=== PATIENT | female | born 1980 | race Caucasian/White ===

== ENCOUNTER 2019-09-04 05:36 | Outpatient (RCR) | payer OTHER, SELFPAY | END 2019-09-15 00:01 | LOC: ONCMED 05:36 | PROVIDERS: Family Provider Nurse Practitioner Family; Visit Provider Internal Medicine Medical Oncology | DX: C50.812 Malignant neoplasm of overlapping sites of left female breast (principal); Z17.1 Estrogen receptor negative status [ER-] ==

== ENCOUNTER 2019-09-18 05:51 | Outpatient (RCR) | payer OTHER, SELFPAY ==
[2019-09-18] MEDS: ketorolac 30 mg/mL INJ IVP (10:51)
[2019-09-18] MEDS: sodium chloride 0.9% 1,000 ML 1000 ML IV (11:25)
[2019-09-18 14:21] LABS: Glucose Urine UA Trace (Normal); Protein Urine 2+ (Negative); Specific Gravity, Urine 1.005 (1.005-1.030); Urine Appearance Cloudy (CLEAR); Urine Color Red (Yellow); pH Urine 7 (5-7)
[2019-09-18 14:22] LABS: Bilirubin Urine Neg (NEGATIVE); Blood Urine 3+ (Negative); Ketones Urine Negative (Negative); Leukocyte Esterase Urine Negative (Negative); Nitrate Urine Negative (Negative); Urobilinogen Urine Norm (Negative)
[2019-09-18 14:28] LABS: Add Urine Microscopic? YES
[2019-09-18 14:32] LABS: RBC Urine >100 /hpf (0-2)
[2019-09-18 14:33] LABS: Add Urine Culture? Yes; Bacteria Urine 1+; Mucus Urine TRACE
== END 2019-09-18 23:59 | disposition home or self-care (01) ==
LOC: ONCMED 05:51
PROVIDERS: Nurse Practitioner; Family Provider Nurse Practitioner Family; Visit Provider Internal Medicine Medical Oncology
DX: E86.9 Volume depletion, unspecified (principal); R11.0 Nausea; R52 Pain, unspecified; R31.9 Hematuria, unspecified
CPT/HCPCS: 81003; 87086; 96361; 96365; 96367; 96375; J1885; J2405; J3490; J7030

== ENCOUNTER 2019-09-18 14:27 | Inpatient (IN) | payer OTHER, SELFPAY ==
[2019-09-18] VITALS (7 sets, daily range): BP systolic 136–173; BP diastolic 86–101; PULSE 100–120; RESP 16–20; TEMP 36.7; O2SAT 93–100; BMI 33.3
--- NOTE | 2019-09-18 15:13 | ED_ITS ---
Entered by Hellen Abrams, acting as scribe for Sep 18, 2019 14:27 HPI - Abdominal Pain General: Chief Complaint: Abdominal Pain Stated Complaint: BACK PAIN, URINATING BLOOD Time Seen by Provider: 09/18/19 15:13 Source: patient Mode of arrival: ambulatory Limitations: no limitations History of Present Illness: HPI narrative: 38 yo Female presents to ED with complaint of abdominal pain and blood in her urine. Pt has cancer and received her last chemo treatment a few days ago. Pt states that she has been having left side abdominal pain. Pt states that last night she started urinating lots of blood and having increased pain. Pt states she has also been having right side back pain. Pt states that she has had a lithotripsy done before. Pt states she was also vomiting green bile last night. MD elicited complaint: abdominal pain Pertinent past history: kidney stones Onset (ago): day(s) (last night) Pain Consistency: constant Location: LLQ Severity: severe Radiation: back Exacerbating factors: nothing Relieving factors: nothing Context: other (Recent chemo treatment) Associated Symptoms: Reports hematuria, nausea and vomiting Review of Systems General: Reports: 10 or more systems reviewed and unremarkable except in HPI and below GI: Reports: abdominal pain, nausea and vomiting : Reports: blood in urine Musc: Reports: back pain PFSH ED PFSH: Statuses (acute, chronic, etc) shown below reflect problem list status as previously entered and may not be historically accurate Medical History (Updated 09/18/19 @ 19:57 by Carlitos Krause MD, [facility]) Asthma (Acute) Cancer (Acute) Cholecystectomy planned (Acute) Cholelithiasis (Acute) Ductal carcinoma of left breast (Acute) Eczema (Acute) GERD (gastroesophageal reflux disease) (Acute) Hypertension (Acute) Hypothyroidism (Acute) Migraine (Acute) Normal colonoscopy (Acute) Overactive bladder (Acute) Post hysterectomy menopause (Acute) Tonsillectomy planned (Acute) Urolithiasis (Acute) Surgical History (Updated 09/18/19 @ 19:23 by Merritt Hodgson MD) H/O lithotripsy (Acute) H/O oophorectomy (Acute) History of cholecystectomy (Acute) History of hysterectomy (Acute) Family History (Updated 09/18/19 @ 19:25 by Merritt Hodgson MD) Unknown Lung disease Maternal grandmother had lung cancer, she has 3 sisters no history of breast cancer Crohn's disease Crohn disease in mother Other Hyperlipidemia Hypothyroidism Social History (Updated 09/18/19 @ 19:25 by Merritt Hodgson MD) Smoking and tobacco status: never smoked Alcohol intake: never Substance/Drug Use: never Marital status: Physical Exam Const: COMMON NORMALS: no apparent distress, average body habitus, oriented x3, no limitations, healthy appearing, alert and well nourished HENMT: COMMON NORMALS: normocephalic, head/scalp atraumatic, hearing grossly normal bilaterally, external ears normal, EAC's normal, TM's normal bilaterally, external nose normal, nasal mucous membranes and turbinates normal, moist oral mucous membranes, oropharynx normal, dentition normal and gingiva normal HEAD & SCALP: normocephalic and atraumatic NOSE: external nose normal and nasal m ucous membranes and turbinates normal EXTERNAL EAR: Yes external ears normal EXTERNAL AUDITORY CANAL: EAC's normal TYMPANIC MEMBRANE: TM's normal bilaterally Eye: COMMON NORMALS: PERRL, EOMs intact bilaterally, conjunctivae normal, no scleral icterus, no papilledema, normal visual brandt by confrontation and fundi normal bilaterally CONJUNCTIVA: Yes conjunctivae normal PUPIL: Yes PERRL DIRECT OPHTHALMOSCOPY: Yes no papilledema and Yes fundi normal bilaterally Neck/C-Spine: COMMON NORMALS: full ROM, no lymphadenopathy, supple, no meningeal signs, no JVD, thyroid normal and no carotid bruits THYROID: thyroid normal Chest: COMMONS NORMALS: inspection of chest normal and palpation of chest normal Resp: COMMON NORMALS: normal respiratory effort, no retractions, no use of accessory muscles, clear to auscultation bilaterally and percussion normal AUSCULTATION: clear to auscultation bilaterally PERCUSSION: percussion normal Cardio: COMMON NORMALS: no JVD, regular rate, regular rhythm, S1 normal heart sound, S2 normal heart sound, no gallops, no clicks, no murmurs, no rub and peripheral pulses 2+ throughout RATE: regular rate RHYTHM: regular rhythm HEART SOUNDS: S1 normal and S2 normal PERIPHERAL PULSES: pulses 2+ throughout GI: COMMON NORMALS: normal to inspection, nondistended, normoactive bowel sounds, soft to palpation, non-tender, no hepatosplenomegaly, no masses and no bruits PALPATION: Yes soft and Yes no hepatosplenomegaly : BLADDER/KIDNEY EXAM: Yes CVA tenderness bilateral Back/Pelvis: GENERAL BACK: Yes CVA tenderness Extremity: COMMON NORMALS: normal to inspection, full ROM, normal capillary refill, no joint enlargement, no clubbing, cyanosis or edema, no calf tenderness and no pedal edema Neuro: COMMON NORMALS: oriented x3 SENSORIUM/ORIENTATION: Yes alert MENINGEAL SIGNS: Yes no meningeal signs Skin: COMMON NORMALS: no rashes or lesions noted, no wounds, skin turgor normal, no jaundice, no petechiae and no mottling GENERAL SKIN EXAM: no rashes or lesions noted and turgor normal Course Reevaluation(s): Time: 18:24 Reevaluation #2: Discussed her lab and imaging findings with her. White cell count is elevated, potassium low. UA suggestive of UTI. CT scan shows some inflammatory changes around the right kidney. All these findings are consistent with a pyelonephritis and she is advised to be admitted for IV antibiotics and further management. She voiced understanding and is in agreement with the plan. Vital Signs: Vital signs: Vital Signs Temperature 98.1 F 09/18/19 14:50 Pulse Rate 100 09/18/19 17:44 Respiratory Rate 19 H 09/18/19 17:44 Blood Pressure 173/101 09/18/19 17:44 Pulse Oximetry 100 09/18/19 17:44 MDM - Abdominal Pain MDM Narrative: Medical decision making narrative: Patient with clinical features of an acute pyelonephritis. She has an elevated white cell count, hematuria, UA suggestive of UTI. CT scan findings suggestive of inflammatory changes around the kidney. She is being admitted for IV antibiotics and further management. Patient has a history of breast cancer on chemotherapy. Differential Diagnosis: Differential diagnosis abdominal pain: Likely abdominal pain, acute appendicitis and calculus of kidney Lab Data: Labs: Lab Results 09/18/19 09/18/19 09/18/19 Range/Units 15:19 15:19 15:49 WBC 13.7 H (4.0-10.0) 10^3/ uL RBC 3.09 L (4.1-5.3) 10^6/u L Hgb 10.2 L (11.5-15.3) g/dL Hct 30.5 L (37.0-47.0) % MCV 98.7 (81-99) fL MCH 33.0 (28.0-34.0) pg MCHC 33.4 (30.0-36.0) g/dL RDW 13.9 (12.1-15.1) % Plt Count 265 (130-400) 10^3/c mm MPV 9.7 (7.4-10.4) fL Neut % (Auto) 61.3 % Lymph % (Auto) 9.9 % Pepin % (Auto) 1.2 % Eos % (Auto) 0.1 % Baso % (Auto) 0.3 % Neut # (Auto) 8.4 H (1.8-7.7) 10^3/u L Lymph # (Auto) 1.4 (0.8-4.8) 10^3/u L Pepin # (Auto) 0.2 (0.2-0.9) 10^3/u L Eos # (Auto) 0.0 (0.0-0.8) 10^3/u L Baso # (Auto) 0.0 (0.0-0.1) 10^3/u L Nucleated RBC % (a uto) 0 % Total Counted 100 (0-100) Absolute Neutrophi ls 12.7 H (1.4-6.5) 10^3/c mm Segmented Neutroph ils 83 % Band Neutrophils 10.0 % Absolute Lymphocyt es 0.8 L (1.2-3.4) 10^3/c mm Lymphocytes (Manua l) 6 % Metamyelocytes 1.0 % Nucleated RBCs 1.0 (0-1) /100WBC Nucleated RBCs # 0.0 /100WBC Smudge Cells Trace Platelet Estimate Normal (Normal) Giant Platelets Trace Poikilocytosis 1+ H Anisocytosis Trace Ovalocytes Trace Sodium (136-145) mmol/L Potassium (3.5-5.1) mmol/L Chloride (98-107) mmol/L Carbon Dioxide (22-29) mmol/L Anion Gap (5-19) BUN (6-20) mg/dL Creatinine (0.5-0.9) mg/dL GFR Calculation (90-130) mL/min Glucose (74-109) mg/dL Calcium (8.6-10.0) mg/Dl Total Bilirubin (0.15-1.2) mg/dL AST (0-32) U/L ALT (0-33) U/L Alkaline Phosphata se (35-105) IU/L Total Protein (6.6-8.7) g/dL Albumin (3.5-5.2) g/dL Globulin (1.3-4.6) g/dL Urine Color Cancelled Red Urine Appearance Cancelled Bloody A Urine pH Cancelled 7 Ur Specific Gravit y Cancelled 1.005 Urine Protein Cancelled 3+ H Urine Glucose (UA) Cancelled 1+ Urine Ketones Cancelled Negative Urine Occult Blood Cancelled 3+ H Urine Nitrate Cancelled Negative Urine Bilirubin Cancelled Neg Prot Sulfosalicyli c Acd Cancelled Urine Urobilinogen Cancelled Norm Ur Leukocyte Corie ase Cancelled 1+ H Urine RBC >100 H (0-2) /hpf Urine WBC 10-15 H (0-5) /hpf Ur Squamous Epith Cells 5-10 H (0-5) Urine Bacteria 1+ H (NONE) Urine Mucus Trace 09/18/19 Range/Units 15:49 WBC (4.0-10.0) 10^3/ uL RBC (4.1-5.3) 10^6/u L Hgb (11.5-15.3) g/dL Hct (37.0-47.0) % MCV (81-99) fL MCH (28.0-34.0) pg MCHC (30.0-36.0) g/dL RDW (12.1-15.1) % Plt Count (130-400) 10^3/c mm MPV (7.4-10.4) fL Neut % (Auto) % Lymph % (Auto) % Pepin % (Auto) % Eos % (Auto) % Baso % (Auto) % Neut # (Auto) (1.8-7.7) 10^3/u L Lymph # (Auto) (0.8-4.8) 10^3/u L Pepin # (Auto) (0.2-0.9) 10^3/u L Eos # (Auto) (0.0-0.8) 10^3/u L Baso # (Auto) (0.0-0.1) 10^3/u L Nucleated RBC % (a uto) % Total Counted (0-100) Absolute Neutrophi ls (1.4-6.5) 10^3/c mm Segmented Neutroph ils % Band Neutrophils % Absolute Lymphocyt es (1.2-3.4) 10^3/c mm Lymphocytes (Manua l) % Metamyelocytes % Nucleated RBCs (0-1) /100WBC Nucleated RBCs # /100WBC Smudge Cells Platelet Estimate (Normal) Giant Platelets Poikilocytosis Anisocytosis Ovalocytes Sodium 138 (136-145) mmol/L Potassium 2.9 L (3.5-5.1) mmol/L Chloride 99 (98-107) mmol/L Carbon Dioxide 26 (22-29) mmol/L Anion Gap 15.9 (5-19) BUN 20 (6-20) mg/dL Creatinine 1.1 H (0.5-0.9) mg/dL GFR Calculation 55.0 L (90-130) mL/min Glucose 125 H (74-109) mg/dL Calcium 9.0 (8.6-10.0) mg/Dl Total Bilirubin 0.6 (0.15-1.2) mg/dL AST 36 H (0-32) U/L ALT 39 H (0-33) U/L Alkaline Phosphata se 115 H (35-105) IU/L Total Protein 6.8 (6.6-8.7) g/dL Albumin 4.0 (3.5-5.2) g/dL Globulin 2.8 (1.3-4.6) g/dL Urine Color Urine Appearance Urine pH Ur Specific Gravit y Urine Protein Urine Glucose (UA) Urine Ketones Urine Occult Blood Urine Nitrate Urine Bilirubin Prot Sulfosalicyli c Acd Urine Urobilinogen Ur Leukocyte Corie ase Urine RBC (0-2) /hpf Urine WBC (0-5) /hpf Ur Squamous Epith Cells (0-5) Urine Bacteria (NONE) Urine Mucus Imaging Data ^: CT Abd/Pel: Radiologist's impression: [address] [address] [address] Scan Report Signed Patient: Mya Harrell JMR#: [id number] : 1980Acct:[id number] Age/Sex: 38 / FADM Date: 09/18/19 Loc: ER Attending Dr: Ordering Physician: Carlitos Krause MD, [facility] Date of Service: 09/18/19 Procedure(s): CT kidney stone [id number] Accession Number(s): [id number] Report Number: [id number] WS: [id number] CT ABDOMEN AND PELVIS NONCONTRAST HISTORY: Hematuria, flank pain TECHNIQUE: Imaging performed through the abdomen and pelvis. Coronal and sagittal reformats are submitted. All CT scans at [facility] use at least one of these dose optimization techniques: automated exposure control; mA and/or kV adjustment per patient size (includes targeted exams where dose is matched to clinical indication); or iterative reconstruction. DLP: 1973.72 mGy.cm COMPARISON: 11/30/2008 Lower thorax: Lung bases are clear. No hiatal hernia. Increased pericardial fat. Liver: Mild enlargement the liver and hepatic steatosis. Gallbladder: Prior cholecystectomy. Pancreas: Normal. Spleen: Normal. Adrenal glands: Normal. Right kidney: Normal size kidney. Mild dilatation of the RIGHT renal pelvis. Nonobstructing 2 mm calcifications in the renal pelvis. Very mild perinephric stranding around the lower pole and periureteral stranding proximally. No obstructing calcification is identified. Left kidney: Normal size with no stones, mass or atrophy. A few scattered calcified plaques in aorta. No aneurysm. No free fluid, intraperitoneal air or significant lymphadenopathy. GI tract: The appendix is not definitely identified. No evidence for appendicitis. No GI tract obstruction. Abdominal wall: Small fat-containing umbilical hernia. Pelvis: No free fluid in the pelvis. Urinary bladder is not distended. Osseous structures: Unremarkable. CT/CT kidney stone [id number] IMPRESSION: 1. Mild perinephric stranding around the lower pole of the RIGHT kidney and the proximal RIGHT ureter. No obstructing calcification is identified in the ureter. The mild inflammation may be secondary to pyelonephritis or recently passed stone. 2. The appendix is not visualized. 3. Prior cholecystectomy. Dictated By:Cheli Juarez DO Signed By:Cheli Juarez DOSigned Date/Time:09/18/19 7062 Discharge Plan Discharge Patient Disposition: Admitted As Inpatient Clinical Impression: Pyelonephritis, Ductal carcinoma of left breast, Hypokalemia Condition: Stable Prescriptions: No Action Pending RF: 0 Referrals: White,Noreen, HEAD BAKER [Family Provider] - Coding Level of Care Code ED Sprinkling Truck Driver for Chg Fwd Exam Problem Focused The documentation recorded by the Jose Alberto horowitz Carmen, accurately reflects the service I personally performed and the decisions made by me, Carlitos Krause MD, [facility] Sep 18, 2019 14:27
--- NOTE | 2019-09-18 15:35 | PC.NURSE ---
Port on the right chest accessed at this time with 19 gauge 3/4 noncoring needle. Blood drawn from site at this time, initial blood discarded, site flushed with 20mL of saline following draw. Pt tolerated well.
--- NOTE | 2019-09-18 15:53 | CT_ITS ---
WS: [id number] CT ABDOMEN AND PELVIS NONCONTRAST HISTORY: Hematuria, flank pain TECHNIQUE: Imaging performed through the abdomen and pelvis. Coronal and sagittal reformats are submi tted. All CT scans at [facility] use at least one of these dose optimization techniques: automated exposure control; mA and/or kV adjustment per patient size (includes targeted exams where d ose is matched to clinical indication); or iterative reconstruction. DLP: 1973.72 mGy.cm COMPARISON: 11/30/2008 Lower thorax: Lung bases are clear. No hiatal hernia. Increased pericardial fat. Liver: Mild enlargement the liver and hepatic steatosis. Gallbladder: Prior cholecystectomy. Pancreas: Normal. Spleen: Normal. Adrenal glands: Normal. Right kidney: Normal size kidney. Mild dilatation of the RIGHT renal pelvis. Nonobstructing 2 mm calc ifications in the renal pelvis. Very mild perinephric stranding around the lower pole and periuretera l stranding proximally. No obstructing calcification is identified. Left kidney: Normal size with no stones, mass or atrophy. A few scattered calcified plaques in aorta. No aneurysm. No free fluid, intraperitoneal air or significant lymphadenopathy. GI tract: The appendix is not definitely identified. No evidence for appendicitis. No GI tract obstru ction. Abdominal wall: Small fat-containing umbilical hernia. Pelvis: No free fluid in the pelvis. Urinary bladder is not distended. Osseous structures: Unremarkable. CT/CT kidney stone [id number] IMPRESSION: 1. Mild perinephric stranding around the lower pole of the RIGHT kidney and th e proximal RIGHT ureter. No obstructing calcification is identified in the uret er. The mild inflammation may be secondary to pyelonephritis or recently passed stone. 2. The appendix is not visualized. 3. Prior cholecystectomy.
[2019-09-18 16:07] LABS: Basophils % 0.3 %; Eosinophils % 0.1 %; Hematocrit 30.5 % (37.0-47.0); Hemoglobin 10.2 g/dL (11.5-15.3); Lymphocytes # 1.4 10^3/uL (0.8-4.8); Lymphocytes % 9.9 %; Mean Corpuscular HGB Conc 33.4 g/dL (30.0-36.0); Mean Corpuscular Volume 98.7 fL (81-99); Mean Platelet Volume 9.7 fL (7.4-10.4); Monocytes # 0.2 10^3/uL (0.2-0.9); Monocytes % 1.2 %; Neutrophils # 8.4 10^3/uL (1.8-7.7); Neutrophils % 61.3 %; Nucleated Red Blood Cells % 0 %; Platelet Count 265 10^3/cmm (130-400); Red Blood Count 3.09 10^6/uL (4.1-5.3); Red Cell Distribution Width 13.9 % (12.1-15.1); White Blood Count 13.7 10^3/uL (4.0-10.0)
[2019-09-18 16:20] LABS: Alanine Aminotransferase 39 U/L (0-33); Alkaline Phosphatase 115 IU/L (35-105); Anion Gap 15.9 (5-19); Aspartate Amino Transferase 36 U/L (0-32); Blood Urea Nitrogen 20 mg/dL (6-20); Carbon Dioxide 26 mmol/L (22-29); Chloride 99 mmol/L (98-107); Globulin 2.8 g/dL (1.3-4.6); Glucose 125 mg/dL (74-109); Potassium 2.9 mmol/L (3.5-5.1); Sodium 138 mmol/L (136-145); Total Bilirubin 0.6 mg/dL (0.15-1.2); Total Protein 6.8 g/dL (6.6-8.7)
[2019-09-18 16:31] LABS: Bilirubin Urine Neg (NEGATIVE); Blood Urine 3+ (Negative); Glucose Urine UA 1+ (Normal); Ketones Urine Negative (Negative); Leukocyte Esterase Urine 1+ (Negative); Nitrate Urine Negative (Negative); Protein Urine 3+ (Negative); Specific Gravity, Urine 1.005 (1.005-1.030); Urine Appearance Bloody (CLEAR); Urine Color Red (Yellow); Urobilinogen Urine Norm (Negative); pH Urine 7 (5-7)
[2019-09-18 16:34] LABS: Bacteria Urine 1+; Mucus Urine TRACE; RBC Urine >100 /hpf (0-2)
[2019-09-18 16:35] LABS: Add Urine Culture? Yes
[2019-09-18] MEDS: morphine 4 mg/mL SDV 1 mL IVP (16:40)
[2019-09-18] MEDS: sodium chloride 0.9% 1,000 ML 999 ML IV (16:42)
[2019-09-18] MEDS: ondansetron 2 mg/ML SDV 2 mL 4 MG IVP (16:42)
[2019-09-18 16:44] LABS: Slide Review Slide Review Perform
[2019-09-18 16:45] LABS: Absolute Segmented Neutrophil 11.3 10/cmm (1.6-7.1); Band Neutrophils Absolute 1.4 10^3/cmm (0.0-1.2); Lymphocytes 6 %; Poikilocytosis 1+; Segmented Neutrophils 83 %; Total Cells Counted 100 (0-100)
[2019-09-18 16:46] LABS: Anisocytosis Trace; Giant Platelets Trace; Ovalocytes Trace; Platelet Estimate Normal (Normal); Smudge Cells Trace
[2019-09-18 16:50] LABS: Absolute Neutrophil 12.7 10^3/cmm (1.4-6.5); Lymphocytes Absolute 0.8 10^3/cmm (1.2-3.4)
--- NOTE | 2019-09-18 17:47 | PC.NURSE ---
Pain reduced to a 4/10 at this time. Patient continues to have c/o nausea.
[2019-09-18] MEDS: promethazine 25 mg/mL SDV 1 mL IM (18:49)
[2019-09-18] MEDS: ciprofloxacin 400 MG/200 ML PREMIX 200 MG IV (18:49)
--- NOTE | 2019-09-18 19:20 | P.HP_ITS ---
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 Patient is stating that she has completed 2 cycles of chemotherapy and is due for left breast surgery in [place] in last week of September 2019. She started having excruciating abdominal pain yesterday, it was achy in nature, mostly located at her left flank area radiating towards her groin, associated with mariaelena hematuria. She has not noticed any fever but she has been experiencing chills, recurrent episodes of emesis, bilious in nature, 2 episodes of liquid stools. He has not been able to keep anything down, she has had more than 20 bilious emesis episodes in 24 hours. Previously she had hematuria that was due to nephrolithiasis and she had seen Dr. Huddleston. Diagnostics in ER show hypertension systolic 170, patient is afebrile, leukocytosis, tachycardic, She was given ciprofloxacin by ER I am starting her on Zosyn with lactated Ringer fluid maintenance CT abdomen is showing pyelonephritis without obstructive nephrolithiasis, Review of Systems Narrative: Obese female Mild distress No chest pain, No shortness of breath No cough, sore throat, runny nose, runny eyes Abdominal positive, cramps, positive, groin pain, hematuria positive Diarrhea positive, Malaise positive, No skin rash or ulcers Hair loss positive Dehydration, Lethargy positive Medications/Allergies Home Medications Medication Instructions Recorded Confirmed Last Taken Type Pending 09/18/19 Unknown History Allergies Allergy/AdvReac Type Severity Reaction Status Date / Time amlodipine Allergy ADR/ALGY-Fl Verified 09/18/19 15:01 ushing prochlorperazine Allergy ALGY-Hives Verified 09/18/19 15:01 [From Compazine] Sulfa (Sulfonamide Allergy ALGY-Bliste Verified 09/18/19 15:01 Antibiotics) r PFSH Acute PFSH: Statuses (acute, chronic, etc) shown below reflect problem list status as previously entered and may not be historically accurate Medical History (Updated 09/18/19 @ 19:57 [place] [facility] [place] Asthma (Acute) Cancer (Acute) Cholecystectomy planned (Acute) Cholelithiasis (Acute) Ductal carcinoma of left breast (Acute) Eczema (Acute) GERD (gastroesophageal reflux disease) (Acute) Hypertension (Acute) Hypothyroidism (Acute) Migraine (Acute) Normal colonoscopy (Acute) Overactive bladder (Acute) Post hysterectomy menopause (Acute) Tonsillectomy planned (Acute) Urolithiasis (Acute) Surgical History (Updated 09/18/19 @ 19:23 by Merritt Hodgson MD) H/O lithotripsy (Acute) H/O oophorectomy (Acute) History of cholecystectomy (Acute) History of hysterectomy (Acute) Family History (Updated 09/18/19 @ 19:25 by Merritt Hodgson MD) Unknown Lung disease Maternal grandmother had lung cancer, she has 3 sisters no history of breast cancer Crohn's disease Crohn disease in mother Other Hyperlipidemia Hypothyroidism Social History (Updated 09/18/19 @ 19:25 by Merritt Hodgson MD) Smoking and tobacco status: never smoked Alcohol intake: never Substance/Drug Use: never Marital status: Vitals/I&O/Wt Last Vital Signs Temp 98.1 F 09/18/19 14:50 Pulse 100 09/18/19 17:44 Resp 19 H 09/18/19 17:44 BP 173/101 09/18/19 17:44 Pulse Ox 100 09/18/19 17:44 09/18/19 09/18/19 09/18/19 06:59 14:59 22:59 Intake Total 1000 / 1000 Balance 1000 / 1000 Weight last 48 hrs Weight 87.997 kg Physical Exam Narrative: EXAM NARRATIVE: Patient seems to be in distress laying flat with vomiting bucket containing bilious content, Sinus tachycardia 105, afebrile, systolic blood pressure 180 , S1-S2 sinus tachycardia no murmur appreciated, She has a Mediport on right side Abdomen soft but tender on deep palpation, left CVA tenderness positive, bowel sounds sluggish, hepatomegaly, Lungs are clear to auscultation without adventitious sounds, Neurologically nonfocal exam patient is just very weak otherwise no focal deficit Paresthesia positive, Positive hair loss Loss of eyebrows Patient is extreme lethargic Mariaelena hematuria Sepsis: Is patient septic: Yes Focused sepsis exam performed: Yes Focused sepsis exam: Sinus tachycardia, leukocytosis positive, skin is not mottled, capillary refill adequate less than 2 seconds, Date exam was performed: 09/18/19 Time exam was performed: 20:43 A&P Assessment and plan (1) Hematuria: Status: Acute Code(s): R31.9 - Hematuria, unspecified (2) Pyelonephritis: Status: Acute Code(s): N12 - Tubulo-interstitial nephritis, not specified as acute or chronic (3) Acute kidney injury: Status: Acute Code(s): N17.9 - Acute kidney failure, unspecified (4) Hypokalemia: Status: Acute Code(s): E87.6 - Hypokalemia (5) Hepatic steatosis: Status: Acute Code(s): K76.0 - Fatty (change of) liver, not elsewhere classified (6) Nephrolithiasis: Status: Acute Code(s): N20.0 - Calculus of kidney Additional A&P Information Additional A&P Information: Sepsis due to pyelonephritis Sepsis criteria met with leukocytosis, tachycardia Patient experienced abdominal pain, CVA tenderness, mariaelena hematuria, recurrent episodes of bilious emesis 2 mm nonobstructing calculi, no signs of hydronephrosis, Patient has finished 6 cycles of chemotherapy I will treat her with Zosyn for now for pyelonephritis She has received 1 dose of ciprofloxacin in ED 30 cc/kg fluids Currently hemodynamically she is stable, blood pressure 170 systolic patient is afebrile, I would order lactic acid Antiemetic Acute kidney injury secondary to dehydration, baseline creatinine is 1 Anticipating improvement with fluid resuscitation Mariaelena hematuria My differentials would include hemorrhagic cystitis, nephrolithiasis, co mplicated pyonephritis, papillary necrosis due to opioids Patient tries to avoid taking Tylenol and NSAIDs, she takes dexamethasone only during chemotherapy Monitor H&H for now, if hematuria has not resolved by morning, please reevaluate for urology consult for cystoscopy She has hypertension, proteinuria with hematuria with abnormal creatinine, with cancer history I would keep nephritic syndrome in the differential as well She will benefit from a urology and nephrology consult in outpatient settings Suboptimally controlled hypertension Patient is stating that with chemotherapy her blood pressure spikes very high She has not taken her medications for last 24 hours We will use hydralazine for as needed basis otherwise continue oral regimen for now Hypothyroidism: I would continue her levothyroxine 112 mcg for now Abnormal transaminases I believe this is secondary to her chemotherapy agents and sepsis Patient has history of cholecystectomy, CT abdomen did not show any gross abnormality of the pancreas or biliary tract She is nonalcoholic Grade 3 ductal carcinoma of left breast: Status post 6 cycles of chemotherapy due for surgery in September last week at [facility] GERD: I would continue her omeprazole DVT prophylaxis: Not indicated I would use SCDs because of mariaelena hematuria Attestations Medical Necessity Statement*: Mariaelena hematuria with sepsis and pyonephritis she will need more than 2 midnights in the hospital will admit as inpatient currently she is experiencing multiple episodes of nausea and vomiting, Requiring IV medications Time Spent in Patient Care: Greater than 35 minutes (>than 50% of time sp ent in counselling and/or direct pt care on unit) . 60 Coding Level of Care Code Acute Giving Officer for Chg Fwd Diagnoses Hematuria R31.9 Pyelonephritis N12 Acute kidney injury N17.9 Hypokalemia E87.6 Hepatic steatosis K76.0 Nephrolithiasis N20.0
[2019-09-18 20:26] LABS: Hematocrit 31.6 % (37.0-47.0); Hemoglobin 10.2 g/dL (11.5-15.3)
[2019-09-18] MEDS: potassium chloride premix 40 MEQ/100 ML PREMIX 25 MEQ IV (23:19)
[2019-09-19] VITALS: BP 145/90; PULSE 110; RESP 18; TEMP 37.1; O2SAT 96
[2019-09-19] MEDS: lactated ringers 1,000 ML 50 ML IV ×2 (00:21→19:27)
[2019-09-19 00:22] LABS: Lactic Acid 1.3 mmol/L (0.5-2.2)
[2019-09-19 02:07] LABS: Basophils % 0.2 %; Eosinophils # 0.1 10^3/uL (0.0-0.8); Eosinophils % 0.6 %; Hematocrit 27.6 % (37.0-47.0); Hemoglobin 9.2 g/dL (11.5-15.3); Lymphocytes # 1.3 10^3/uL (0.8-4.8); Lymphocytes % 15.5 %; Mean Corpuscular HGB Conc 33.3 g/dL (30.0-36.0); Mean Corpuscular Hemoglobin 34.6 pg (28.0-34.0); Mean Corpuscular Volume 103.8 fL (81-99); Mean Platelet Volume 9.4 fL (7.4-10.4); Monocytes # 0.2 10^3/uL (0.2-0.9); Monocytes % 1.9 %; Neutrophils # 6.8 10^3/uL (1.8-7.7); Neutrophils % 79.4 %; Nucleated Red Blood Cells % 0 %; Platelet Count 229 10^3/cmm (130-400); Red Blood Count 2.66 10^6/uL (4.1-5.3); Red Cell Distribution Width 14.1 % (12.1-15.1); White Blood Count 8.5 10^3/uL (4.0-10.0)
[2019-09-19 02:25] LABS: Anion Gap 13.7 (5-19); Blood Urea Nitrogen 16 mg/dL (6-20); Calcium 8.8 mg/Dl (8.6-10.0); Carbon Dioxide 27 mmol/L (22-29); Chloride 101 mmol/L (98-107); Glomerular Filtration Rate 61.4 mL/min (90-130); Glucose 122 mg/dL (74-109); Potassium 3.7 mmol/L (3.5-5.1); Sodium 138 mmol/L (136-145)
[2019-09-19] MEDS: piperacillin-tazobactam 3.375 GM in sodium chloride 0.9% (plus) 50 ML IV ×3 (02:37→17:30)
[2019-09-19 02:58] LABS: Slide Review Slide Review Perform
[2019-09-19 04:00] VITALS: BP 142/86; PULSE 99; RESP 18; TEMP 37.2; O2SAT 95
[2019-09-19 07:59] VITALS: BP 136/89; PULSE 117; RESP 18; O2SAT 95
[2019-09-19 07:59] LABS: Hematocrit 27.3 % (37.0-47.0); Hemoglobin 8.9 g/dL (11.5-15.3)
[2019-09-19] MEDS: metoprolol tartrate 50 mg Tablet PO ×2 (09:04→17:30)
[2019-09-19] MEDS: pantoprazole DR 40 mg Tablet 20 MG PO (09:06)
[2019-09-19] MEDS: losartan 50 mg Tablet PO (09:06)
[2019-09-19] MEDS: levothyroxine 112 mcg Tablet PO (09:06)
[2019-09-19] MEDS: HYDROcodone-acetaminophen 5-325 mg Tablet 1 TAB PO ×3 (10:56→19:30)
[2019-09-19 11:26] VITALS: BP 129/84; PULSE 94; RESP 18; TEMP 37.6; O2SAT 94
[2019-09-19 14:24] LABS: Hematocrit 26.5 % (37.0-47.0); Hemoglobin 8.6 g/dL (11.5-15.3)
[2019-09-19 15:40] VITALS: BP 128/85; PULSE 96; RESP 18; TEMP 36.8; O2SAT 98
--- NOTE | 2019-09-19 18:39 | PM.PN ---
Subjective Subjective: Interval history: overnight H&P and labs reviewed. nausea and pain significantly improved. urine continues to be high colored, tea to maroon colored with few strings of blood. able to eat Medications: Reviewed: Yes Vitals/I&O/Wt Last Vital Signs Temp 98.3 F 09/19/19 15:40 Pulse 96 09/19/19 15:40 Resp 18 09/19/19 15:40 BP 128/85 09/19/19 15:40 Pulse Ox 98 09/19/19 15:40 09/19/19 09/19/19 09/19/19 06:59 14:59 22:59 Intake Total 164.167 / 1164.167 290 / 290 Output Total 550 / 550 600 / 1150 Balance 164.167 / 1164.167 -260 / -260 -600 / -860 Weight last 48 hrs Weight 87.997 kg Physical Exam Narrative: EXAM NARRATIVE: GEN: awake, alert and orinted x 3, NAD CVS: S1Ss2N RS : CTA B/L BACK: TTP R CVA and R flank Ext: no edema, cyanosis A&P Assessment and plan (1) Nephrolithiasis: CT with perinephric stranding and mild calyceal dilattaion most likely related to pyelonephritis vs passed stone. NO obstructing calculi Status: Acute Code(s): N20.0 - Calculus of kidney (2) Hepatic steatosis: Status: Acute Code(s): K76.0 - Fatty (change of) liver, not elsewhere classified (3) Hypokalemia: Status: Acute Code(s): E87.6 - Hypokalemia (4) Acute kidney injury: Status: Acute Code(s): N17.9 - Acute kidney failure, unspecified (5) Pyelonephritis: Status: Acute Code(s): N12 - Tubulo-interstitial nephritis, not specified as acute or chronic (6) Hematuria: Status: Acute Code(s): R31.9 - Hematuria, unspecified (7) Ductal carcinoma of left breast: Status: Acute Code(s): C50.912 - Malignant neoplasm of unspecified site of left female breast Additional A&P Information Additional A&P Information: Sepsis due to pyelonephritis Sepsis criteria met with leukocytosis, tachycardia Patient experienced abdominal pain, CVA tenderness, mariaelena hematuria, recurrent episodes of bilious emesis 2 mm nonobstructing calculi, no signs of hydronephrosis, Continue Zosyn for now for pyelonephritis Mariaelena hematuria My differentials would include hemorrhagic cystitis, nephrolithiasis, complicated pyonephritis, papillary necrosis due to opioids IF persisting hematuria, more clots, worsening symptoms, will rpt CT and obtain urology consult. HTN: We will use hydralazine for as needed basis otherwise continue oral regimen for now Hypothyroidism: I would continue her levothyroxine 112 mcg for now Grade 3 ductal carcinoma of left breast: Status post 6 cycles of chemotherapy due for surgery in September last week at [facility]. Last chemo on (today is Saturday), also received neulasta. GERD: I would continue her omeprazole DVT prophylaxis: Not indicated I would use SCDs because of mariaelena hematuria Attestations Medical Necessity Statement*: pyelonephritis, ongoing hemtauria Coding Level of Care Code Acute Chief Juvenile Probation Officer for Chg Fwd Diagnoses Nephrolithiasis N20.0 Hepatic steatosis K76.0 Hypokalemia E87.6 Acute kidney injury N17.9 Pyelonephritis N12 Hematuria R31.9 Ductal carcinoma of left breast C50.912
[2019-09-19 20:00] VITALS: BP 110/64; PULSE 91; RESP 17; TEMP 37; O2SAT 97
[2019-09-19] MEDS: ondansetron 2 mg/ML SDV 2 mL 4 MG IVP (21:45)
[2019-09-20] VITALS: BP 115/70; PULSE 80; RESP 18; TEMP 36.9; O2SAT 98
[2019-09-20] MEDS: piperacillin-tazobactam 3.375 GM in sodium chloride 0.9% (plus) 50 ML IV ×2 (02:44→10:50)
[2019-09-20 04:00] VITALS: BP 118/74; PULSE 83; RESP 17; TEMP 37; O2SAT 94
[2019-09-20] MEDS: ondansetron 2 mg/ML SDV 2 mL 4 MG IVP ×2 (06:05→17:57)
[2019-09-20 06:47] LABS: Basophils # 0.1 10^3/uL (0.0-0.1); Basophils % 1.1 %; Eosinophils % 0.5 %; Hematocrit 28.4 % (37.0-47.0); Hemoglobin 9.3 g/dL (11.5-15.3); Lymphocytes # 1.7 10^3/uL (0.8-4.8); Mean Corpuscular HGB Conc 32.7 g/dL (30.0-36.0); Mean Corpuscular Hemoglobin 34.4 pg (28.0-34.0); Mean Corpuscular Volume 105.2 fL (81-99); Mean Platelet Volume 9.8 fL (7.4-10.4); Monocytes # 0.4 10^3/uL (0.2-0.9); Monocytes % 6.9 %; Neutrophils % 63.5 %; Nucleated Red Blood Cells % 0 %; Platelet Count 249 10^3/cmm (130-400); Red Cell Distribution Width 13.9 % (12.1-15.1); White Blood Count 6.3 10^3/uL (4.0-10.0)
[2019-09-20 07:19] LABS: Slide Review Slide Review Perform
[2019-09-20 07:46] VITALS: BP 130/84; PULSE 117; RESP 22; TEMP 37.1; O2SAT 95
[2019-09-20] MEDS: losartan 50 mg Tablet PO (08:40)
[2019-09-20] MEDS: levothyroxine 112 mcg Tablet PO (08:40)
[2019-09-20] MEDS: pantoprazole DR 40 mg Tablet 20 MG PO (08:40)
[2019-09-20] MEDS: metoprolol tartrate 50 mg Tablet PO ×2 (08:41→17:50)
[2019-09-20 10:55] VITALS: BP 154/95; PULSE 89; RESP 22; TEMP 36.9; O2SAT 100
--- NOTE | 2019-09-20 11:15 | P.PN_ITS ---
Subjective Subjective: Interval history: Continues to have pain in the right flank overnight and also had 2 episodes of emesis 1 last night and then again this evening. Urine continues to be grayish colored in color. She believes she may have passed a stone overnight with some debris noted in the filter that is by the commode. Though she is improved she states she is still in significant intermittent pain. Medications: Reviewed: Yes Vitals/I&O/Wt Last Vital Signs Temp 98.4 F 09/20/19 10:55 Pulse 89 09/20/19 10:55 Resp 22 H 09/20/19 10:55 BP 154/95 09/20/19 10:55 Pulse Ox 100 09/20/19 10:55 09/19/19 09/20/19 09/20/19 22:59 06:59 14:59 Intake Total 890.833 / 1180.833 807.5 / 1988.333 Output Total 600 / 1150 1000 / 2150 Balance 290.833 / 30.833 -192.5 / -161.667 Weight last 48 hrs Weight 87.997 kg Physical Exam Narrative: EXAM NARRATIVE: GEN: awake, alert and orinted x 3, NAD CVS: S1Ss2N no murmurs rubs or gallops RS : Clear to auscultation bilaterally no rales or rhonchi BACK: TTP R CVA and R flank Ext: no edema, cyanosis Data Micro: Micro: Microbiology 09/18/19 15:19 Urine Culture - Fi nal Urine,Clean Catch Other Data: Attestation for Other Data: I personally reviewed and interpreted the following: Other data: CT Scan Report Signed Patient: Mya Harrell JMR#: [id number] : 1980Acct:[id number] Age/Sex: 38 / FADM Date: 09/18/19 Loc: ER Attending Dr: Ordering Physician: Carlitos Krause MD, [facility] [place] Date of Service: 09/18/19 Procedure(s): CT kidney stone 11883 Accession Number(s): [id number] Report Number: [id number] WS: [id number] CT ABDOMEN AND PELVIS NONCONTRAST HISTORY: Hematuria, flank pain TECHNIQUE: Imaging performed through the abdomen and pelvis. Coronal and sagittal reformats are submitted. All CT scans at [facility] use at least one of these dose optimization techniques: automated exposure control; mA and/or kV adjustment per patient size (includes targeted exams where dose is matched to clinical indication); or iterative reconstruction. DLP: 1973.72 mGy.cm COMPARISON: 11/30/2008 Lower thorax: Lung bases are clear. No hiatal hernia. Increased pericardial fat. Liver: Mild enlargement the liver and hepatic steatosis. Gallbladder: Prior cholecystectomy. Pancreas: Normal. Spleen: Normal. Adrenal glands: Normal. Right kidney: Normal size kidney. Mild dilatation of the RIGHT renal pelvis. Nonobstructing 2 mm calcifications in the renal pelvis. Very mild perinephric stranding around the lower pole and periureteral stranding proximally. No obstructing calcification is identified. Left kidney: Normal size with no stones, mass or atrophy. A few scattered calcified plaques in aorta. No aneurysm. No free fluid, intraperitoneal air or significant lymphadenopathy. GI tract: The appendix is not definitely identified. No evidence for appendicitis. No GI tract obstruction. Abdominal wall: Small fat-containing umbilical hernia. Pelvis: No free fluid in the pelvis. Urinary bladder is not distended. Osseous structures: Unremarkable. CT/CT kidney stone [id number] IMPRESSION: 1. Mild perinephric stranding around the lower pole of the RIGHT kidney and the proximal RIGHT ureter. No obstructing calcification is identified in the ureter. The mild inflammation may be secondary to pyelonephritis or recently passed stone. 2. The appendix is not visualized. 3. Prior cholecystectomy. A&P Assessment and plan (1) Nephrolithiasis: CT with perinephric stranding and mild calyceal dilattaion most likely related to pyelonephritis vs passed stone. NO obstructing calculi noted on admission CT. Given that patient continues to have significant intermittent pain and ongoing hematuria likely that the stone may still be present. We will obtain a repeat CAT scan today to rule out any occlusive calculi. Status: Acute Code(s): N20.0 - Calculus of kidney (2) Hepatic steatosis: Status: Acute Code(s): K76.0 - Fatty (change of) liver, not elsewhere classified (3) Hypokalemia: Status: Acute Code(s): E87.6 - Hypokalemia (4) Acute kidney injury: Status: Acute Code(s): N17.9 - Acute kidney failure, unspecified (5) Pyelonephritis: Status: Acute Code(s): N12 - Tubulo-interstitial nephritis, not specified as acute or chronic (6) Hematuria: Status: Inactive Code(s): R31.9 - Hematuria, unspecified (7) Ductal carcinoma of left breast: Status: Acute Code(s): C50.912 - Malignant neoplasm of unspecified site of left female breast Additional A&P Information Additional A&P Information: Sepsis due to pyelonephritis Sepsis criteria met with leukocytosis, tachycardia Patient experienced abdominal pain, CVA tenderness, mariaelena hematuria, recurrent episodes of bilious emesis 2 mm nonobstructing calculi, no signs of hydronephrosis, Urine culture with polymicrobial growth likely to be skin contaminants. We will switch empiric antibiotic coverage from Zosyn to ceftriaxone given that patient is not currently neutropenic. Mariaelena hematuria differentials would include nephrolithiasis, complicated pyonephritis. Literature search does not appear to indicate that her chemo regimen of TCH P to be particularly associated with hemorrhagic cystitis. However it could be associated with UTIs. CT of the abdomen today given the patient still has ongoing pain radiating from the flank into the groin, ongoing hematuria and some episodes of emesis to rule out any obstructing calculi now. HTN: We will use hydralazine for as needed basis otherwise continue oral regimen for now Hypothyroidism: continue her levothyroxine 112 mcg for now Grade 3 ductal carcinoma of left breast: Status post 6 cycles of TCH P last dose on Saturday (today is Saturday), also received neulasta. DVT prophylaxis: SCDs, no anticoagulation given ongoing hematuria. Attestations Medical Necessity Statement*: Remains admitted for the management of ongoing hematuria, pyelonephritis. Coding Level of Care Code Acute Evaporator Operator for g Fwd Diagnoses Nephrolithiasis N20.0 Hepatic steatosis K76.0 Hypokalemia E87.6 Acute kidney injury N17.9 Pyelonephritis N12 Hematuria R31.9 Ductal carcinoma of left breast C50.912
--- NOTE | 2019-09-20 11:15 | CTR_ITS ---
PROCEDURE INFORMATION: Exam: CT Abdomen And Pelvis Without Contrast Exam date and time: 09/20/2019 1:12 PM Age: 38 years old Clinical indication: Other: Back pain and miguel flank pain; Prior surgery; Surgery date: 6+ months; Surgery type: Gb, port, pelvic; Additional info: R/O obstructing stone, worsening pain TECHNIQUE: Imaging protocol: Computed tomography of the abdomen and pelvis without contrast. Total DLP: 1857.43 mGy-cm Radiation optimization: All CT scans at this facility use at least one of these dose optimization techniques: automated exposure control; mA and/or kV adjustment per patient size (includes targeted exams where dose is matched to clinical indication); or iterative reconstruction. COMPARISON: CT kidney stone [id number] 09/18/2019 4:07 PM FINDINGS: Liver: Normal. No mass. Gallbladder and bile ducts: Prior cholecystectomy. Pancreas: Normal. No ductal dilation. Spleen: Normal. No splenomegaly. Adrenals: Normal. No mass. Kidneys and ureters: Mild right-sided hydroureteronephrosis. No obstructing ureteral stone evident. Possible tiny 1 mm nonobstructing right renal lower pole stone (series 2, axial image 82). Mild fat stranding beneath right kidney and around the proximal right ureter, unchanged. Normal-appearing left kidney and left ureter. Stomach and bowel: Unremarkable. No obstruction. No mucosal thickening. Appendix: Normal small appendix. Intraperitoneal space: Unremarkable. No free air. No significant fluid collection. Vasculature: Unremarkable. No abdominal aortic aneurysm. Lymph nodes: Unremarkable. No enlarged lymph nodes. Bladder: Unremarkable as visualized. Reproductive: Prior hysterectomy. Bones/joints: Unremarkable. No acute fracture. Soft tissues: Unremarkable. CT/CT kidney stone [id number] IMPRESSION: 1) Mild right-sided hydroureteronephrosis. No obstructing ureteral stone evident. Possible tiny 1 mm nonobstructing right renal lower pole stone (series 2, axial image 82). Mild fat stranding beneath right kidney and around the proximal right ureter, unchanged. Radiation Dose CTDIVOL = (mGy): DLP = 1857.43 (mGy-cm)
[2019-09-20 11:28] LABS: Anion Gap 15.7 (5-19); Blood Urea Nitrogen 13 mg/dL (6-20); Calcium 9.4 mg/Dl (8.6-10.0); Carbon Dioxide 27 mmol/L (22-29); Chloride 105 mmol/L (98-107); Glucose 99 mg/dL (74-109); Potassium 3.7 mmol/L (3.5-5.1); Sodium 144 mmol/L (136-145)
--- NOTE | 2019-09-20 13:06 | P.CONIM_ITS ---
Providers/Reason For Consult Consulting Physican/Specialty*: Urology/[place] Reason for Consult*: Right flank pain gross hematuria with no clear evidence of obstruction Attending Physician: Merritt Hodgson MD History of Present Illness History of Present Illness Mya Harrell is a 38 year old female who I saw in 2005 with symptomatic left mid ureteral stone successfully treated with ESWL. Have not seen since that time. She presented to the hospital approximately 2 days ago with complaints of primarily right flank pain suspicious for renal colic reminding her of her previous stone episode radiating down to the right mid abdomen and associated with severe nausea and vomiting. She also had some left groin pain of unclear etiology not typical for renal colic. Other symptoms include some intermittent dysuria. She was seen in an emergency department and treated for urinary tract infection with a follow-up urine apparently without evidence of persistent infection. She was suspicious that she might of passed a stone a day or so ago. Did not see it or catch it though. 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 She has been treated I think with 6 rounds of chemotherapy and has done pretty well from her perspective. States that her platelet count has been normal. Work-up to date has included a CT scan which showed perirenal and periureteral stranding without clear evidence of obstruction or stone. Bladder looked gross ly normal. Overall her flank pain is improved but not completely resolved. She is passing some small clots. I was consulted for the above complaints. Review of Systems Const: Reports: malaise; Denies: fever or chills Eyes: Denies: change in vision Card: Denies: chest pain Resp: Denies: productive cough or wheezing GI: Reports: abdominal pain : Reports: flank pain, blood in urine and other (Dysuria) Musc: Denies: neck pain Skin/Breast: Denies: rash Neuro: Denies: numbness in extremities or weakness in extremities Psych: Denies: depression or hopelessness Endo: Denies: excessive thirst [place]/Lymph: Reports: easy bruising; Denies: enlarged lymph nodes All/Imm: Denies: hives or throat swelling Meds/Allergies Home Medications and Allergies Home Medications Medication Instructions Recorded Confirmed Type Pending 09/18/19 History acetaminophen 500 mg PO Q4H PRN 09/19/19 09/19/19 History chlorthalidone 25 mg PO DAILY 09/19/19 09/19/19 History dexamethasone 09/19/19 History diphenoxylate-atropine 1 tab PO QID PRN 09/19/19 09/19/19 History levothyroxine 112 mcg PO DAILY 09/19/19 09/19/19 History loperamide 2 mg PO Q4H PRN 09/19/19 09/19/19 History loratadine 10 mg PO DAILY PRN 09/19/19 09/19/19 History lorazepam 1 mg PO QID PRN 09/19/19 09/19/19 History losartan 50 mg PO BID 09/19/19 09/19/19 History metoprolol tartrate 50 mg PO BID 09/19/19 09/19/19 History ondansetron HCl 8 mg PO Q8H PRN 09/19/19 09/19/19 History oxycodone 5 mg PO Q4H PRN 09/19/19 09/19/19 History oxycodone-acetaminophen 1 tab PO QID PRN 09/19/19 09/19/19 History solifenacin 10 mg PO DAILY 09/19/19 09/19/19 History Allergies Allergy/AdvReac Type Severity Reaction Status Date / Time amlodipine Allergy ADR/ALGY-Fl Verified 09/18/19 15:01 ushing prochlorperazine Allergy ALGY-Hives Verified 09/18/19 15:01 [From Compazine] Sulfa (Sulfonamide Allergy ALGY-Bliste Verified 09/18/19 15:01 Antibiotics) r Current Medications Current Medications Generic Name Dose Route Start Last Admin Trade Name Freq PRN Reason Stop Dose Admin Hydrocodone Bitart/Acetaminophen 1 tab 09/18/19 19:39 09/19/19 19:30 Ponder 5-325 Mg PO 1 tab Q4H PRN Administration MODERATE TO SEVERE PAIN Lactated Ringer's 1,000 mls @ 50 mls/hr 09/18/19 19:45 09/20/19 05:48 Lactated Ringers IV 50 mls/hr .Q20H ADAM Infusion Piperacillin Sod/Tazobactam 50 mls @ 12.5 mls/hr 09/19/19 00:00 09/20/19 10:50 Sod 3.375 gm/ Sodium Chloride IV 12.5 mls/hr Q8H ADAM Administration Protocol Levothyroxine Sodium 112 mcg 09/19/19 09:00 09/20/19 08:40 Synthroid PO 112 mcg DAILY ADAM Administration Losartan Potassium 50 mg 09/19/19 09:00 09/20/19 08:40 Cozaar PO 50 mg DAILY ADAM Administration Metoprolol Tartrate 50 mg 09/19/19 09:00 09/20/19 08:41 Lopressor PO 50 mg BID ADAM Administration Ondansetron HCl 4 mg 09/18/19 19:39 09/20/19 06:05 Zofran IVP 4 mg Q8H PRN Administration vomiting, or N/V if npo Pantoprazole Sodium 20 mg 09/19/19 09:00 09/20/19 08:40 Protonix PO 20 mg DAILY ADAM Administration Senna 17.2 mg 09/18/19 21:00 09/19/19 21:42 Senna Lax PO Not Given BEDTIME ADAM PFSH Acute PFSH: Statuses (acute, chronic, etc) shown below reflect problem list status as previously entered and may not be historically accurate Medical History Asthma (Acute) Cancer (Acute) Cholecystectomy planned (Acute) Cholelithiasis (Acute) Ductal carcinoma of left breast (Acute) Eczema (Acute) GERD (gastroesophageal reflux disease) (Acute) Hematuria (Inactive) Hypertension (Acute) Hypothyroidism (Acute) Migraine (Acute) Normal colonoscopy (Acute) Overactive bladder (Acute) Post hysterectomy menopause (Acute) Tonsillectomy planned (Acute) Urolithiasis (Acute) ESWL left mid ureteral stone 2005 with complete resolution Surgical History H/O lithotripsy (Acute) H/O oophorectomy (Acute) History of cholecystectomy (Acute) History of hysterectomy (Acute) Family History Unknown Lung disease Maternal grandmother had lung cancer, she has 3 sisters no history of breast cancer Crohn's disease Crohn disease in mother Other Hyperlipidemia Hypothyroidism Social History Smoking and tobacco status: never smoked Alcohol intake: never Substance/Drug Use: never Marital status: Vitals/I&O/Wt Last Vital Signs Temp 98.4 F 09/20/19 10:55 Pulse 89 09/20/19 10:55 Resp 22 H 09/20/19 10:55 BP 154/95 09/20/19 10:55 Pulse Ox 100 09/20/19 10:55 09/19/19 09/20/19 09/20/19 22:59 06:59 14:59 Intake Total 890.833 / 1180.833 807.5 / 1988.333 Output Total 600 / 1150 1000 / 2150 Balance 290.833 / 30.833 -192.5 / -161.667 Weight last 48 hrs Weight 194 lb Physical Exam Const: COMMON NORMALS: well nourished GENERAL APPEARANCE: cooperative and well developed ORIENTATION/CONSCIOUSNESS: Yes oriented to person, Yes oriented to place and Yes oriented to time HENMT: COMMON NORMALS: normocephalic and head/scalp atraumatic HEAD & SCALP: normocephalic and atraumatic Neck/C-Spine: GENERAL: Yes trachea midline Resp: COMMON NORMALS: normal respiratory effort EFFORT & INSPECTION: No uses accessory muscles GI: PALPATION: No rebound tenderness present : BLADDER/KIDNEY EXAM: Yes CVA tenderness Back/Pelvis: GENERAL BACK: Yes CVA tenderness Neuro: SENSORIUM/ORIENTATION: Yes oriented to person, Yes oriented to place and Yes oriented to time Psych: COMMON NORMALS: mental status grossly normal, thought process normal, cooperative and affect normal APPEARANCE: Yes grossly normal THOUGHT PROCESS: normal thought process THOUGHT CONTENT: Yes normal thought content INSIGHT: insight good Data Micro: Micro: Microbiology 09/18/19 15:19 Urine Culture - Fi nal Urine,Clean Catch Imaging^: CT Abd/Pel: I personally reviewed and interpreted this imaging study as follows: My impression: Right perirenal and periureteral inflammation without evidence of obstruction or hydronephrosis. A&P Assessment and plan (1) Gross hematuria: Etiology unclear at this time but clinically it appears that she either passed a stone or had urinary tract infection which theoretically might be more prone to create gross hematuria in somebody on chemotherapy if impaired platelet function. No clot retention symptoms. Stable on her hemoglobin hematocrit at this point. Status: Acute Code(s): R31.0 - Gross hematuria (2) Acute right flank pain: Similar to prior renal colicky type symptoms but no evidence of obstructive process currently. Status: Acute Code(s): R10.9 - Unspecified abdominal pain Consult Attestations Medical Necessity Statement: Maintain inpatient status for treatment of symptoms at this point. She is not clinically in trouble and I do agree with reimaging to assess the possibility of development of obstructive changes. Time Spent in Patient Care: Greater than 35 minutes (>than 50% of time spent in counselling and/or direct pt care on unit) . Coding Level of Care Code Acute Research Software Engineer for [place] Exam Problem Focused Diagnoses Gross hematuria R31.0 Acute right flank pain R10.9
[2019-09-20] MEDS: HYDROcodone-acetaminophen 5-325 mg Tablet 1 TAB PO (13:39)
[2019-09-20 15:18] VITALS: BP 140/85; PULSE 103; RESP 20; TEMP 37.1; O2SAT 96
[2019-09-20] MEDS: lactated ringers 1,000 ML 50 ML IV (16:13)
[2019-09-20] MEDS: cefTRIAXone 1,000 MG in sodium chloride 0.9% (plus) 50 ML 100 MG IV (17:49)
[2019-09-20 20:54] VITALS: BP 151/97; PULSE 97; RESP 20; TEMP 37; O2SAT 99
[2019-09-21] VITALS (8 sets, daily range): BP systolic 138–167; BP diastolic 85–109; PULSE 96–112; RESP 16–20; TEMP 36.6–36.9; O2SAT 94–100
[2019-09-21] MEDS: hyDRALAzine 20 mg/mL INJ 1 mL 10 MG IVP (01:57)
[2019-09-21] MEDS: ondansetron 2 mg/ML SDV 2 mL 4 MG IVP (03:04)
[2019-09-21] MEDS: ketorolac 30 mg/mL INJ 15 MG IVP ×2 (03:13→12:02)
[2019-09-21 06:29] LABS: Basophils % 0.5 %; Eosinophils % 0.3 %; Hemoglobin 8.4 g/dL (11.5-15.3); Lymphocytes # 1.2 10^3/uL (0.8-4.8); Lymphocytes % 15.4 %; Mean Corpuscular HGB Conc 32.3 g/dL (30.0-36.0); Mean Corpuscular Hemoglobin 33.2 pg (28.0-34.0); Mean Corpuscular Volume 102.8 fL (81-99); Mean Platelet Volume 9.9 fL (7.4-10.4); Monocytes # 0.9 10^3/uL (0.2-0.9); Monocytes % 12.2 %; Neutrophils # 5.3 10^3/uL (1.8-7.7); Neutrophils % 69.9 %; Nucleated Red Blood Cells % 0 %; Platelet Count 218 10^3/cmm (130-400); Red Blood Count 2.53 10^6/uL (4.1-5.3); Red Cell Distribution Width 13.7 % (12.1-15.1); White Blood Count 7.5 10^3/uL (4.0-10.0)
[2019-09-21 07:29] LABS: Slide Review Slide Review Perform
[2019-09-21] MEDS: pantoprazole DR 40 mg Tablet 20 MG PO (09:36)
[2019-09-21] MEDS: losartan 50 mg Tablet PO (09:37)
[2019-09-21] MEDS: metoprolol tartrate 50 mg Tablet PO (09:43)
[2019-09-21] MEDS: levothyroxine 112 mcg Tablet PO (09:43)
--- NOTE | 2019-09-21 15:20 | P.TS_ITS ---
Transfer Summary Providers Date of Admission: 09/18/19 19:35 Date of Discharge: 09/21/19 Attending Provider at Admission: Merritt Hodgson MD Attending Provider at Transfer: Camelia Harkins MD Anticipated Date of Transfer: Anticipated date of transfer: 09/21/19 Receiving Facility & Provider: Receiving Provider: [Dr. 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 Patient presented to the hospital on September 18, 2019 complaining of chills, multiple episodes of bilious vomiting, 2 episodes of loose stools and hematuria. She described the latter as cranberry to grape colored urine with few thin blood clots. She does have a history of nephrolithiasis and believes she may have been passing some stones. On exam she had significant right CVA tenderness therefore there was concern for pyelonephritis. She was started on empiric antibiotic coverage with Zosyn eventually narrowed down to ceftriaxone. Her urine culture revealed a mixed polymicrobial growth thought to be contaminants. She does not have a Borges in place. She is not neutropenic. Symptomatic therapy with Zofran for the nausea. She also received IV hydration. Renal CT on September 18 showed mild perinephric stranding around the lower pole of the right kidney and proximal right ureter. No obstructing calculus was identified in the ureter. It was thought that the mild inflammation is secondary to pyelonephritis or recently passed stone. Rest of the abdomen was unremarkable. Though her nausea improved, she continues to have intermittent severe back pain back pain and CVA tenderness. Hematuria has also not resolved. Repeat CT was performed on [place] 5 which showed mild right-sided hydroureteronephrosis. No obstructing ureteral stone was evident. Possible tiny 1 mm nonobstructing right renal lower pole stone was imaged. Mild fat stranding was seen beneath the right kidney and around the proximal right ureter which was unchanged over the previous exam. Given that the patient has not had any significant improvement in her symptoms and continues to have pain, it is deemed appropriate at that time to obtain further urological evaluation including the need of cystoscopy if any. Unfortunately Dr. Huddleston from urology is away from the [facility] at this time. She is therefore being transferred to [facility] where she gets all of her cancer treatment. She has been accepted to the oncology service and will get further urological evaluation there. Physical Exam Narrative: EXAM NARRATIVE: General awake alert and oriented in no acute distress CVS S1-S2 is normal no murmurs rubs or gallops Respiratory system is clear to auscultation bilaterally Abdomen is soft nondistended and nontender except in the suprapubic area severe right CVA tenderness to palpation radiating all down the right flank Extremities no cyanosis clubbing or edema. TS Data Data Completed and Pending: Completed Studies During Hospitalization Category Date Time Status CT kidney stone [id number] Routine Cat Scan 09/20/19 11:[address] kidney stone 7 [id number] Urgent Cat Scan 09/18/19 15:53 Completed Labs from last 24 hours 09/21/19 05:45 WBC 7.5 RBC 2.53 L Hgb 8.4 L Hct 26.0 L MCV 102.8 H MCH 33.2 MCHC 32.3 RDW 13.7 Plt Count 218 MPV 9.9 Neut % (Auto) 69.9 Lymph % (Auto) 15.4 [place] % (Auto) 12.2 Eos % (Auto) 0.3 Baso % (Auto) 0.5 Neut # (Auto) 5.3 Lymph # (Auto) 1.2 [place] # (Auto) 0.9 Eos # (Auto) 0.0 Baso # (Auto) 0.0 Nucleated RBC % (a uto) 0 Nucleated RBCs # 0.0 Vitals: Last Vital Signs Temp 97.9 F 09/21/19 11:52 Pulse 110 H 09/21/19 11:52 Resp 18 09/21/19 11:52 BP 162/109 09/21/19 11:52 Pulse Ox 100 09/21/19 11:52 TS Medications Medications Home Medications Pending 09/18/19 [History] acetaminophen 500 mg PO Q4H PRN 09/19/19 [History Confirmed 09/19/19] chlorthalidone 25 mg PO DAILY 09/19/19 [History Confirmed 09/19/19] dexamethasone 09/19/19 [History] diphenoxylate-atropine 1 tab PO QID PRN 09/19/19 [History Confirmed 09/19/19] levothyroxine 112 mcg PO DAILY 09/19/19 [History Confirmed 09/19/19] loperamide 2 mg PO Q4H PRN 09/19/19 [History Confirmed 09/19/19] loratadine 10 mg PO DAILY PRN 09/19/19 [History Confirmed 09/19/19] lorazepam 1 mg PO QID PRN 09/19/19 [History Confirmed 09/19/19] losartan 50 mg PO BID 09/19/19 [History Confirmed 09/19/19] metoprolol tartrate 50 mg PO BID 09/19/19 [History Confirmed 09/19/19] ondansetron HCl 8 mg PO Q8H PRN 09/19/19 [History Confirmed 09/19/19] oxycodone 5 mg PO Q4H PRN 09/19/19 [History Confirmed 09/19/19] oxycodone-acetaminophen 1 tab PO QID PRN 09/19/19 [History Confirmed 09/19/19] solifenacin 10 mg PO DAILY 09/19/19 [History Confirmed 09/19/19] Active Medications Hydrocodone Bitart/Acetaminophen ([place] 5-325 Mg) 1 tab PO Q4H PRN PRN Reason: MODERATE TO SEVERE PAIN Last Admin: 09/20/19 13:39 Dose: 1 tab Documented by: Heparin Sodium (Beef Lung) (Heparin Lock Flush) 500 unit IV ONCE PRN PRN Reason: give at discharge Hydralazine HCl (Apresoline) 10 mg IVP Q4H PRN PRN Reason: HYPERTENSION Last Admin: 09/21/19 01:57 Dose: 10 mg Documented by: Lactated Ringer's (Lactated Ringers) 1,000 mls @ 50 mls/hr IV .Q20H ADAM Last Admin: 09/20/19 16:13 Dose: 50 mls/hr Documented by: Ceftriaxone Sodium 1,000 mg/ (Sodium Chloride) 50 mls @ 100 mls/hr IV Q24H [facility]; Protocol Last Admin: 09/20/19 17:49 Dose: 100 mls/hr Documented by: Ketorolac Tromethamine (Toradol) 15 mg IVP Q8H PRN PRN Reason: MODERATE PAIN Stop: 09/25/19 18:48 Last Admin: 09/21/19 12:02 Dose: 15 mg Documented by: Levothyroxine Sodium (Synthroid) 112 mcg PO DAILY [facility] Last Admin: 09/21/19 09:43 Dose: 112 mcg Documented by: Lorazepam (Ativan) 1 mg PO Q4H PRN PRN Reason: ANXIETY Losartan Potassium (Cozaar) 50 mg PO DAILY [facility] Last Admin: 09/21/19 09:37 Dose: 50 mg Documented by: Metoclopramide HCl (Reglan) 5 mg IV Q6H PRN PRN Reason: NAUSEA AND VOMITING Metoprolol Tartrate (Lopressor) 50 mg PO BID [facility] Last Admin: 09/21/19 09:43 Dose: 50 mg Documented by: Ondansetron HCl (Zofran) 4 mg IVP Q8H PRN PRN Reason: vomiting, or N/V if npo Last Admin: 09/21/19 03:04 Dose: 4 mg Documented by: Pantoprazole Sodium (Protonix) 20 mg PO DAILY [facility] Last Admin: 09/21/19 09:36 Dose: 20 mg Documented by: Senna (Senna Lax) 17.2 mg PO BEDTIME [facility] Last Admin: 09/20/19 20:55 Dose: Not Given Documented by: Discharge Plan Discharge Patient Disposition: [facility]fer to [facility] Condition: Stable Prescriptions: New sennosides [Senna Lax] 8.6 mg Tablet 17.2 mg PO BEDTIME Qty: 0 RF: 0 losartan 50 mg Tablet 50 mg PO DAILY Qty: 0 RF: 0 metoprolol tartrate 50 mg Tablet 50 mg PO BID Qty: 0 RF: 0 hydralazine 20 mg/mL Solution 10 mg IVP Q4H PRN (Reason: Hypertension) Qty: 0 RF: 0 metoclopramide HCl 5 mg/mL Solution 5 mg IV Q6H PRN (Reason: Nausea And Vomiting) Qty: 0 RF: 0 hydrocodone-acetaminophen 5-325 mg Tablet 1 tab PO Q4H PRN (Reason: Moderate To Severe Pain) Qty: 0 RF: 0 ondansetron HCl (PF) 4 mg/2 mL Solution 4 mg IVP Q8H PRN (Reason: vomiting, or N/V if npo) 30 Days Qty: 0 RF: 0 levothyroxine 112 mcg Tablet 112 mcg PO DAILY Qty: 0 RF: 0 pantoprazole 40 mg Tablet,Delayed Release (Dr/Ec) 20 mg PO DAILY Qty: 0 RF: 0 lorazepam 1 mg Tablet 1 mg PO Q4H PRN (Reason: Anxiety) Qty: 0 RF: 0 ketorolac 30 mg/mL (1 mL) Solution 15 mg IVP Q8H PRN (Reason: Moderate Pain) Qty: 0 RF: 0 ceftriaxone 1 gram recon soln 1 gm IV Q24H Qty: 1 RF: 0 Discontinued Pending RF: 0 losartan 50 mg Tablet 50 mg PO BID RF: 0 ondansetron HCl 8 mg Tablet 8 mg PO Q8H PRN (Reason: Nausea And Vomiting) RF: 0 loperamide 2 mg Tablet 2 mg PO Q4H PRN (Reason: Diarrhea) RF: 0 diphenoxylate-atropine 2.5-0.025 mg Tablet 1 tab PO QID PRN (Reason: Diarrhea) RF: 0 chlorthalidone 25 mg Tablet 25 mg PO DAILY RF: 0 acetaminophen 500 mg Tablet 500 mg PO Q4H PRN (Reason: Pain) RF: 0 oxycodone-acetaminophen 5-325 mg Tablet 1 tab PO QID PRN (Reason: Pain) RF: 0 dexamethasone 4 mg Tablet RF: 0 metoprolol tartrate 50 mg Tablet 50 mg PO BID RF: 0 lorazepam 1 mg Tablet 1 mg PO QID PRN (Reason: Nausea) RF: 0 loratadine 10 mg Tablet 10 mg PO DAILY PRN (Reason: Allergy Symptoms) RF: 0 levothyroxine 112 mcg Tablet 112 mcg PO DAILY RF: 0 oxycodone 5 mg Tablet 5 mg PO Q4H PRN (Reason: Pain) RF: 0 solifenacin 10 mg Tablet 10 mg PO DAILY RF: 0 Referrals: Noreen Cortez FNP [Family Provider] - Transfer Attestations Time Spent in Transfer Care*: greater than 30 min Quality Metrics Clinical Quality Measures: During this hospital stay, did patient experience: None Coding Level of Care Code Acute Human Service Technician for Chg Fwd Diagnoses Nephrolithiasis N20.0 Hepatic steatosis K76.0 Hypokalemia E87.6 Acute kidney injury N17.9 Pyelonephritis N12 Hematuria R31.9 Ductal carcinoma of left breast C50.912
== END 2019-09-21 17:00 | disposition short-term general hospital (02) | DRG 872 ==
LOC: ER 19:57 → MEDSURG 20:40
PROVIDERS: Admitting Provider Internal Medicine; Emergency Provider Family Medicine; Family Provider Nurse Practitioner Family; Visit Provider Student in an Organized Health Care Education/Training Program
DX: A41.9 Sepsis, unspecified organism (principal); N17.9 Acute kidney failure, unspecified; N10 Acute pyelonephritis; C50.912 Malignant neoplasm of unspecified site of left female breast; E87.6 Hypokalemia; R31.0 Gross hematuria; N28.89 Other specified disorders of kidney and ureter
CPT/HCPCS: 36415; 36591; 74176; 80048; 80053; 81001; 83605; 85007; 85014; 85018; 85025; 87086; 96360; 96365; 96372; 96374; 96375; 99282; J0360; J0696; J0744; J1885; J2270; J2405; J2543; J2550; J3480; J7030

== ENCOUNTER 2019-10-01 11:10 | Outpatient (RCR) | payer OTHER, SELFPAY ==
[2019-09-30] MEDS: sodium chloride 0.9% 1,000 ML 999 ML IV (14:00)
[2019-09-30 15:18] LABS: Magnesium 1.4 mg/dL (1.7-2.3); Potassium 3.2 mmol/L (3.5-5.1)
== END 2019-10-01 23:59 | disposition home or self-care (01) ==
LOC: ONCMED 11:10
PROVIDERS: Family Provider Nurse Practitioner Family; PCP Urology; Visit Provider Internal Medicine Medical Oncology
DX: E86.0 Dehydration (principal); R31.9 Hematuria, unspecified
CPT/HCPCS: 81001; 83735; 84132; 96360; 96361; 96365; 96366; J3475; J3480; J7030

== ENCOUNTER 2019-10-01 14:04 | Outpatient (CLI) | payer OTHER, SELFPAY ==
--- NOTE | 2019-10-01 14:09 | XR_ITS ---
WS: [id number] ABDOMEN: SUPINE FILM HISTORY: RIGHT RENAL CALCULUS COMPARISON: 09/20/2019 and 11/29/2008 Slight increased amount of air distention of the colon. Small bowel diameter is 3.2 mm in the RIGHT l ower quadrant. Prior cholecystectomy. Right kidney: No renal or ureteral stone identified. Left kidney: No renal or ureteral stone identified. XR/XR KUB [id number] IMPRESSION: 1. No renal or ureteral calcifications. 2. Mild dilatation small bowel loops in the RIGHT lower quadrant.
== END 2019-10-01 14:05 | disposition home or self-care (01) ==
PROVIDERS: Family Provider Nurse Practitioner Family; PCP Urology; Visit Provider Urology
DX: N20.0 Calculus of kidney (principal)
CPT/HCPCS: 74018

== ENCOUNTER 2019-10-02 14:58 | Day surgery (SDC) | payer OTHER, SELFPAY ==
[2019-10-02] VITALS (11 sets, daily range): BP systolic 142–175; BP diastolic 89–109; PULSE 110–127; RESP 14–112; TEMP 36.9–37.5; O2SAT 91–100; BMI 33.6
--- NOTE | 2019-10-02 | SCC_ITS ---
Procedure Done: Cystoscopy, right retrograde ureteropyelogram. 2.1 minutes of fluoroscopic guidance, for a cumulative dose of 36.25 mGy, was provided to Dr. Huddleston by the radiology department. C-arm images of the abdomen were saved for the patient's permanent record. MTDD
--- NOTE | 2019-10-02 14:53 | PM.HPUD ---
H&P update H&P Update: DATE OF SURGERY/PROCEDURE: 10/02/19 DATE H&P PERFORMED: 10/01/19 CHANGES TO PREVIOUS DOCUMENTATION: She has experienced some nasal congestion. No severe pain. She had spoken to the surgical team at [facility] who recommended proceeding with evaluation of her right lateralizing hematuria prior to mastectomy. PREOP DIAGNOSIS: Right upper urinary tract gross hematuria etiology unclear. PLANNED PROCEDURE: Operation Date: 10/02/19 14:20 Proposed Procedures p Cystoscopy [id number] R31.0 N13.3(Not Applicable) - Nikhil Huddleston MD s UretroRetrograde Pyelogram(Not Applicable) - Nikhil Huddleston MD s Ureteral Stent Placement(Not Applicable) - Nikhil Huddleston MD Full H&P Perinent History: Medical/Surgical History: Medical History (Updated 10/01/19 @ 16:44 by Nikhil Huddleston MD) Acute kidney injury (Inactive) Asthma (Acute) Cholecystectomy planned (Acute) Cholelithiasis (Acute) Ductal carcinoma of left breast (Acute) Eczema (Acute) GERD (gastroesophageal reflux disease) (Acute) Hypertension (Acute) Hypothyroidism (Acute) Migraine (Acute) Nephrolithiasis (Inactive) Normal colonoscopy (Acute) Overactive bladder (Acute) Post hysterectomy menopause (Acute) Pyelonephritis (Resolved) Tonsillectomy planned (Acute) Urolithiasis (Acute) ESWL left mid ureteral stone 2005 with complete resolution Family History: Family History (Updated 09/18/19 @ 19:25 by Merritt Hodgson MD) Unknown Lung disease Maternal grandmother had lung cancer, she has 3 sisters no history of breast cancer Crohn's disease Crohn disease in mother Other Hyperlipidemia Hypothyroidism Social History: Social History Smoking and tobacco status: never smoked Alcohol intake: never Marital status: Current occupational status: employed [employer] Assessment and plan (1) Hydronephrosis, right: Right lateralizing hematuria of unclear etiology with associated hydronephrosis. Plan retrograde ureteropyelogram ureteroscopy. Status: Acute Code(s): N13.30 - Unspecified hydronephrosis (2) Gross hematuria: Status: Acute Code(s): R31.0 - Gross hematuria
--- NOTE | 2019-10-02 15:16 | ANES.PREANES ---
Pre-Anesthetic Assessment Pre-Anesthetic Assessment: Height/Weight: Height 1.63 m Weight 88.904 kg Preop Diagnosis: Right upper urinary tract gross hematuria etiology unclear. Proposed Procedure: Operation Date: 10/02/19 14:20 Proposed Procedures p Cystoscopy [id number] R31.0 N13.3(Not Applicable) - Nikhil Huddleston MD s UretroRetrograde Pyelogram(Not Applicable) - MD sandhya Rojo Ureteral Stent Placement(Not Applicable) - Nikhil Huddleston MD Last Intake: 07:45 Exam: Pre-Anes Outpt Exam: alert, oriented x 3, clear to auscultation bilaterally and regular rate & rhythm Pulmonary: Pulmonary: Asthma Comments: mildly tight CV/HEM: CV/HEM: HTN Comments: rx'd 15y : : Chronic renal Insufficiency Comments: hematuria remote hx stones GI: GI: GERD Metabolic: Metabolic: Thyroid Comments: replacement x 15 years Musc/skel: Musc/skel: Lower Back Pain Comments: left SI jt pain Neuropsych: Neuropsych: BUCK (migraines > 1y) Anesthetic Plan: ASA status: III Anesthesia: General PFSH Anesthesia PFSH: Medical History (Updated 10/01/19 @ 16:44 by Nikhil Huddleston MD) Acute kidney injury (Inactive) Asthma (Acute) Cholecystectomy planned (Acute) Cholelithiasis (Acute) Ductal carcinoma of left breast (Acute) Eczema (Acute) GERD (gastroesophageal reflux disease) (Acute) Hypertension (Acute) Hypothyroidism (Acute) Migraine (Acute) Nephrolithiasis (Inactive) Normal colonoscopy (Acute) Overactive bladder (Acute) Post hysterectomy menopause (Acute) Pyelonephritis (Resolved) Tonsillectomy planned (Acute) Urolithiasis (Acute) ESWL left mid ureteral stone 2005 with complete resolution Surgical History H/O lithotripsy (Acute) H/O oophorectomy (Acute) History of cholecystectomy (Acute) History of hysterectomy (Acute) Social History Smoking and tobacco status: never smoked Alcohol intake: never Marital status: Current occupational status: employed Data Anesthesia Cardiac Studies: No Data to Display
--- NOTE | 2019-10-02 15:39 | SC_ITS ---
WS: [id number] C-arm fluoroscopy of the right ureter and kidney in the OR, today Clinical Data: Right upper urinary tract gross hematuria Comparison: KUB 10/01/2019 Findings: There is a right retrograde urogram. The contrast material fills the right renal pelvis. The renal pe lvis is dilated but there is no intraluminal filling defect. No definite right ureteral calculus is s een. SC/C-arm FL for Urology Impression: Right retrograde urogram.
[2019-10-02] MEDS: levofloxacin-dextrose 5 % 500 MG/100 ML PREMIX 100 MG IV (15:51)
[2019-10-02] MEDS: sodium chloride 0.9% 1,000 ML 30 ML IV (16:05)
[2019-10-02] MEDS: iohexol 300 mg/mL 50 mL Btl VAGINAL (16:13)
[2019-10-02 16:23] LABS: Anion Gap 16.8 (5-19); Blood Urea Nitrogen 19 mg/dL (6-20); Calcium 9.5 mg/Dl (8.6-10.0); Carbon Dioxide 21 mmol/L (22-29); Chloride 110 mmol/L (98-107); Glomerular Filtration Rate 31.2 mL/min (90-130); Glucose 102 mg/dL (74-109); Potassium 3.8 mmol/L (3.5-5.1); Sodium 144 mmol/L (136-145)
[2019-10-02] MEDS: fentaNYL 50 mcg/mL INJ 2mL IVP ×2 (17:05→17:10)
--- NOTE | 2019-10-02 17:05 | PM.OP ---
Operative Report Date of procedure: 10/02/19 Pre-op Diagnosis: Gross hematuria, right lateralizing upper urinary tract Post-op diagnosis: same Post-op Findings: Nonspecific inflammatory changes in the proximal ureter/UPJ/renal pelvis without evidence of neoplastic, urolithiasis or other abnormality identified Procedure Done: Cystoscopy, right retrograde ureteropyelogram. Right flexible and rigid ureteroscopy with flexible renoscopy Right ureteral stent placement (4.7 [place]ian by 26 cm double-pigtail without string Implants: Right ureteral stent Pathology: none sent Surgeon: Nikhil Huddleston Anesthesia: General Estimated blood loss: Minimal IV fluids: 500 cc of crystalloid Urine output: Not measured Complications: None Findings: No gross pathology identified. Multiple areas of inflammatory change in the proximal ureter/UPJ as well as several areas in the renal pelvis and some of the calyces. No stones, papillary tumors, active bleeding sites identified. Pyelocalyceal system was somewhat dilated on retrograde pyelogram. Condition: stable Disposition: PACU Brief History: Mya is a very pleasant 38-year-old white female who is scheduled for mastectomy for inflammatory breast carcinoma sometime next week. She was hospitalized last week with gross hematuria and some flank pain. Work-up included 2 CT scans that showed no clear evidence of obstruction but did show some inflammatory changes around the ureter and kidney with only mild dilation. No stones, soft tissue densities etc. Due to my out-of-town status she was evaluated at [facility] as a transfer patient and a CT urogram was performed basically confirming the previous results. There was more clear evidence of pyelo-calyceal dilation as well as some D delayed excretion of contrast into the ureter but no obvious level of obstruction was identified or source of obstruction. Outpatient CYSTOSCOPY demonstrated right lateralizing hematuria and she was admitted today for cystoscopy, right retrograde ureteropyelogram, right ureteroscopy possible stent. We had talked about postponing this until after her mastectomy which is scheduled for the but in her conversations with her surgical team they wanted to try to have some clarification regarding the hematuria. Procedure: After routine preoperative evaluation examination and obtaining of informed consent she was taken to the operating suite on 10/02/2019 where general anesthesia was administered without difficulty. Prepped and draped in usual sterile fashion in dorsolithotomy position pain careful attention to voiding pressure points after appropriate timeout was performed, SCDs confirmed to be functioning, preoperative antibiotics administered, and beta-eli protocol confirmed. Prepped and draped in usual sterile fashion in dorsolithotomy position pain careful attention to avoiding pressure points. 21 Montserratian cystoscope with 30 degree lens was introduced into urethral meatus and advanced into the bladder videoscopy. Bladder was systematically examined and other than bloody urine there was no gross abnormality confirming outpatient cystoscopy findings. An 8 [place] cone-tipped catheter was intubated into the right ureter orifice for right retrograde ureteropyelogram which demonstrated some mild narrowing of the ureter but nothing dramatic and no evidence of clear filling defect. There appeared to be some narrowing also at the UPJ and evidence of mild dilation of the pyelocalyceal system but no other obvious filling defect could be identified. A flexible tip guidewire was advanced of the right ureter and attempt at passage over the wire with a flexible ureteroscope was performed but it would not easily advance beyond the ureteral orifice and for that reason the cystoscope was utilized to do balloon dilation of the intramural tunnel with a 15 [place]ian 4 cm balloon. A second guidewire was passed and a 24 cm ureteral access sheath was advanced into the distal ureter. And the working wire was utilized to pass the flexible ureteroscope under videoscopy. The safety wire was left in place secured to the drapes. The scope was then advanced all the way proximal to the ureter into the renal pelvis. Contrast was still present in the collecting system and this allowed confirmation of examination of all the calyces both fluoroscopically as well as endoscopically. There was some mild erythematous patches but nothing papillary or suspicious in the collecting system. The area of most inflammatory change appeared to be at the UPJ but there is no active bleeding there either. No stones were seen. Nothing that could account for persistent bleeding other than the inflammation. The scope was withdrawn and the ureter was carefully inspected as the scope was withdrawn. It was then repassed again just to to reinspect the area as above and again no specific findings were identified and no active bleeding at that time. Because of the hydronephrosis it was decided to leave the stent in place and for that reason the cystoscope was then backloaded over the safety wire and a 4.7 [place]ian by 26 cm double-pigtail stent without string was advanced easily over the guidewire through the cystoscope into appropriate position as confirmed via fluoroscopy and cystoscopy. The stent was confirmed to be draining. Bladder was drained. She tolerated the procedure well without complications and was awakened in the operating room and returned to recovery room in stable condition. PLANS: 1. She will be leaving this weekend to attend for mastectomy at [facility] [place] in [place]. 2. I reviewed with her and her the lack of definitive answer and some of the possible etiologies including passage of a stone, infection, and residual bleeding from irritation possibly in the face of platelet dysfunction from chemotherapy. 3. She will follow-up between the surgery and the radiation treatment up [place] and consider a stent removal at that time. 4. We will send copies of this note as well as my office note with her and I will be available to consult with her providers at the [facility] [place] if they have any questions regarding these particular findings.
--- NOTE | 2019-10-02 17:28 | SUR.PHASEI ---
anesthesia okay for transfer to outpatient
[2019-10-02] MEDS: ondansetron 2 mg/ML SDV 2 mL 4 MG IVP ×2 (17:30→20:40)
[2019-10-02] MEDS: morphine 4 mg/mL SDV 1 mL IVP (17:47)
[2019-10-02] MEDS: HYDROmorphone 1 mg/mL INJ 1 mL 0.5 MG IVP ×2 (18:18→18:23)
[2019-10-02] MEDS: metoclopramide 5 mg/mL SDV 2 mL 10 MG IVP (18:52)
--- NOTE | 2019-10-02 19:57 | SUR.PHASEII ---
RECEIVED REPORT FROM AROLDO KRUSE RN AT 1840,PT GIVEN DILAUDID X2 PER PT REQUEST,STATED THAT PAIN RELIEF AFTER SECOND DOSE BUT ALSO STATED THAT DOES NOT WANT ANY MORE DUE TO HER FEELING LIKE SHE CANNOT TAKE A DEEP BREATH,O2-2L-NC APPLIED O2 SAT 88-89% AND WITH O2 98-99% BP RANGES FROM 168/100 TO 160/94 HR RATES IN 110-115,STATES PAIN IS BETTER,HAS A DRY PRODUCTIVE COUGH AND HAS COUGHED UP SMALL AMTS OF SPUTUM,COUGH WAS PRESENT PRIOR TO SURGERY PER PT REMAINS AT BEDSIDE,HAS GOTTEN UP TO BATHROOM TO VOID ONCE NS BOLUS OF 500CC ALSO GIVEN
== END 2019-10-02 21:40 | disposition home or self-care (01) ==
PROVIDERS: Family Provider Nurse Practitioner Family; PCP Urology; Visit Provider Urology
PROC: 0TJB8ZZ Inspection of Bladder, Via Natural or Artificial Opening Endoscopic (ICD-10-PCS; CPT 52000; principal; 2019-10-02 14:00)
PROC: (CPT 74420; 2019-10-02 14:00)
PROC: (CPT 50605; 2019-10-02 14:00)
DX: R31.0 Gross hematuria (principal); N20.0 Calculus of kidney; N13.30 Unspecified hydronephrosis; J45.909 Unspecified asthma, uncomplicated; K21.9 Gastro-esophageal reflux disease without esophagitis; I10 Essential (primary) hypertension; E03.9 Hypothyroidism, unspecified
CPT/HCPCS: 52332; 52351; 12345; 36592; 76000; 80048; 96365; 96374; 96375; C1725; C2625; J1170; J1956; J2270; J2405; J2704; J2710; J2765; J3010; J3490; J3535; J7030; Q9967

== ENCOUNTER 2019-10-03 17:10 | Inpatient (IN) | payer OTHER, SELFPAY ==
[2019-10-03] VITALS (76 sets, daily range): BP systolic 132–197; BP diastolic 77–128; PULSE 62–148; RESP 13–37; TEMP 37.7–38.5; O2SAT 80–100; BMI 33.5
--- NOTE | 2019-10-03 17:23 | ED_ITS ---
Entered by Ellie Galarza, acting as scribe for Oct 03, 2019 17:10 Documented by User: Marybeth Francisco 10/03/19 20:53 HPI - Fever General: Chief Complaint: Fever Stated Complaint: fever post surgery Time Seen by Provider: 10/03/19 17:23 PFSH ED PFSH: Statuses (acute, chronic, etc) shown below reflect problem list status as previously entered and may not be historically accurate Medical History Acute kidney injury (Inactive) Asthma (Acute) Cholecystectomy planned (Acute) Cholelithiasis (Acute) Ductal carcinoma of left breast (Acute) Eczema (Acute) GERD (gastroesophageal reflux disease) (Acute) Hypertension (Acute) Hypothyroidism (Acute) Migraine (Acute) Nephrolithiasis (Inactive) Normal colonoscopy (Acute) Overactive bladder (Acute) Post hysterectomy menopause (Acute) Pyelonephritis (Resolved) Tonsillectomy planned (Acute) Urolithiasis (Acute) ESWL left mid ureteral stone 2005 with complete resolution Surgical History H/O lithotripsy (Acute) H/O oophorectomy (Acute) History of cholecystectomy (Acute) History of hysterectomy (Acute) S/P ureteral stent placement (Acute) Right Family History Unknown Lung disease Maternal grandmother had lung cancer, she has 3 sisters no history of breast cancer Crohn's disease Crohn disease in mother Other Hyperlipidemia Hypothyroidism Social History Smoking and tobacco status: never smoked Alcohol intake: never Marital status: Current occupational status: employed Course Vital Signs: Vital signs: Vital Signs Temperature 98.2 F 10/07/19 05:00 Pulse Rate 115 H 10/07/19 09:00 Respiratory Rate 22 H 10/07/19 09:00 Blood Pressure 142/100 10/07/19 07:00 Pulse Oximetry 95 10/07/19 09:00 MDM - Fever MDM Narrative: Medical decision making narrative: 20:45 -the patient comes in with a cough productive of colored sputum. Her influenza is negative. I believe she likely has pneumonia. I have covered her with Zosyn and vancomycin. I do not see any evidence of UTI and the patient denies any abdominal or flank pain. The patient is acidotic but is not hypotensive. I have reviewed the case in full with Dr. Dyson and she is agreeable to admission. Dr. Huddleston was not ified of the patient being here but he does not feel at this time any intervention by him is necessary but he is available if necessary. I added a cardiac profile to the patient her EKG shows a sinus tachycardia but her troponin is pending. Further care will be dictated by Dr. Dyson Lab Data: Attestation: I reviewed the patient's lab results. Labs: Lab Results 10/03/19 10/03/19 10/03/19 Range/Units 17:58 17:58 17:58 WBC 13.3 H (4.0-10.0) 10^3/ uL RBC 2.26 L (4.1-5.3) 10^6/u L Hgb 7.6 L (11.5-15.3) g/dL Hct 22.5 L (37.0-47.0) % MCV 99.6 H (81-99) fL MCH 33.6 (28.0-34.0) pg MCHC 33.8 (30.0-36.0) g/dL RDW 15.2 H (12.1-15.1) % Plt Count 140 (130-400) 10^3/c mm MPV 9.4 (7.4-10.4) fL Neut % (Auto) 88.3 % Lymph % (Auto) 5.7 % Gooding % (Auto) 5.3 % Eos % (Auto) 0.0 % Baso % (Auto) 0.2 % Neut # (Auto) 11.8 H (1.8-7.7) 10^3/u L Lymph # (Auto) 0.8 (0.8-4.8) 10^3/u L Gooding # (Auto) 0.7 (0.2-0.9) 10^3/u L Eos # (Auto) 0.0 (0.0-0.8) 10^3/u L Baso # (Auto) 0.0 (0.0-0.1) 10^3/u L Nucleated RBC % (a uto) 0 % Nucleated RBCs # 0.0 /100WBC Specimen Type Sample Site ABG pH (7.35-7.45) ABG pCO2 (35-45) mmHg ABG pO2 (80.0-100.0) mmH g ABG HCO3 (22-26) mmol/L ABG Base Excess (-2.0-2.0) mmol/ L Cj Test Hematocrit (37-47) % Commercial Technician ID Sodium 134 L (136-145) mmol/L Potassium 3.7 (3.5-5.1) mmol/L Chloride 99 (98-107) mmol/L Carbon Dioxide 18 L (22-29) mmol/L Anion Gap 20.7 H (5-19) BUN 21 H (6-20) mg/dL Creatinine 1.9 H (0.5-0.9) mg/dL GFR Calculation 29.3 L (90-130) mL/min Glucose 97 (74-109) mg/dL Lactic Acid 0.7 (0.5-2.2) mmol/L Calcium 9.2 (8.6-10.0) mg/Dl Total Bilirubin 0.6 (0.15-1.2) mg/dL AST 23 (0-32) U/L ALT 21 (0-33) U/L Alkaline Phosphata se 86 (35-105) IU/L Troponin T Baselin e (0-10) ng/mL Total Protein 6.5 L (6.6-8.7) g/dL Albumin 3.5 (3.5-5.2) g/dL Globulin 3.0 (1.3-4.6) g/dL Urine Color (Yellow) Urine Appearance (CLEAR) Urine pH (5-7) Ur Specific Gravit y (1.005-1.030) Urine Protein (Negative) Urine Glucose (UA) (Normal) Urine Ketones (Negative) Urine Occult Blood (Negative) Urine Nitrate (Negative) Urine Bilirubin (NEGATIVE) Urine Urobilinogen (Negative) mg/dL Ur Leukocyte Corie ase (Negative) Urine RBC (0-2) /hpf Urine WBC (0-5) /hpf Ur Squamous Epith Cells (0-5) Urine Bacteria (NONE) Hyaline Casts Influenza Type A A g (Negative) POC Influenza B Ag (Negative) Blood Type Antibody Screen Crossmatch 10/03/19 10/03/1920 Range/Units 18:10 18:56 19:50 WBC (4.0-10.0) 10^3/ uL RBC (4.1-5.3) 10^6/u L Hgb (11.5-15.3) g/dL Hct (37.0-47.0) % MCV (81-99) fL MCH (28.0-34.0) pg MCHC (30.0-36.0) g/dL RDW (12.1-15.1) % Plt Count (130-400) 10^3/c mm MPV (7.4-10.4) fL Neut % (Auto) % Lymph % (Auto) % Gooding % (Auto) % Eos % (Auto) % Baso % (Auto) % Neut # (Auto) (1.8-7.7) 10^3/u L Lymph # (Auto) (0.8-4.8) 10^3/u L Gooding # (Auto) (0.2-0.9) 10^3/u L Eos # (Auto) (0.0-0.8) 10^3/u L Baso # (Auto) (0.0-0.1) 10^3/u L Nucleated RBC % (a uto) % Nucleated RBCs # /100WBC Specimen Type Arterial Sample Site Radial, left ABG pH 7.34 L (7.35-7.45) ABG pCO2 31.0 L (35-45) mmHg ABG pO2 83.0 (80.0-100.0) mmH g ABG HCO3 16.8 L (22-26) mmol/L ABG Base Excess -8.0 L (-2.0-2.0) mmol/ L Cj Test Pos Hematocrit 28.8 L (37-47) % Commercial Technician ID ellpe Sodium (136-145) mmol/L Potassium (3.5-5.1) mmol/L Chloride (98-107) mmol/L Carbon Dioxide (22-29) mmol/L Anion Gap (5-19) BUN (6-20) mg/dL Creatinine (0.5-0.9) mg/dL GFR Calculation (90-130) mL/min Glucose (74-109) mg/dL Lactic Acid (0.5-2.2) mmol/L Calcium (8.6-10.0) mg/Dl Total Bilirubin (0.15-1.2) mg/dL AST (0-32) U/L ALT (0-33) U/L Alkaline Phosphata se (35-105) IU/L Troponin T Baselin e (0-10) ng/mL Total Protein (6.6-8.7) g/dL Albumin (3.5-5.2) g/dL Globulin (1.3-4.6) g/dL Urine Color Yellow (Yellow) Urine Appearance Cloudy (CLEAR) Urine pH 5 (5-7) Ur Specific Gravit y 1.015 (1.005-1.030) Urine Protein 3+ H (Negative) Urine Glucose (UA) Norm (Normal) Urine Ketones 1+ H (Negative) Urine Occult Blood 3+ H (Negative) Urine Nitrate Negative (Negative) Urine Bilirubin Neg (NEGATIVE) Urine Urobilinogen Norm (Negative) mg/dL Ur Leukocyte Corie ase Negative (Negative) Urine RBC >100 H (0-2) /hpf Urine WBC 0-4 H (0-5) /hpf Ur Squamous Epith Cells 0-4 H (0-5) Urine Bacteria 1+ H (NONE) Hyaline Casts 0-4 H Influenza Type A A g Negative (Negative) POC Influenza B Ag Negative (Negative) Blood Type Antibody Screen Crossmatch 10/03/19 10/03/19 Range/Units 20:12 20:12 WBC (4.0-10.0) 10^3/ uL RBC (4.1-5.3) 10^6/u L Hgb (11.5-15.3) g/dL Hct (37.0-47.0) % MCV (81-99) fL MCH (28.0-34.0) pg MCHC (30.0-36.0) g/dL RDW (12.1-15.1) % Plt Count (130-400) 10^3/c mm MPV (7.4-10.4) fL Neut % (Auto) % Lymph % (Auto) % Gooding % (Auto) % Eos % (Auto) % Baso % (Auto) % Neut # (Auto) (1.8-7.7) 10^3/u L Lymph # (Auto) (0.8-4.8) 10^3/u L Gooding # (Auto) (0.2-0.9) 10^3/u L Eos # (Auto) (0.0-0.8) 10^3/u L Baso # (Auto) (0.0-0.1) 10^3/u L Nucleated RBC % (a uto) % Nucleated RBCs # /100WBC Specimen Type Sample Site ABG pH (7.35-7.45) ABG pCO2 (35-45) mmHg ABG pO2 (80.0-100.0) mmH g ABG HCO3 (22-26) mmol/L ABG Base Excess (-2.0-2.0) mmol/ L Cj Test Hematocrit (37-47) % Commercial Technician ID Sodium (136-145) mmol/L Potassium (3.5-5.1) mmol/L Chloride (98-107) mmol/L Carbon Dioxide (22-29) mmol/L Anion Gap (5-19) BUN (6-20) mg/dL Creatinine (0.5-0.9) mg/dL GFR Calculation (90-130) mL/min Glucose (74-109) mg/dL Lactic Acid (0.5-2.2) mmol/L Calcium (8.6-10.0) mg/Dl Total Bilirubin (0.15-1.2) mg/dL AST (0-32) U/L ALT (0-33) U/L Alkaline Phosphata se (35-105) IU/L Troponin T Baselin e 33 H (0-10) ng/mL Total Protein (6.6-8.7) g/dL Albumin (3.5-5.2) g/dL Globulin (1.3-4.6) g/dL Urine Color (Yellow) Urine Appearance (CLEAR) Urine pH (5-7) Ur Specific Gravit y (1.005-1.030) Urine Protein (Negative) Urine Glucose (UA) (Normal) Urine Ketones (Negative) Urine Occult Blood (Negative) Urine Nitrate (Negative) Urine Bilirubin (NEGATIVE) Urine Urobilinogen (Negative) mg/dL Ur Leukocyte Corie ase (Negative) Urine RBC (0-2) /hpf Urine WBC (0-5) /hpf Ur Squamous Epith Cells (0-5) Urine Bacteria (NONE) Hyaline Casts Influenza Type A A g (Negative) POC Influenza B Ag (Negative) Blood Type O Positive Antibody Screen Negative Crossmatch See Detail Discharge Plan Discharge Patient Disposition: Admitted As Inpatient Admit Provider: Diamond Dyson Clinical Impression: Breast CA Community acquired pneumonia Qualifiers: Laterality: unspecified laterality Qualified Code(s): J18.9 - Pneumonia, unspecified organism Sepsis Qualifiers: Sepsis type: sepsis due to unspecified organism Sepsis acute organ dysfunction status: with acute organ dysfunction Severe sepsis acute organ dysfunction type: acute respiratory failure Acute respiratory failure type: with hypoxia Severe sepsis shock status: without septic shock Qualified Code(s): A41.9 - Sepsis, unspecified organism Condition: Stable Discharge Date/Time: 10/03/19 21:38 Sign Out Sign Out Data: Patient Sign Out occurred on 10/03/19 at 18:43. Patient's care was discussed, and care was transferred from James Chung DO to Marybeth Francisco. Sign Out Comment: Discussed with Dr. Colby he will assume care at change of shift. Labs pending Last updated by James Chung DO at 10/03/19 18:33 Coding Level of Care Code ED Booster Plant Operator for Chg Fwd Exam Problem Focused Documented by User: James Chung DO 10/07/19 09:37 HPI - Fever General: Chief Complaint: Fever Stated Complaint: fever post surgery Time Seen by Provider: 10/03/19 17:23 Source: patient and family Mode of arrival: ambulatory Limitations: no limitations History of Present Illness: HPI Narrative: 38 yo female presents with fever post op Lithotripsy- stent. pt states this started yesterday after surgery. pt is scheduled to have a mastectomy in [place] next week. pt has a cough. pt and spouse just wanted her checked to make she was healthy enough to make the trip.Pt has fever and productive cough. Denies diarrhea, mild nausea. Mild dysuria and flank pain which she relates to recent stenting. MD elicited complaint: fever (102.4) Pertinent past history: other (breast cancer) Onset (ago): day(s) (yesterday) Context: recent procedure (Lithotripsy) and on chemotherapy Exacerbating factors: nothing Relieving factors: nothing Associated symptoms: Reports abdominal pain, back/flank pain, chills, cough, dysuria and other; Deny chest pain or nasal congestion Treatments prior to arrival fever: none Review of Systems Const: Reports: fever, chills and body aches; Denies: change in appetite, fatigue or malaise ENMT: Denies: throat pain, ear pain, nasal discharge or nasal congestion Card: Reports: shortness of breath on exertion; Denies: chest pain, edema or shortness of breath when lying down Resp: Reports: shortness of breath and productive cough; Denies: non-productive cough GI: Reports: abdominal pain : Reports: flank pain, difficulty urinating, painful urination, urinary frequency and urinary urgency Skin/Breast: Denies: rash or itching PFSH ED PFSH: Statuses (acute, chronic, etc) shown below reflect problem list status as previously entered and may not be historically accurate Medical History Acute kidney injury (Inactive) Asthma (Acute) Cholecystectomy planned (Acute) Cholelithiasis (Acute) Ductal carcinoma of left breast (Acute) Eczema (Acute) GERD (gastroesophageal reflux disease) (Acute) Hypertension (Acute) Hypothyroidism (Acute) Migraine (Acute) Nephrolithiasis (Inactive) Normal colonoscopy (Acute) Overactive bladder (Acute) Post hysterectomy menopause (Acute) Pyelonephritis (Resolved) Tonsillectomy planned (Acute) Urolithiasis (Acute) ESWL left mid ureteral stone 2005 with complete resolution Surgical History H/O lithotripsy (Acute) H/O oophorectomy (Acute) History of cholecystectomy (Acute) History of hysterectomy (Acute) S/P ureteral stent placement (Acute) Right Family History Unknown Lung disease Maternal grandmother had lung cancer, she has 3 sisters no history of breast cancer Crohn's disease Crohn disease in mother Other Hyperlipidemia Hypothyroidism Social History Smoking and tobacco status: never smoked Alcohol intake: never Marital status: Current occupational status: employed Physical Exam Const: COMMON NORMALS: no apparent distress GENERAL APPEARANCE: cooperative and comfortable ORIENTATION/CONSCIOUSNESS: Yes awake, Yes oriented to person, Yes oriented to place and Yes oriented to time HENMT: COMMON NORMALS: normocephalic, head/scalp atraumatic, hearing grossly normal bilaterally, external ears normal, EAC's normal, TM's normal bilaterally, nasal mucous membranes and turbinates normal, moist oral mucous membranes and oropharynx normal HEAD & SCALP: normocephalic and atraumatic NOSE: nasal mucous membranes and turbinates normal EXTERNAL EAR: Yes external ears normal EXTERNAL AUDITORY CANAL: EAC's normal TYMPANIC MEMBRANE: TM's normal bilaterally Eye: COMMON NORMALS: PERRL, EOMs intact bilaterally, conjunctivae normal and no scleral icterus CONJUNCTIVA: Yes conjunctivae normal PUPIL: Yes PERRL Neck/C-Spine: COMMON NORMALS: full ROM, no lymphadenopathy, supple and no JVD Lymph: LYMPHATIC: no lymphadenopathy noted and no lymphedema noted Resp: COMMON NORMALS: normal respiratory effort, no retractions, no use of accessory muscles and clear to auscultation bilaterally AUSCULTATION: clear to auscultation bilaterally Cardio: COMMON NORMALS: no JVD, regular rate, regular rhythm and no murmurs RATE: regular rate RHYTHM: regular rhythm GI: COMMON NORMALS: soft to palpation and no hepatosplenomegaly AUSCULTATION: Yes normoactive bowel sounds PALPATION: Yes soft, No tender, No guarding and Yes no hepatosplenomegaly Extremity: COMMON NORMALS: normal to inspection, normal capillary refill, no clubbing, cyanosis or edema, no calf tenderness and no pedal edema Neuro: SENSORIUM/ORIENTATION: Yes oriented to person, Yes oriented to place and Yes oriented to time Skin: COMMON NORMALS: no rashes or lesions noted GENERAL SKIN EXAM: no rashes or lesions noted Course Vital Signs: Vital signs: Vital Signs Temperature 98.2 F 10/07/19 05:00 Pulse Rate 115 H 10/07/19 09:00 Respiratory Rate 22 H 10/07/19 09:00 Blood Pressure 142/100 10/07/19 07:00 Pulse Oximetry 95 10/07/19 09:00 MDM - Fever Lab Data: Labs: Lab Results 10/03/19 10/03/19 10/03/19 Range/Units 17:58 17:58 17:58 WBC 13.3 H (4.0-10.0) 10^3/ uL RBC 2.26 L (4.1-5.3) 10^6/u L Hgb 7.6 L (11.5-15.3) g/dL Hct 22.5 L (37.0-47.0) % MCV 99.6 H (81-99) fL MCH 33.6 (28.0-34.0) pg MCHC 33.8 (30.0-36.0) g/dL RDW 15.2 H (12.1-15.1) % Plt Count 140 (130-400) 10^3/c mm MPV 9.4 (7.4-10.4) fL Neut % (Auto) 88.3 % Lymph % (Auto) 5.7 % Gooding % (Auto) 5.3 % Eos % (Auto) 0.0 % Baso % (Auto) 0.2 % Neut # (Auto) 11.8 H (1.8-7.7) 10^3/u L Lymph # (Auto) 0.8 (0.8-4.8) 10^3/u L Gooding # (Auto) 0.7 (0.2-0.9) 10^3/u L Eos # (Auto) 0.0 (0.0-0.8) 10^3/u L Baso # (Auto) 0.0 (0.0-0.1) 10^3/u L Nucleated RBC % (a uto) 0 % Nucleated RBCs # 0.0 /100WBC Specimen Type Sample Site ABG pH (7.35-7.45) ABG pCO2 (35-45) mmHg ABG pO2 (80.0-100.0) mmH g ABG HCO3 (22-26) mmol/L ABG Base Excess (-2.0-2.0) mmol/ L Cj Test Hematocrit (37-47) % Commercial Technician ID Sodium 134 L (136-145) mmol/L Potassium 3.7 (3.5-5.1) mmol/L Chloride 99 (98-107) mmol/L Carbon Dioxide 18 L (22-29) mmol/L Anion Gap 20.7 H (5-19) BUN 21 H (6-20) mg/dL Creatinine 1.9 H (0.5-0.9) mg/dL GFR Calculation 29.3 L (90-130) mL/min Glucose 97 (74-109) mg/dL Lactic Acid 0.7 (0.5-2.2) mmol/L Calcium 9.2 (8.6-10.0) mg/Dl Total Bilirubin 0.6 (0.15-1.2) mg/dL AST 23 (0-32) U/L ALT 21 (0-33) U/L Alkaline Phosphata se 86 (35-105) IU/L Troponin T Baselin e (0-10) ng/mL Total Protein 6.5 L (6.6-8.7) g/dL Albumin 3.5 (3.5-5.2) g/dL Globulin 3.0 (1.3-4.6) g/dL Urine Color (Yellow) Urine Appearance (CLEAR) Urine pH (5-7) Ur Specific Gravit y (1.005-1.030) Urine Protein (Negative) Urine Glucose (UA) (Normal) Urine Ketones (Negative) Urine Occult Blood (Negative) Urine Nitrate (Negative) Urine Bilirubin (NEGATIVE) Urine Urobilinogen (Negative) mg/dL Ur Leukocyte Corie ase (Negative) Urine RBC (0-2) /hpf Urine WBC (0-5) /hpf Ur Squamous Epith Cells (0-5) Urine Bacteria (NONE) Hyaline Casts Influenza Type A A g (Negative) POC Influenza B Ag (Negative) Blood Type Antibody Screen Crossmatch 10/03/19 10/03/19 10/03/19 Range/Units 18:10 18:56 19:50 WBC (4.0-10.0) 10^3/ uL RBC (4.1-5.3) 10^6/u L Hgb (11.5-15.3) g/dL Hct (37.0-47.0) % MCV (81-99) fL MCH (28.0-34.0) pg MCHC (30.0-36.0) g/dL RDW (12.1-15.1) % Plt Count (130-400) 10^3/c mm MPV (7.4-10.4) fL Neut % (Auto) % Lymph % (Auto) % Gooding % (Auto) % Eos % (Auto) % Baso % (Auto) % Neut # (Auto) (1.8-7.7) 10^3/u L Lymph # (Auto) (0.8-4.8) 10^3/u L Gooding # (Auto) (0.2-0.9) 10^3/u L Eos # (Auto) (0.0-0.8) 10^3/u L Baso # (Auto) (0.0-0.1) 10^3/u L Nucleated RBC % (a uto) % Nucleated RBCs # /100WBC Specimen Type Arterial Sample Site Radial, left ABG pH 7.34 L (7.35-7.45) ABG pCO2 31.0 L (35-45) mmHg ABG pO2 83.0 (80.0-100.0) mmH g ABG HCO3 16.8 L (22-26) mmol/L ABG Base Excess -8.0 L (-2.0-2.0) mmol/ L Cj Test Pos Hematocrit 28.8 L (37-47) % Commercial Technician ID ellpe Sodium (136-145) mmol/L Potassium (3.5-5.1) mmol/L Chloride (98-107) mmol/L Carbon Dioxide (22-29) mmol/L Anion Gap (5-19) BUN (6-20) mg/dL Creatinine (0.5-0.9) mg/dL GFR Calculation (90-130) mL/min Glucose (74-109) mg/dL Lactic Acid (0.5-2.2) mmol/L Calcium (8.6-10.0) mg/Dl Total Bilirubin (0.15-1.2) mg/dL AST (0-32) U/L ALT (0-33) U/L Alkaline Phosphata se (35-105) IU/L Troponin T Baselin e (0-10) ng/mL Total Protein (6.6-8.7) g/dL Albumin (3.5-5.2) g/dL Globulin (1.3-4.6) g/dL Urine Color Yellow (Yellow) Urine Appearance Cloudy (CLEAR) Urine pH 5 (5-7) Ur Specific Gravit y 1.015 (1.005-1.030) Urine Protein 3+ H (Negative) Urine Glucose (UA) Norm (Normal) Urine Ketones 1+ H (Negative) Urine Occult Blood 3+ H (Negative) Urine Nitrate Negative (Negative) Urine Bilirubin Neg (NEGATIVE) Urine Urobilinogen Norm (Negative) mg/dL Ur Leukocyte Corie ase Negative (Negative) Urine RBC >100 H (0-2) /hpf Urine WBC 0-4 H (0-5) /hpf Ur Squamous Epith Cells 0-4 H (0-5) Urine Bacteria 1+ H (NONE) Hyaline Casts 0-4 H Influenza Type A A g Negative (Negative) POC Influenza B Ag Negative (Negative) Blood Type Antibody Screen Crossmatch 10/03/19 10/03/19 Range/Units 20:12 20:12 WBC (4.0-10.0) 10^3/ uL RBC (4.1-5.3) 10^6/u L Hgb (11.5-15.3) g/dL Hct (37.0-47.0) % MCV (81-99) fL MCH (28.0-34.0) pg MCHC (30.0-36.0) g/dL RDW (12.1-15.1) % Plt Count (130-400) 10^3/c mm MPV (7.4-10.4) fL Neut % (Auto) % Lymph % (Auto) % Gooding % (Auto) % Eos % (Auto) % Baso % (Auto) % Neut # (Auto) (1.8-7.7) 10^3/u L Lymph # (Auto) (0.8-4.8) 10^3/u L Gooding # (Auto) (0.2-0.9) 10^3/u L Eos # (Auto) (0.0-0.8) 10^3/u L Baso # (Auto) (0.0-0.1) 10^3/u L Nucleated RBC % (a uto) % Nucleated RBCs # /100WBC Specimen Type Sample Site ABG pH (7.35-7.45) ABG pCO2 (35-45) mmHg ABG pO2 (80.0-100.0) mmH g ABG HCO3 (22-26) mmol/L ABG Base Excess (-2.0-2.0) mmol/ L Cj Test Hematocrit (37-47) % Commercial Technician ID Sodium (136-145) mmol/L Potassium (3.5-5.1) mmol/L Chloride (98-107) mmol/L Carbon Dioxide (22-29) mmol/L Anion Gap (5-19) BUN (6-20) mg/dL Creatinine (0.5-0.9) mg/dL GFR Calculation (90-130) mL/min Glucose (74-109) mg/dL Lactic Acid (0.5-2.2) mmol/L Calcium (8.6-10.0) mg/Dl Total Bilirubin (0.15-1.2) mg/dL AST (0-32) U/L ALT (0-33) U/L Alkaline Phosphata se (35-105) IU/L Troponin T Baselin e 33 H (0-10) ng/mL Total Protein (6.6-8.7) g/dL Albumin (3.5-5.2) g/dL Globulin (1.3-4.6) g/dL Urine Color (Yellow) Urine Appearance (CLEAR) Urine pH (5-7) Ur Specific Gravit y (1.005-1.030) Urine Protein (Negative) Urine Glucose (UA) (Normal) Urine Ketones (Negative) Urine Occult Blood (Negative) Urine Nitrate (Negative) Urine Bilirubin (NEGATIVE) Urine Urobilinogen (Negative) mg/dL Ur Leukocyte Ocrie ase (Negative) Urine RBC (0-2) /hpf Urine WBC (0-5) /hpf Ur Squamous Epith Cells (0-5) Urine Bacteria (NONE) Hyaline Casts Influenza Type A A g (Negative) POC Influenza B Ag (Negative) Blood Type O Positive Antibody Screen Negative Crossmatch See Detail Discharge Plan Discharge Patient Disposition: Admitted As Inpatient Admit Provider: Diamond Dyson Clinical Impression: Breast CA Community acquired pneumonia Qualifiers: Laterality: unspecified laterality Qualified Code(s): J18.9 - Pneumonia, unspecified organism Sepsis Qualifiers: Sepsis type: sepsis due to unspecified organism Sepsis acute organ dysfunction status: with acute organ dysfunction Severe sepsis acute organ dysfunction type: acute respiratory failure Acute respiratory failure type: with hypoxia Severe sepsis shock status: without septic shock Qualified Code(s): A41.9 - Sepsis, unspecified organism Condition: Stable Discharge Date/Time: 10/03/19 21:38 Sign Out Sign Out Data: Patient Sign Out occurred on 10/03/19 at 18:43. Patient's care was discussed, and care was transferred from James Chung DO to Marybeth Francisco. Sign Out Comment: Discussed with Dr. Colby he will assume care at change of shift. Labs pending Last updated by James Chung DO at 10/03/19 18:33 Coding Level of Care Code ED Booster Plant Operator for Chg Fwd Exam Problem Focused The documentation recorded by the Geovanni horowitz Bridget Annette, accurately reflects the service I personally performed and the decisions made by , James Chung DO Oct 03, 2019 17:10
--- NOTE | 2019-10-03 17:35 | XRR_ITS ---
PROCEDURE INFORMATION: Exam: XR Chest, 1 View Exam date and time: 10/03/2019 5:38 PM Age: 38 years old Clinical indication: Fever; Additional info: Cough TECHNIQUE: Imaging protocol: XR of the chest Views: 1 view. COMPARISON: CR Chest 2 views* [id number] 08/22/2019 5:13 PM FINDINGS: Tubes, catheters and devices: Stable right [id number]. Lungs: Mild ground-glass opacities in the lung bases. Mild bronchial cuffing. Pleural space: Unremarkable. No pleural effusion. No pneumothorax. Heart/Mediastinum: Unremarkable. No cardiomegaly. Bones/joints: Unremarkable. XR/XR chest 1V portable [id number] IMPRESSION: Findings suggest bronchitis with mild bibasilar pneumonia.
[2019-10-03] MEDS: cefepime 2,000 MG in sodium chloride 0.9% (plus) 50 ML 100 MG IV (18:02)
[2019-10-03 18:10] LABS: Basophils % 0.2 %; Hematocrit 22.5 % (37.0-47.0); Hemoglobin 7.6 g/dL (11.5-15.3); Lymphocytes # 0.8 10^3/uL (0.8-4.8); Lymphocytes % 5.7 %; Mean Corpuscular HGB Conc 33.8 g/dL (30.0-36.0); Mean Corpuscular Hemoglobin 33.6 pg (28.0-34.0); Mean Corpuscular Volume 99.6 fL (81-99); Mean Platelet Volume 9.4 fL (7.4-10.4); Monocytes # 0.7 10^3/uL (0.2-0.9); Monocytes % 5.3 %; Neutrophils # 11.8 10^3/uL (1.8-7.7); Neutrophils % 88.3 %; Nucleated Red Blood Cells % 0 %; Platelet Count 140 10^3/cmm (130-400); Red Blood Count 2.26 10^6/uL (4.1-5.3); Red Cell Distribution Width 15.2 % (12.1-15.1); White Blood Count 13.3 10^3/uL (4.0-10.0)
[2019-10-03 18:22] LABS: Lactic Sepsis W/Reflex 0.7 mmol/L (0.5-2.2)
--- NOTE | 2019-10-03 18:22 | PC.NURSE ---
Xray at bedside
[2019-10-03 18:23] LABS: Alanine Aminotransferase 21 U/L (0-33); Albumin Level 3.5 g/dL (3.5-5.2); Alkaline Phosphatase 86 IU/L (35-105); Anion Gap 20.7 (5-19); Aspartate Amino Transferase 23 U/L (0-32); Blood Urea Nitrogen 21 mg/dL (6-20); Calcium 9.2 mg/Dl (8.6-10.0); Carbon Dioxide 18 mmol/L (22-29); Chloride 99 mmol/L (98-107); Glomerular Filtration Rate 29.3 mL/min (90-130); Glucose 97 mg/dL (74-109); Potassium 3.7 mmol/L (3.5-5.1); Sodium 134 mmol/L (136-145); Total Bilirubin 0.6 mg/dL (0.15-1.2); Total Protein 6.5 g/dL (6.6-8.7)
[2019-10-03 18:52] LABS: Influenza A by IFA Negative (Negative); Influenza B by IFA Negative (Negative)
[2019-10-03] MEDS: morphine 4 mg/mL SDV 1 mL IVP ×2 (19:13→23:33)
[2019-10-03] MEDS: ondansetron 2 mg/ML SDV 2 mL 4 MG IVP ×2 (19:13→22:01)
--- NOTE | 2019-10-03 19:17 | PC.NURSE ---
Introduced self to patient and initiated vital signs. Pt is A&O x 4 and agreeable. Pt states that the reason for the ER visit today is due to fever and general malaise. Pt is a cancer patient who is scheduled for another procedure in the very near future. Pt also complaining of nausea and chest pain. Reassured patient of needs and will continue to monitor. Awaiting provider at bedside.
[2019-10-03 19:29] LABS: Add Urine Microscopic? YES; Bilirubin Urine Neg (NEGATIVE); Blood Urine 3+ (Negative); Glucose Urine UA Norm (Normal); Ketones Urine 1+ (Negative); Leukocyte Esterase Urine Negative (Negative); Nitrate Urine Negative (Negative); Protein Urine 3+ (Negative); Specific Gravity, Urine 1.015 (1.005-1.030); Urine Appearance Cloudy (CLEAR); Urine Color Yellow (Yellow); Urobilinogen Urine Norm (Negative); pH Urine 5 (5-7)
[2019-10-03 19:38] LABS: Add Urine Culture? Yes; Bacteria Urine 1+; Hyaline Casts Urine 0-4; RBC Urine >100 /hpf (0-2); Squamous Epithelial Cell Urine 0-4 (0-5); WBC Urine 0-4 /hpf (0-5)
[2019-10-03 19:57] LABS: ABG PH Result 7.34 (7.35-7.45); Arterial Blood Gas Hematocrit 28.8 % (37-47); Blood Gas Allen Test Pos; Blood Gas Sample Site Radial, left; Blood Gas Sample Type Arterial; HCO3 ABG 16.8 mmol/L (22-26)
--- NOTE | 2019-10-03 20:05 | ECG_ITS ---
Measurements Intervals [place] Rate: 139 P: 135 VA: 111 QRS: 94 QRSD: 82 T: 117 QT: 270 QTc: 411 SINUS TACHYCARDIA WITH SHORT VA INTERVAL BORDERLINE RIGHT AXIS DEVIATION [QRS AXIS > 90] LOW QRS VOLTAGE [QRS DEFLECTION < 0.5/1.0 mV IN LIMB/CHEST LEADS] Compared to ECG 06/16/2019 07:17:44 Short VA interval now present Low QRS voltage now present Sinus rhythm no longer present Electronically Signed On 10-04-2019 9:33:14 [employer]SPORTATION [employer]ANNING [employer] by Ozzie Landis M.D. [email or web address]
[2019-10-03] MEDS: piperacillin-tazobactam 4.5 GM in sodium chloride 0.9% (plus) 50 ML IV (20:20)
[2019-10-03 20:48] LABS: Troponin(5th) Baseline 33 ng/mL (0-10)
--- NOTE | 2019-10-03 21:06 | PC.NURSE ---
Patient reassured and updated on plan.
--- NOTE | 2019-10-03 22:05 | ECG_ITS ---
Measurements Intervals [place] Rate: 142 P: 69 MD: 139 QRS: 22 QRSD: 77 T: 41 QT: 272 QTc: 418 SINUS TACHYCARDIA LOW QRS VOLTAGE IN PRECORDIAL LEADS [QRS DEFLECTION < 1.0 mV IN CHEST LEADS] ABNORMAL RHYTHM ECG Compared to ECG 06/16/2019 07:17:44 Low QRS voltage now present Sinus rhythm no longer present Electronically Signed On 10-04-2019 9:33:58 [employer] by Ozzie Landis M.D. [id number]
--- NOTE | 2019-10-03 22:21 | P.HP_ITS ---
Providers/Chief Complaint Admitting Physician: Diamond Dyson MD Primary Care Provider: Noreen Cortez Chief Complaint: fever post surgery History of Present Illness Mya Harrell is a 38 year old female with PMHx of Invasive ductal carcinoma of left breast on chemo and pending surgery; GERD, HTN, Hypothyroidism, Asthma; presents from home for evaluation of worsening shortness of breath, generally feeling unwell, nausea that seems to have worsened since yesterday when she had right ureteral stent placement. Patient describes a somewhat prolonged recovery following the procedure and significant pain. Prior to having the procedure done she did notice some shortness of breath but this seemed to worsen following the stent placement. She is not oxygen dependent at baseline and has been undergoing chemotherapy though no treatment in the past 3 weeks. She has had ongoing issues with dehydration and electrolyte abnormalities so has had IV fluid hydration and electrolyte replacement done this past Saturday and over at the [facility]. Dr. Wayne is her oncologist locally and she has been seen at [facility] but is pending a mastectomy to be done at [facility] in [place] and this is scheduled for this coming Saturday. Patient states that she has been very weak, unable to do much activity out of bed, with minimal appetite and oral intake. She has had ongoing issues with gross hematuria though this seems to have improved significantly since her stent placement. She had an office cystoscopy done by Dr. Huddleston earlier in the week. She has alopecia secondary to her chemotherapy. She is very ill-appearing during my assessment in the ER, is at bedside. Work-up so far has indicated significant leukocytosis with a white count of 13, anemia with a hemoglobin of 7.6, sodium of 134, BUN of 21, creatinine of 1.9, she had an ABG done which was normal, urinalysis shows some protein, ketones, blood, bacteria and pyuria. While she has been in the ER she has spiked a temperature as high as 101.3, she has been tachycardic in the 120s to 130s and significantly hypertensive. She is currently on 2 L nasal cannula and saturating at 96%. She has received doses of cefepime, vancomycin and Zosyn; as well as a 2L normal saline sepsis bolus. Chest x-ray shows bronchitis with mild bibasilar pneumonia. I spent quite a bit of time with the patient and her at bedside discussing the findings and care plan which they are agreeable to. Given her underlying state of immunocompromise, overall ill appearance, hemodynamic instability I will be admitting her to the ICU for closer monitoring. I have checked on the patient multiple times throughout the night, she remains tachycardic, hypertensive, and is still running a low-grade temperature. She is still requiring supplemental oxygen. We have slow down the IV fluid infusion rate and are currently holding off on blood transfusion to allow her to be more stable. She is finally resting, is still at bedside. She has received a 10 mg dose of IV hydralazine and a 5 mg dose of IV metoprolol with her current vital signs being 140/81, heart rate in the 120s. We will need to continue to monitor closely. Review of Systems Const: Reports: fever, chills, change in appetite (decreased appetite), fatigue and malaise Eyes: Denies: change in vision ENMT: Reports: dry mouth; Denies: painful swallowing or oral sores/lesions Card: Reports: shortness of breath on exertion; Denies: chest pain, edema, swelling of feet/ankles or lightheadedness Resp: Reports: productive cough (Clear sputum); Denies: shortness of breath or coughing up blood GI: Reports: nausea; Denies: abdominal pain, vomiting, vomiting blood, diarrhea or blood in stool : Reports: blood in urine (Improving); Denies: difficulty urinating, painful urination or urinary frequency Musc: Denies: back pain Skin/Breast: Denies: rash Neuro: Reports: weakness in extremities and difficulty walking; Denies: numbness in extremities Psych: Denies: anxiety Medications/Allergies Home Medications Medication Instructions Recorded Confirmed Last Taken Type ergocalciferol (vitamin D2) 50,000 unit PO Q7D 10/03/19 10/03/19 09/26/19 H istory Allergies Allergy/AdvReac Type Severity Reaction Status Date / Time amlodipine Allergy ADR/ALGY-Fl Verified 09/18/19 15:01 ushing liraglutide [From Saxenda] Allergy NA Verified 10/01/19 14:56 phentermine Allergy Tachy Verified 10/01/19 14:56 pregabalin [From Lyrica] Allergy NA Verified 10/01/19 14:56 prochlorperazine Allergy ALGY-Hives Verified 09/18/19 15:01 [From Compazine] Sulfa (Sulfonamide Allergy ALGY-Bliste Verified 09/18/19 15:01 Antibiotics) r PFSH Acute PFSH: Statuses (acute, chronic, etc) shown below reflect problem list status as previously entered and may not be historically accurate Medical History (Updated 10/04/19 @ 02:40 by Diamond Dyson MD) Acute kidney injury (Inactive) Asthma (Acute) Cholecystectomy planned (Acute) Cholelithiasis (Acute) Ductal carcinoma of left breast (Acute) Eczema (Acute) GERD (gastroesophageal reflux disease) (Acute) Hypertension (Acute) Hypothyroidism (Acute) Migraine (Acute) Nephrolithiasis (Inactive) Normal colonoscopy (Acute) Overactive bladder (Acute) Post hysterectomy menopause (Acute) Pyelonephritis (Resolved) Tonsillectomy planned (Acute) Urolithiasis (Acute) ESWL left mid ureteral stone 2005 with complete resolution Surgical History (Updated 10/04/19 @ 02:34 by Diamond Dyson MD) H/O lithotripsy (Acute) H/O oophorectomy (Acute) History of cholecystectomy (Acute) History of hysterectomy (Acute) S/P ureteral stent placement (Acute) Right Family History Unknown Lung disease Maternal grandmother had lung cancer, she has 3 sisters no history of breast cancer Crohn's disease Crohn disease in mother Other Hyperlipidemia Hypothyroidism Social History Smoking and tobacco status: never smoked Alcohol intake: never Marital status: Current occupational status: employed Vitals/I&O/Wt Last Vital Signs Temp 101.3 F H 10/03/19 20:44 Pulse 137 H 10/03/19 20:44 Resp 26 H 10/03/19 22:00 BP 166/99 10/03/19 20:44 Pulse Ox 97 10/03/19 22:00 10/03/19 10/03/19 10/03/19 06:59 14:59 22:59 Intake Total 50 / 50 Balance 50 / 50 Weight last 48 hrs Weight 88.451 kg Physical Exam Const: COMMON NORMALS: oriented x3 GENERAL APPEARANCE: cooperative, anxious, ill appearing and frail appearing; not comfortable NUTRITIONAL APPEARANCE: obese morbidly obese ORIENTATION/CONSCIOUSNESS: Yes awake HENMT: COMMON NORMALS: normocephalic, head/scalp atraumatic and hearing grossly normal bilaterally HEAD & SCALP: normocephalic and atraumatic MOUTH: moist mucous membranes abnormal Details: cracked and parched Eye: COMMON NORMALS: PERRL, EOMs intact bilaterally and conjunctivae normal CONJUNCTIVA: Yes conjunctivae normal PUPIL: Yes PERRL Neck/C-Spine: COMMON NORMALS: full ROM GENERAL: Yes normal visual inspection and Yes trachea midline Chest: OTHER: Port-A-Cath in place on the right, area with no visible eryth alvarado, non-tender to palpation, no warmth to touch, no noted drainage Resp: COMMON NORMALS: normal respiratory effort, no retractions, no use of accessory muscles and clear to auscultation bilaterally EFFORT & INSPECTION: Yes able to speak in complete sentences, Yes symmetric chest movement and Yes tachypneic AUSCULTATION: clear to auscultation bilaterally Cardio: COMMON NORMALS: regular rhythm, S1 normal heart sound, S2 normal heart sound and no murmurs RATE: tachycardic RHYTHM: regular rhythm HEART SOUNDS: S1 normal and S2 normal GI: COMMON NORMALS: normal to inspection, nondistended, normoactive bowel sounds, soft to palpation and non-tender PALPATION: Yes soft : BLADDER/KIDNEY EXAM: Yes CVA tenderness on the right Extremity: COMMON NORMALS: normal to inspection, full ROM and no clubbing, cyanosis or edema; negative for no pedal edema Neuro: COMMON NORMALS: oriented x3, moves all extremities, no focal motor deficits and no sensory deficits noted OTHER: Generally very weak Psych: COMMON NORMALS: mental status grossly normal, thought process normal, cooperative, affect normal and speech normal SPEECH: Yes normal speech THOUGHT PROCESS: normal thought process Skin: COMMON NORMALS: no rashes or lesions noted, no jaundice, no petechiae and no mottling GENERAL SKIN EXAM: no rashes or lesions noted Data : 10/03/19 17:58 10/03/19 17:58 A&P Assessment and plan (1) Sepsis: -Patient is very ill appearing clinically and has sepsis associated with bronchitis and bibasilar pneumonia as evidenced by leukocytosis, tachycardia, hypoxia, fever -Close monitoring in ICU setting -Close monitoring of vital signs, respiratory status -Supplemental oxygen as needed -Has received cefepime, vancomycin and Zosyn; continue broad-spectrum IV antibiotics at this time -Has received sepsis bolus of IVF; continue IV fluid hydration with caution to prevent fluid overload particularly due to need for transfusion of blood products -Telemetry monitoring -Follow-up blood cultures -Imaging noted Status: Acute Qualifiers: Acute respiratory failure type: with hypoxia Sepsis acute organ dysfunction status: with acute organ dysfunction Sepsis type: sepsis due to unspecified organism Severe sepsis acute organ dysfunction type: acute respiratory failure Severe sepsis shock status: without septic shock Qualified Code(s): A41.9 - Sepsis, unspecified organism; R65.20 - Severe sepsis without septic shock; J96.01 - Acute respiratory failure with hypoxia Code(s): A41.9 - Sepsis, unspecified organism (2) Anemia: -Has had gradually downtrending hemoglobin over the past several weeks, down to 7.6 today so will likely need transfusion of blood products -Currently holding off on transfusion due to hemodynamic instability -We will likely need at least 1 unit of PRBCs transfused later today -Continue to monitor hemoglobin closely -Avoid anticoagulation due to bleeding risk Status: Acute Qualifiers: Anemia type: unspecified type Qualified Code(s): D64.9 - Anemia, unspecified Code(s): D64.9 - Anemia, unspecified (3) Ductal carcinoma of left breast: -Has known history of grade 3 invasive ductal carcinoma of the left breast; has been receiving chemotherapy. Plan for mastectomy to be done at [facility] in [place] on Saturday. We will need to reschedule surgery due to active infection -Not currently neutropenic but will need to continue to monitor cell lines Status: Acute Code(s): C50.912 - Malignant neoplasm of unspecified site of left female breast (4) Gross hematuria: -Improving since right ureteral stent placement on 10/02/2019 -UA noted Status: Acute Code(s): R31.0 - Gross hematuria (5) Community acquired pneumonia: -Management of infection as noted above Status: Acute Qualifiers: Laterality: unspecified laterality Qualified Code(s): J18.9 - Pneumonia, unspecified organism Code(s): J18.9 - Pneumonia, unspecified organism Additional A&P Information -Morbid obesity: BMI-34 kg/m2 -HTN; currently very hypertensive, resume oral antihypertensives, hydralazine PRN -Hypothyroidism -GERD; continue PPI -Asthma -liberal diet due to poor oral intake -GI ppx with PPI -DVT ppx with SCDs; hold AC for now due to worsening anemia -Dispo: home -Code status: FULL code -Admit to ICU due to sepsis, low threshold for decompensation Attestations Medical Necessity Statement*: Mya Harrell's hospital stay will require greater than 2 midnights for management of sepsis secondary to pneumonia, requiring aggressive IV fluid hydration, IV antibiotics and close monitoring of hemodynamic status as well as management of anemia with requirement for transfusion of blood products. Time Spent in Patient Care: Greater than 35 minutes (>than 50% of time spent in counselling and/or direct pt care on unit) . Critical Care Time: The high probability of a clinically significant, sudden or life threatening deterioration of the patient's [cardiovascular and respiratory] system(s) required my full and direct attention, intervention and personal management. The critical care time is as shown. 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
--- NOTE | 2019-10-03 22:42 | PC.NURSE ---
heart rate 130's hold transfusion per Dr Dyson until HR comes down
[2019-10-03 23:15] LABS: Troponin 5 2HR 36.06 ng/mL (0-10); Troponin 5 2HR Delta 3.06 ABS# (0-10)
[2019-10-03] MEDS: sodium chloride 0.9% 1,000 ML 100 ML IV (23:44)
[2019-10-03] MEDS: hyDRALAzine 20 mg/mL INJ 1 mL 10 MG IVP (23:44)
[2019-10-04] VITALS (124 sets, daily range): BP systolic 122–189; BP diastolic 72–124; PULSE 57–143; RESP 13–35; TEMP 37.3–38.8; O2SAT 87–141; BMI 37.4
[2019-10-04] MEDS: metoprolol tartrate 1 mg/1 mL SDV 5 mL 5 MG IV ×5 (00:08→20:37)
--- NOTE | 2019-10-04 02:05 | ECG_ITS ---
Measurements Intervals [place] Rate: 130 P: 55 WV: 142 QRS: 42 QRSD: 78 T: 47 QT: 287 QTc: 423 SINUS TACHYCARDIA LOW QRS VOLTAGE [QRS DEFLECTION < 0.5/1.0 mV IN LIMB/CHEST LEADS] Compared to ECG 06/16/2019 07:17:44 Low QRS voltage now present Sinus rhythm no longer present Electronically Signed On 10-04-2019 9:35:04 PROPERTY CLAIM REP by Ozzie Landis M.D. [email or web address]
[2019-10-04 02:39] LABS: Troponin 5 6HR 35.79 ng/L (0-10); Troponin 5 6HR Delta 2.79 ng/L (0-12)
[2019-10-04] MEDS: ondansetron 2 mg/ML SDV 2 mL 4 MG IVP ×3 (03:51→20:39)
[2019-10-04] MEDS: piperacillin-tazobactam 3.375 GM in sodium chloride 0.9% (plus) 50 ML IV (04:30)
[2019-10-04 05:06] LABS: Basophils % 0.2 %; Hematocrit 21.5 % (37.0-47.0); Hemoglobin 6.9 g/dL (11.5-15.3); Lymphocytes # 0.7 10^3/uL (0.8-4.8); Lymphocytes % 4.4 %; Mean Corpuscular HGB Conc 32.1 g/dL (30.0-36.0); Mean Corpuscular Hemoglobin 33.7 pg (28.0-34.0); Mean Corpuscular Volume 104.9 fL (81-99); Mean Platelet Volume 9.6 fL (7.4-10.4); Monocytes # 0.7 10^3/uL (0.2-0.9); Monocytes % 4.8 %; Neutrophils # 13.3 10^3/uL (1.8-7.7); Neutrophils % 89.3 %; Nucleated Red Blood Cells % 0 %; Platelet Count 137 10^3/cmm (130-400); Red Blood Count 2.05 10^6/uL (4.1-5.3); White Blood Count 14.9 10^3/uL (4.0-10.0)
[2019-10-04 05:26] LABS: Anion Gap 19.9 (5-19); Blood Urea Nitrogen 23 mg/dL (6-20); Calcium 8.5 mg/Dl (8.6-10.0); Carbon Dioxide 15 mmol/L (22-29); Chloride 104 mmol/L (98-107); Glomerular Filtration Rate 27.6 mL/min (90-130); Glucose 104 mg/dL (74-109); Potassium 3.9 mmol/L (3.5-5.1); Sodium 135 mmol/L (136-145)
--- NOTE | 2019-10-04 08:13 | USR_ITS ---
PROCEDURE INFORMATION: Exam: US Retroperitoneal Complete. Exam date and time: 10/04/2019 4:02 PM Age: 38 years old Clinical indication: Other: Hematurea; Prior surgery; Surgery date: Post-operative (0-2 days); Surgery type: Right ureteral stent placed 10-02-19; Additional info: History of stent 2 days ago TECHNIQUE: Imaging protocol: Real-time ultrasound of the retroperitoneum with image documentation. Complete exam. COMPARISON: CT kidney stone [id number] 09/20/2019 2:04 PM FINDINGS: Right kidney: No stones. Measures 5.6 cm x 5 cm x 10.4 cm. Upper pole caliectasis is seen Left kidney: No stones. No hydronephrosis. 4.7 cm x 4.8 cm x 11.2 cm The urinary bladder does not show intrinsic abnormalities. The urinary bladder is incompletely empty after voiding US/US renal BI with bladder IMPRESSION: Mild caliectasis upper pole collecting system of the right kidney Negative left kidney Incomplete emptying of the urinary bladder. Otherwise negative for intrinsic abnormality
--- NOTE | 2019-10-04 08:15 | USR_ITS ---
PROCEDURE INFORMATION: Exam: US Duplex Lower Extremity Veins Exam date and time: 10/04/2019 10:54 AM Age: 38 years old Clinical indication: Edema, localized; Lower extremity, bilateral TECHNIQUE: Imaging protocol: Real-time duplex ultrasound of the Lower Extremities with 2-D ribeiro scale, color Doppler flow and spectral waveform analysis with image documentation. Complete exam focused on the bilateral lower extremity veins. COMPARISON: No relevant prior studies available. FINDINGS: Right deep veins: Unremarkable. The common femoral, femoral, proximal profunda femoral and popliteal veins are patent without thrombus. Normal Doppler waveforms. Normal compressibility and/or augmentation response. Right superficial veins: Saphenofemoral junction is patent without thrombus. Left deep veins: Unremarkable. The common femoral, femoral, proximal profunda femoral and popliteal veins are patent without thrombus. Normal Doppler waveforms. Normal compressibility and/or augmentation response. Left superficial veins: Saphenofemoral junction is patent without thrombus. Soft tissues: Unremarkable. US/[place] [id number] IMPRESSION: No acute findings. No evidence of deep vein thrombosis.
[2019-10-04] MEDS: ipratropium-albuterol 3 mL Neb INHALATION ×4 (08:42→20:01)
[2019-10-04] MEDS: sodium chloride 0.9% 100 ML (09:24)
--- NOTE | 2019-10-04 09:39 | PC.NURSE ---
feels breathing is better. reactions to notice for explained re: blood infusion
[2019-10-04] MEDS: hyDRALAzine 20 mg/mL INJ 1 mL 10 MG IVP ×2 (09:57→19:41)
--- NOTE | 2019-10-04 12:15 | PC.CHAP ---
Pastoral Care Encounter/Spiritual Assessment Type of Contact [] Declined plodder operator visit [] Patient/Family/Request visit [] Outpatient visit [] Follow-up visit [] Physician referral [] Code/Alert [] Routine visit [] Staff referral [] Actively dying [] Patient sleeping [] Family support [] [] Out of room [] Palliative care [] [] Receiving care in room [] Pre-surgical visit [] Trauma [] Long length of stay [] ICU visit [] Other: Relational/Emotional Strength [] Patient feels connected with others/family/visitors/staff [] Distress [] Loneliness/isolation [] Abandonment Spirituality of Patient [] Person of Rosa [] Attends Gnosticism of their Rosa [] Believes in Prayer [] Reads Bible or Jewish materials [] There are Spiritual issues to be addressed Medical Transcription Editor Interventions [] Prayer [] Active listening [] Non-anxious presence [] Spiritual/emotional support [] Crisis/trauma care [] Spiritual counseling [] Bereavement support [] Provided bereavement packet [] Provided Bible/devotional materials [] Provided toy/stuffed animal, coloring book to patient or family member [] Completed spiritual assessment [] Provided Communion [] Anointing/Ariel [] Salvation [] Other: Impact on Illness or Injury [] Angry [] Fearful [] Anxious [] Often cries [] Exhaustion [] Unable to work [] Unable to attend voodoo [] Unable to walk/stand [] Unable to read [] Unable to drive [] Unable to eat/drink [] Unable to sleep [] Unable to be with family [] Other: Summary Time spent with patient follow-up, patient busy with staff
[2019-10-04] MEDS: morphine 4 mg/mL SDV 1 mL IVP ×2 (12:47→20:38)
[2019-10-04] MEDS: FUROsemide 10 mg/mL SDV 4mL 40 MG IVP (12:49)
--- NOTE | 2019-10-04 12:53 | P.PN_ITS ---
Subjective Subjective: Interval history: Mya reports she is coughing quite a bit. Feels horrible. Is short of breath. Medications: Reviewed: Yes Vitals/I&O/Wt Last Vital Signs Temp 100.3 F H 10/04/19 11:00 Pulse 138 H 10/04/19 11:00 Resp 32 H 10/04/19 12:47 BP 164/105 10/04/19 11:00 Pulse Ox 92 10/04/19 11:00 10/03/19 10/04/19 10/04/19 22:59 06:59 14:59 Intake Total 50 / 50 240 / 240 Output Total 150 / 150 Balance 50 / 50 90 / 90 Weight last 48 hrs Weight 98.883 kg Weight 88.451 kg Physical Exam Narrative: EXAM NARRATIVE: General exam is an ill-appearing white female, coughing Cardiovascular tachycardic without murmur Lungs coarse breath sounds and crackles at bases Abdomen is soft, positive bowel sounds Extremities trace bilateral edema Data : 10/04/19 04:36 10/04/19 04:32 A&P Assessment and plan (1) Sepsis: Fever, leukocytosis, hypoxia. Secondary to pneumonia. Currently on vancomycin, Primaxin. Status: Acute Qualifiers: Acute respiratory failure type: with hypoxia Sepsis acute organ dysfunction status: with acute organ dysfunction Sepsis type: sepsis due to unspecified organism Severe sepsis acute organ dysfunction type: acute respiratory failure Severe sepsis shock status: without septic shock Qualified Code(s): A41.9 - Sepsis, unspecified organism; R65.20 - Severe sepsis without septic shock; J96.01 - Acute respiratory failure with hypoxia Code(s): A41.9 - Sepsis, unspecified organism (2) Anemia: Less than 7 with sepsis and tachycardia. Transfuse 1 unit. Status: Acute Qualifiers: Anemia type: unspecified type Qualified Code(s): D64.9 - Anemia, unspecified Code(s): D64.9 - Anemia, unspecified (3) 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 Surgery was planned this week. Has been receiving chemotherapy but none in the last 3 weeks. Status: Acute Code(s): C50.912 - Malignant neoplasm of unspecified site of left female breast (4) Gross hematuria: Right ureteral stent placed October 02. Will need to reimage and make sure no evidence of obstruction on ultrasound. Renal ultrasound ordered. Status: Acute Code(s): R31.0 - Gross hematuria (5) Community acquired pneumonia: Secondary to immune suppression she was placed on Primaxin, vancomycin. Status: Acute Qualifiers: Laterality: unspecified laterality Qualified Code(s): J18.9 - Pneumonia, unspecified organism Code(s): J18.9 - Pneumonia, unspecified organism Additional A&P Information Lower extremity edema. Check venous duplex Hypertension, currently nauseated so giving metoprolol IV scheduled, hydralazine IV as needed hypothyroidism GERD History of asthma Obesity SCDs for DVT prophylaxis. Anticoagulation held secondary to severe anemia Attestations Medical Necessity Statement*: Needs continued hospital stay for IV antibiotics secondary to sepsis Critical Care Time: 46 minutes spent in ICU care, review of medications, respiratory status, etc. 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
--- NOTE | 2019-10-04 14:55 | PC.NURSE ---
u.s. in progress. has stated she feels much better after m.s. and ativan
--- NOTE | 2019-10-04 20:07 | PC.NURSE ---
systolic bp 186 hydralizine 10 mg given ivp per nov. edmundo peralta.
[2019-10-04] MEDS: FUROsemide 10 mg/mL SDV 2mL 20 MG IVP (22:41)
[2019-10-04] MEDS: LORazepam 2 mg/mL INJ 1 mL 1 MG IVP (22:41)
--- NOTE | 2019-10-04 22:50 | PC.NURSE ---
dr. almeida at bedside. order to iv tylenol rcvd, 1 mg ativan prn anxiety , and 20 lasix iv. ativan given at this time per nov respirations 26 per min while pt sleeping. edmundo peralta.
[2019-10-05] VITALS (55 sets, daily range): BP systolic 82–169; BP diastolic 62–109; PULSE 103–132; RESP 7–28; TEMP 36.7–37.6; O2SAT 86–100; BMI 37.6
[2019-10-05] MEDS: metoprolol tartrate 1 mg/1 mL SDV 5 mL 5 MG IV ×3 (00:11→21:32)
[2019-10-05] MEDS: ipratropium-albuterol 3 mL Neb INHALATION ×4 (00:54→21:04)
[2019-10-05 04:19] LABS: Basophils % 0.1 %; Hematocrit 27.5 % (37.0-47.0); Lymphocytes % 6.5 %; Mean Corpuscular HGB Conc 32.7 g/dL (30.0-36.0); Mean Corpuscular Volume 100.7 fL (81-99); Mean Platelet Volume 9.8 fL (7.4-10.4); Monocytes # 1.1 10^3/uL (0.2-0.9); Neutrophils # 13.1 10^3/uL (1.8-7.7); Neutrophils % 85.6 %; Nucleated Red Blood Cells % 0 %; Platelet Count 137 10^3/cmm (130-400); Red Blood Count 2.73 10^6/uL (4.1-5.3); Red Cell Distribution Width 17.9 % (12.1-15.1); White Blood Count 15.3 10^3/uL (4.0-10.0)
--- NOTE | 2019-10-05 04:36 | PM.MISC ---
Miscellaneous Note Note: Patient has been seen and examined several times throughout the night due to concern about her continuing to look quite ill. Has been improving somewhat throughout the night, finally afebrile around 0200. Has been unable to tolerate any PO intake without worsening nausea so switched to IV Tylenol which seems to be more effective. Is less tachycardic and BP stable. Also received dose of lasix 20 mg and Ativan around 1999. Has been able to get some sleep, at beside.
[2019-10-05 04:38] LABS: Alanine Aminotransferase 17 U/L (0-33); Albumin Level 2.7 g/dL (3.5-5.2); Alkaline Phosphatase 84 IU/L (35-105); Anion Gap 19.5 (5-19); Aspartate Amino Transferase 22 U/L (0-32); Blood Urea Nitrogen 24 mg/dL (6-20); Calcium 9.1 mg/Dl (8.6-10.0); Carbon Dioxide 18 mmol/L (22-29); Chloride 103 mmol/L (98-107); Globulin 3.5 g/dL (1.3-4.6); Glomerular Filtration Rate 21.3 mL/min (90-130); Glucose 132 mg/dL (74-109); Potassium 3.5 mmol/L (3.5-5.1); Sodium 137 mmol/L (136-145); Total Bilirubin 0.4 mg/dL (0.15-1.2); Total Protein 6.2 g/dL (6.6-8.7)
--- NOTE | 2019-10-05 07:12 | XR_ITS ---
WS: [id number] CHEST XRAY TECHNIQUE: Portable chest. CLINICAL INFORMATION: hypoxia COMPARISON: FINDINGS: Right IJ catheter Heart: Cardiomegaly Lungs: Patchy diffuse bilateral pulmonary infiltrates suspicious for pneumonia. No significant pleura l fluid. Bones: Normal visualized bony structures. XR/XR chest 1V portable [id number] IMPRESSION: 1. Diffuse bilateral pulmonary infiltrates worse in the right upper and right lower lobe suspicious for pneumonia. This is new since .
--- NOTE | 2019-10-05 08:01 | CT_ITS ---
WS: [id number] CT CHEST, ABDOMEN, AND PELVIS TECHNIQUE: Noncontrast CT of the chest, abdomen, and pelvis with coronal and sagittal reformatted greg ges. CLINICAL INFORMATION: breast cancer, persistent fevers, PNA oncxray, right uretera COMPARISON: CT renal 1 DLP: 2405.[address] scans at [facility] use at least one of these dose optimization techniques: automat ed exposure control; mA and/or kV adjustment per patient size (includes targeted exams where dose is matched to clinical indication); or iterative reconstruction. CT CHEST: Diffuse bilateral nodular airspace pulmonary infiltrates throughout the right lung. Similar-appearing patchy nodular airspace infiltrates left lung about the left hilum, lingula and left lower lobe. Sub total consolidation with air bronchograms involving the right middle lobe. Findings are likely infect ious in etiology. Differential considerations include bacterial or viral pneumonia as well as fungal etiologies. Small right pleural effusion. No mediastinal or hilar lymphadenopathy. No axillary lymphadenopathy. N ormal visualized thoracic spine. Right central venous catheter. CT ABDOMEN AND PELVIS: Cholecystectomy clips. Normal liver. Normal spleen. Normal noncontrast pancreas. Normal gastroesophag eal junction. Adrenal glands are normal. Interval placement of right double-J ureteral stent in good position. No hydronephrosis. No visualize d ureteral calculi. No abdominal lymphadenopathy. No periaortic lymphadenopathy. No inguinal lymphade nopathy. Normal sigmoid colon. No evidence of small or large bowel obstruction. Fat-containing umbilical herni a. CT/CT chest abd pel wo con IMPRESSION: 1. Interval placement of right double-J ureteral stent in good position. No hy dronephrosis. 2. Diffuse bilateral nodular airspace infiltrates worse in the right lung like ly infectious in etiology. Small right pleural effusion. Recommend follow-up to resolution. 3. No mediastinal or hilar lymphadenopathy. 4. No evidence of small or large bowel obstruction. No free fluid in the pelvi s. 5. Prior cholecystectomy. 6. No abdominal lymphadenopathy.
[2019-10-05] MEDS: levothyroxine 112 mcg Tablet PO (09:04)
[2019-10-05] MEDS: metoprolol tartrate 50 mg Tablet 25 MG PO ×2 (09:17→18:12)
[2019-10-05 09:53] LABS: Procalcitonin 4.22 ng/mL (0-0.8)
[2019-10-05 10:12] LABS: Lactic Sepsis W/Reflex 0.6 mmol/L (0.5-2.2)
[2019-10-05 10:26] LABS: C Reactive Protein 262.2 mg/L (0.0-4.9)
[2019-10-05] MEDS: pantoprazole DR 40 mg Tablet PO (13:07)
[2019-10-05] MEDS: lactated ringers 1,000 ML 75 ML IV (13:09)
[2019-10-05 13:33] LABS: Creatinine Urine, Random 106 mg/dL (28-217)
[2019-10-05 13:39] LABS: Urine Random Sodium 58 mmol/L
[2019-10-05 13:59] LABS: Urine Protein Random 79 mg/dL
--- NOTE | 2019-10-05 14:15 | PC.NURSE ---
iv metoprol not given d/t oral given
[2019-10-05] MEDS: hyDRALAzine 20 mg/mL INJ 1 mL 10 MG IVP (15:09)
[2019-10-05] MEDS: ondansetron 2 mg/ML SDV 2 mL 4 MG IVP ×2 (15:19→19:39)
[2019-10-05 15:39] LABS: Eosinophil Urine No Eosinophils Seen; Urine Eosinophil Count 0 (0-0)
--- NOTE | 2019-10-05 18:14 | PC.CHAP ---
Pastoral Care Encounter/Spiritual Assessment Type of Contact [] Declined preschool teacher's assistant visit [] Patient/Family/Request visit [] Outpatient visit [] Follow-up visit [] Physician referral [] Code/Alert [] Routine visit [] Staff referral [] Actively dying [] Patient sleeping [] Family support [] [] Out of room [] Palliative care [] [] Receiving care in room [] Pre-surgical visit [] Trauma [] Long length of stay [x] ICU visit [x] Other:Precautions Relational/Emotional Strength [] Patient feels connected with others/family/visitors/staff [] Distress [] Loneliness/isolation [] Abandonment Spirituality of Patient [] Person of Rosa [] Attends Presybeterian of their [place] [] Believes in Prayer [] Reads Bible or Buddhist materials [] There are Spiritual issues to be addressed Celebrity Manager Interventions [] Prayer [] Active listening [] Non-anxious presence [] Spiritual/emotional support [] Crisis/trauma care [] Spiritual counseling [] Bereavement support [] Provided bereavement packet [] Provided Bible/devotional materials [] Provided toy/stuffed animal, coloring book to patient or family member [] Completed spiritual assessment [] Provided Communion [] Anointing/[place] [] Salvation [] Other: Impact on Illness or Injury [] Angry [] Fearful [] Anxious [] Often cries [] Exhaustion [] Unable to work [] Unable to attend congregation [] Unable to walk/stand [] Unable to read [] Unable to drive [] Unable to eat/drink [] Unable to sleep [] Unable to be with family [] Other: Summary Patient was in isolation. Visit attempted by Celebrity Managershannon Redd Time spent with patient 3 minutes
--- NOTE | 2019-10-05 18:35 | PC.NURSE ---
iv metoprol nott given this shift.. on oral
--- NOTE | 2019-10-05 19:28 | PM.PN ---
Subjective Subjective: Interval history: This morning patient states that she is feeling better, still had some persistent fevers overnight, no nausea, no vomiting, but has a poor appetite, no significant pain complaints, no shortness of breath, no lightheadedness, no dizziness, still feels weak. Patient states that her last chemotherapy of carboplatin was on September 14, 2019, is supposed to be on Herceptin and progesterone through her oncologist in [place]. Patient states that she had nephrolithiasis, had a ureteral stent a few days ago by Dr. Huddleston, no urinary complaints Vitals/I&O/Wt Last Vital Signs Temp 98.6 F 10/05/19 12:00 Pulse 128 H 10/05/19 16:40 Resp 14 10/05/19 16:30 BP 168/109 10/05/19 15:15 Pulse Ox 99 10/05/19 16:30 10/05/19 10/05/19 10/05/19 06:59 14:59 22:59 Intake Total 710 / 1450 190 / 190 0 / 190 Output Total 500 / 2450 525 / 525 Balance 210 / -1000 -335 / -335 0 / -335 Weight last 48 hrs Weight 99.427 kg Weight 98.883 kg Physical Exam Const: COMMON NORMALS: no apparent distress and oriented x3 HENMT: COMMON NORMALS: normocephalic HEAD & SCALP: normocephalic Neck/C-Spine: COMMON NORMALS: no JVD Resp: COMMON NORMALS: normal respiratory effort, no retractions, no use of accessory muscles and clear to auscultation bilaterally AUSCULTATION: clear to auscultation bilaterally Cardio: COMMON NORMALS: no JVD, regular rhythm, S1 normal heart sound and S2 normal heart sound RATE: tachycardic RHYTHM: regular rhythm HEART SOUNDS: S1 normal and S2 normal GI: COMMON NORMALS: normal to inspection, nondistended, normoactive bowel sounds, soft to palpation, non-tender, no hepatosplenomegaly, no masses and no bruits PALPATION: Yes soft and Yes no hepatosplenomegaly Extremity: COMMON NORMALS: normal capillary refill, no clubbing, cyanosis or edema, no calf tenderness and no pedal edema Neuro: COMMON NORMALS: oriented x3 Psych: COMMON NORMALS: mental status grossly normal Data : 10/05/19 03:28 10/05/19 03:28 Micro: Microbiology 10/04/19 16:34 Blood Culture - Preliminary Blood NEGATIVE TO DATE 10/04/19 16:34 Blood Culture - Preliminary Blood NEGATIVE TO DATE 10/03/19 18:56 Urine Culture - Preliminary Urine,Clean Catch Gram Negative Rods 10/04/19 11:40 Urine Culture - Preliminary Urine,Voided A&P Assessment and plan (1) Sepsis: -Secondary to pneumonia -Continue vancomycin and Primaxin -Remains afebrile throughout the afternoon, seems to be responding appropriately Status: Acute Qualifiers: Acute respiratory failure type: with hypoxia Sepsis acute organ dysfunction status: with acute organ dysfunction Sepsis type: sepsis due to unspecified organism Severe sepsis acute organ dysfunction type: acute respiratory failure Severe sepsis shock status: without septic shock Qualified Code(s): A41.9 - Sepsis, unspecified organism; R65.20 - Severe sepsis without septic shock; J96.01 - Acute respiratory failure with hypoxia Code(s): A41.9 - Sepsis, unspecified organism (2) Anemia: Status post 1 unit PRBC Hemoglobin stable at 9.0 Status: Acute Qualifiers: Anemia type: unspecified type Qualified Code(s): D64.9 - Anemia, unspecified Code(s): D64.9 - Anemia, unspecified (3) 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 Surgery was planned this week. Has been receiving chemotherapy last episode was September 14, 2019 Status: Acute Code(s): C50.912 - Malignant neoplasm of unspecified site of left female breast (4) Gross hematuria: Right ureteral stent placed October 02. Will need to reimage and make sure no evidence of obstruction on ultrasound. -CT abdomen and pelvis shows no significant hydronephrosis, no nephrolithiasis, no pyelonephritis, right double-J ureteral stent in good position Status: Acute Code(s): R31.0 - Gross hematuria (5) Community acquired pneumonia: Secondary to immune suppression she was placed on Primaxin, vancomycin. Status: Acute Qualifiers: Laterality: unspecified laterality Qualified Code(s): J18.9 - Pneumonia, unspecified organism Code(s): J18.9 - Pneumonia, unspecified organism Additional A&P Information Sinus tachycardia, likely related to infection, continue metoprolol 37.5 twice daily, hydralazine Hypertension, metoprolol, hydralazine, Norvasc GERD History of asthma Obesity SCDs for DVT prophylaxis. Anticoagulation held secondary to severe anemia Attestations Medical Necessity Statement*: Patient requires continued hospitalization, for sepsis secondary to pneumonia Coding Level of Care Code Acute Crossbar Switch Adjuster for [facility] Diagnoses Sepsis A41.9; R65.20; J96.01 Acute respiratory failure type: with hypoxia Sepsis acute organ dysfunction status: with acute organ dysfunction Sepsis type: sepsis due to unspecified organism Severe sepsis acute organ dysfunction type: acute respiratory failure Severe sepsis shock status: without septic shock Anemia D64.9 Anemia type: unspecified type Ductal carcinoma of left breast C50.912 Gross hematuria R31.0 Community acquired pneumonia J18.9 Laterality: unspecified laterality
--- NOTE | 2019-10-05 22:56 | PC.NURSE ---
po meds refused due to nausea. edmundo peralta.
[2019-10-05 23:09] LABS: Vancomycin Trough 30.9 ug/mL (10-15)
--- NOTE | 2019-10-05 23:47 | PC.PHAR ---
Vancomycin trough level before third dose of 1500mg IVPB every 24 hours is 30.9. Discontinue this dos and rresume 36 hours from last dose at 1000mg IVPB every 24 hours with another trough level to be obtained before the third one gram dose.
[2019-10-06] VITALS (41 sets, daily range): BP systolic 82–164; BP diastolic 62–115; PULSE 93–120; RESP 8–24; TEMP 36.4–37.2; O2SAT 93–100; BMI 38.2
[2019-10-06] MEDS: ipratropium-albuterol 3 mL Neb INHALATION ×4 (00:29→21:25)
[2019-10-06] MEDS: metoprolol tartrate 1 mg/1 mL SDV 5 mL 5 MG IV ×6 (01:23→21:27)
[2019-10-06] MEDS: lactated ringers 1,000 ML 75 ML IV ×2 (03:00→07:59)
[2019-10-06 04:24] LABS: Basophils % 0.2 %; Eosinophils % 0.2 %; Hematocrit 23.5 % (37.0-47.0); Hemoglobin 7.6 g/dL (11.5-15.3); Lymphocytes % 15.4 %; Mean Corpuscular HGB Conc 32.3 g/dL (30.0-36.0); Mean Corpuscular Hemoglobin 31.7 pg (28.0-34.0); Mean Corpuscular Volume 97.9 fL (81-99); Mean Platelet Volume 9.7 fL (7.4-10.4); Monocytes # 0.6 10^3/uL (0.2-0.9); Neutrophils # 4.6 10^3/uL (1.8-7.7); Neutrophils % 73.4 %; Nucleated Red Blood Cells % 0 %; Platelet Count 121 10^3/cmm (130-400); Red Cell Distribution Width 17.7 % (12.1-15.1); White Blood Count 6.3 10^3/uL (4.0-10.0)
--- NOTE | 2019-10-06 04:25 | PC.NURSE ---
pt slept most of this shift. pt awake for am labs. vss per cm. no distress noted. edmundo peralta.
[2019-10-06 04:55] LABS: Procalcitonin 2.94 ng/mL (0-0.8)
[2019-10-06 05:05] LABS: Alanine Aminotransferase 12 U/L (0-33); Albumin Level 2.4 g/dL (3.5-5.2); Alkaline Phosphatase 60 IU/L (35-105); Anion Gap 18.4 (5-19); Aspartate Amino Transferase 18 U/L (0-32); Blood Urea Nitrogen 19 mg/dL (6-20); Calcium 9.1 mg/Dl (8.6-10.0); Carbon Dioxide 19 mmol/L (22-29); Chloride 104 mmol/L (98-107); Globulin 3.2 g/dL (1.3-4.6); Glomerular Filtration Rate 24.7 mL/min (90-130); Glucose 89 mg/dL (74-109); Magnesium 1.5 mg/dL (1.7-2.3); Phosphorus 4.6 mg/dL (2.5-4.5); Potassium 3.4 mmol/L (3.5-5.1); Sodium 138 mmol/L (136-145); Total Bilirubin 0.3 mg/dL (0.15-1.2); Total Protein 5.6 g/dL (6.6-8.7)
--- NOTE | 2019-10-06 06:00 | PC.NURSE ---
pt sitting up in bed this am visiting c family. pt states she feels better. labs reviewed multiple questions answered at this time. edmundo peralta.
[2019-10-06] MEDS: ondansetron 2 mg/ML SDV 2 mL 4 MG IVP ×2 (07:57→14:28)
[2019-10-06] MEDS: pantoprazole DR 40 mg Tablet PO (07:58)
[2019-10-06] MEDS: hyDRALAzine 10 mg Tablet PO ×3 (07:59→21:27)
[2019-10-06] MEDS: levothyroxine 112 mcg Tablet PO (07:59)
[2019-10-06] MEDS: sodium chloride 0.9% 100 ML 75 ML (09:10)
[2019-10-06] MEDS: magnesium sulfate premix 2 GM/50 ML PIGGYBACK IV (10:22)
[2019-10-06] MEDS: potassium chloride premix 40 MEQ/100 ML PREMIX 25 MEQ IV (10:22)
[2019-10-06] MEDS: metoprolol tartrate 25 mg Tablet 50 MG PO ×2 (10:22→19:00)
[2019-10-06] MEDS: morphine 4 mg/mL SDV 1 mL IVP (11:08)
--- NOTE | 2019-10-06 14:58 | PC.NURSE ---
BLOOD TRANSFUSION COMPLETE @ 1317. NO REACTION NOTED. PT TOLERATED WELL. SEE TAR FOR ALL V/S
--- NOTE | 2019-10-06 15:54 | P.PN_ITS ---
Vitals/I&O/Wt Last Vital Signs Temp 97.5 F L 10/06/19 13:17 Pulse 102 H 10/06/19 13:17 Resp 24 H 10/06/19 13:17 BP 160/98 10/06/19 13:17 Pulse Ox 97 10/06/19 13:17 10/06/19 10/06/19 10/06/19 06:59 14:59 22:59 Intake Total 1200 / 1490 723.75 / 723.75 Output Total 250 / 775 400 / 400 Balance 950 / 715 323.75 / 323.75 Weight last 48 hrs Weight 101.196 kg Weight 99.427 kg Physical Exam 2 Const: COMMON NORMALS: no apparent distress and oriented x3 HENMT: COMMON NORMALS: normocephalic HEAD & SCALP: normocephalic Neck/C-Spine: COMMON NORMALS: no JVD Resp: COMMON NORMALS: normal respiratory effort, no retractions, no use of accessory muscles and clear to auscultation bilaterally AUSCULTATION: clear to auscultation bilaterally Cardio: COMMON NORMALS: no JVD, regular rhythm, S1 normal heart sound and S2 normal heart sound RATE: tachycardic RHYTHM: regular rhythm HEART SOUNDS: S1 normal and S2 normal GI: COMMON NORMALS: normal to inspection, nondistended, normoactive bowel sounds, soft to palpation, non-tender, no hepatosplenomegaly, no masses and no bruits PALPATION: Yes soft and Yes no hepatosplenomegaly Extremity: COMMON NORMALS: normal capillary refill, no clubbing, cyanosis or edema, no calf tenderness and no pedal edema Neuro: COMMON NORMALS: oriented x3 Psych: COMMON NORMALS: mental status grossly normal Data : 10/06/19 03:50 10/06/19 03:50 Micro: Microbiology 10/03/19 18:56 Urine Culture - Final Urine,Clean Catch Klebsiella pneumoniae 10/04/19 11:40 Urine Culture - Final Urine,Voided 10/04/19 16:34 Blood Culture - Preliminary Blood NEGATIVE TO DATE 10/04/19 16:34 Blood Culture - Preliminary Blood NEGATIVE TO DATE A&P Assessment and plan (1) Sepsis: -Secondary to pneumonia and UTI -Continue vancomycin and Primaxin -Remains afebrile, leukocytosis has improved, clinically she she is getting better, but still has sinus tachycardia, seems to be responding appropriately to antibiotics Status: Acute Qualifiers: Acute respiratory failure type: with hypoxia Sepsis acute organ dysfunction status: with acute organ dysfunction Sepsis type: sepsis due to unspecified organism Severe sepsis acute organ dysfunction type: acute respiratory failure Severe sepsis shock status: without septic shock Qualified Code(s): A41.9 - Sepsis, unspecified organism; R65.20 - Severe sepsis without septic shock; J96.01 - Acute respiratory failure with hypoxia Code(s): A41.9 - Sepsis, unspecified organism (2) Anemia: Status post 1 unit PRBC Hemoglobin at 7.6, will transfuse another unit Status: Acute Qualifiers: Anemia type: unspecified type Qualified Code(s): D64.9 - Anemia, unspecified Code(s): D64.9 - Anemia, unspecified (3) 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 Surgery was planned this week. Has been receiving chemotherapy last episode was September 14, 2019 Status: Acute Code(s): C50.912 - Malignant neoplasm of unspecified site of left female breast (4) Gross hematuria: Right ureteral stent placed October 02. Will need to reimage and make sure no evidence of obstruction on ultrasound. -CT abdomen and pelvis shows no significant hydronephrosis, no nephrolithiasis, no pyelonephritis, right double- J ureteral stent in good position Status: Acute Code(s): R31.0 - Gross hematuria (5) Community acquired pneumonia: Secondary to immune suppression she was placed on Primaxin, vancomycin. Status: Acute Qualifiers: Laterality: unspecified laterality Qualified Code(s): J18.9 - Pneumonia, unspecified organism Code(s): J18.9 - Pneumonia, unspecified organism Additional A&P Information Sinus tachycardia, likely related to infection, continue metoprolol 50mg twice daily, hydralazine Hypertension, metoprolol, hydralazine, Norvasc GERD History of asthma Obesity SCDs for DVT prophylaxis. Anticoagulation held secondary to severe anemia Attestations Medical Necessity Statement*: Patient requires continued hospitalization for sepsis secondary to UTI pneumonia Coding Level of Care Code Acute Unit Support Representative for [facility] Diagnoses Sepsis A41.9; R65.20; J96.01 Acute respiratory failure type: with hypoxia Sepsis acute organ dysfunction status: with acute organ dysfunction Sepsis type: sepsis due to unspecified organism Severe sepsis acute organ dysfunction type: acute respiratory failure Severe sepsis shock status: without septic shock Anemia D64.9 Anemia type: unspecified type Ductal carcinoma of left breast C50.912 Gross hematuria R31.0 Community acquired pneumonia J18.9 Laterality: unspecified laterality
[2019-10-06] MEDS: ketorolac 30 mg/mL INJ 15 MG IVP (16:22)
[2019-10-06] MEDS: LORazepam 2 mg/mL INJ 1 mL 1 MG IVP (16:22)
[2019-10-06] MEDS: metoclopramide 5 mg/mL SDV 2 mL IVP (16:23)
[2019-10-07] VITALS (32 sets, daily range): BP systolic 126–194; BP diastolic 82–121; PULSE 93–124; RESP 4–34; TEMP 36.4–36.9; O2SAT 92–100; BMI 37.3
[2019-10-07] MEDS: vancomycin 1,000 MG in sodium chloride 0.9% 250 ML 250 MG IV (00:09)
[2019-10-07] MEDS: metoprolol tartrate 1 mg/1 mL SDV 5 mL 5 MG IV ×6 (01:23→21:15)
[2019-10-07] MEDS: ipratropium-albuterol 3 mL Neb INHALATION ×4 (04:31→23:33)
[2019-10-07] MEDS: hyDRALAzine 20 mg/mL INJ 1 mL 10 MG IVP (05:38)
--- NOTE | 2019-10-07 05:44 | PC.NURSE ---
pt awake visiting c bp 163/109 10mg hydralzine given ivp . pt prepearing to get oob to chair p echo. edmundo peralta.
[2019-10-07 05:46] LABS: Basophils % 0.4 %; Eosinophils # 0.1 10^3/uL (0.0-0.8); Eosinophils % 1.3 %; Hematocrit 29.9 % (37.0-47.0); Hemoglobin 9.7 g/dL (11.5-15.3); Lymphocytes # 1.2 10^3/uL (0.8-4.8); Mean Corpuscular HGB Conc 32.4 g/dL (30.0-36.0); Mean Corpuscular Volume 95.5 fL (81-99); Mean Platelet Volume 9.8 fL (7.4-10.4); Monocytes # 0.5 10^3/uL (0.2-0.9); Monocytes % 9.5 %; Neutrophils # 3.7 10^3/uL (1.8-7.7); Neutrophils % 66.3 %; Nucleated Red Blood Cells % 0 %; Platelet Count 154 10^3/cmm (130-400); Red Blood Count 3.13 10^6/uL (4.1-5.3); Red Cell Distribution Width 17.5 % (12.1-15.1); White Blood Count 5.6 10^3/uL (4.0-10.0)
[2019-10-07 05:59] LABS: Alanine Aminotransferase 12 U/L (0-33); Albumin Level 2.6 g/dL (3.5-5.2); Alkaline Phosphatase 68 IU/L (35-105); Anion Gap 15.3 (5-19); Aspartate Amino Transferase 20 U/L (0-32); Blood Urea Nitrogen 18 mg/dL (6-20); Calcium 9.2 mg/Dl (8.6-10.0); Carbon Dioxide 21 mmol/L (22-29); Chloride 109 mmol/L (98-107); Glomerular Filtration Rate 33.3 mL/min (90-130); Glucose 101 mg/dL (74-109); Phosphorus 3.5 mg/dL (2.5-4.5); Potassium 3.3 mmol/L (3.5-5.1); Sodium 142 mmol/L (136-145); Total Bilirubin 0.4 mg/dL (0.15-1.2); Total Protein 5.6 g/dL (6.6-8.7)
[2019-10-07 06:01] LABS: Procalcitonin 1.45 ng/mL (0-0.8)
--- NOTE | 2019-10-07 07:00 | USCV_ITS ---
Mya Harrell Age: 38 Gender: F : 1980 Exam Date: 10/07/2019 15:11 Ordering Phys: Tony Mina MD Technologist: Maricel Rai Exam Location: [facility] [place] Indication: SINUS TACH BP: 153 / 93 HR: 99 Rhythm: Sinus Technical Quality: Suboptimal MEASUREMENTS (Male / Female) Normal Values 2D ECHO LV Diastolic Diameter PLAX 4.1 cm 4.2 - 5.9 / 3.9 - 5.3 cm LV Systolic Diameter PLAX 2.3 cm LV Chamber Size 4.0 cm IVS Diastolic Thickness 1.0 cm 0.6 - 1.0 / 0.6 - 0.9 cm IVS Systolic Thickness 1.3 cm LVPW Diastolic Thickness 1.0 cm 0.6 - 1.0 / 0.6 - 0.9 cm LVPW Systolic Thickness 1.5 cm RV Chamber Size 2.9 cm LVOT Diameter 2.0 cm LV Ejection Fraction 2D Teich 75.6 % LA Diameter 4.0 cm LA Width 2.4 cm LA Height 4.2 cm RA Width 3.2 cm RA Height 4.0 cm M-MODE LV Diastolic Diameter MM 5.1 cm 4.2 - 5.9 / 3.9 - 5.3 cm LV Systolic Diameter MM 3.4 cm LV Ejection Fraction MM Teich 62.1 % IVS Diastolic Thickness MM 0.9 cm 0.6 - 1.0 / 0.6 - 0.9 cm IVS Systolic Thickness MM 1.1 cm LVPW Diastolic Thickness MM 0.9 cm 0.6 - 1.0 / 0.6 - 0.9 cm LVPW Systolic Thickness MM 1.3 cm RV Diastolic Diameter MM 1.6 cm Aortic Annulus Diameter 2.6 cm LA Ao Ratio MM 1.5 MV E Point Septal Separation 0.4 cm DOPPLER AV Peak Velocity 118.0 cm/s LVOT Peak Velocity 88.0 cm/s AV Area Cont Eq vti 2.8 cm squared AV Area Cont Eq pk 2.4 cm squared MV Area PHT 6.9 cm squared Mitral E to A Ratio 1.3 MV E' Velocity 9.0 cm/s Mitral E to MV E' Ratio 13.3 Mitral E to LV E' Lateral Ratio 13.6 Mitral E to LV E' Septal Ratio 13.0 TR Peak Velocity 231.5 cm/s TR Peak Gradient 21.4 mmHg TR Mean Velocity 206.0 cm/s TR Mean Gradient 16.9 mmHg TR Velocity Time Integral 60.9 cm TV Peak E Velocity 90.0 cm/s PV Peak Velocity 90.0 cm/s FINDINGS Left Ventricle Normal left ventricular size, systolic function and wall thickness, with no regional wall motion abnormalities. Normal left ventricular wall thickness. Normal diastolic filling pattern. Left ventricular ejection fraction is estimated at 60 %. Right Ventricle The right ventricle is normal in size and function. Right Atrium The right atrium is normal in size. Left Atrium The left atrium is normal in size. Mitral Valve Structurally normal mitral valve without significant stenosis or prolapse. There is no mitral regurgitation. Aortic Valve Structurally normal aortic valve without significant sclerosis or stenosis. There is no aortic regurgitation. Tricuspid Valve Structurally normal tricuspid valve. Mild tricuspid valve regurgitation. Pulmonic Valve Pulmonic valve not well visualized. Trace pulmonary valve regurgitation. Pericardium There is a tiny hemodynamically insignificant pericardial effusion Aorta Normal ascending aorta dimension. CONCLUSIONS Normal left ventricular size, systolic function and wall thickness, with no regional wall motion abnormalities. Normal left ventricular wall thickness. Normal diastolic filling pattern. Left ventricular ejection fraction is estimated at 60 %. There is a tiny hemodynamically insignificant pericardial effusion. Dr. Ozzie Landis MD (Electronically Signed) Final Date: 07 October 2019 16:52 S
[2019-10-07] MEDS: potassium chloride premix 40 MEQ/100 ML PREMIX 25 MEQ IV (08:04)
--- NOTE | 2019-10-07 08:48 | USCV_ITS ---
Mya Harrell Age: 38 Gender: F : 1980 Exam Date: 10/07/2019 09:12 Ordering Phys: Tony Mina MD Technologist: Maricel Rai [place] [facility] [place]ication: LEG PAIN, BED STASIS HISTORY: BREAST CANCER PROCEDURES: Venous duplex imaging was performed in only the right lower extremity. The following venous structures were evaluated: common femoral vein, profunda vein, proximal portion of the greater saphenous vein, superficial femoral vein, and the popliteal vein. In addition, the posterior tibial veins were evaluated. FINDINGS: Normal 2-D Doppler and augmentation and compressibility throughout the lower extremity venous structures. Additional imaging through the proximal calf veins also reveals no thrombus. Limited evaluation of the greater saphenous vein is patent with no thrombus. CONCLUSIONS No DVT right lower extremity. Dr. Cheli Juarez DO (Electronically Signed) Final Date: 07 October 2019 09:41 S
[2019-10-07] MEDS: pantoprazole DR 40 mg Tablet PO (09:27)
[2019-10-07] MEDS: levothyroxine 112 mcg Tablet PO (09:27)
[2019-10-07] MEDS: metoprolol tartrate 25 mg Tablet 50 MG PO ×2 (09:27→17:18)
[2019-10-07] MEDS: hyDRALAzine 10 mg Tablet PO ×3 (09:27→21:15)
[2019-10-07 11:38] LABS: Urine Osmolality 358 SEE NOTE
[2019-10-07] MEDS: metoclopramide 5 mg/mL SDV 2 mL IVP (13:29)
[2019-10-07] MEDS: ketorolac 30 mg/mL INJ 15 MG IVP (13:29)
--- NOTE | 2019-10-07 16:16 | P.PN_ITS ---
Subjective Subjective: Interval history: This morning patient states that she is feeling better, still requiring up to 3 L oxygen, no fevers, no chills, no nausea, no vomiting, appetite slowly improving, still states that she is short of breath with minimal exertion such as getting up to use the commode Vitals/I&O/Wt Last Vital Signs Temp 98.4 F 10/07/19 10:00 Pulse 95 10/07/19 14:00 Resp 20 H 10/07/19 14:00 BP 168/91 10/07/19 14:00 Pulse Ox 97 10/07/19 14:00 10/07/19 10/07/19 10/07/19 06:59 14:59 22:59 Intake Total 460 / 1883.75 Output Total 250 / 650 Balance 210 / 1233.75 Weight last 48 hrs Weight 98.475 kg Weight 101.196 kg Physical Exam Const: COMMON NORMALS: no apparent distress and oriented x3 HENMT: COMMON NORMALS: normocephalic HEAD & SCALP: normocephalic Neck/C-Spine: COMMON NORMALS: no JVD Resp: COMMON NORMALS: normal respiratory effort, no retractions, no use of accessory muscles and clear to auscultation bilaterally AUSCULTATION: clear to auscultation bilaterally Cardio: COMMON NORMALS: no JVD, regular rate, regular rhythm, S1 normal heart sound and S2 normal heart sound RATE: regular rate RHYTHM: regular rhythm HEART SOUNDS: S1 normal and S2 normal GI: COMMON NORMALS: normal to inspection, nondistended, normoactive bowel sounds, soft to palpation, non-tender, no hepatosplenomegaly, no masses and no bruits PALPATION: Yes soft and Yes no hepatosplenomegaly Extremity: COMMON NORMALS: normal capillary refill, no clubbing, cyanosis or edema, no calf tenderness and no pedal edema Neuro: COMMON NORMALS: oriented x3 Psych: COMMON NORMALS: mental status grossly normal Data : 10/07/19 05:10 10/07/19 05:10 Micro: Microbiology 10/06/19 15:00 Bacterial Antigens - Final Urine,Voided 10/03/19 18:56 Urine Culture - Final Urine,Clean Catch Klebsiella pneumoniae A&P Assessment and plan (1) Sepsis: -Secondary to pneumonia and UTI -Urine cultures growing Klebsiella pneumonia -Continue vancomycin and Primaxin -Remains afebrile, leukocytosis has improved, clinically she she is getting better, but still has some sinus tachycardia, and still requiring up to 3 L oxygen, seems to be responding appropriately to antibiotics Status: Acute Qualifiers: Acute respiratory failure type: with hypoxia Sepsis acute organ dysfunc tion status: with acute organ dysfunction Sepsis type: sepsis due to unspecified organism Severe sepsis acute organ dysfunction type: acute respiratory failure Severe sepsis shock status: without septic shock Qualified Code(s): A41.9 - Sepsis, unspecified organism; R65.20 - Severe sepsis without septic shock; J96.01 - Acute respiratory failure with hypoxia Code(s): A41.9 - Sepsis, unspecified organism (2) Anemia: Status post 2 unit unit PRBC Hemoglobin at 9.7, will transfuse another unit Status: Acute Qualifiers: Anemia type: unspecified type Qualified Code(s): D64.9 - Anemia, unspecified Code(s): D64.9 - Anemia, unspecified (3) 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 Surgery was planned this week. Has been receiving chemotherapy last episode was September 14, 2019 Status: Acute Code(s): C50.912 - Malignant neoplasm of unspecified site of left female breast (4) Gross hematuria: Right ureteral stent placed October 02. Will need to reimage and make sure no evidence of obstruction on ultrasound. -CT abdomen and pelvis shows no significant hydronephrosis, no nephrolithiasis, no pyelonephritis, right double- J ureteral stent in good position Status: Acute Code(s): R31.0 - Gross hematuria (5) Community acquired pneumonia: Secondary to immune suppression she was placed on Primaxin, vancomycin. Status: Acute Qualifiers: Laterality: unspecified laterality Qualified Code(s): J18.9 - Pneumonia, unspecified organism Code(s): J18.9 - Pneumonia, unspecified organism Additional A&P Information Sinus tachycardia, likely related to infection, continue metoprolol 50mg twice daily, hydralazine Hypertension, metoprolol, hydralazine, Norvasc GERD History of asthma Obesity SCDs for DVT prophylaxis. Anticoagulation held secondary to severe anemia Attestations Medical Necessity Statement*: Patient requires continued hospitalization, for sepsis secondary to UTI pneumonia Coding Level of Care Code Acute Physician Extender for [facility] Diagnoses Sepsis A41.9; R65.20; J96.01 Acute respiratory failure type: with hypoxia Sepsis acute organ dysfunction status: with acute organ dysfunction Sepsis type: sepsis due to unspecified organism Severe sepsis acute organ dysfunction type: acute respiratory failure Severe sepsis shock status: without septic shock Anemia D64.9 Anemia type: unspecified type Ductal carcinoma of left breast C50.912 Gross hematuria R31.0 Community acquired pneumonia J18.9 Laterality: unspecified laterality
--- NOTE | 2019-10-07 19:24 | PC.NURSE ---
bedside report rcvd at this time. vss per cm. pt sitting up visiting c family , smiling and laughing at this time room air at this time. no needs expressed or seen. edmundo peralta.
[2019-10-07] MEDS: LORazepam 2 mg/mL INJ 1 mL 1 MG IVP (22:36)
[2019-10-08] VITALS (23 sets, daily range): BP systolic 130–194; BP diastolic 82–121; PULSE 74–125; RESP 16–25; TEMP 36.2–36.8; O2SAT 85–98; BMI 37.8
[2019-10-08] MEDS: vancomycin 1,000 MG in sodium chloride 0.9% 250 ML 250 MG IV (01:05)
[2019-10-08] MEDS: metoprolol tartrate 1 mg/1 mL SDV 5 mL 5 MG IV ×3 (01:06→09:40)
[2019-10-08 03:54] LABS: Basophils % 0.3 %; Eosinophils # 0.2 10^3/uL (0.0-0.8); Eosinophils % 2.9 %; Hematocrit 28.2 % (37.0-47.0); Hemoglobin 9.1 g/dL (11.5-15.3); Lymphocytes # 1.4 10^3/uL (0.8-4.8); Mean Corpuscular HGB Conc 32.3 g/dL (30.0-36.0); Mean Corpuscular Hemoglobin 31.3 pg (28.0-34.0); Mean Corpuscular Volume 96.9 fL (81-99); Mean Platelet Volume 9.7 fL (7.4-10.4); Monocytes # 0.6 10^3/uL (0.2-0.9); Monocytes % 9.7 %; Neutrophils % 63.6 %; Nucleated Red Blood Cells % 0 %; Platelet Count 150 10^3/cmm (130-400); Red Blood Count 2.91 10^6/uL (4.1-5.3); Red Cell Distribution Width 17.2 % (12.1-15.1); White Blood Count 6.2 10^3/uL (4.0-10.0)
[2019-10-08 04:06] LABS: Alanine Aminotransferase 8 U/L (0-33); Albumin Level 2.7 g/dL (3.5-5.2); Alkaline Phosphatase 71 IU/L (35-105); Anion Gap 13.4 (5-19); Aspartate Amino Transferase 18 U/L (0-32); Blood Urea Nitrogen 21 mg/dL (6-20); Calcium 8.9 mg/Dl (8.6-10.0); Carbon Dioxide 23 mmol/L (22-29); Chloride 107 mmol/L (98-107); Globulin 2.9 g/dL (1.3-4.6); Glomerular Filtration Rate 33.3 mL/min (90-130); Glucose 110 mg/dL (74-109); Magnesium 1.8 mg/dL (1.7-2.3); Phosphorus 3.5 mg/dL (2.5-4.5); Potassium 3.4 mmol/L (3.5-5.1); Sodium 140 mmol/L (136-145); Total Bilirubin 0.3 mg/dL (0.15-1.2); Total Protein 5.6 g/dL (6.6-8.7)
[2019-10-08 06:14] LABS: Procalcitonin 0.79 ng/mL (0-0.8)
[2019-10-08] MEDS: ipratropium-albuterol 3 mL Neb INHALATION ×3 (07:28→21:42)
[2019-10-08] MEDS: ketorolac 30 mg/mL INJ 15 MG IVP ×2 (07:32→23:05)
[2019-10-08] MEDS: metoclopramide 5 mg/mL SDV 2 mL IVP (07:51)
[2019-10-08] MEDS: metoprolol tartrate 50 mg Tablet 75 MG PO ×2 (09:39→17:03)
[2019-10-08] MEDS: hyDRALAzine 10 mg Tablet PO (09:39)
[2019-10-08] MEDS: levothyroxine 112 mcg Tablet PO (09:39)
[2019-10-08] MEDS: pantoprazole DR 40 mg Tablet PO (09:40)
--- NOTE | 2019-10-08 09:48 | PC.CHAP ---
Pastoral Care Encounter/Spiritual Assessment Type of Contact [] Declined skin carver visit [] Patient/Family/Request visit [] Outpatient visit [] Follow-up visit [] Physician referral [] Code/Alert [] Routine visit [] Staff referral [] Actively dying [x] Patient sleeping [] Family support [] [] Out of room [] Palliative care [] [] Receiving care in room [] Pre-surgical visit [] Trauma [] Long length of stay [] ICU visit [] Other: Relational/Emotional Strength [] Patient feels connected with others/family/visitors/staff [] Distress [] Loneliness/isolation [] Abandonment Spirituality of Patient [] Person of Rosa [] Attends Christianity of their Rosa [] Believes in Prayer [] Reads Bible or Mosque materials [] There are Spiritual issues to be addressed Family Service Worker Interventions [] Prayer [] Active listening [] Non-anxious presence [] Spiritual/emotional support [] Crisis/trauma care [] Spiritual counseling [] Bereavement support [] Provided bereavement packet [] Provided Bible/devotional materials [] Provided toy/stuffed animal, coloring book to patient or family member [] Completed spiritual assessment [] Provided Communion [] Anointing/[place] [] Salvation [] Other: Impact on Illness or Injury [] Angry [] Fearful [] Anxious [] Often cries [] Exhaustion [] Unable to work [] Unable to attend hoahaoism [] Unable to walk/stand [] Unable to read [] Unable to drive [] Unable to eat/drink [] Unable to sleep [] Unable to be with family [x] Other: Room visit required mask and gloves Summary Duglas entered room and prayed at the foot of bed while patient slept. Time spent with patient 5 min
[2019-10-08] MEDS: cloNIDine 0.1 mg Tablet PO (13:56)
--- NOTE | 2019-10-08 14:49 | PM.PN ---
Subjective Subjective: Interval history: This morning patient complains of a headache, no fevers, no chills, no nausea, no vomiting, shortness of breath is improving, but is short of breath with getting up to use the commode, no wheezing, no lightheadedness, no dizziness, still requiring up to 3 L oxygen Vitals/I&O/Wt Last Vital Signs Temp 98.1 F 10/08/19 13:00 Pulse 105 H 10/08/19 13:00 Resp 20 H 10/08/19 13:00 BP 171/95 10/08/19 13:56 Pulse Ox 97 10/08/19 13:00 10/07/19 10/08/19 10/08/19 22:59 06:59 14:59 Intake Total 580 / 680 Output Total 200 / 200 350 / 550 Balance 380 / 480 -350 / 130 Weight last 48 hrs Weight 99.836 kg Weight 98.475 kg Physical Exam Const: COMMON NORMALS: no apparent distress and oriented x3 HENMT: COMMON NORMALS: normocephalic HEAD & SCALP: normocephalic Neck/C-Spine: COMMON NORMALS: no JVD Resp: COMMON NORMALS: normal respiratory effort, no retractions, no use of accessory muscles and clear to auscultation bilaterally AUSCULTATION: clear to auscultation bilaterally Cardio: COMMON NORMALS: no JVD, regular rate, regular rhythm, S1 normal heart sound and S2 normal heart sound RATE: regular rate RHYTHM: regular rhythm HEART SOUNDS: S1 normal and S2 normal GI: COMMON NORMALS: normal to inspection, nondistended, normoactive bowel sounds, soft to palpation, non-tender, no hepatosplenomegaly, no masses and no bruits PALPATION: Yes soft and Yes no hepatosplenomegaly Extremity: COMMON NORMALS: normal capillary refill, no clubbing, cyanosis or edema, no calf tenderness and no pedal edema Neuro: COMMON NORMALS: oriented x3 Psych: COMMON NORMALS: mental status grossly normal Data : 10/08/19 03:15 10/08/19 03:15 A&P Assessment and plan (1) Sepsis: -Secondary to pneumonia and UTI -Urine cultures growing Klebsiella pneumonia -De-escalate to Levaquin -Remains afebrile, leukocytosis has improved, clinically she she is getting better, but still has some sinus tachycardia, and still requiring up to 3 L oxygen, seems to be responding appropriately to antibiotics Status: Acute Qualifiers: Acute respiratory failure type: with hypoxia Sepsis acute organ dysfunction status: with acute organ dysfunction Sepsis type: sepsis due to unspecified organism Severe sepsis acute organ dysfunction type: acute respiratory failure Severe sepsis shock status: without septic shock Qualified Code(s): A41.9 - Sepsis, unspecified organism; R65.20 - Severe sepsis without septic shock; J96.01 - Acute respiratory failure with hypoxia Code(s): A41.9 - Sepsis, unspecified organism (2) Anemia: Status post 2 unit unit PRBC Hemoglobin at 9.1, will transfuse another unit Status: Acute Qualifiers: Anemia type: unspecified type Qualified Code(s): D64.9 - Anemia, unspecified Code(s): D64.9 - Anemia, unspecified (3) 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 Surgery was planned this week. Has been receiving chemotherapy last episode was September 14, 2019 Status: Acute Code(s): C50.912 - Malignant neoplasm of unspecified site of left female breast (4) Gross hematuria: Right ureteral stent placed October 02. Will need to reimage and make sure no evidence of obstruction on ultrasound. -CT abdomen and pelvis shows no significant hydronephrosis, no nephrolithiasis, no pyelonephritis, right double-J ureteral stent in good position Status: Acute Code(s): R31.0 - Gross hematuria (5) Community acquired pneumonia: Secondary to immune suppression she was placed on Primaxin, vancomycin. Status: Acute Qualifiers: Laterality: unspecified laterality Qualified Code(s): J18.9 - Pneumonia, unspecified organism Code(s): J18.9 - Pneumonia, unspecified organism Additional A&P Information Sinus tachycardia, likely related to infection, continue metoprolol 75mg twice daily, hydralazine, clonidine Hypertension, metoprolol, hydralazine, clonidine GERD History of asthma Obesity SCDs for DVT prophylaxis. 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
[2019-10-08] MEDS: cloNIDine 0.1 mg Tablet 0.2 MG PO (17:02)
[2019-10-08] MEDS: hyDRALAzine 25 mg Tablet PO ×2 (17:02→22:02)
[2019-10-08 21:45] LABS: Legionella Antibody <1:256
[2019-10-09] VITALS (14 sets, daily range): BP systolic 119–167; BP diastolic 82–107; PULSE 69–118; RESP 18–20; TEMP 36.7–36.9; O2SAT 96–99
[2019-10-09] MEDS: hyDRALAzine 20 mg/mL INJ 1 mL 10 MG IVP ×2 (00:22→08:10)
[2019-10-09] MEDS: guaiFENesin-dextromethorphan UDC 10 mL PO (00:35)
[2019-10-09 05:53] LABS: Basophils % 0.3 %; Eosinophils # 0.3 10^3/uL (0.0-0.8); Eosinophils % 4.2 %; Hemoglobin 9.7 g/dL (11.5-15.3); Lymphocytes # 1.4 10^3/uL (0.8-4.8); Lymphocytes % 21.7 %; Mean Corpuscular HGB Conc 32.3 g/dL (30.0-36.0); Mean Corpuscular Hemoglobin 31.7 pg (28.0-34.0); Mean Platelet Volume 9.3 fL (7.4-10.4); Monocytes # 0.5 10^3/uL (0.2-0.9); Monocytes % 8.3 %; Neutrophils # 4.1 10^3/uL (1.8-7.7); Neutrophils % 65.2 %; Nucleated Red Blood Cells % 0 %; Platelet Count 168 10^3/cmm (130-400); Red Blood Count 3.06 10^6/uL (4.1-5.3); Red Cell Distribution Width 16.5 % (12.1-15.1); White Blood Count 6.4 10^3/uL (4.0-10.0)
[2019-10-09] MEDS: levoFLOXacin 750 mg Tablet PO (06:20)
[2019-10-09 06:24] LABS: Alanine Aminotransferase 6 U/L (0-33); Albumin Level 3.1 g/dL (3.5-5.2); Alkaline Phosphatase 72 IU/L (35-105); Anion Gap 16.3 (5-19); Aspartate Amino Transferase 18 U/L (0-32); Blood Urea Nitrogen 16 mg/dL (6-20); Calcium 9.1 mg/dL (8.5-10.5); Carbon Dioxide 22 mmol/L (22-29); Chloride 107 mmol/L (98-107); Globulin 2.5 g/dL (1.3-4.6); Glomerular Filtration Rate 45.4 mL/min (90-130); Glucose 107 mg/dL (74-109); Magnesium 1.7 mg/dL (1.7-2.3); Phosphorus 4.1 mg/dL (2.5-4.5); Potassium 3.3 mmol/L (3.5-5.1); Sodium 142 mmol/L (136-145); Total Bilirubin 0.4 mg/dL (0.15-1.2); Total Protein 5.6 g/dL (6.6-8.7)
[2019-10-09] MEDS: ondansetron 2 mg/ML SDV 2 mL 4 MG IVP ×2 (07:51→14:42)
[2019-10-09] MEDS: metoclopramide 5 mg/mL SDV 2 mL IVP ×2 (09:56→18:39)
--- NOTE | 2019-10-09 10:02 | PC.NURSE ---
PATIENT VERY NAUSEATED THIS MORNING, SHE STATES SHE DOES NOT WANT TO TAKE HER MORNING MEDICATIONS UNTIL HER NAUSEA SUBSIDES, DR. HAINES
[2019-10-09] MEDS: potassium chloride premix 40 MEQ/100 ML PREMIX 25 MEQ IV ×2 (11:44→12:48)
[2019-10-09] MEDS: lidocaine 1% INJ 20 mL 5 ML INJECTION (12:49)
[2019-10-09] MEDS: pantoprazole DR 40 mg Tablet PO (12:55)
[2019-10-09] MEDS: levothyroxine 112 mcg Tablet PO (12:55)
[2019-10-09] MEDS: cloNIDine 0.1 mg Tablet 0.2 MG PO ×2 (12:56→18:37)
[2019-10-09] MEDS: metoprolol tartrate 50 mg Tablet 75 MG PO ×2 (12:56→18:37)
[2019-10-09] MEDS: hyDRALAzine 25 mg Tablet PO ×3 (12:57→20:52)
--- NOTE | 2019-10-09 14:09 | PM.PN ---
Subjective Subjective: Interval history: This morning patient is complaining of nausea, difficulty keeping down her pills, breathing has improved, no lightheadedness, no dizziness, Vitals/I&O/Wt Last Vital Signs Temp 98.3 F 10/09/19 12:51 Pulse 118 H 10/09/19 12:51 Resp 18 10/09/19 12:51 BP 163/107 10/09/19 12:56 Pulse Ox 97 10/09/19 12:51 10/08/19 10/09/19 10/09/19 22:59 06:59 14:59 Intake Total 146.667 / 146.667 Output Total 100 / 100 350 / 450 Balance -100 / 140 -350 / -210 146.667 / 146.667 Weight last 48 hrs Weight 101.746 kg Weight 99.836 kg Physical Exam Const: COMMON NORMALS: no apparent distress and oriented x3 HENMT: COMMON NORMALS: normocephalic HEAD & SCALP: normocephalic Neck/C-Spine: COMMON NORMALS: no JVD Resp: COMMON NORMALS: normal respiratory effort, no retractions, no use of accessory muscles and clear to auscultation bilaterally AUSCULTATION: clear to auscultation bilaterally Cardio: COMMON NORMALS: no JVD, regular rate, regular rhythm, S1 normal heart sound and S2 normal heart sound RATE: regular rate and tachycardic RHYTHM: regular rhythm HEART SOUNDS: S1 normal and S2 normal GI: COMMON NORMALS: normal to inspection, nondistended, normoactive bowel sounds, soft to palpation, non-tender, no hepatosplenomegaly, no masses and no bruits PALPATION: Yes soft and Yes no hepatosplenomegaly Extremity: COMMON NORMALS: normal capillary refill, no clubbing, cyanosis or edema, no calf tenderness and no pedal edema Neuro: COMMON NORMALS: oriented x3 Psych: COMMON NORMALS: mental status grossly normal Data : 10/09/19 04:40 10/09/19 04:40 A&P Assessment and plan (1) Sepsis: -Secondary to pneumonia and UTI -Urine cultures growing Klebsiella pneumonia -De-escalate to Levaquin -Remains afebrile, leukocytosis has improved, clinically she she is getting better, but still has some sinus tachycardia, and off oxygen, seems to be responding appropriately to antibiotics Status: Acute Qualifiers: Acute respiratory failure type: with hypoxia Sepsis acute organ dysfunction status: with acute organ dysfunction Sepsis type: sepsis due to unspecified organism Severe sepsis acute organ dysfunction type: acute respiratory failure Severe sepsis shock status: without septic shock Qualified Code(s): A41.9 - Sepsis, unspecified organism; R65.20 - Severe sepsis without septic shock; J96.01 - Acute respiratory failure with hypoxia Code(s): A41.9 - Sepsis, unspecified organism (2) Anemia: Status post 2 unit unit PRBC Hemoglobin at 9.7, will transfuse another unit Status: Acute Qualifiers: Anemia type: unspecified type Qualified Code(s): D64.9 - Anemia, unspecified Code(s): D64.9 - Anemia, unspecified (3) 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 Surgery was planned this week. Has been receiving chemotherapy last episode was September 14, 2019 Status: Acute Code(s): C50.912 - Malignant neoplasm of unspecified site of left female breast (4) Gross hematuria: Right ureteral stent placed October 02. Will need to reimage and make sure no evidence of obstruction on ultrasound. -CT abdomen and pelvis shows no significant hydronephrosis, no nephrolithiasis, no pyelonephritis, right double-J ureteral stent in good position Status: Acute Code(s): R31.0 - Gross hematuria (5) Community acquired pneumonia: Escalated to Levaquin Status: Acute Qualifiers: Laterality: unspecified laterality Qualified Code(s): J18.9 - Pneumonia, unspecified organism Code(s): J18.9 - Pneumonia, unspecified organism Additional A&P Information Sinus tachycardia, likely related to infection, continue metoprolol 75mg twice daily, hydralazine, clonidine Hypertension, metoprolol, hydralazine, clonidine GERD History of asthma Obesity SCDs for DVT prophylaxis. 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
[2019-10-09] MEDS: ipratropium-albuterol 3 mL Neb INHALATION ×2 (15:39→20:09)
[2019-10-09] MEDS: ketorolac 30 mg/mL INJ 15 MG IVP (22:43)
[2019-10-10] VITALS (15 sets, daily range): BP systolic 102–170; BP diastolic 66–112; PULSE 96–114; RESP 17–22; TEMP 36.6–37.1; O2SAT 96–99
[2019-10-10 06:29] LABS: Basophils % 0.2 %; Eosinophils # 0.2 10^3/uL (0.0-0.8); Eosinophils % 3.7 %; Hematocrit 27.5 % (37.0-47.0); Hemoglobin 8.9 g/dL (11.5-15.3); Lymphocytes # 1.1 10^3/uL (0.8-4.8); Lymphocytes % 17.4 %; Mean Corpuscular HGB Conc 32.4 g/dL (30.0-36.0); Mean Corpuscular Hemoglobin 30.8 pg (28.0-34.0); Mean Corpuscular Volume 95.2 fL (81-99); Mean Platelet Volume 9.1 fL (7.4-10.4); Monocytes # 0.5 10^3/uL (0.2-0.9); Monocytes % 7.8 %; Neutrophils # 4.4 10^3/uL (1.8-7.7); Neutrophils % 70.4 %; Nucleated Red Blood Cells % 0 %; Platelet Count 164 10^3/cmm (130-400); Red Blood Count 2.89 10^6/uL (4.1-5.3); Red Cell Distribution Width 16.6 % (12.1-15.1); White Blood Count 6.3 10^3/uL (4.0-10.0)
[2019-10-10 06:45] LABS: Alanine Aminotransferase 7 U/L (0-33); Albumin Level 3.1 g/dL (3.5-5.2); Alkaline Phosphatase 83 IU/L (35-105); Anion Gap 15.8 (5-19); Aspartate Amino Transferase 17 U/L (0-32); Blood Urea Nitrogen 18 mg/dL (6-20); Calcium 8.9 mg/dL (8.5-10.5); Carbon Dioxide 22 mmol/L (22-29); Chloride 108 mmol/L (98-107); Globulin 2.8 g/dL (1.3-4.6); Glomerular Filtration Rate 31.2 mL/min (90-130); Glucose 121 mg/dL (74-109); Magnesium 1.6 mg/dL (1.7-2.3); Phosphorus 3.9 mg/dL (2.5-4.5); Potassium 3.8 mmol/L (3.5-5.1); Sodium 142 mmol/L (136-145); Total Bilirubin 0.2 mg/dL (0.15-1.2); Total Protein 5.9 g/dL (6.6-8.7)
[2019-10-10] MEDS: ondansetron 2 mg/ML SDV 2 mL 4 MG IVP (06:45)
[2019-10-10] MEDS: levofloxacin-dextrose 5 % 750 MG/150 ML PREMIX 150 MG IV (06:46)
[2019-10-10] MEDS: metoclopramide 5 mg/mL SDV 2 mL IVP ×2 (08:12→17:35)
[2019-10-10] MEDS: ondansetron 2 mg/ML SDV 2 mL 8 MG IVP ×3 (08:59→22:03)
[2019-10-10] MEDS: labetalol 5 mg/mL SDV 20mL 20 MG IVP (09:00)
[2019-10-10] MEDS: metoprolol tartrate 50 mg Tablet 75 MG PO (10:23)
[2019-10-10] MEDS: cloNIDine 0.1 mg Tablet 0.2 MG PO (10:23)
[2019-10-10] MEDS: pantoprazole DR 40 mg Tablet PO (10:24)
[2019-10-10] MEDS: levothyroxine 112 mcg Tablet PO (10:24)
[2019-10-10] MEDS: hyDRALAzine 25 mg Tablet PO ×2 (10:24→14:42)
--- NOTE | 2019-10-10 14:05 | PM.PN ---
Subjective Subjective: Interval history: Patient continues to have episodes of nausea vomiting, particular in the morning, that she cannot take her morning meds, and has elevated blood pressures No fevers, no chills, breathing has improved Vitals/I&O/Wt Last Vital Signs Temp 97.9 F 10/10/19 11:26 Pulse 96 10/10/19 11:26 Resp 22 H 10/10/19 11:26 BP 136/83 10/10/19 11:26 Pulse Ox 98 10/10/19 12:38 10/09/19 10/10/19 10/10/19 22:59 06:59 14:59 Intake Total 120 / 266.667 510 / 510 Output Total 300 / 300 200 / 500 Balance -180 / -33.333 -200 / -233.333 510 / 510 Weight last 48 hrs Weight 102.104 kg Weight 101.746 kg Physical Exam Const: COMMON NORMALS: no apparent distress and oriented x3 HENMT: COMMON NORMALS: normocephalic HEAD & SCALP: normocephalic Neck/C-Spine: COMMON NORMALS: no JVD Resp: COMMON NORMALS: normal respiratory effort, no retractions, no use of accessory muscles and clear to auscultation bilaterally AUSCULTATION: clear to auscultation bilaterally Cardio: COMMON NORMALS: no JVD, regular rate, regular rhythm, S1 normal heart sound and S2 normal heart sound RATE: regular rate and tachycardic RHYTHM: regular rhythm HEART SOUNDS: S1 normal and S2 normal GI: COMMON NORMALS: normal to inspection, nondistended, normoactive bowel sounds, soft to palpation, non-tender, no hepatosplenomegaly, no masses and no bruits PALPATION: Yes soft and Yes no hepatosplenomegaly Extremity: COMMON NORMALS: normal capillary refill, no clubbing, cyanosis or edema, no calf tenderness and no pedal edema Neuro: COMMON NORMALS: oriented x3 Psych: COMMON NORMALS: mental status grossly normal Data : 10/10/19 06:22 10/10/19 06:22 Micro: Microbiology 10/04/19 16:34 Blood Culture - Final Blood NO GROWTH AFTER 5 DAYS 10/04/19 16:34 Blood Culture - Final Blood NO GROWTH AFTER 5 DAYS A&P Assessment and plan (1) Sepsis: -Secondary to pneumonia and UTI -Urine cultures growing Klebsiella pneumonia -De-escalate to Levaquin -Remains afebrile, leukocytosis has improved, clinically she she is getting better, but still has some sinus tachycardia, and off oxygen, seems to be responding appropriately to antibiotics Status: Acute Qualifiers: Acute respiratory failure type: with hypoxia Sepsis acute organ dysfunction status: with acute organ dysfunction Sepsis type: sepsis due to unspecified organism Severe sepsis acute organ dysfunction type: acute respiratory failure Severe sepsis shock status: without septic shock Qualified Code(s): A41.9 - Sepsis, unspecified organism; R65.20 - Severe sepsis without septic shock; J96.01 - Acute respiratory failure with hypoxia Code(s): A41.9 - Sepsis, unspecified organism (2) Anemia: Status post 2 unit unit PRBC Hemoglobin at 8.9 Status: Acute Qualifiers: Anemia type: unspecified type Qualified Code(s): D64.9 - Anemia, unspecified Code(s): D64.9 - Anemia, unspecified (3) 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 Surgery was planned this week. Has been receiving chemotherapy last episode was September 14, 2019 Status: Acute Code(s): C50.912 - Malignant neoplasm of unspecified site of left female breast (4) Gross hematuria: Right ureteral stent placed October 02. Will need to reimage and make sure no evidence of obstruction on ultrasound. -CT abdomen and pelvis shows no significant hydronephrosis, no nephrolithiasis, no pyelonephritis, right double-J ureteral stent in good position Status: Acute Code(s): R31.0 - Gross hematuria (5) Community acquired pneumonia: Escalated to Levaquin Status: Acute Qualifiers: Laterality: unspecified laterality Qualified Code(s): J18.9 - Pneumonia, unspecified organism Code(s): J18.9 - Pneumonia, unspecified organism Additional A&P Information Sinus tachycardia, likely related to infection, continue metoprolol 75mg twice daily, hydralazine, clonidine Hypertension, metoprolol, hydralazine, clonidine GERD History of asthma Obesity SCDs for DVT prophylaxis. 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
[2019-10-10] MEDS: ipratropium-albuterol 3 mL Neb INHALATION ×2 (15:26→19:49)
[2019-10-10] MEDS: guaiFENesin-dextromethorphan UDC 10 mL PO (18:11)
[2019-10-10] MEDS: ketorolac 30 mg/mL INJ 15 MG IVP (18:11)
[2019-10-10] MEDS: hyDRALAzine 20 mg/mL INJ 1 mL 10 MG IVP (23:01)
[2019-10-11] VITALS (18 sets, daily range): BP systolic 130–205; BP diastolic 81–170; PULSE 87–115; RESP 18–20; TEMP 36.5–36.9; O2SAT 94–97
[2019-10-11] MEDS: hyDRALAzine 20 mg/mL INJ 1 mL 10 MG IVP ×3 (00:16→21:25)
[2019-10-11] MEDS: ketorolac 30 mg/mL INJ 15 MG IVP (04:44)
[2019-10-11 05:03] LABS: Basophils % 0.1 %; Eosinophils # 0.2 10^3/uL (0.0-0.8); Eosinophils % 3.5 %; Hematocrit 28.4 % (37.0-47.0); Hemoglobin 9.1 g/dL (11.5-15.3); Lymphocytes # 1.1 10^3/uL (0.8-4.8); Lymphocytes % 15.7 %; Mean Corpuscular Hemoglobin 30.5 pg (28.0-34.0); Mean Corpuscular Volume 95.3 fL (81-99); Mean Platelet Volume 9.2 fL (7.4-10.4); Monocytes # 0.6 10^3/uL (0.2-0.9); Monocytes % 9.2 %; Neutrophils # 4.9 10^3/uL (1.8-7.7); Neutrophils % 70.8 %; Nucleated Red Blood Cells % 0 %; Platelet Count 185 10^3/cmm (130-400); Red Blood Count 2.98 10^6/uL (4.1-5.3); Red Cell Distribution Width 16.5 % (12.1-15.1); White Blood Count 6.9 10^3/uL (4.0-10.0)
[2019-10-11] MEDS: ondansetron 2 mg/ML SDV 2 mL 8 MG IVP ×3 (05:04→19:31)
[2019-10-11 05:17] LABS: Alanine Aminotransferase 7 U/L (0-33); Albumin Level 3.1 g/dL (3.5-5.2); Alkaline Phosphatase 76 IU/L (35-105); Aspartate Amino Transferase 16 U/L (0-32); Blood Urea Nitrogen 16 mg/dL (6-20); Calcium 8.9 mg/dL (8.5-10.5); Carbon Dioxide 23 mmol/L (22-29); Chloride 108 mmol/L (98-107); Globulin 2.8 g/dL (1.3-4.6); Glomerular Filtration Rate 29.3 mL/min (90-130); Glucose 114 mg/dL (74-109); Magnesium 1.6 mg/dL (1.7-2.3); Phosphorus 4.5 mg/dL (2.5-4.5); Sodium 143 mmol/L (136-145); Total Bilirubin 0.3 mg/dL (0.15-1.2); Total Protein 5.9 g/dL (6.6-8.7)
[2019-10-11] MEDS: pantoprazole DR 40 mg Tablet PO (09:11)
[2019-10-11] MEDS: hyDRALAzine 25 mg Tablet PO ×3 (09:11→22:07)
[2019-10-11] MEDS: cloNIDine 0.1 mg Tablet 0.2 MG PO ×2 (09:13→22:06)
[2019-10-11] MEDS: levothyroxine 112 mcg Tablet PO (09:14)
[2019-10-11] MEDS: metoprolol tartrate 50 mg Tablet 75 MG PO ×2 (09:14→22:05)
[2019-10-11] MEDS: TRAMadol 50 mg Tablet PO (09:14)
[2019-10-11] MEDS: metoclopramide 5 mg/mL SDV 2 mL IVP ×2 (09:48→17:54)
--- NOTE | 2019-10-11 10:58 | PM.PN ---
Subjective Subjective: Interval history: This morning patient states that she still quite nauseous, was unable to keep down liquids yesterday, no fevers, no chills, no nausea, no vomiting Medications: Reviewed: Yes Vitals/I&O/Wt Last Vital Signs Temp 97.7 F 10/11/19 07:15 Pulse 115 H 10/11/19 07:15 Resp 18 10/11/19 07:15 BP 178/132 10/11/19 07:15 Pulse Ox 96 10/11/19 07:15 10/10/19 10/11/19 10/11/19 22:59 06:59 14:59 Intake Total 120 / 630 Output Total 350 / 350 Balance -230 / 280 Weight last 48 hrs Weight 103.504 kg Weight 102.104 kg Physical Exam Const: COMMON NORMALS: no apparent distress and oriented x3 HENMT: COMMON NORMALS: normocephalic HEAD & SCALP: normocephalic Neck/C-Spine: COMMON NORMALS: no JVD Resp: COMMON NORMALS: normal respiratory effort, no retractions, no use of accessory muscles and clear to auscultation bilaterally AUSCULTATION: clear to auscultation bilaterally Cardio: COMMON NORMALS: no JVD, regular rate, regular rhythm, S1 normal heart sound and S2 normal heart sound RATE: regular rate and tachycardic RHYTHM: regular rhythm HEART SOUNDS: S1 normal and S2 normal GI: COMMON NORMALS: normal to inspection, nondistended, normoactive bowel sounds, soft to palpation, non-tender, no hepatosplenomegaly, no masses and no bruits PALPATION: Yes soft and Yes no hepatosplenomegaly Extremity: COMMON NORMALS: normal capillary refill, no clubbing, cyanosis or edema, no calf tenderness and no pedal edema Neuro: COMMON NORMALS: oriented x3 Psych: COMMON NORMALS: mental status grossly normal Data : 10/11/19 04:39 10/11/19 04:39 A&P Assessment and plan (1) Sepsis: -Secondary to pneumonia and UTI -Urine cultures growing Klebsiella pneumonia, finish antibiotic treatment -Change antibiotics to doxycycline for pneumonia -Remains afebrile, leukocytosis has improved, clinically she she is getting better, but still has some sinus tachycardia, and off oxygen, seems to be responding appropriately to antibiotics Status: Acute Qualifiers: Acute respiratory failure type: with hypoxia Sepsis acute organ dysfunction status: with acute organ dysfunction Sepsis type: sepsis due to unspecified organism Severe sepsis acute organ dysfunction type: acute respiratory failure Severe sepsis shock status: without septic shock Qualified Code(s): A41.9 - Sepsis, unspecified organism; R65.20 - Severe sepsis without septic shock; J96.01 - Acute respiratory failure with hypoxia Code(s): A41.9 - Sepsis, unspecified organism (2) Anemia: Status post 2 unit unit PRBC Status: Acute Qualifiers: Anemia type: unspecified type Qualified Code(s): D64.9 - Anemia, unspecified Code(s): D64.9 - Anemia, unspecified (3) 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 Surgery was planned this week. Has been receiving chemotherapy last episode was September 14, 2019 Status: Acute Code(s): C50.912 - Malignant neoplasm of unspecified site of left female breast (4) Gross hematuria: Right ureteral stent placed October 02. Will need to reimage and make sure no evidence of obstruction on ultrasound. -CT abdomen and pelvis shows no significant hydronephrosis, no nephrolithiasis, no pyelonephritis, right double-J ureteral stent in good position Status: Acute Code(s): R31.0 - Gross hematuria (5) Community acquired pneumonia: Change antibiotics to doxycycline Status: Acute Qualifiers: Laterality: unspecified laterality Qualified Code(s): J18.9 - Pneumonia, unspecified organism Code(s): J18.9 - Pneumonia, unspecified organism (6) EDOUARD (acute kidney injury): -Creatinine is 1.9, slowly going up, give 500 cc LR bolus Status: Acute Code(s): N17.9 - Acute kidney failure, unspecified Additional A&P Information Sinus tachycardia, likely related to infection, continue metoprolol 75mg twice daily, hydralazine, clonidine Hypertension, metoprolol, hydralazine, clonidine GERD History of asthma Obesity SCDs for DVT prophylaxis. Anticoagulation held secondary to severe anemia Patient has intractable nausea vomiting, difficult to control with Zofran, Reglan, promethazine. Possibly patient believes Levaquin might be attributing to this, will change to doxycycline. Will give 500 cc LR bowel bolus for dehydration, as creatinine is up to 1.9. 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
[2019-10-11] MEDS: ergocalciferol (vitamin D2) 50,000 Unit Capsule 50000 UNIT PO (11:36)
[2019-10-11] MEDS: lactated ringers 500 ML 999 ML IV (11:40)
[2019-10-11] MEDS: doxycycline 100 MG in sodium chloride 0.9% (plus) 100 ML IV ×2 (12:42→23:05)
[2019-10-11] MEDS: ipratropium-albuterol 3 mL Neb INHALATION ×2 (15:57→21:01)
--- NOTE | 2019-10-11 19:51 | PC.NURSE ---
Pt pleasantly refused dressing change for port. Skin blistered from tape from previous dressing. Healing nicely. Gauze loosely draped around site. IV secured.
--- NOTE | 2019-10-11 20:36 | PC.NURSE ---
Patient states she has whole body aches. Does not want any medication at this time due to nausea.
[2019-10-11] MEDS: labetalol 5 mg/mL SDV 20mL 20 MG IVP (20:58)
[2019-10-11] MEDS: promethazine 25 mg/mL SDV 1 mL 6.25 MG IM ×2 (21:03)
[2019-10-12] VITALS (12 sets, daily range): BP systolic 109–174; BP diastolic 54–131; PULSE 88–97; RESP 14–18; TEMP 36.6–36.8; O2SAT 94–98
--- NOTE | 2019-10-12 04:54 | PC.NURSE ---
This aide did not zero bed before weighing patient. This aide zeroed bed and reweighed patient.
[2019-10-12] MEDS: metoprolol tartrate 50 mg Tablet 75 MG PO (05:02)
[2019-10-12] MEDS: cloNIDine 0.1 mg Tablet 0.2 MG PO (05:04)
[2019-10-12] MEDS: ondansetron 2 mg/ML SDV 2 mL 8 MG IVP ×2 (05:36→14:23)
[2019-10-12] MEDS: labetalol 5 mg/mL SDV 20mL 20 MG IVP (06:35)
[2019-10-12] MEDS: pantoprazole DR 40 mg Tablet PO (08:37)
[2019-10-12] MEDS: hyDRALAzine 25 mg Tablet PO ×2 (08:37→17:15)
[2019-10-12] MEDS: levothyroxine 112 mcg Tablet PO (08:37)
[2019-10-12] MEDS: ipratropium-albuterol 3 mL Neb INHALATION (09:13)
[2019-10-12] MEDS: doxycycline 100 mg Tablet PO ×2 (10:16→17:14)
[2019-10-12] MEDS: chlorthalidone 25 mg Tablet PO (10:16)
[2019-10-12 10:54] LABS: Basophils % 0.5 %; Eosinophils # 0.3 10^3/uL (0.0-0.8); Eosinophils % 5.3 %; Hemoglobin 8.8 g/dL (11.5-15.3); Lymphocytes # 1.3 10^3/uL (0.8-4.8); Lymphocytes % 23.5 %; Mean Corpuscular HGB Conc 31.4 g/dL (30.0-36.0); Mean Corpuscular Hemoglobin 30.7 pg (28.0-34.0); Mean Corpuscular Volume 97.6 fL (81-99); Mean Platelet Volume 9.9 fL (7.4-10.4); Monocytes # 0.6 10^3/uL (0.2-0.9); Monocytes % 10.2 %; Neutrophils # 3.4 10^3/uL (1.8-7.7); Neutrophils % 59.6 %; Nucleated Red Blood Cells % 0 %; Platelet Count 211 10^3/cmm (130-400); Red Blood Count 2.87 10^6/uL (4.1-5.3); Red Cell Distribution Width 16.6 % (12.1-15.1); White Blood Count 5.7 10^3/uL (4.0-10.0)
[2019-10-12 11:05] LABS: Alanine Aminotransferase 8 U/L (0-33); Alkaline Phosphatase 71 IU/L (35-105); Anion Gap 15.6 (5-19); Aspartate Amino Transferase 19 U/L (0-32); Blood Urea Nitrogen 14 mg/dL (6-20); Calcium 8.7 mg/dL (8.5-10.5); Carbon Dioxide 21 mmol/L (22-29); Chloride 106 mmol/L (98-107); Creatinine Clr Calc Pharmacy 43.4699; Globulin 2.9 g/dL (1.3-4.6); Glomerular Filtration Rate 27.6 mL/min (90-130); Glucose 130 mg/dL (74-109); Magnesium 1.4 mg/dL (1.7-2.3); Phosphorus 4.6 mg/dL (2.5-4.5); Potassium 3.6 mmol/L (3.5-5.1); Sodium 139 mmol/L (136-145); Total Bilirubin 0.3 mg/dL (0.15-1.2); Total Protein 5.9 g/dL (6.6-8.7)
[2019-10-12] MEDS: hyDRALAzine 20 mg/mL INJ 1 mL 10 MG IVP (14:38)
[2019-10-12] MEDS: metoprolol tartrate 50 mg Tablet 100 MG PO (17:14)
[2019-10-12] MEDS: promethazine 25 mg/mL SDV 1 mL 6.25 MG IM (18:13)
--- NOTE | 2019-10-12 19:43 | P.DS_ITS ---
Discharge Providers Date of Admission: 10/03/19 20:34 Date of Discharge: 10/12/19 Attending Provider at Admission: Diamond Dyson MD Attending Provider at Discharge: Tony Mina MD Primary Care Provider: Noreen Cortez Diagnoses at Discharge Discharge Diagnosis (1) Sepsis: Status: Acute Qualifiers: Acute respiratory failure type: with hypoxia Sepsis acute organ dysfunction status: with acute organ dysfunction Sepsis type: sepsis due to unspecified organism Severe sepsis acute organ dysfunction type: acute respiratory failure Severe sepsis shock status: without septic shock Qualified Code(s): A41.9 - Sepsis, unspecified organism; R65.20 - Severe sepsis without septic shock; J96.01 - Acute respiratory failure with hypoxia (2) Anemia: Status: Acute Qualifiers: Anemia type: unspecified type Qualified Code(s): D64.9 - Anemia, unspecified (3) Ductal carcinoma of left breast: Status: Acute (4) Gross hematuria: Status: Acute (5) Community acquired pneumonia: Status: Acute Qualifiers: Laterality: unspecified laterality Qualified Code(s): J18.9 - Pneumonia, unspecified organism (6) EDOUARD (acute kidney injury): Status: Acute Reason for Visit Reason for Visit: Reason For Visit: fever post surgery Hospital Course Discharge Summary: This is a 38-year-old female with a past medical history of this is a 38-year-old female with a past medical history of invasive ductal carcinoma the left breast on chemo and pending surgery, GERD, hypertension, hypothyroidism, asthma who presents to the emergency room due to complaints of worsening shortness of breath, generally feeling unwell, nausea Patient was admitted to the intensive care unit for severe sepsis, acute respiratory failure with hypoxia secondary to Klebsiella pneumonia UTI and pneumonia. Patient was admitted to the intensive care unit, required broad- spectrum antibiotics, IV fluids, oxygen therapy, inhaler therapy. She had a slow clinical progress, was eventually moved to the ICU, to the general medical floors, eventually transitioned off oxygen, saturating high 90s on room air, ambulating without significant symptomatology, her antibiotics were de-escalated to doxycycline, she was given as needed nebulizer treatments. Patient remained afebrile, doing well in terms a respiratory standpoint 24 hours before discharge. Patient was discharged on 7 remaining days of doxycycline, as needed Lasix for fluid overload, and nebulizer treatments. She was also anemic during her admission, status post 2 units PRBC. Patient did have gross hematuria on her admission, she had a right ureteral stent placed on April 01 which was reevaluated through CT scan, no significant hydronephrosis, no nephrolithiasis, no pyelonephritis, the right double J ureteral stent was in good position, patient remained asymptomatic throughout her admission. Patient also suffered acute kidney injury on chronic kidney disease secondary to sepsis and dehydration. Patient's creatinine improved to 1.4, blood slowly started to climb near the end of her discharge up to 2.0 secondary to dehydration. Patient was advised to recheck kidney function tomorrow, encourage oral hydration 2 through electrolyte balance fluids, and she can always come to cancer care for boluses of IV fluids. Patient had intractable nausea and vomiting during her admission, which was very difficult to control, eventually she was well controlled with multiple drug therapies including Zofran, Reglan, Phenergan. Patient was discharged on Zofran, Reglan, Phenergan to be used as needed sparingly. In addition she was given scopolamine patch to be used only as a last resort. In addition patient had uncontrolled hypertension and sinus tachycardia throughout her admission. Patient has had a history of high blood pressures and sinus tachycardia throughout her chemotherapy, and her multiple other admissions at [facility]. Given her acute kidney injury, nephrotoxic blood pressure medications were avoided. Patient was discharged on metoprolol 100 twice daily, clonidine 0.2 twice daily, hydralazine 25 every 6 hours, chlorthalidone 25 mg once daily, and she should follow-up with her primary care physician for blood pressure monitoring. I did advise the patient does have some rebound and hypertension probably related to hydralazine, however there is not a lot of options remaining options for blood pressure control given her declining kidney function. Patient was advised that if she were to feel lightheaded and dizzy, and have low blood pressure, hold 1 dose of hydralazine. For her inflammatory breast carcinoma, patient has a follow-up with Dr. Wayne tomorrow for continuing Herceptin and progesterone, she states that she wants to get up to [place] in the next 2 days, with a tentative breast surgery planned at [facility] in [place] through Dr. Nel Parikh Physical Exam Const: COMMON NORMALS: no apparent distress and oriented x3 HENMT: COMMON NORMALS: normocephalic HEAD & SCALP: normocephalic Neck/C-Spine: COMMON NORMALS: no JVD Resp: COMMON NORMALS: normal respiratory effort, no retractions, no use of accessory muscles and clear to auscultation bilaterally AUSCULTATION: clear to auscultation bilaterally Cardio: COMMON NORMALS: no JVD, regular rate, regular rhythm, S1 normal heart sound and S2 normal heart sound RATE: regular rate and tachycardic RHYTHM: regular rhythm HEART SOUNDS: S1 normal and S2 normal GI: COMMON NORMALS: normal to inspection, nondistended, normoactive bowel sounds, soft to palpation, non-tender, no hepatosplenomegaly, no masses and no bruits PALPATION: Yes soft and Yes no hepatosplenomegaly Extremity: COMMON NORMALS: normal capillary refill, no clubbing, cyanosis or edema, no calf tenderness and no pedal edema Neuro: COMMON NORMALS: oriented x3 Psych: COMMON NORMALS: mental status grossly normal Discharge Data Data Completed and Pending: Completed Studies During Hospitalization Category Date Time Status CT chest abd pel wo con Routine Cat Scan 10/05/19 08:01 Completed XR chest 1V marilee ble [id number] Routine Exams 10/05/19 07:12 Completed XR chest 1V marilee ble [id number] Stat Exams 10/03/19 17:35 Completed CV echo complete* [id number] Routine Ultrasound 10/07/19 07:00 [place] [id number] Routin e Ultrasound 10/04/19 08:15 [place] [id number] Routin e Ultrasound 10/07/19 08:48 Completed US renal BI with bladder Routine Ultrasound 10/04/19 08:13 Completed Labs from last 24 hours 10/12/19 10/12/19 10:14 10:14 WBC 5.7 RBC 2.87 L Hgb 8.8 L Hct 28.0 L MCV 97.6 MCH 30.7 MCHC 31.4 RDW 16.6 H Plt Count 211 MPV 9.9 Neut % (Auto) 59.6 Lymph % (Auto) 23.5 [place] % (Auto) 10.2 Eos % (Auto) 5.3 Baso % (Auto) 0.5 Neut # (Auto) 3.4 Lymph # (Auto) 1.3 [place] # (Auto) 0.6 Eos # (Auto) 0.3 Baso # (Auto) 0.0 Nucleated RBC % (a uto) 0 Nucleated RBCs # 0.0 Sodium 139 Potassium 3.6 Chloride 106 Carbon Dioxide 21 L Anion Gap 15.6 BUN 14 Creatinine 2.0 H GFR Calculation 27.6 L Glucose 130 H Calcium 8.7 Phosphorus 4.6 H Magnesium 1.4 L Total Bilirubin 0.3 AST 19 ALT 8 Alkaline Phosphata se 71 Total Protein 5.9 L Albumin 3.0 L Globulin 2.9 Vitals: Last Vital Signs Temp 97.9 F 10/12/19 16:00 Pulse 97 10/12/19 16:00 Resp 16 10/12/19 16:00 BP 174/110 10/12/19 18:20 Pulse Ox 96 10/12/19 16:00 Discharge Plan Discharge Patient Disposition: Home, Self-Care Condition: Stable Prescriptions: New chlorthalidone 25 mg Tablet 25 mg PO DAILY 30 Days Qty: 30 RF: 0 Itch Relief 2-0.1 % Cream 1 applic topical Q4H PRN (Reason: Rash) 30 Days Qty: 1 RF: 0 clonidine HCl 0.2 mg tablet 0.2 mg PO QAM&BEDTIME 30 Days Qty: 60 RF: 0 hydralazine 25 mg Tablet 25 mg PO QID 30 Days Qty: 120 RF: 0 doxycycline monohydrate 100 mg Tablet 100 mg PO BID 6 Days Qty: 12 RF: 0 metoprolol tartrate 50 mg Tablet 100 mg PO BID 30 Days Qty: 120 RF: 0 tramadol 50 mg tablet 50 mg PO Q12H PRN (Reason: pain) 15 Days Qty: 30 RF: 0 Zofran 8 mg tablet 8 mg PO Q6H PRN (Reason: nausea and vomiting) 30 Days Qty: 120 RF: 0 Reglan 5 mg tablet 5 mg PO Q6H PRN (Reason: nausea and vomiting) 30 Days Qty: 120 RF: 0 promethazine 12.5 mg tablet 6.25 mg PO Q6H PRN (Reason: nausea and vomiting) 30 Days Qty: 120 RF: 0 scopolamine base 1 mg over 3 days patch 3 day 1 patch TRANSDERMA Q3D PRN (Reason: nausea and vomiting) Qty: 4 RF: 0 albuterol sulfate 2.5 mg /3 mL (0.083 %) solution for nebulization 1.25 mg INHALATION Q8H PRN (Reason: shortness of breath or wheezing) Qty: 75 RF: 0 Protonix [address] for susp in packet 40 mg PO DAILY 30 Days Qty: 30 RF: 0 Lasix 20 mg tablet 20 mg PO DAILY PRN (Reason: edema) 10 Days Qty: 10 RF: 0 fluconazole 150 mg tablet 150 mg PO DAILY Qty: 1 RF: 0 Continued omeprazole 40 mg capsule,delayed release(DR/EC) 40 mg PO BID RF: 0 ergocalciferol (vitamin D2) 50,000 unit Capsule 50,000 unit PO Q7D RF: 0 levothyroxine 112 mcg Tablet 112 mcg PO DAILY Qty: 0 RF: 0 Discontinued ondansetron HCl [Zofran] 4 mg tablet 8 mg PO Q8H RF: 0 clonidine HCl 0.1 mg tablet 0.1 mg PO BID PRN (Reason: Anxiety) RF: 0 metoprolol tartrate 50 mg Tablet 50 mg PO BID Qty: 0 RF: 0 Discharge Orders: Discharge Order (Routine); Ordered 10/12/19 Ordered By: Tony Mina Other Ambulatory Orders: Complete Blood Count w/Auto (Routine) Timeframe: 1 Day Location: Determined by Patient Ordered By: Tony Mina Comprehensive Metabolic Panel (Routine) Timeframe: 1 Day Facility: [facility] - Location: Lab - Main Lab Ordered By: Tony Mina Referrals: Radu Wayne MD [Hospitalist] - 1-3 days (YOU HAVE AN APPOINTMENT FOR HERCEPTIN AND PROGESTERONE ON AT 9AM.) Discharge Diet: Advance as tolerated Discharge Activity: Resume usual activity Patient Instructions: Metoclopramide (By mouth), Doxycycline (By mouth), Promethazine (By mouth), Albuterol (By breathing), Chlorthalidone (By mouth), Hydralazine (By mouth), Tramadol (By mouth), Ondansetron (By mouth), Nausea and Vomiting - Oncology, Dehydration (DC), Bacterial Pneumonia (DC) Activity Restrictions/Additional Instructions: -for pneumonia use doxycycline as prescribed -Please use general handwashing, facemask, infection control measures -Use albuterol as needed for shortness of breath -If you have worsening shortness of breath, fevers, chills, diarrhea please come back to the emergency room -For intractable nausea vomiting: -Use Zofran as needed, as prescribed for nausea and vomiting, please use sparingly -Use Reglan as needed, as prescribed for nausea vomiting, please use sparingly -Use promethazine as needed for nausea vomiting, please use sparingly -Please use scopolamine patch as only as a last resort if above measures fail -Avoid mixing medications due to risk of lightheadedness, dizziness and falls -If at any time you develop muscle spasms, rigidity please come immediate to the emergency room as this could be a side effect of the above nausea medications -Please follow-up with Dr. Wayne tomorrow for Herceptin and progesterone Discharge Date/Time: 10/12/19 19:02 Discharge Attestations Time Spent in Discharge Care*: greater than 30 min Quality Metrics Clinical Quality Measures During this hospital stay, did patient experience: None Coding Level of Care Code Acute [employer] for g Fwd Diagnoses Sepsis A41.9; R65.20; J96.01 Acute respiratory failure type: with hypoxia Sepsis acute organ dysfunction status: with acute organ dysfunction Sepsis type: sepsis due to unspecified organism Severe sepsis acute organ dysfunction type: acute respiratory failure Severe sepsis shock status: without septic shock Anemia D64.9 Anemia type: unspecified type Ductal carcinoma of left breast C50.912 Gross hematuria R31.0 Community acquired pneumonia J18.9 Laterality: unspecified laterality EDOUARD (acute kidney injury) N17.9
== END 2019-10-12 19:02 | disposition home or self-care (01) | DRG 871 ==
LOC: ER 18:43 → ICU 20:44 → MEDSURG 10-08 11:07
PROVIDERS: Family Medicine; Internal Medicine; Admitting Provider Family Medicine; Emergency Provider Emergency Medicine; Family Provider Nurse Practitioner Family; PCP Nurse Practitioner Family; Visit Provider Family Medicine
DX: A41.59 Other Gram-negative sepsis (principal); J18.9 Pneumonia, unspecified organism; J96.01 Acute respiratory failure with hypoxia; N17.9 Acute kidney failure, unspecified; R65.20 Severe sepsis without septic shock; C50.912 Malignant neoplasm of unspecified site of left female breast; R31.0 Gross hematuria; E66.01 Morbid (severe) obesity due to excess calories; Z68.34 Body mass index [BMI] 34.0-34.9, adult; K21.9 Gastro-esophageal reflux disease without esophagitis; E03.9 Hypothyroidism, unspecified; J45.909 Unspecified asthma, uncomplicated; D64.9 Anemia, unspecified; E86.0 Dehydration; N18.9 Chronic kidney disease, unspecified; I12.9 Hypertensive chronic kidney disease with stage 1 through stage 4 chronic kidney disease, or unspecified chronic kidney disease
CPT/HCPCS: 12345; 36415; 36430; 36591; 36592; 36600; 71045; 71250; 74176; 76770; 76857; 80048; 80053; 80202; 81003; 82575; 82803; 83605; 83735; 83935; 84100; 84145; 84156; 84300; 84484; 85025; 85999; 86140; 86403; 86713; 86850; 86900; 87040; 87070; 87077; 87086; 87186; 87205; 87804; 93005; 93306; 93970; 93971; 94640; 96365; 96372; 96374; 96375; 97110; 97162; 99284; A9270; J0131; J0360; J0692; J0743; J1642; J1885; J1940; J1956; J2001; J2060; J2270; J2405; J2543; J2550; J2765; J3370; J3475; J3480; J3490; J7030; J7040; J7050; P9016

== ENCOUNTER 2019-10-12 22:38 | Inpatient (IN) | payer OTHER, SELFPAY ==
[2019-10-12 22:42] VITALS: BP 215/128; PULSE 95; RESP 18; TEMP 36.6; O2SAT 96; BMI 36.8
--- NOTE | 2019-10-12 23:01 | ED_ITS ---
Entered by Zaria Washington, acting as scribe for Marybeth Francisco Oct 12, 2019 22:38 HPI - General Adult General: Chief complaint: General Medical Stated complaint: high bp Time Seen by Provider: 10/12/19 22:46 Source: patient Mode of arrival: ambulatory Limitations: no limitations History of Present Illness: HPI narrative: Mya is a very nice 38-year-old female who comes in with intractable nausea and vomiting. The patient was recently in the hospital for sepsis secondary to UTI and was in the ICU for some time. According to her she had difficulty with her blood pressure and hydration as well as intractable nausea vomiting throughout her stay. She was discharged home and states that since being discharged she continues to have nausea and vomiting and cannot keep her medicines or anything down. She denies abdominal pain, fever, back pain, chest pain, shortness of breath or any new symptom. MD complaint: high blood pressure Onset (ago): day(s) (today) Location: abdomen Quality: other (pain) Pain Consistency: constant Exacerbating factors: none Associated symptoms: Reports nausea and vomiting; Deny chest pain, confusion, diaphoresis, dyspnea, headache(s), malaise, rash, palpitations or syncope Review of Systems General: Reports: other (negative unless marked) Const: Denies: fever, chills, body aches, fatigue, malaise or diaphoresis Eyes: Denies: change in vision or blurry vision ENMT: Denies: throat pain, painful swallowing, hoarseness, ear pain, ear discharge, Change in hearing or nasal discharge Card: Denies: chest pain, palpitations, irregular heart rhythm, syncope, pre- syncope, shortness of breath on exertion or shortness of breath when lying down Resp: Denies: shortness of breath, productive cough, non-productive cough, wheezing, coughing up blood or chest congestion GI: Reports: nausea and vomiting : Denies: flank pain, painful urination, urinary frequency, urinary urgency, decreased urine ouput, urinary incontinence or blood in urine Musc: Denies: neck pain, back pain, extremity pain, extremity swelling, joint pain, joint swelling, joint warmth or joint stiffness Skin/Breast: Denies: rash, skin tenderness or yellow skin Neuro: Denies: headache, numbness in extremities, weakness in extremities, changes in sensation, lack of coordination, difficulty walking, dizziness, vertigo or confusion Endo: Denies: excessive thirst, tired all the time, cold intolerance, e xcessive sweating, flushing or hot flashes [place]/Lymph: Denies: easy bruising, easy bleeding, petechiae or enlarged lymph nodes All/Imm: Denies: hives, throat swelling, tongue swelling, facial swelling or acute wheezing PFSH ED PFSH: Statuses (acute, chronic, etc) shown below reflect problem list status as previously entered and may not be historically accurate Medical History Acute kidney injury (Inactive) Asthma (Acute) Cholecystectomy planned (Acute) Cholelithiasis (Acute) Ductal carcinoma of left breast (Acute) Eczema (Acute) GERD (gastroesophageal reflux disease) (Acute) Hypertension (Acute) Hypothyroidism (Acute) Migraine (Acute) Nephrolithiasis (Inactive) Normal colonoscopy (Acute) Overactive bladder (Acute) Post hysterectomy menopause (Acute) Pyelonephritis (Resolved) Tonsillectomy planned (Acute) Urolithiasis (Acute) ESWL left mid ureteral stone 2005 with complete resolution Surgical History H/O lithotripsy (Acute) H/O oophorectomy (Acute) History of cholecystectomy (Acute) History of hysterectomy (Acute) S/P ureteral stent placement (Acute) Right Family History Unknown Lung disease Maternal grandmother had lung cancer, she has 3 sisters no history of breast cancer Crohn's disease Crohn disease in mother Other Hyperlipidemia Hypothyroidism Social History Smoking and tobacco status: never smoked Alcohol intake: never Marital status: Current occupational status: employed Physical Exam Const: COMMON NORMALS: no apparent distress, oriented x3, no limitations, healthy appearing and well nourished EXAM LIMITATIONS: no altered mental status GENERAL APPEARANCE: cooperative, well kempt and well developed ORIENTATION/CONSCIOUSNESS: Yes awake HENMT: COMMON NORMALS: normocephalic, head/scalp atraumatic, hearing grossly normal bilaterally, external ears normal, EAC's normal, external nose normal and moist oral mucous membranes HEAD & SCALP: normal to inspection, normocephalic and atraumatic FACE & SINUS: normal facial exam and face symmetric NOSE: external nose normal and nares normal EXTERNAL EAR: Yes external ears normal EXTERNAL AUDITORY CANAL: EAC's normal MOUTH: oral and palatal mucosa normal and tongue normal Eye: COMMON NORMALS: PERRL, EOMs intact bilaterally, conjunctivae normal and no scleral icterus GENERAL EYE: normal appearance of both eyes and normal light reflex CONJUNCTIVA: Yes conjunctivae normal SCLERA: sclerae normal CORNEA: Yes corneas normal PUPIL: Yes PERRL DIRECT OPHTHALMOSCOPY: Yes normal light reflex Neck/C-Spine: COMMON NORMALS: full ROM, no lymphadenopathy, supple, no meningeal signs and no JVD GENERAL: Yes normal visual inspection and Yes trachea midline CERVICAL SPINE: Yes cervical ROM normal Chest: COMMONS NORMALS: inspection of chest normal and palpation of chest normal Resp: COMMON NORMALS: normal respiratory effort, no retractions, no use of accessory muscles and clear to auscultation bilaterally EFFORT & INSPECTION: Yes able to speak in complete sentences AUSCULTATION: clear to auscultation bilaterally Cardio: COMMON NORMALS: no JVD, regular rate, regular rhythm, S1 normal heart sound, S2 normal heart sound, no gallops, no clicks, no murmurs and no rub JUGULAR VENOUS DISTENTION: no JVD RATE: regular rate RHYTHM: regular rhythm HEART SOUNDS: S1 normal and S2 normal GI: COMMON NORMALS: soft to palpation, non-tender, no hepatosplenomegaly and no masses INSPECTION: Yes normal to inspection PALPATION: Yes soft and Yes no hepatosplenomegaly : COMMON NORMALS: Yes no CVA tenderness BLADDER/KIDNEY EXAM: Yes no CVA tenderness Back/Pelvis: COMMON NORMALS: no CVA tenderness, thoracic and lumbar spine normal to inspection, no thoracic nor lumbar tenderness and thoraco-lumbar ROM normal Extremity: COMMON NORMALS: normal to inspection, full ROM, normal capillary refill, no joint enlargement, no clubbing, cyanosis or edema and no calf tenderness Neuro: COMMON NORMALS: oriented x3, CN's II-XII intact bilaterally, moves all extremities, no focal motor deficits and no sensory deficits noted MENINGEAL SIGNS: Yes no meningeal signs Psych: COMMON NORMALS: mental status grossly normal, thought process normal, cooperative, affect normal, speech normal and activity/motor behavior normal APPEARANCE: Yes well kempt SPEECH: Yes normal speech THOUGHT PROCESS: normal thought process Skin: COMMON NORMALS: no rashes or lesions noted, skin turgor normal, no jaundice, no petechiae and no mottling GENERAL SKIN EXAM: no rashes or lesions noted and turgor normal Course Vital Signs: Vital signs: Vital Signs Temperature 97.8 F 10/12/19 22:42 Pulse Rate 99 10/13/19 00:46 Respiratory Rate 18 10/13/19 00:25 Blood Pressure 167/110 10/13/19 00:46 Pulse Oximetry 95 10/13/19 00:46 MDM - General Adult MDM Narrative: Medical decision making narrative: Arrival -Mya is a 38-year-old female with known breast cancer who was recently hospitalized for intractable nausea vomiting, respiratory failure and sepsis. The sepsis was secondary to UTI. Patient states that she is never really felt better. She is intractable nausea and vomiting and cannot keep anything down. She is tachycardic and gets extremely weak shortness of breath with exertion. Differential is considerably long including sepsis, pneumonia, UTI, metabolic abnormality, among many others. We will go ahead and continue to region hydrate and treat her symptoms as well as look for a source that was not discovered previously Admission -patient is not hypotensive but he continues to be intermittently tachycardic and cannot walk or exert herself. She still feels very nauseated and we do not have control of her pain. I believe she is behind on her pain secondary to the extensive vomiting. I have reviewed the case in full with , who is agreeable to admission. He will see the patient in the ER and further care will be dictated by him. Lab Data: Labs: Lab Results 10/12/19 10/12/19 10/12/19 Range/Units 23:10 23:10 23:10 WBC 8.1 (4.0-10.0) 10^3/ uL RBC 3.02 L (4.1-5.3) 10^6/u L Hgb 9.4 L (11.5-15.3) g/dL Hct 29.6 L (37.0-47.0) % MCV 98.0 (81-99) fL MCH 31.1 (28.0-34.0) pg MCHC 31.8 (30.0-36.0) g/dL RDW 16.0 H (12.1-15.1) % Plt Count 219 (130-400) 10^3/c mm MPV 9.4 (7.4-10.4) fL Neut % (Auto) 69.9 % Lymph % (Auto) 15.0 % Amelia % (Auto) 9.3 % Eos % (Auto) 4.3 % Baso % (Auto) 0.4 % Neut # (Auto) 5.7 (1.8-7.7) 10^3/u L Lymph # (Auto) 1.2 (0.8-4.8) 10^3/u L Amelia # (Auto) 0.8 (0.2-0.9) 10^3/u L Eos # (Auto) 0.4 (0.0-0.8) 10^3/u L Baso # (Auto) 0.0 (0.0-0.1) 10^3/u L Nucleated RBC % (a uto) 0 % Nucleated RBCs # 0.0 /100WBC Sodium 140 (136-145) mmol/L Potassium 3.9 (3.5-5.1) mmol/L Chloride 105 (98-107) mmol/L Carbon Dioxide 21 L (22-29) mmol/L Anion Gap 17.9 (5-19) BUN 17 (6-20) mg/dL Creatinine 1.9 H (0.5-0.9) mg/dL GFR Calculation 29.3 L (90-130) mL/min Glucose 122 H (74-109) mg/dL Lactic Acid 0.5 (0.5-2.2) mmol/L Calcium 9.4 (8.5-10.5) mg/dL Magnesium 1.6 L (1.7-2.3) mg/dL Total Bilirubin 0.4 (0.15-1.2) mg/dL AST 21 (0-32) U/L ALT 10 (0-33) U/L Alkaline Phosphata se 80 (35-105) IU/L Troponin T Baselin e (0-10) ng/mL Total Protein 6.3 L (6.6-8.7) g/dL Albumin 3.3 L (3.5-5.2) g/dL Globulin 3.0 (1.3-4.6) g/dL Lipase 59 (13-60) U/L Urine Color (Yellow) Urine Appearance (CLEAR) Urine pH (5-7) Ur Specific Gravit y (1.005-1.030) Urine Protein (Negative) Urine Glucose (UA) (Normal) Urine Ketones (Negative) Urine Occult Blood (Negative) Urine Nitrate (Negative) Urine Bilirubin (NEGATIVE) Urine Urobilinogen (Negative) mg/dL Ur Leukocyte Corie ase (Negative) Urine RBC (0-2) /hpf Urine WBC (0-5) /hpf Ur Squamous Epith Cells (0-5) Urine Bacteria (NONE) Urine Yeast Serum Ketones (Negative) 10/12/19 10/12/19 10/13/19 Range/Units 23:10 23:10 00:20 WBC (4.0-10.0) 10^3/ uL RBC (4.1-5.3) 10^6/u L Hgb (11.5-15.3) g/dL Hct (37.0-47.0) % MCV (81-99) fL MCH (28.0-34.0) pg MCHC (30.0-36.0) g/dL RDW (12.1-15.1) % Plt Count (130-400) 10^3/c mm MPV (7.4-10.4) fL Neut % (Auto) % Lymph % (Auto) % Amelia % (Auto) % Eos % (Auto) % Baso % (Auto) % Neut # (Auto) (1.8-7.7) 10^3/u L Lymph # (Auto) (0.8-4.8) 10^3/u L Amelia # (Auto) (0.2-0.9) 10^3/u L Eos # (Auto) (0.0-0.8) 10^3/u L Baso # (Auto) (0.0-0.1) 10^3/u L Nucleated RBC % (a uto) % Nucleated RBCs # /100WBC Sodium (136-145) mmol/L Potassium (3.5-5.1) mmol/L Chloride (98-107) mmol/L Carbon Dioxide (22-29) mmol/L Anion Gap (5-19) BUN (6-20) mg/dL Creatinine (0.5-0.9) mg/dL GFR Calculation (90-130) mL/min Glucose (74-109) mg/dL Lactic Acid (0.5-2.2) mmol/L Calcium (8.5-10.5) mg/dL Magnesium (1.7-2.3) mg/dL Total Bilirubin (0.15-1.2) mg/dL AST (0-32) U/L ALT (0-33) U/L Alkaline Phosphata se (35-105) IU/L Troponin T Baselin e 22 H (0-10) ng/mL Total Protein (6.6-8.7) g/dL Albumin (3.5-5.2) g/dL Globulin (1.3-4.6) g/dL Lipase (13-60) U/L Urine Color Yellow (Yellow) Urine Appearance Hazy A (CLEAR) Urine pH 5 (5-7) Ur Specific Gravit y 1.005 (1.005-1.030) Urine Protein Neg (Negative) Urine Glucose (UA) Norm (Normal) Urine Ketones Negative (Negative) Urine Occult Blood 2+ H (Negative) Urine Nitrate Negative (Negative) Urine Bilirubin Neg (NEGATIVE) Urine Urobilinogen Norm (Negative) mg/dL Ur Leukocyte Corie ase Trace H (Negative) Urine RBC 0-4 H (0-2) /hpf Urine WBC 5-10 H (0-5) /hpf Ur Squamous Epith Cells 10-15 H (0-5) Urine Bacteria 1+ H (NONE) Urine Yeast Trace Serum Ketones Negative (Negative) EKG Data^: EKG 1: Attestation: I personally reviewed and interpreted this EKG as follows: EKG interpretation date: 10/12/19 EKG interpretation time: 23:05 Interpretation: Normal sinus rhythm at 93 beats a minute, normal axis, normal DE interval, normal QRS, normal QTC, no acute ST-T wave changes. EKG 2: Attestation: I personally reviewed and interpreted this EKG as follows: EKG interpretation date: 10/13/19 EKG interpretation time: 01:12 Interpretation: Normal sinus rhythm at 99 beats a minute, normal axis, normal DE interval, normal QRS, normal QTC, no blocks, normal ST and T waves. No acute changes. Discharge Plan Discharge Patient Disposition: Admitted As Inpatient Clinical Impression: EDOURAD (acute kidney injury), Ductal carcinoma of left breast Condition: Stable Prescriptions: No Action omeprazole 40 mg capsule,delayed release(DR/EC) 40 mg PO BID RF: 0 ergocalciferol (vitamin D2) 50,000 unit Capsule 50,000 unit PO Q7D RF: 0 chlorthalidone 25 mg Tablet 25 mg PO DAILY 30 Days Qty: 30 RF: 0 Itch Relief 2-0.1 % Cream 1 applic topical Q4H PRN (Reason: Rash) 30 Days Qty: 1 RF: 0 clonidine HCl 0.2 mg tablet 0.2 mg PO QAM&BEDTIME 30 Days Qty: 60 RF: 0 hydralazine 25 mg Tablet 25 mg PO QID 30 Days Qty: 120 RF: 0 doxycycline monohydrate 100 mg Tablet 100 mg PO BID 6 Days Qty: 12 RF: 0 metoprolol tartrate 50 mg Tablet 100 mg PO BID 30 Days Qty: 120 RF: 0 tramadol 50 mg tablet 50 mg PO Q12H PRN (Reason: pain) 15 Days Qty: 30 RF: 0 Zofran 8 mg tablet 8 mg PO Q6H PRN (Reason: nausea and vomiting) 30 Days Qty: 120 RF: 0 Reglan 5 mg tablet 5 mg PO Q6H PRN (Reason: nausea and vomiting) 30 Days Qty: 120 RF: 0 promethazine 12.5 mg tablet 6.25 mg PO Q6H PRN (Reason: nausea and vomiting) 30 Days Qty: 120 RF: 0 scopolamine base 1 mg over 3 days patch 3 day 1 patch TRANSDERMA Q3D PRN (Reason: nausea and vomiting) Qty: 4 RF: 0 albuterol sulfate 2.5 mg /3 mL (0.083 %) solution for nebulization 1.25 mg INHALATION Q8H PRN (Reason: shortness of breath or wheezing) Qty: 75 RF: 0 Protonix [address] for susp in packet 40 mg PO DAILY 30 Days Qty: 30 RF: 0 Lasix 20 mg tablet 20 mg PO DAILY PRN (Reason: edema) 10 Days Qty: 10 RF: 0 fluconazole 150 mg tablet 150 mg PO DAILY Qty: 1 RF: 0 levothyroxine 112 mcg Tablet 112 mcg PO DAILY Qty: 0 RF: 0 Referrals: Noreen Cortez FNP [Primary Care Provider] - Coding Level of Care Code ED Industrial Renderer for Chg Fwd The documentation recorded by the Felix horowitz Stephanie Lyn, accurately reflects the service I personally performed and the decisions made by , Marybeth Francisco Oct 12, 2019 22:38
--- NOTE | 2019-10-12 23:19 | ECG_ITS ---
Measurements Intervals [place] Rate: 93 P: 9 IN: 145 QRS: 31 QRSD: 62 T: 51 QT: 325 QTc: 405 SINUS RHYTHM LOW QRS VOLTAGE [QRS DEFLECTION < 0.5/1.0 mV IN LIMB/CHEST LEADS] POSSIBLE ANTERIOR MYOCARDIAL INFARCTION , OF INDETERMINATE AGE [30 ms Q WAVE IN V3 V3/V4, OR R < 0.2 mV IN V4] Compared to ECG 10/04/2019 02:35:41 Myocardial infarct finding now present Sinus tachycardia no longer present Electronically Signed On 10-13-2019 16:17:51 FITNESS AND WELLNESS DIRECTOR by Ozzie Lanids M.D. [id number]
[2019-10-12 23:21] LABS: Basophils % 0.4 %; Eosinophils # 0.4 10^3/uL (0.0-0.8); Eosinophils % 4.3 %; Hematocrit 29.6 % (37.0-47.0); Hemoglobin 9.4 g/dL (11.5-15.3); Lymphocytes # 1.2 10^3/uL (0.8-4.8); Mean Corpuscular HGB Conc 31.8 g/dL (30.0-36.0); Mean Corpuscular Hemoglobin 31.1 pg (28.0-34.0); Mean Platelet Volume 9.4 fL (7.4-10.4); Monocytes # 0.8 10^3/uL (0.2-0.9); Monocytes % 9.3 %; Neutrophils # 5.7 10^3/uL (1.8-7.7); Neutrophils % 69.9 %; Nucleated Red Blood Cells % 0 %; Platelet Count 219 10^3/cmm (130-400); Red Blood Count 3.02 10^6/uL (4.1-5.3); White Blood Count 8.1 10^3/uL (4.0-10.0)
[2019-10-12] MEDS: promethazine 25 mg/mL SDV 1 mL IV (23:28)
[2019-10-12] MEDS: sodium chloride 0.9% 500 ML 999 ML IV (23:29)
[2019-10-12 23:31] VITALS: BP 193/122; PULSE 95; RESP 18; O2SAT 95
[2019-10-12 23:41] LABS: Lactic Sepsis W/Reflex 0.5 mmol/L (0.5-2.2)
[2019-10-12 23:43] LABS: Troponin(5th) Baseline 22 ng/mL (0-10)
[2019-10-12 23:58] LABS: Ketone (Acetest) Serum Negative (Negative)
[2019-10-13] VITALS (18 sets, daily range): BP systolic 167–200; BP diastolic 97–120; PULSE 86–116; RESP 16–23; TEMP 36.4–36.9; O2SAT 92–98
[2019-10-13 00:16] LABS: Alanine Aminotransferase 10 U/L (0-33); Albumin Level 3.3 g/dL (3.5-5.2); Alkaline Phosphatase 80 IU/L (35-105); Anion Gap 17.9 (5-19); Aspartate Amino Transferase 21 U/L (0-32); Blood Urea Nitrogen 17 mg/dL (6-20); Calcium 9.4 mg/dL (8.5-10.5); Carbon Dioxide 21 mmol/L (22-29); Chloride 105 mmol/L (98-107); Glomerular Filtration Rate 29.3 mL/min (90-130); Glucose 122 mg/dL (74-109); Lipase 59 U/L (13-60); Magnesium 1.6 mg/dL (1.7-2.3); Potassium 3.9 mmol/L (3.5-5.1); Sodium 140 mmol/L (136-145); Total Bilirubin 0.4 mg/dL (0.15-1.2); Total Protein 6.3 g/dL (6.6-8.7)
[2019-10-13 00:31] LABS: Bilirubin Urine Neg (NEGATIVE); Blood Urine 2+ (Negative); Glucose Urine UA Norm (Normal); Ketones Urine Negative (Negative); Leukocyte Esterase Urine Trace (Negative); Nitrate Urine Negative (Negative); Protein Urine Neg (Negative); Specific Gravity, Urine 1.005 (1.005-1.030); Urine Appearance Hazy (CLEAR); Urine Color Yellow (Yellow); Urobilinogen Urine Norm (Negative); pH Urine 5 (5-7)
[2019-10-13] MEDS: labetalol 5 mg/mL SDV 20mL 10 MG IVP ×2 (00:34→01:47)
[2019-10-13 00:43] LABS: RBC Urine 0-4 /hpf (0-2)
[2019-10-13 00:44] LABS: Add Urine Culture? No; Bacteria Urine 1+
--- NOTE | 2019-10-13 01:12 | PM.HP ---
Providers/Chief Complaint Primary Care Provider: Noreen Cortez Chief Complaint: high bp History of Present Illness Mya Harrell is a 38 year old female who has invasive ductal carcinoma of left breast awaiting surgery, status post chemo had recent admission for sepsis secondary to UTI with Klebsiella, she was admitted to ICU and was downgraded to medical floor where she was suffering from hypertension and intractable nausea vomiting and she was discharged on 5 antihypertensive medications along with antiemetics. Patient is presenting to the emergency department today because of her intractable nausea and vomiting. She is stating that since her discharge she is not able to keep anything down, her medications are not helping with her symptoms. Her SBP was >200mmhg at home. Diagnostics in ER showed systolic blood pressure 200/123, she had received labetalol 10 mg IV x2, she is complaining of pain in her legs, no active vomiting, low magnesium with creatinine 1.9 and stable hemoglobin 9.4 she will admitted to CSU with Consuelo durham Review of Systems Const: Reports: chills, change in appetite, fatigue and malaise; Denies: body aches Eyes: Denies: change in vision or blurry vision ENMT: Denies: uvular edema or enlarged tonsils Card: Denies: chest pain or palpitations Resp: Denies: shortness of breath or non-productive cough GI: Reports: abdominal pain, nausea, vomiting, diarrhea, bloating, cramping and belching : Reports: flank pain, difficulty urinating, painful urination and urinary frequency Musc: Reports: neck pain and back pain Skin/Breast: Reports: rash Neuro: Denies: headache, numbness in extremities or weakness in extremities Psych: Reports: anxiety Endo: Denies: excessive thirst [place]/Lymph: Denies: easy bruising All/Imm: Denies: hives Medications/Allergies Allergies Allergy/AdvReac Type Severity Reaction Status Date / Time amlodipine Allergy ADR/ALGY-Fl Verified 10/12/19 22:49 ushing chlorhexidine Allergy ALGY-Bliste Verified 10/12/19 22:49 r liraglutide [From Saxenda] Allergy NA Verified 10/12/19 22:49 phentermine Allergy Tachy Verified 10/12/19 22:49 pregabalin [From Lyrica] Allergy NA Verified 10/12/19 22:49 prochlorperazine Allergy ALGY-Hives Verified 10/12/19 22:49 [From Compazine] Sulfa (Sulfonamide Allergy ALGY-Bliste Verified 10/12/19 22:49 Antibiotics) r PFSH Acute PFSH: Statuses (acute, chronic, etc) shown below reflect problem list status as previously entered and may not be historically accurate Medical History Acute kidney injury (Inactive) Asthma (Acute) Cholecystectomy planned (Acute) Cholelithiasis (Acute) Ductal carcinoma of left breast (Acute) Eczema (Acute) GERD (gastroesophageal reflux disease) (Acute) Hypertension (Acute) Hypothyroidism (Acute) Migraine (Acute) Nephrolithiasis (Inactive) Normal colonoscopy (Acute) Overactive bladder (Acute) Post hysterectomy menopause (Acute) Pyelonephritis (Resolved) Tonsillectomy planned (Acute) Urolithiasis (Acute) ESWL left mid ureteral stone 2005 with complete resolution Surgical History H/O lithotripsy (Acute) H/O oophorectomy (Acute) History of cholecystectomy (Acute) History of hysterectomy (Acute) S/P ureteral stent placement (Acute) Right Family History Unknown Lung disease Maternal grandmother had lung cancer, she has 3 sisters no history of breast cancer Crohn's disease Crohn disease in mother Other Hyperlipidemia Hypothyroidism Social History Smoking and tobacco status: never smoked Alcohol intake: never Marital status: Current occupational status: employed Vitals/I&O/Wt Last Vital Signs Temp 97.8 F 10/12/19 22:42 Pulse 99 10/13/19 00:46 Resp 18 10/13/19 00:25 BP 167/110 10/13/19 00:46 Pulse Ox 95 10/13/19 00:46 Weight last 48 hrs Weight 97.522 kg Physical Exam Narrative: EXAM NARRATIVE: This is a morbidly obese female lying comfortably in her bed Currently systolic blood pressure is 200 diastolic 123 She is status post 1 L normal saline fluid at the bedside S1, S2, bilateral lower extremity edema 1+, hard to assess her JVD, She has cushingoid appearance Abdomen soft, nontender, bowel sounds present, with obesity,, bloated Neurologically nonfocal exam Lungs are clear to auscultation without adventitial sounds Skin does show signs of hyperemia around her left side of the face, no pruritus Lower extremity 1+ edema bilaterally Anxious mood Data : 10/12/19 23:10 10/12/19 23:10 A&P Assessment and plan (1) Breast CA: Status: Acute Code(s): C50.919 - Malignant neoplasm of unspecified site of unspecified female breast (2) Anemia: Status: Acute Qualifiers: Anemia type: unspecified type Qualified Code(s): D64.9 - Anemia, unspecified Code(s): D64.9 - Anemia, unspecified (3) S/P ureteral stent placement: Status: Acute Code(s): Z96.0 - Presence of urogenital implants (4) Ductal carcinoma of left breast: Status: Acute Code(s): C50.912 - Malignant neoplasm of unspecified site of left female breast (5) Intractable nausea and vomiting: Status: Acute Code(s): R11.2 - Nausea with vomiting, unspecified (6) Hypertensive urgency: Status: Acute Code(s): I16.0 - Hypertensive urgency Additional A&P Information Hypertensive urgency Patient has not been able to keep anything down, she has not taken her p.o. medications, I will start her on Cardene drip and admit to CSU She has received 20 mg of labetalol in ER with subacute response No active neurological signs No chest pain She is complaining of mild irritation in her legs, strength is good with bilateral lower extremity edema and dorsalis pedis 2+ Intractable nausea vomiting I will give her Ativan along Zofran and Reglan Would avoid use of dexamethasone which usually helps with cancer but because of hypertension I will be reluctant to use it Acute kidney injury: Creatinine at baseline 1.9, Patient is still complaining of dysuria, I will continue her IV antibiotics She has risk of hematuria positive but urine sample had squamous cells We will repeat urinalysis Recent CT abdomen did not show any signs of hydronephrosis, she had stent in the right ureter Will consider repeating CT scan if her symptoms are worsening currently no signs of leukocytosis, fever, she is not septic Anemia: She required 2 units of PRBC on last visit, currently hemoglobin is stable 9.4 Advise use of any DVT prophylaxis with Lovenox or heparin would use SCDs Hypothyroidism: Continue levothyroxine Invasive ductal carcinoma of the breast status post chemotherapy laceration also in August 2019, awaiting surgery in [place] which has been rescheduled already because she was admitted in ICU on last visit Patient is full code dvt prophylaxis: SCD Attestations Medical Necessity Statement*: Resistant hyperemesis and hypertensive urgency I am considering her stay to cross more than 2 midnights as last time she responded very slowly and gradually to all antihypertensives. Time Spent in Patient Care: 45 Coding Level of Care Code Acute Credit Union Examiner for Chg Fwd Diagnoses Breast CA C50.919 Anemia D64.9 Anemia type: unspecified type S/P ureteral stent placement Z96.0 Ductal carcinoma of left breast C50.912 Intractable nausea and vomiting R11.2 Hypertensive urgency I16.0
--- NOTE | 2019-10-13 01:19 | ECG_ITS ---
Measurements Intervals [place] Rate: 99 P: 57 SD: 158 QRS: -1 QRSD: 73 T: 44 QT: 336 QTc: 431 SINUS RHYTHM LOW QRS VOLTAGE [QRS DEFLECTION < 0.5/1.0 mV IN LIMB/CHEST LEADS] POSSIBLE ANTERIOR MYOCARDIAL INFARCTION , PROBABLY OLD [30 ms Q WAVE IN V3/V4, OR R < 0.2 mV IN V4] Compared to ECG 10/04/2019 02:35:41 Myocardial infarct finding now present Sinus tachycardia no longer present Electronically Signed On 10-13-2019 16:20:55 NATURAL RESOURCES MANAGER by Ozzie Landis M.D. [id number]
[2019-10-13] MEDS: magnesium sulfate premix 2 GM/50 ML PIGGYBACK IV (01:47)
[2019-10-13 02:40] LABS: Troponin 5 2HR 22.82 ng/mL (0-10); Troponin 5 2HR Delta 0.82 ABS# (0-10)
--- NOTE | 2019-10-13 03:26 | PC.NURSE ---
Patient admitted to room 103 via stretcher from ED with nausea and vomiting. Oriented to room with assessment completed. Patient has Right Breast Carcinoma with chemo being taken in [place]. Last chemo treatment was September 14. Patient was to be in [place] this past Saturday for Radical Masectomy with radiation to follow;however, was in the hospital and was unable to go. Spouse at bedside and stated that patient had just been discharged from this facility last night around 1900. States, we no more than got home and she started throwing up. SCD's in place. Patient resting with eyes closed off and on. Up to bathroom with one assist before being attached to heart monitor. Non productive cough noted. Will monitor.
[2019-10-13] MEDS: hyDRALAzine 20 mg/mL INJ 1 mL 10 MG IVP ×2 (03:59→11:18)
--- NOTE | 2019-10-13 05:19 | ECG_ITS ---
Measurements Intervals [place] Rate: 92 P: 49 IA: 176 QRS: 12 QRSD: 77 T: 33 QT: 352 QTc: 437 SINUS RHYTHM LOW QRS VOLTAGE [QRS DEFLECTION < 0.5/1.0 mV IN LIMB/CHEST LEADS] POSSIBLE ANTERIOR MYOCARDIAL INFARCTION [30 ms Q WAVE IN V3/V4, OR R < 0.2 mV IN V4], OF INDETERMINATE AGE Compared to ECG 10/04/2019 02:35:41 Myocardial infarct finding now present Sinus tachycardia no longer present Electronically Signed On 10-13-2019 16:21:24 CHAMBER MAGISTRATE by Ozzie Landis M.D. [email or web address]
[2019-10-13 06:14] LABS: Basophils % 0.3 %; Eosinophils # 0.3 10^3/uL (0.0-0.8); Eosinophils % 4.9 %; Hematocrit 28.4 % (37.0-47.0); Lymphocytes # 1.6 10^3/uL (0.8-4.8); Lymphocytes % 23.6 %; Mean Corpuscular HGB Conc 31.7 g/dL (30.0-36.0); Mean Corpuscular Hemoglobin 30.5 pg (28.0-34.0); Mean Corpuscular Volume 96.3 fL (81-99); Mean Platelet Volume 9.5 fL (7.4-10.4); Monocytes # 0.7 10^3/uL (0.2-0.9); Monocytes % 10.7 %; Neutrophils # 3.9 10^3/uL (1.8-7.7); Neutrophils % 59.3 %; Nucleated Red Blood Cells % 0 %; Platelet Count 208 10^3/cmm (130-400); Red Blood Count 2.95 10^6/uL (4.1-5.3); White Blood Count 6.6 10^3/uL (4.0-10.0)
[2019-10-13 06:27] LABS: Alanine Aminotransferase 9 U/L (0-33); Albumin Level 3.4 g/dL (3.5-5.2); Alkaline Phosphatase 74 IU/L (35-105); Anion Gap 16.9 (5-19); Aspartate Amino Transferase 19 U/L (0-32); Blood Urea Nitrogen 15 mg/dL (6-20); Carbon Dioxide 21 mmol/L (22-29); Chloride 106 mmol/L (98-107); Globulin 2.7 g/dL (1.3-4.6); Glomerular Filtration Rate 31.2 mL/min (90-130); Glucose 101 mg/dL (74-109); Potassium 3.9 mmol/L (3.5-5.1); Sodium 140 mmol/L (136-145); Total Bilirubin 0.4 mg/dL (0.15-1.2); Total Protein 6.1 g/dL (6.6-8.7)
[2019-10-13 06:29] LABS: Troponin 5 6HR 23.15 ng/L (0-10); Troponin 5 6HR Delta 1.15 ng/L (0-12)
--- NOTE | 2019-10-13 07:00 | PC.NURSE ---
This nurse attempted to draw labs from PAC to right Chest Wall;however, was unable to obtain blood. Flushed without difficulty. Patient states, Awe don't worry about it....they weren't able to get it last night in the ER either....they've always had trouble with it. Clarification of cancer: Cancer is in the left breast and not the right. Will continue to monitor.
[2019-10-13] MEDS: ondansetron 2 mg/ML SDV 2 mL 8 MG IVP ×3 (07:41→21:24)
[2019-10-13] MEDS: sodium chloride 0.9% 1,000 ML 50 ML IV (10:34)
[2019-10-13] MEDS: LORazepam 2 mg/mL INJ 1 mL 1 MG IVP ×3 (10:39→21:15)
[2019-10-13] MEDS: cloNIDine 0.2 mg/24 hr Patch 1 PATCH TRANSDERMA (10:41)
[2019-10-13] MEDS: metoclopramide 5 mg/mL SDV 2 mL IVP ×2 (10:46→18:06)
[2019-10-13] MEDS: doxycycline 100 MG in sodium chloride 0.9% (plus) 100 ML IV ×2 (11:17→21:15)
[2019-10-13] MEDS: hyDRALAzine 25 mg Tablet PO ×3 (14:26→21:15)
--- NOTE | 2019-10-13 16:01 | PM.PN ---
Subjective Subjective: Interval history: This morning patient states that she has persistent nausea and vomiting, was able unable to keep down her pills last night, thus she presented to the emergency room, states that the promethazine and Ativan helped I spoke to Dr. hyman, he advised short course of Decadron to see if that helps her intractable nausea and vomiting Vitals/I&O/Wt Last Vital Signs Temp 97.5 F L 10/13/19 15:48 Pulse 116 H 10/13/19 15:48 Resp 22 H 10/13/19 15:48 BP 190/110 10/13/19 15:48 Pulse Ox 93 10/13/19 15:48 10/13/19 10/13/19 10/13/19 06:59 14:59 22:59 Intake Total 120 / 120 135.833 / 135.833 Balance 120 / 120 135.833 / 135.833 Weight last 48 hrs Weight 97.522 kg Physical Exam Const: COMMON NORMALS: no apparent distress and oriented x3 HENMT: COMMON NORMALS: normocephalic HEAD & SCALP: normocephalic Neck/C-Spine: COMMON NORMALS: no JVD Resp: COMMON NORMALS: normal respiratory effort, no retractions, no use of accessory muscles and clear to auscultation bilaterally AUSCULTATION: clear to auscultation bilaterally Cardio: COMMON NORMALS: no JVD, regular rate, regular rhythm, S1 normal heart sound and S2 normal heart sound RATE: regular rate RHYTHM: regular rhythm HEART SOUNDS: S1 normal and S2 normal GI: COMMON NORMALS: normal to inspection, nondistended, normoactive bowel sounds, soft to palpation, non-tender, no hepatosplenomegaly, no masses and no bruits PALPATION: Yes soft and Yes no hepatosplenomegaly Extremity: COMMON NORMALS: normal capillary refill, no clubbing, cyanosis or edema, no calf tenderness and no pedal edema Neuro: COMMON NORMALS: oriented x3 Psych: COMMON NORMALS: mental status grossly normal Data : 10/13/19 06:00 10/13/19 06:00 A&P Assessment and plan (1) Breast CA: Status: Acute Code(s): C50.919 - Malignant neoplasm of unspecified site of unspecified female breast (2) Anemia: Status: Acute Qualifiers: Anemia type: unspecified type Qualified Code(s): D64.9 - Anemia, unspecified Code(s): D64.9 - Anemia, unspecified (3) S/P ureteral stent placement: Status: Acute Code(s): Z96.0 - Presence of urogenital implants (4) Ductal carcinoma of left breast: Status: Acute Code(s): C50.912 - Malignant neoplasm of unspecified site of left female breast (5) Intractable nausea and vomiting: -Decadron 2 mg once daily for 3 days, then taper -Continue Zofran, Reglan, promethazine, scopolamine patch Status: Acute Code(s): R11.2 - Nausea with vomiting, unspecified (6) Hypertensive urgency: Patient's blood pressures were controlled just 24 hours ago she was able to keep down liquids For steps to get her nausea under control Continue as needed medications as needed Continue home medications as tolerated Status: Acute Code(s): I16.0 - Hypertensive urgency Attestations Medical Necessity Statement*: Patient requested hospitalization to due to intractable nausea vomiting, hypertensive urgency Coding Level of Care Code Acute Consulting Technical Manager for Chg Fwd Diagnoses Breast CA C50.919 Anemia D64.9 Anemia type: unspecified type S/P ureteral stent placement Z96.0 Ductal carcinoma of left breast C50.912 Intractable nausea and vomiting R11.2 Hypertensive urgency I16.0
[2019-10-13] MEDS: metoprolol tartrate 50 mg Tablet 100 MG PO (18:07)
[2019-10-14] VITALS (8 sets, daily range): BP systolic 127–208; BP diastolic 92–132; PULSE 94–103; RESP 16–24; TEMP 36.8–37; O2SAT 91–96
--- NOTE | 2019-10-14 | USCV_ITS ---
Mya Harrell Age: 38 Gender: F : 1980 Exam Date: 10/14/2019 07:21 Ordering Phys: Tony Mina MD Technologist: Maricel Rai Exam Location: [facility]_ Indication: HTN Aortic Velocity @ SMA (cm/s) 69.8 RIGHT KIDNEY LEFT KIDNEY Velocity (cm/s) Velocity (cm/s) Sys/Oconnell Sys/Oconnell Resistive Index Resistive Index 30.6 / 10.2 0.67 Proximal Renal Artery 43.5 / 9.7 0.78 36.5 / 12.9 0.65 Mid Renal Artery 76.2 / 14.6 0.81 41.9 / 8.6 0.79 Distal Renal Artery 50.6 / 10.4 0.79 24.2 / 6.4 0.73 Hilar 54.1 / 18.0 0.67 29.5 / 9.1 0.69 Upper Pole 58.2 / 19.4 0.67 23.6 / 7.5 0.68 Mid Pole 47.8 / 11.8 0.75 22.6 / 7.5 0.67 Lower Pole 24.9 / 9.7 0.61 0.60 Renal Aortic Ratio 1.09 Accleration Index (cm/sec2) 3317.0 Hilar 1176.0 0 0 1171.0 Upper Pole 766.00 0 1418.0 Mid Pole 1141.0 0 0 2417.0 Lower Pole 976.00 0 102.8 Kidney Length (mm) 107.1 FINDINGS EXTREMELY LIMITED VIEWS. Normal renal arterial Doppler flow velocities Normal velocity ratios and indicis Normal kidney dimensions CONCLUSIONS No significant renal artery stenosis, based on the above findings Dr Deon Machado MD FAC (Electronically Signed) Final Date: 14 October 2019 18:00 S
[2019-10-14] MEDS: hyDRALAzine 20 mg/mL INJ 1 mL 10 MG IVP (00:32)
[2019-10-14] MEDS: sodium chloride 0.9% 1,000 ML 50 ML IV (04:10)
--- NOTE | 2019-10-14 05:07 | PC.NURSE ---
PT BLOOD PRESSURE IS 188/102. WAS NOTIFIED AND IS PUTTING IN ORDERS. WILL CONTINUE TO MONITOR.
[2019-10-14] MEDS: labetalol 5 mg/mL SDV 20mL 10 MG IVP (05:18)
[2019-10-14] MEDS: metoclopramide 5 mg/mL SDV 2 mL IVP (05:18)
[2019-10-14 05:37] LABS: Basophils % 0.5 %; Eosinophils # 0.4 10^3/uL (0.0-0.8); Eosinophils % 4.7 %; Hematocrit 29.9 % (37.0-47.0); Hemoglobin 9.4 g/dL (11.5-15.3); Lymphocytes # 1.6 10^3/uL (0.8-4.8); Lymphocytes % 19.8 %; Mean Corpuscular HGB Conc 31.4 g/dL (30.0-36.0); Mean Corpuscular Hemoglobin 30.9 pg (28.0-34.0); Mean Corpuscular Volume 98.4 fL (81-99); Mean Platelet Volume 9.6 fL (7.4-10.4); Monocytes # 0.8 10^3/uL (0.2-0.9); Monocytes % 10.8 %; Neutrophils % 63.4 %; Nucleated Red Blood Cells % 0 %; Platelet Count 261 10^3/cmm (130-400); Red Blood Count 3.04 10^6/uL (4.1-5.3); Red Cell Distribution Width 16.3 % (12.1-15.1); White Blood Count 7.8 10^3/uL (4.0-10.0)
[2019-10-14 05:49] LABS: Alanine Aminotransferase 12 U/L (0-33); Albumin Level 3.1 g/dL (3.5-5.2); Alkaline Phosphatase 84 IU/L (35-105); Anion Gap 14.8 (5-19); Aspartate Amino Transferase 22 U/L (0-32); Blood Urea Nitrogen 16 mg/dL (6-20); Calcium 9.5 mg/dL (8.5-10.5); Carbon Dioxide 23 mmol/L (22-29); Chloride 107 mmol/L (98-107); Creatinine Clr Calc Pharmacy 49.8811; Globulin 3.3 g/dL (1.3-4.6); Glomerular Filtration Rate 33.3 mL/min (90-130); Glucose 99 mg/dL (74-109); Magnesium 1.9 mg/dL (1.7-2.3); Phosphorus 4.4 mg/dL (2.5-4.5); Potassium 3.8 mmol/L (3.5-5.1); Sodium 141 mmol/L (136-145); Total Bilirubin 0.4 mg/dL (0.15-1.2); Total Protein 6.4 g/dL (6.6-8.7)
[2019-10-14] MEDS: ondansetron 2 mg/ML SDV 2 mL 8 MG IVP ×2 (07:32→14:09)
[2019-10-14] MEDS: metoprolol tartrate 50 mg Tablet 100 MG PO ×2 (07:37→17:33)
[2019-10-14] MEDS: chlorthalidone 25 mg Tablet PO (07:38)
[2019-10-14] MEDS: dexamethasone 4 mg Tablet 2 MG PO (07:38)
[2019-10-14] MEDS: hyDRALAzine 25 mg Tablet PO (07:38)
[2019-10-14] MEDS: levothyroxine 112 mcg Tablet PO (07:39)
[2019-10-14] MEDS: FUROsemide 20 mg Tablet PO (07:39)
--- NOTE | 2019-10-14 09:24 | PM.PN ---
Subjective Subjective: Interval history: overnight blood pressure between 190-208 systolic. HR this morning at 103. Urine output not charted, but patient peeing in bedside commode. Afebrile. Cr stable at 1.7. US renal taken, results pending Medications: Reviewed: Yes Vitals/I&O/Wt Last Vital Signs Temp 98.6 F 10/14/19 07:10 Pulse 103 H 10/14/19 07:10 Resp 18 10/14/19 07:10 BP 188/96 10/14/19 07:10 Pulse Ox 91 10/14/19 07:10 10/13/19 10/14/19 10/14/19 22:59 06:59 14:59 Intake Total 340 / 475.833 751.667 / 1227.500 Balance 340 / 475.833 751.667 / 1227.500 Weight last 48 hrs Weight 97.522 kg Physical Exam Narrative: EXAM NARRATIVE: GEN: Awake, alert and oriented, anxious, distressed about recent events and illness, crying CVS: S1S2 N RS: CTA B/L except rhonchi over R infraaxillary areas. Abd: Soft, nt/nd , bs+ PICKING MACHINE OPERATOR: no focal neuro deficits Data : 10/14/19 04:24 10/14/19 04:24 A&P Assessment and plan (1) Breast CA: Status: Acute Code(s): C50.919 - Malignant neoplasm of unspecified site of unspecified female breast (2) Anemia: Status: Acute Qualifiers: Anemia type: unspecified type Qualified Code(s): D64.9 - Anemia, unspecified Code(s): D64.9 - Anemia, unspecified (3) S/P ureteral stent placement: Status: Acute Code(s): Z96.0 - Presence of urogenital implants (4) Ductal carcinoma of left breast: Status: Acute Code(s): C50.912 - Malignant neoplasm of unspecified site of left female breast (5) Intractable nausea and vomiting: Status: Acute Code(s): R11.2 - Nausea with vomiting, unspecified (6) Hypertensive urgency: Status: Acute Code(s): I16.0 - Hypertensive urgency Additional A&P Information Hypertensive urgency Patient is off nifedipine drip since yesterday. D/c clonidine clonidine patch and start clonidine 0.2 mg twice daily. This will allow us to titrate the clonidine and estimate 24-hour requirements along with other medications. Her nausea is currently improved and she is able to tolerate p.o. medications. Titrate up hydralazine to 50 mg 4 times daily Add Imdur 30 mg today. Will likely increase dosing as blood pressure tolerates. Discontinue chlorthalidone given EDOUARD with creatinine at 1.7. Patient has been having extensive nausea and chlorthalidone is likely to contribute to dehydration. She has received Lasix for today. Will reassess tomorrow morning appears to be volume overloaded. Some wheezing heard on exam today posteriorly. Will obtain chest x-ray given recent history of pneumonia. We will also obtain BNP today, added on to morning labs. No active neurological signs. Unclear cause of persistent hypertension. Rare cases of nephrotic syndrome with evidence of glomerulopathy/FSGS have been reported, with an onset of 4 to 18 months from trastuzumab initiation. May be contributing. No chest pain Intractable nausea vomiting Continue current regimen of Decadron 2 mg every 24 hours. If no relief in symptoms we will increase the dose to 2 mg 3 times a day. Acute kidney injury: Creatinine at baseline 1.9, currently at 1.7. Unclear cause of hypertension under the FSGS from immunotherapy contributing. Recent CT abdomen did not show any signs of hydronephrosis, she had stent in the right ureter Renal ultrasound has been obtained today. To look for signs of any hydronephrosis. Overtly does not appear to be septic at this time. She is afebrile and there is no leukocytosis. Anemia: She required 2 units of PRBC on last visit, currently hemoglobin is stable 9.4 Advise use of any DVT prophylaxis with Lovenox or heparin would use SCDs Hypothyroidism: Continue levothyroxine Invasive ductal carcinoma of the breast status post chemotherapy with TCHB last dose sep 14, awaiting surgery in [place] which has been rescheduled already because she was admitted in ICU on last visit Patient is full code dvt prophylaxis: SCD Attestations Medical Necessity Statement*: Admitted for management of hypertensive urgency, trying to optimize blood pressure control. Ultimate goal is just to optimize patient enough to be able to travel to [place] for upcoming surgery any further cancer treatment. Coding Level of Care Code Acute School Health Assistant for Chg Fwd Diagnoses Breast CA C50.919 Anemia D64.9 Anemia type: unspecified type S/P ureteral stent placement Z96.0 Ductal carcinoma of left breast C50.912 Intractable nausea and vomiting R11.2 Hypertensive urgency I16.0
[2019-10-14] MEDS: isosorbide mononitrate ER 30 mg Tablet PO (10:05)
--- NOTE | 2019-10-14 10:26 | XRR_ITS ---
PROCEDURE INFORMATION: Exam: XR Chest, 1 View Exam date and time: 10/14/2019 10:45 AM Age: 38 years old Clinical indication: Condition or disease; Lung condition and disease; Pneumonia; Other: Not specified; Additional info: F/up recent pneumonia TECHNIQUE: Imaging protocol: XR of the chest Views: 1 view. COMPARISON: CR XR chest 1V portable [id number] 10/05/2019 4:25 AM FINDINGS: Tubes, catheters and devices: Stable positioning of a port catheter. Lungs: Hyperinflation and interstitial prominence, with near -complete interval resolution of airspace disease. Pleural space: Small pleural effusions. Heart/Mediastinum: Cardiac silhouette upper limits of normal in size. Bones/joints: Unremarkable. XR/XR chest 1V portable [id number] IMPRESSION: Hyperinflation and interstitial prominence, with near-complete interval resolution of airspace disease.
--- NOTE | 2019-10-14 10:33 | PC.CHAP ---
Pastoral Care Encounter/Spiritual Assessment Type of Contact [] Declined shopper insights manager visit [] Patient/Family/Request visit [] Outpatient visit [] Follow-up visit [] Physician referral [] Code/Alert [x] Routine visit [] Staff referral [] Actively dying [] Patient sleeping [] Family support [] [] Out of room [] Palliative care [] [] Receiving care in room [] Pre-surgical visit [] Trauma [] Long length of stay [] ICU visit [] Other: Relational/Emotional Strength [] Patient feels connected with others/family/visitors/staff [] Distress [] Loneliness/isolation [] Abandonment Spirituality of Patient [] Person of Rosa [] Attends Druze of their Rosa [x] Believes in Prayer [] Reads Bible or Zoroastrian materials [] There are Spiritual issues to be addressed Vice President Of Software Development Interventions [x] Prayer [] Active listening [] Non-anxious presence [] Spiritual/emotional support [] Crisis/trauma care [] Spiritual counseling [] Bereavement support [] Provided bereavement packet [] Provided Bible/devotional materials [] Provided toy/stuffed animal, coloring book to patient or family member [x] Completed spiritual assessment [] Provided Communion [] Anointing/[place] [] Salvation [] Other: Impact on Illness or Injury [] Angry [] Fearful [] Anxious [] Often cries [x] Exhaustion [] Unable to work [] Unable to attend advent [] Unable to walk/stand [] Unable to read [] Unable to drive [] Unable to eat/drink [] Unable to sleep [] Unable to be with family [x] Other: Patient stated tired of being sick. Summary Patient's appearance would indicate has been dealing with other illnesses. Patient withdrawn, wasn't interested in conversation. Time spent with patient 10 min
[2019-10-14] MEDS: doxycycline 100 MG in sodium chloride 0.9% (plus) 100 ML IV ×2 (10:55→21:30)
[2019-10-14 11:54] LABS: NT Pro B Type Natriuretic Pept 2023 pg/mL (0-125)
[2019-10-14] MEDS: hyDRALAzine 25 mg Tablet 50 MG PO ×3 (13:37→21:27)
[2019-10-14] MEDS: cloNIDine 0.1 mg Tablet 0.2 MG PO (17:32)
[2019-10-14] MEDS: LORazepam 2 mg/mL INJ 1 mL 1 MG IVP (21:30)
[2019-10-15] VITALS (10 sets, daily range): BP systolic 115–178; BP diastolic 69–105; PULSE 79–96; RESP 17–26; TEMP 36.6–37; O2SAT 94–96
[2019-10-15] MEDS: morphine 4 mg/mL SDV 1 mL 2 MG IVP (03:42)
[2019-10-15] MEDS: ondansetron 2 mg/ML SDV 2 mL 8 MG IVP (03:53)
[2019-10-15 04:16] LABS: Basophils % 0.2 %; Eosinophils # 0.2 10^3/uL (0.0-0.8); Eosinophils % 1.8 %; Hematocrit 29.2 % (37.0-47.0); Hemoglobin 9.2 g/dL (11.5-15.3); Lymphocytes # 2.6 10^3/uL (0.8-4.8); Lymphocytes % 20.5 %; Mean Corpuscular HGB Conc 31.5 g/dL (30.0-36.0); Mean Corpuscular Hemoglobin 32.2 pg (28.0-34.0); Mean Corpuscular Volume 102.1 fL (81-99); Mean Platelet Volume 9.8 fL (7.4-10.4); Monocytes # 1.4 10^3/uL (0.2-0.9); Monocytes % 11.3 %; Neutrophils # 8.3 10^3/uL (1.8-7.7); Neutrophils % 65.6 %; Nucleated Red Blood Cells % 0 %; Platelet Count 230 10^3/cmm (130-400); Red Blood Count 2.86 10^6/uL (4.1-5.3); Red Cell Distribution Width 15.9 % (12.1-15.1); White Blood Count 12.6 10^3/uL (4.0-10.0)
[2019-10-15 04:33] LABS: Alanine Aminotransferase 11 U/L (0-33); Albumin Level 2.8 g/dL (3.5-5.2); Alkaline Phosphatase 79 IU/L (35-105); Anion Gap 17.8 (5-19); Blood Urea Nitrogen 18 mg/dL (6-20); Calcium 9.1 mg/dL (8.5-10.5); Carbon Dioxide 23 mmol/L (22-29); Chloride 105 mmol/L (98-107); Creatinine Clr Calc Pharmacy 42.3989; Globulin 3.4 g/dL (1.3-4.6); Glomerular Filtration Rate 27.6 mL/min (90-130); Glucose 101 mg/dL (74-109); Magnesium 1.5 mg/dL (1.7-2.3); Phosphorus 5.3 mg/dL (2.5-4.5); Potassium 3.8 mmol/L (3.5-5.1); Sodium 142 mmol/L (136-145); Total Bilirubin 0.4 mg/dL (0.15-1.2); Total Protein 6.2 g/dL (6.6-8.7)
[2019-10-15 05:12] LABS: Aspartate Amino Transferase 20 U/L (0-32)
[2019-10-15] MEDS: LORazepam 2 mg/mL INJ 1 mL 1 MG IVP ×2 (09:42→21:50)
[2019-10-15] MEDS: cloNIDine 0.1 mg Tablet 0.2 MG PO ×2 (09:42→17:26)
[2019-10-15] MEDS: dexamethasone 4 mg Tablet 2 MG PO (09:43)
[2019-10-15] MEDS: hyDRALAzine 25 mg Tablet 50 MG PO ×3 (09:44→20:53)
[2019-10-15] MEDS: levothyroxine 112 mcg Tablet PO (09:45)
[2019-10-15] MEDS: isosorbide mononitrate ER 30 mg Tablet PO (09:45)
[2019-10-15] MEDS: metoprolol tartrate 50 mg Tablet 100 MG PO ×2 (09:45→17:26)
[2019-10-15] MEDS: doxycycline 100 MG in sodium chloride 0.9% (plus) 100 ML IV ×2 (10:34→20:48)
[2019-10-15] MEDS: metoclopramide 5 mg/mL SDV 2 mL IVP (10:39)
[2019-10-15] MEDS: FUROsemide 10 mg/mL SDV 2mL 20 MG IVP (13:37)
--- NOTE | 2019-10-15 14:03 | PC.NURSE ---
PATIENT REFUSED ATIVAN AT THIS TIME ; FULL AMOUNT WASTED IN [employer] ; UNOPENED VIAL RETURNED TO [facility] IN PHARMACY
[2019-10-15 14:16] LABS: Magnesium 1.5 mg/dL (1.7-2.3)
--- NOTE | 2019-10-15 15:36 | PM.PN ---
Subjective Subjective: Interval history: BP better controlled. Improving nausea. Ate dinner and breakfast. Increased edema upper extremities. Medications: Reviewed: Yes Vitals/I&O/Wt Last Vital Signs Temp 98.4 F 10/15/19 15:17 Pulse 92 10/15/19 15:17 Resp 17 10/15/19 15:17 BP 141/93 10/15/19 15:17 Pulse Ox 96 10/15/19 15:17 10/15/19 10/15/19 10/15/19 06:59 14:59 22:59 Intake Total 120 / 1787.5 340 / 340 Balance 120 / 837.5 340 / 340 Weight last 48 hrs Weight 111.856 kg Physical Exam Narrative: EXAM NARRATIVE: GEN: Awake, alert and oriented,lying comfortably in bed CVS: S1S2 N RS: CTA B/L except rhonchi over R infraaxillary areas. Abd: Soft, nt/nd , bs+ FORENSIC SPECIALIST: no focal neuro deficits Data : 10/15/19 04:10 10/15/19 04:10 A&P Assessment and plan (1) Breast CA: Status: Acute Code(s): C50.919 - Malignant neoplasm of unspecified site of unspecified female breast (2) Anemia: Status: Acute Qualifiers: Anemia type: unspecified type Qualified Code(s): D64.9 - Anemia, unspecified Code(s): D64.9 - Anemia, unspecified (3) S/P ureteral stent placement: Status: Acute Code(s): Z96.0 - Presence of urogenital implants (4) Ductal carcinoma of left breast: Status: Acute Code(s): C50.912 - Malignant neoplasm of unspecified site of left female breast (5) Intractable nausea and vomiting: -Decadron 2 mg once daily for 3 days, then taper -Continue Zofran, Reglan, promethazine, scopolamine patch Status: Acute Code(s): R11.2 - Nausea with vomiting, unspecified (6) Hypertensive urgency: Status: Acute Code(s): I16.0 - Hypertensive urgency Additional A&P Information Hypertensive urgency BP better controlled today. Continue clonidine 0.2mg BID, hydralazine 50mg QID, imdur 30mg qd hold chlothalidone lasix 20mg iv x 1 today given increased UE edema Cr at 2.0 today, fluctutaing between 1.7-2 BNP elevated at 1999 No active neurological signs. Unclear cause of persistent hypertension. Rare cases of nephrotic syndrome with evidence of glomerulopathy/FSGS have been reported, with an onset of 4 to 18 months from trastuzumab initiation. May be contributing. Renal USG negative for renal artery stenosis No chest pain Intractable nausea vomiting Continue current regimen of Decadron 2 mg every 24 hours. If no relief in symptoms we will increase the dose to 2 mg 3 times a day. Acute kidney injury: Unclear cause of hypertension under the FSGS from immunotherapy contributing. Recent CT abdomen did not show any signs of hydronephrosis, she had stent in the right ureter Afberile. Leukocytosis likely 2/2 steroids in the absence of other symptoms Anemia: She required 2 units of PRBC on last visit, currently hemoglobin is stable 9.4 Advise use of any DVT prophylaxis with Lovenox or heparin would use SCDs Hypothyroidism: Continue levothyroxine Invasive ductal carcinoma of the breast status post chemotherapy with TCHB last dose sep 14, awaiting surgery in [place] which has been rescheduled already because she was admitted in ICU on last visit Patient is full code dvt prophylaxis: SCD Attestations Medical Necessity Statement*: BP better control, optimizing volume status and BP prior to discharge, anticipate tomorrow Coding Level of Care Code Acute Graphic Arts Instructor for Chg Fwd Diagnoses Breast CA C50.919 Anemia D64.9 Anemia type: unspecified type S/P ureteral stent placement Z96.0 Ductal carcinoma of left breast C50.912 Intractable nausea and vomiting R11.2 Hypertensive urgency I16.0
[2019-10-16 04:00] VITALS: BP 140/88; PULSE 80; RESP 19; TEMP 36.8
[2019-10-16 04:18] LABS: Basophils % 0.4 %; Eosinophils # 0.1 10^3/uL (0.0-0.8); Hematocrit 26.2 % (37.0-47.0); Hemoglobin 8.4 g/dL (11.5-15.3); Lymphocytes # 2.2 10^3/uL (0.8-4.8); Lymphocytes % 27.6 %; Mean Corpuscular HGB Conc 32.1 g/dL (30.0-36.0); Mean Corpuscular Hemoglobin 31.8 pg (28.0-34.0); Mean Corpuscular Volume 99.2 fL (81-99); Mean Platelet Volume 9.7 fL (7.4-10.4); Monocytes # 0.8 10^3/uL (0.2-0.9); Monocytes % 10.5 %; Neutrophils # 4.7 10^3/uL (1.8-7.7); Neutrophils % 59.9 %; Nucleated Red Blood Cells % 0 %; Platelet Count 206 10^3/cmm (130-400); Red Blood Count 2.64 10^6/uL (4.1-5.3); Red Cell Distribution Width 15.7 % (12.1-15.1); White Blood Count 7.8 10^3/uL (4.0-10.0)
[2019-10-16 04:37] LABS: Alanine Aminotransferase 8 U/L (0-33); Albumin Level 2.9 g/dL (3.5-5.2); Alkaline Phosphatase 75 IU/L (35-105); Anion Gap 15.6 (5-19); Aspartate Amino Transferase 14 U/L (0-32); Blood Urea Nitrogen 27 mg/dL (6-20); Calcium 9.3 mg/dL (8.5-10.5); Carbon Dioxide 24 mmol/L (22-29); Chloride 104 mmol/L (98-107); Globulin 2.8 g/dL (1.3-4.6); Glomerular Filtration Rate 27.6 mL/min (90-130); Glucose 95 mg/dL (74-109); Magnesium 1.7 mg/dL (1.7-2.3); Potassium 3.6 mmol/L (3.5-5.1); Sodium 140 mmol/L (136-145); Total Bilirubin 0.4 mg/dL (0.15-1.2); Total Protein 5.7 g/dL (6.6-8.7)
[2019-10-16 07:19] VITALS: BP 150/98; PULSE 82; RESP 17; O2SAT 94
--- NOTE | 2019-10-16 07:56 | P.DS_ITS ---
Discharge Providers Date of Admission: 10/13/19 01:52 Date of Discharge: 10/16/19 Attending Provider at Admission: Merritt Hodgson MD Attending Provider at Discharge: Camelia Harkins MD Primary Care Provider: aPulina Goldberg MD Diagnoses at Discharge Discharge Diagnosis (1) Breast CA: Status: Acute (2) Anemia: Status: Acute Qualifiers: Anemia type: unspecified type Qualified Code(s): D64.9 - Anemia, unspecified (3) S/P ureteral stent placement: Status: Acute Problem details: Right (4) Ductal carcinoma of left breast: Status: Acute (5) Intractable nausea and vomiting: Status: Acute (6) Hypertensive urgency: Status: Acute Reason for Visit Reason for Visit: Reason For Visit: high bp Hospital Course Discharge Summary: Mya Harrell is a 38 year old female who has invasive ductal carcinoma of left breast awaiting surgery, status post chemo had recent admission for sepsis secondary to UTI with Klebsiella, she was admitted to ICU and then transferred to medical floor where she was suffering from hypertension and intractable nausea vomiting and she was discharged on 5 antihy pertensive medications along with antiemetics. Patient presented to the emergency department on 10/13 today because of her intractable nausea and vomiting. She is stating that since her discharge she is not able to keep anything down, her medications are not helping with her symptoms. Her SBP was >200mmhg at home. Diagnostics in ER showed systolic blood pressure 200/123, she had received labetalol 10 mg IV x2, creatinine 1.9, noted to be increasing over the past one month and stable hemoglobin 9.4. she was admitted to [facility] with Cardene drip, which was able to be titrated off eventually. Hospital course was notable for persistently elevated blood pressure over the first 24 hrs with SBP ranging between 180-200. adjustments were made to her medications as follows : chlorthalidone was discontinued, clonidine patch was changed to 0.2mg BID, hydralazine was increased from 25mg QID to 50mg QID and Imdur 30mg was added. This combination resulted in better blood pressure control and at time of discharge she is ranging between SBP 127-150s. For nausea she received ondansetron, reglan and promethazine prn. Dexamethasone was recommended by oncology and was initiated at 2mg po qd. At time of discharge, she has been advised to discontinue the steroids. However I am providing her with a script for 10 days, with instructions to resume steroids and inform her oncologist should Zofran/Reglan/Promethazine fail to improve her symptoms. She has been noted to have increasing cr over the past month of unclear cause, currently at 1.7-2. Renal aretry Doppler was negative for stenosis. On recent admission she had a CT abdomen which showed a patent R sided stent. She continues to have intermittent hematuria. She is being discharged today in improved condition, resolved nausea, able to tolerate po intake and better BP control. She is instructed to maintain a chart of her BP readings at home and take it to her PCP appointment next week. At this point, her care goal is to be able to travel to [place] to get her surgery. Physical Exam Narrative: EXAM NARRATIVE: GEN: Awake, alert and oriented, no acute distress CVS: S1S2 N RS: CTA B/L Abd: Soft, nt/nd , bs+ DIRECTOR OF CORPORATE COMMUNICATIONS: no focal neuro deficits Discharge Data Data Completed and Pending: Completed Studies During Hospitalization Category Date Time Status XR chest 1V marilee ble [id number] Routine Exams 10/14/19 10:26 Completed CV renal doppler 52787 Stat Ultrasound 10/14/19 Completed Labs from last 24 hours 10/16/19 10/16/19 10/15/19 03:53 03:53 13:54 WBC 7.8 RBC 2.64 L Hgb 8.4 L Hct 26.2 L MCV 99.2 H MCH 31.8 MCHC 32.1 RDW 15.7 H Plt Count 206 MPV 9.7 Neut % (Auto) 59.9 Lymph % (Auto) 27.6 [place] % (Auto) 10.5 Eos % (Auto) 1.0 Baso % (Auto) 0.4 Neut # (Auto) 4.7 Lymph # (Auto) 2.2 [place] # (Auto) 0.8 Eos # (Auto) 0.1 Baso # (Auto) 0.0 Nucleated RBC % (a uto) 0 Nucleated RBCs # 0.0 Sodium 140 Potassium 3.6 Chloride 104 Carbon Dioxide 24 Anion Gap 15.6 BUN 27 H Creatinine 2.0 H GFR Calculation 27.6 L Glucose 95 Calcium 9.3 Phosphorus 5.0 H Magnesium 1.7 1.5 L Total Bilirubin 0.4 AST 14 ALT 8 Alkaline Phosphata se 75 Total Protein 5.7 L Albumin 2.9 L Globulin 2.8 Vitals: Last Vital Signs Temp 98.3 F 10/16/19 04:00 Pulse 82 10/16/19 07:19 Resp 17 10/16/19 07:19 BP 150/98 10/16/19 07:19 Pulse Ox 94 10/16/19 07:19 Discharge Plan Discharge Patient Disposition: Home, Self-Care Condition: Stable Prescriptions: New isosorbide mononitrate 30 mg Tablet Extended Release 24 Hr 30 mg PO DAILY 30 Days Qty: 30 RF: 0 hydralazine 25 mg Tablet 50 mg PO QID 30 Days Qty: 240 RF: 0 dexamethasone 4 mg Tablet 2 mg PO Q24H PRN (Reason: nausea) Qty: 10 RF: 0 lorazepam 1 mg tablet 1 mg PO BID PRN (Reason: sleep ) Qty: 30 RF: 0 Continued ergocalciferol (vitamin D2) 50,000 unit Capsule 50,000 unit PO Q7D RF: 0 Itch Relief 2-0.1 % Cream 1 applic topical Q4H PRN (Reason: Rash) 30 Days Qty: 1 RF: 0 clonidine HCl 0.2 mg tablet 0.2 mg PO QAM&BEDTIME 30 Days Qty: 60 RF: 0 metoprolol tartrate 50 mg Tablet 100 mg PO BID 30 Days Qty: 120 RF: 0 tramadol 50 mg tablet 50 mg PO Q12H PRN (Reason: pain) 15 Days Qty: 30 RF: 0 ondansetron HCl [Zofran] 8 mg tablet 8 mg PO Q6H PRN (Reason: nausea and vomiting) 30 Days Qty: 120 RF: 0 metoclopramide HCl [Reglan] 5 mg tablet 5 mg PO Q6H PRN (Reason: nausea and vomiting) 30 Days Qty: 120 RF: 0 albuterol sulfate 2.5 mg /3 mL (0.083 %) solution for nebulization 1.25 mg INHALATION Q8H PRN (Reason: shortness of breath or wheezing) Qty: 75 RF: 0 furosemide [Lasix] 20 mg tablet 20 mg PO DAILY PRN (Reason: edema) 10 Days Qty: 10 RF: 0 fluconazole 150 mg tablet 150 mg PO DAILY Qty: 1 RF: 0 levothyroxine 112 mcg Tablet 112 mcg PO DAILY Qty: 0 RF: 0 Changed promethazine 12.5 mg tablet 12.5 mg PO Q6H PRN (Reason: nausea and vomiting) 30 Days Qty: 120 RF: 0 omeprazole 40 mg capsule,delayed release(DR/EC) 40 mg PO DAILY Qty: 0 RF: 0 Discontinued chlorthalidone 25 mg Tablet 25 mg PO DAILY 30 Days Qty: 30 RF: 0 hydralazine 25 mg Tablet 25 mg PO QID 30 Days Qty: 120 RF: 0 doxycycline monohydrate 100 mg Tablet 100 mg PO BID 6 Days Qty: 12 RF: 0 scopolamine base 1 mg over 3 days patch 3 day 1 patch TRANSDERMA Q3D PRN (Reason: nausea and vomiting) Qty: 4 RF: 0 Protonix [address] for susp in packet 40 mg PO DAILY 30 Days Qty: 30 RF: 0 Discharge Orders: Discharge Order (Routine); Ordered 10/16/19 Ordered By: Camelia Harkins Other Ambulatory Orders: Comprehensive Metabolic Panel (Routine) Timeframe: 1 Week Location: Determined by Patient Ordered By: Camelia Harkins Referrals: Paulina Goldberg MD [Referring] - 4-7 days (You have a post discharge follow up for hypertensive urgency , regulation of hypertension medications with Dr. Goldberg at [facility] on October 20 at 12:45am . Any appointment changes, please call them at [phone]) Discharge Diet: Usual diet Discharge Activity: Resume usual activity Patient Instructions: Lorazepam (By mouth), Hydralazine (By mouth), Isosorbide Mononitrate (By mouth), Dexamethasone (By mouth), Acute Kidney Injury (DC), Breast Cancer (DC) Activity Restrictions/Additional Instructions: Maintain Bp chart twice daily for 1 week, until you see Dr. Goldberg. Start dexamethasone only if nausea uncontrolled with zofran, reglan and promethazine. Inform oncologist if you resume it. Do not take prn. If started, continue 2mg daily and inform oncologist or PCP. Discharge Date/Time: 10/16/19 13:53 Discharge Attestations Time Spent in Discharge Care*: greater than 30 min Specific Discharge Activities: Specific discharge activities: educating and/or supporting family/caregiver Quality Metrics Clinical Quality Measures During this hospital stay, did patient experience: None Coding Level of Care Code Acute Granulizing Machine Operator for Chg Fwd Diagnoses Breast CA C50.919 Anemia D64.9 Anemia type: unspecified type S/P ureteral stent placement Z96.0 Ductal carcinoma of left breast C50.912 Intractable nausea and vomiting R11.2 Hypertensive urgency I16.0
[2019-10-16] MEDS: doxycycline 100 MG in sodium chloride 0.9% (plus) 100 ML IV (09:33)
[2019-10-16] MEDS: isosorbide mononitrate ER 30 mg Tablet PO (09:33)
[2019-10-16] MEDS: dexamethasone 4 mg Tablet 2 MG PO (09:33)
[2019-10-16] MEDS: levothyroxine 112 mcg Tablet PO (09:33)
[2019-10-16 09:34] VITALS: BP 181/110
[2019-10-16] MEDS: hyDRALAzine 25 mg Tablet 50 MG PO ×2 (09:34→13:15)
[2019-10-16] MEDS: cloNIDine 0.1 mg Tablet 0.2 MG PO (09:34)
[2019-10-16] MEDS: metoprolol tartrate 50 mg Tablet 100 MG PO (09:35)
[2019-10-16 11:05] VITALS: BP 135/83; PULSE 78; RESP 22; TEMP 36.6; O2SAT 97
[2019-10-16] MEDS: FUROsemide 10 mg/mL SDV 2mL 20 MG IVP (13:14)
[2019-10-16 13:48] VITALS: BP 142/86; PULSE 78; RESP 22; TEMP 36.6; O2SAT 97
--- NOTE | 2019-10-16 13:50 | PC.NURSE ---
PATIENT GIVEN DISCHARGE INSTRUCTIONS AND VERBALIZED UNDERSTANDING ; PORTACAT DE-ACCESSED ; PATIENT TOLERATED WELL ; VSS ; PATIENT DENIES ANY N/V AT THIS TIME ; PATIENT TO EXIT VIA WHEELCHAIR TO POV WITH NO ISSUES
== END 2019-10-16 13:53 | disposition home or self-care (01) | DRG 305 ==
LOC: ER 10-13 01:50 → CSU 10-13 02:14
PROVIDERS: Family Medicine; Admitting Provider Internal Medicine; Emergency Provider Emergency Medicine; Family Provider Nurse Practitioner Family; PCP Nurse Practitioner Family; Visit Provider Student in an Organized Health Care Education/Training Program
DX: I16.0 Hypertensive urgency (principal); N17.9 Acute kidney failure, unspecified; C50.912 Malignant neoplasm of unspecified site of left female breast; J45.909 Unspecified asthma, uncomplicated; K21.9 Gastro-esophageal reflux disease without esophagitis; I10 Essential (primary) hypertension; E03.9 Hypothyroidism, unspecified; R11.2 Nausea with vomiting, unspecified
CPT/HCPCS: 12345; 36415; 36591; 71045; 80053; 81001; 82009; 83605; 83690; 83735; 83880; 84100; 84484; 85025; 93005; 93975; 96360; 96361; 96365; 96366; 96374; 96375; 99283; J0360; J1940; J2060; J2270; J2405; J2550; J2765; J3475; J3490; J7030; J7040; J7050; J8540

== ENCOUNTER 2019-10-23 05:36 | Outpatient (RCR) | payer OTHER, SELFPAY ==
[2019-10-21] MEDS: sodium chloride 0.9% 1,000 ML 999 ML IV (14:05)
[2019-10-23] MEDS: sodium chloride 0.9% 1,000 ML 999 ML IV (11:21)
== END 2019-11-14 23:59 | disposition home or self-care (01) ==
LOC: ONCMED 05:36
PROVIDERS: Family Provider Nurse Practitioner Family; PCP Nurse Practitioner Family; Visit Provider Internal Medicine Medical Oncology
DX: E86.0 Dehydration (principal)
CPT/HCPCS: 96361; 96365; 96367; J2405; J3490; J7030

== ENCOUNTER 2020-01-01 07:09 | Outpatient (CLI) | payer OTHER, SELFPAY ==
--- NOTE | 2020-01-01 08:00 | XR_ITS ---
WS: [id number] ABDOMEN 1 VIEW(S) HISTORY: S/P URETERAL STENT PLACEMENT COMPARISON: 10/02/2019 Normal bowel gas pattern. Prior cholecystectomy. RIGHT ureteral stent in good position. No calcifications along the course of the stent or overlying e ither kidney. No bone abnormality. XR/XR KUB [id number] IMPRESSION: RIGHT ureteral stent remains in good position. No calcifications.
== END 2020-01-01 07:10 | disposition home or self-care (01) ==
LOC: RADWPI 08:06 → RAD 08:08
PROVIDERS: Family Provider Nurse Practitioner Family; PCP Nurse Practitioner Family; Visit Provider Nurse Practitioner Family
DX: Z96.0 Presence of urogenital implants (principal)
CPT/HCPCS: 74018; 81001

== ENCOUNTER 2020-02-18 12:47 | Outpatient (RCR) | payer OTHER, SELFPAY | END 2020-03-15 23:59 | disposition home or self-care (01) | LOC: SPT 12:47 | PROVIDERS: Family Provider Nurse Practitioner Family; PCP Nurse Practitioner Family; Referring Provider Radiology Radiation Oncology; Visit Provider Radiology Radiation Oncology | DX: C50.912 Malignant neoplasm of unspecified site of left female breast (principal); Z79.899 Other long term (current) drug therapy; Z90.12 Acquired absence of left breast and nipple | CPT/HCPCS: 97140; 97161 ==

== ENCOUNTER 2020-02-29 09:12 | Outpatient (CLI) | payer OTHER, SELFPAY ==
--- NOTE | 2020-03-03 07:36 | ONC FU_ITS ---
Dr. Wayne Patient Follow-Up Note Patient: Mya Harrell Unit #: [id number]: [id number] Dicatated By: Radu Wayne M.D.Date of Visit:Feb 29, 2020 Onc Med Follow-up/Prog Note Chief Complaint: Breast cancer. History of Present Illness: This is a 39 year-old woman with grade 3 invasive ductal carcinoma, by clinical evaluation stage IIIB (T4b, N1, M0), ER/SC negative and HER-2/huang positive. In February [address] Anne-Marie Goldberg for an initial visit to establish primary care. At that time she had some mild skin changes in her left breast, which at the time had not been of particular concern to her. She was not aware of a lump or any other change in her breast. However, her screening mammogram on 03/17/2019 was BI-RADS 0, with finding of diffuse skin thickening involving the periareolar and anterior aspect of the left breast. It was a new finding compared to prior study from 2011. Also noted was asymmetrically increased parenchyma in the anterior third and lateral aspect of the left breast with linear and punctate calcifications in a ductal distribution. A group of punctate calcifications was noted in the upper outer quadrant of the left breast posteriorly. Punctate calcifications were noted within otherwise nonenlarged left axillary lymph nodes. Additional mammogram views and left breast ultrsound on04/14/2019 were BI-RADS 4B, suspicious. The ultrasound showed skin thickening measuring 6.5 mm in depth. In the 2 o'clock position of the left breast, 3 cm from the nipple was a cystic or ductal structure measuring 2.2 x 7.3 x 7.4 mm and with posterior acoustic enhancement. A similar focus was noted in the subareolar region anteriorly and laterally measuring 4.2 x 6.7 x 7.4 mm. No other cystic or solid soft tissue abnormality seen. Two left axillary lymph nodes were seen containing echogenic aryan, one measuring 0.8 x 1 x 1 cm the other measuring 0.7 x 1.2 x 1.2 cm. She was then referred to [facility] for further management. Sstereotactic needle biopsy of the left breast on 05/05/2019 showed microinvasive carcinoma associated with DCIS, grade 3. Ultrasound-guided FNA of the left axillary lymph node showed metastatic adenocarcinoma which was ER/SC negative and HER-2/huang positive. Skin punch biopsy on 05/11/2019 showed invasive ductal carcinoma involving the superficial dermis. Staging PET/CT on 05/13/2019 showed FDG avid left breast skin thickening with maximum SUV 3.9. asymmetric left breast tissue was noted to be mildly FDG avid. A nonenlarged left axillary lymph node showed maximum SUV 2.3. Additional subcentimeter axillary lymph nodes demonstrated mild to moderate acitivity, but appeared abnormal. There was no evidence of distant metastatic disease. She was given neoadjuvant chemotherapy with TCH-P, beginning 05/25/2019. She experienced multiple toxicities with the chemotherapy, requiring frequent IV hydration. By the end of August 2019 she was able to complete 6 cycles of treatment. Her further clinical course was then complicated by pyelonephritis and subsequently by hematuria with right hydronephrosis, requiring ureteral stent placement on 10/02/2019. The following day she was admitted to the hospital with sepsis. CT scans at that time also showed evidence of bilateral pneumonia. She had somewhat of a difficult recovery, but she eventually was able to undergo left modified radical mastectomy in [place] on 11/10/2019. She reportedly had a complete pathologic response with no evidence of residual malignancy in the breast and no involvement in 18 axillary lymph nodes. She then underwent cardiac sparing postoperative chest wall radiation at [facility] in [place], which she completed on 02/16/2020. At that point she also restarted systemic therapy with Herceptin/Perjeta, which is to be continued at 3-week intervals. She is seen for a follow-up visit. She indicates that subsequent to the Herceptin/Perjeta infusion she had developed right upper quadrant abdominal pain and elevated liver enzymes. Her CT abdomen/pelvis reportedly showed no abnormality in the liver or other acute findings to account for the right upper quadrant pain. She indicates that the study did show evidence of groundglass nodules in the left lung. Overall, though, she has been feeling better. She had developed significant fatigue during the last 2 weeks of her radiation, and her energy now is improving. She still has limited activity. ECOG score is 2. Her appetite is mostly okay. She has had a weight loss of 12 pounds since May. She has not had fever. She was having a lot of hot flashes and sweating, but that does seem to be getting better. She has shortness of breath if she walks very far. She does not complain of cough. She has had a little bit of chest discomfort and she occasionally is aware that her heart is pounding and irregular. She still has a little bit of nausea. Her acid reflux is managed adequately with omeprazole. She says the right upper quadrant pain is better now. Bowel and bladder function have been okay. She still has some tenderness in the left chest wall and axillary area. She has no significant joint or bone pain. She has occasional migraine headache and she has occasional orthostatic lightheadedness. She says her neuropathy symptoms are much better now. Medications: amLODIPine Besylate 1 Tablet (of 2.5 mg) Oral daily, cloNIDine HCl 1 Tablet (of 0.2 mg) Oral b.i.d. PRN, hydrALAZINE HCl 1 Tablet (of 25 mg) Oral b.i.d., Levothyroxine Sodium 1 Tablet (of 112 mcg) Oral daily, Lidocaine-Prilocaine 1 (2.5-2.5 %) Cream Topical PRN, Loratadine 1 Tablet (of 10 mg) Oral daily PRN, LORazepam 1 Tablet (of 1 mg) Oral q 6 hours PRN, Metoprolol Tartrate 1 Tablet (of 25 mg) Oral b.i.d., Omeprazole 2 Tablet (of 20 mg) Tablet, enteric coated Oral daily PRN, Ondansetron HCl 1 Tablet (of 8 mg) Oral q 8 hours PRN, Promethazine HCl 1 Tablet (of 12.5 mg) Oral PRN, Triamcinolone Acetonide 1 (0.1 %) Cream Topical t.i.d., Vitamin D2 1 Capsule Oral q 7 days Allergies: Adhesives, Chlorhexidine, Erythromycin Base, Herceptin, Lyrica, Prochlorperazine Maleate, Saxenda, and Sulfa Antibiotics. Review of Systems: Constitutional - She generally feels pretty good. Her energy level is getting better, but she does fatigue easily and her activity is still limited. Her appetite is mostly OK. Her weight is down 12 pounds from last visit. No fevers or night sweats. She has had hot flashes/flushing feeling but they have improved. ECOG score is 2, ENMT - She has seasonal allergies. No mouth sores. No sore throat or difficulty swallowing, Hematologic/Lymphatic - No abnormal bruising or bleeding, Respiratory - She gets mildly short of breath with activty. No cough. No pleuritic pain or hemoptysis, Cardiovascular - She has mild chest discomfort and she feels like her heart is pounding at times. No palpitations, Gastrointestinal - She has been having pain in her right upper quadrant area, and she has had some nausea. No vomiting. No heartburn or acid reflux. No diarrhea or constipation. No blood in the stool or black stools, Genitourinary (F) - No dysuria or hematuria. No urinary frequency. No urgency or incontinence, Musculoskeletal - She has pain in her left shoulder and in her left chest wall and axillary area, Integumentary - She still has redness and some blisters in her chest wall following the radiation, Neurologic - No headache or dizziness. She has neuropathy in her hands and feet. No other focal neurologic symptoms, Psychiatric - She has some mild anxiety. No depression. She does not sleep well. Vital Signs: Performed on Feb 29, 2020 09:26 Height - 64.00 in Weight - 195.2 lbs (LOW) BSA - 1.94 sq.m BMI - 33.51 (HIGH) Temperature - 97.4 F (LOW) Pulse - 83 /min Respiration - 20 /min BP - 110/69 mm(hg) O2 Sat - 100 % Pain - 2 Physical Examination: Constitutional - She looks pretty good generally, Eyes - Sclerae nonicteric. Conjunctivae clear, ENMT - No lesions noted in the oral cavity, Hematologic/Lymphatic - No cervical or clavicular adenopathy, Respiratory - Lungs are clear with good air movement bilaterally, Cardiovascular - Heart is rhythm regular. There is no murmur, gallop, or rub noted, Breasts - There is residual erythema and some blistering in the left chest wall, but it does appear to be resolving. There are no chest wall lesions noted and there is no axillary adenopathy, Abdomen - Soft with mild tenderness in the right upper quadrant. Liver and spleen are not enlarged. There is no abdominal mass or ascites noted and there is no inguinal adenopathy, Extremities - Slight edema, Neurologic - No focal neurologic deficits noted. Impression: 1. Patient with multifocal grade 3 invasive ductal carcinoma of the left breast, by clinical evaluation stage IIIB (T4b, N1, M0), ER/SC negative and HER-2/huang positive. 2. She was given neoadjuvant chemotherapy with 6 cycles of TCH-P, completed in August 2019. 3. Her subsequent clinical course was complicated by pyelonephritis and by hematuria/right hydronephrosis, requiring placement of ureteral stent. She then required hospital admission for sepsis and bilateral pneumonia, but with gradual recovery. 4. She underwent right modified radical mastectomy on 11/10/2019, reportedly with complete pathologic response. 5. She then underwent postoperative cardiac sparing chest wall radiation, which she completed on 02/16/2020. 6. She restarted systemic adjuvant therapy with Herceptin/Perjeta on 02/16/2020. Treatment was complicated by right upper quadrant pain and elevated liver enzymes. A specific cause was not determined. Her other medical illnesses include: 7. Hypertension. 8. Hypothyroidism. 9. GERD. 10. Asthma. 11. Eczema. 12. Migraine headaches. 13. Overactive bladder. 14. History of nephrolithiasis. Plan: She is scheduled to continue with cycle 2 of Herceptin/Perjeta on 03/08/2020. At that time she will have additional laboratory evaluation for the elevated liver enzymes, including a comprehensive hepatitis profile. In addition, I will request the CT discs from [facility] for comparison to the CT scans done here in September, as she also will require follow-up for the pulmonary nodules in the left lung. Signed By: Radu Wayne M.D. <<Signature on File>>
== END 2020-02-29 09:13 | disposition home or self-care (01) ==
LOC: ONCMED 09:14
PROVIDERS: PCP Internal Medicine; Visit Provider Internal Medicine Medical Oncology
DX: C50.812 Malignant neoplasm of overlapping sites of left female breast (principal); Z79.899 Other long term (current) drug therapy; Z17.1 Estrogen receptor negative status [ER-]; R94.5 Abnormal results of liver function studies; R91.8 Other nonspecific abnormal finding of lung field; R10.11 Right upper quadrant pain; I10 Essential (primary) hypertension; E03.9 Hypothyroidism, unspecified; K21.9 Gastro-esophageal reflux disease without esophagitis; J45.909 Unspecified asthma, uncomplicated; L30.9 Dermatitis, unspecified; G43.909 Migraine, unspecified, not intractable, without status migrainosus; N32.81 Overactive bladder; Z87.442 Personal history of urinary calculi; Z92.3 Personal history of irradiation; Z90.12 Acquired absence of left breast and nipple; C77.3 Secondary and unspecified malignant neoplasm of axilla and upper limb lymph nodes
CPT/HCPCS: 99214

== ENCOUNTER 2020-03-07 10:24 | Outpatient (CLI) | payer OTHER, SELFPAY ==
[2020-03-07 11:06] LABS: Eosinophils # 0.1 10^3/uL (0.0-0.8); Eosinophils % 2.8 %; Hematocrit 28.4 % (37.0-47.0); Hemoglobin 9.4 g/dL (11.5-15.3); Lymphocytes # 0.5 10^3/uL (0.8-4.8); Lymphocytes % 11.9 %; Mean Corpuscular HGB Conc 33.1 g/dL (30.0-36.0); Mean Corpuscular Hemoglobin 30.4 pg (28.0-34.0); Mean Corpuscular Volume 91.9 fL (81-99); Mean Platelet Volume 8.7 fL (7.4-10.4); Monocytes # 0.3 10^3/uL (0.2-0.9); Monocytes % 6.7 %; Neutrophils # 3.4 10^3/uL (1.8-7.7); Neutrophils % 78.4 %; Nucleated Red Blood Cells % 0 %; Platelet Count 210 10^3/cmm (130-400); Red Blood Count 3.09 10^6/uL (4.1-5.3); Red Cell Distribution Width 14.3 % (12.1-15.1); White Blood Count 4.3 10^3/uL (4.0-10.0)
[2020-03-07 11:19] LABS: Alanine Aminotransferase 9 U/L (0-33); Albumin Level 3.5 g/dL (3.5-5.2); Alkaline Phosphatase 91 IU/L (35-105); Anion Gap 14.8 (5-19); Aspartate Amino Transferase 15 U/L (0-32); Blood Urea Nitrogen 14 mg/dL (6-20); Calcium 8.5 mg/dL (8.5-10.5); Carbon Dioxide 23 mmol/L (22-29); Chloride 105 mmol/L (98-107); Glomerular Filtration Rate 54.7 mL/min (90-130); Glucose 104 mg/dL (65-115); Osmolality Calculated 285 mOsm/kg (285-295); Potassium 3.8 mmol/L (3.5-5.1); Sodium 139 mmol/L (136-145); Total Bilirubin 0.3 mg/dL (0.15-1.2); Total Protein 6.5 g/dL (6.6-8.7)
[2020-03-07 11:45] LABS: Hepatitis A Antibody IgM Non-Reactive (Nonreactive); Hepatitis B Core AB, Total Non-Reactive (Nonreactive); Hepatitis B Surface Antigen Non-Reactive (Nonreactive); Hepatitis C Virus Antibody Non-Reactive (Nonreactive)
[2020-03-07 12:05] LABS: Hepatitis B Surface AB 3.5 (0-8.5)
== END 2020-03-07 10:25 | disposition home or self-care (01) ==
LOC: ONCMED 10:27
PROVIDERS: PCP Internal Medicine; Visit Provider Internal Medicine Medical Oncology
DX: C50.812 Malignant neoplasm of overlapping sites of left female breast (principal); R94.5 Abnormal results of liver function studies
CPT/HCPCS: 36591; 80053; 85025; 86705; 86706; 86709; 86803; 87340

== ENCOUNTER 2020-03-08 10:44 | Outpatient (CLI) | payer OTHER, SELFPAY ==
[2020-03-08] MEDS: sodium chloride 0.9% 250 ML 75 ML IV (10:45)
[2020-03-08] MEDS: acetaminophen 325 mg Tablet 650 MG PO (11:05)
== END 2020-03-08 10:45 | disposition home or self-care (01) ==
LOC: ONCMED 10:46
PROVIDERS: PCP Internal Medicine; Visit Provider Internal Medicine Medical Oncology
DX: Z51.12 Encounter for antineoplastic immunotherapy (principal); C50.812 Malignant neoplasm of overlapping sites of left female breast
CPT/HCPCS: 96367; 96413; 96417; J1200; J3490; J7050; J9306; J9355

== ENCOUNTER 2020-03-16 06:00 | Outpatient (RCR) | payer OTHER, SELFPAY | END 2020-04-15 23:59 | disposition home or self-care (01) | LOC: SPT 06:00 | PROVIDERS: PCP Internal Medicine; Referring Provider Radiology Radiation Oncology; Visit Provider Radiology Radiation Oncology | DX: C50.912 Malignant neoplasm of unspecified site of left female breast (principal) | CPT/HCPCS: 97140 ==

== ENCOUNTER 2020-03-29 09:27 | Outpatient (CLI) | payer OTHER, SELFPAY ==
[2020-03-29 10:13] LABS: Eosinophils # 0.3 10^3/uL (0.0-0.8); Eosinophils % 6.1 %; Hematocrit 33.7 % (37.0-47.0); Hemoglobin 10.9 g/dL (11.5-15.3); Lymphocytes # 0.6 10^3/uL (0.8-4.8); Lymphocytes % 11.9 %; Mean Corpuscular HGB Conc 32.3 g/dL (30.0-36.0); Mean Corpuscular Hemoglobin 29.4 pg (28.0-34.0); Mean Corpuscular Volume 90.8 fL (81-99); Monocytes # 0.4 10^3/uL (0.2-0.9); Monocytes % 8.6 %; Neutrophils % 73.2 %; Nucleated Red Blood Cells % 0 %; Platelet Count 208 10^3/cmm (130-400); Red Blood Count 3.71 10^6/uL (4.1-5.3); Red Cell Distribution Width 14.1 % (12.1-15.1); White Blood Count 4.8 10^3/uL (4.0-10.0)
[2020-03-29] MEDS: acetaminophen 325 mg Tablet 650 MG PO (11:05)
[2020-03-29] MEDS: sodium chloride 0.9% 250 ML 75 ML IV (11:05)
[2020-03-29 11:24] LABS: Alanine Aminotransferase 19 U/L (0-33); Albumin Level 3.9 g/dL (3.5-5.2); Alkaline Phosphatase 87 IU/L (35-105); Aspartate Amino Transferase 17 U/L (0-32); Blood Urea Nitrogen 17 mg/dL (6-20); Calcium 9.1 mg/dL (8.5-10.5); Carbon Dioxide 24 mmol/L (22-29); Chloride 103 mmol/L (98-107); Globulin 3.2 g/dL (1.3-4.6); Glomerular Filtration Rate 54.7 mL/min (90-130); Glucose 114 mg/dL (65-115); Osmolality Calculated 281 mOsm/kg (285-295); Sodium 137 mmol/L (136-145); Total Bilirubin 0.4 mg/dL (0.15-1.2); Total Protein 7.1 g/dL (6.6-8.7)
--- NOTE | 2020-04-01 16:14 | ONC FU_ITS ---
Dr. Wayne Patient Follow-Up Note Patient: Mya Harrell Unit #: [id number]: 1980 Dicatated By: Rdau Wayne M.D.Date of Visit:Mar 29, 2020 Onc Med Follow-up/Prog Note Chief Complaint: Breast cancer. History of Present Illness: This is a 39 year-old woman with grade 3 invasive ductal carcinoma of the left breast, by clinical evaluation stage IIIB (T4b, N1, M0), ER/DC negative and HER-2/huang positive. In February [address] Anne-Marie Goldberg for an initial visit to establish primary care. At that time she had some mild skin changes in her left breast, which at the time had not been of particular concern to her. She was not aware of a lump or any other change in her breast. However, her screening mammogram on 03/17/2019 was BI-RADS 0, with finding of diffuse skin thickening involving the periareolar and anterior aspect of the left breast. It was a new finding compared to prior study from 2011. Also noted was asymmetrically increased parenchyma in the anterior third and lateral aspect of the left breast with linear and punctate calcifications in a ductal distribution. A group of punctate calcifications was noted in the upper outer quadrant of the left breast posteriorly. Punctate calcifications were noted within otherwise nonenlarged left axillary lymph nodes. Additional mammogram views and left breast ultrsound on04/14/2019 were BI-RADS 4B, suspicious. The ultrasound showed skin thickening measuring 6.5 mm in depth. In the 2 o'clock position of the left breast, 3 cm from the nipple was a cystic or ductal structure measuring 2.2 x 7.3 x 7.4 mm and with posterior acoustic enhancement. A similar focus was noted in the subareolar region anteriorly and laterally measuring 4.2 x 6.7 x 7.4 mm. No other cystic or solid soft tissue abnormality seen. Two left axillary lymph nodes were seen containing echogenic aryan, one measuring 0.8 x 1 x 1 cm the other measuring 0.7 x 1.2 x 1.2 cm. She was then referred to [facility] for further management. Sstereotactic needle biopsy of the left breast on 05/05/2019 showed microinvasive carcinoma associated with DCIS, grade 3. Ultrasound-guided FNA of the left axillary lymph node showed metastatic adenocarcinoma which was ER/DC negative and HER-2/huang positive. Skin punch biopsy on 05/11/2019 showed invasive ductal carcinoma involving the superficial dermis. Staging PET/CT on 05/13/2019 showed FDG avid left breast skin thickening with maximum SUV 3.9. asymmetric left breast tissue was noted to be mildly FDG avid. A nonenlarged left axillary lymph node showed maximum SUV 2.3. Additional subcentimeter axillary lymph nodes demonstrated mild to moderate acitivity, but appeared abnormal. There was no evidence of distant metastatic disease. She was given neoadjuvant chemotherapy with TCH-P, beginning 05/25/2019. She experienced multiple toxicities with the chemotherapy, requiring frequent IV hydration. By the end of August 2019 she was able to complete 6 cycles of treatment. Her further clinical course was then complicated by pyelonephritis and subsequently by hematuria with right hydronephrosis, requiring ureteral stent placement on 10/02/2019. The following day she was admitted to the hospital with sepsis. CT scans at that time also showed evidence of bilateral pneumonia. She had somewhat of a difficult recovery, but she eventually was able to undergo left modified radical mastectomy in [place] on 11/10/2019. She reportedly had a complete pathologic response with no evidence of residual malignancy in the breast and no involvement in 18 axillary lymph nodes. She then underwent cardiac sparing postoperative chest wall radiation at [facility] in [place], which she completed on 02/16/2020. At that point she also restarted systemic therapy with Herceptin/Perjeta at 3-week intervals. She is seen for a follow-up visit. She was ill over the weekend with runny nose, sore throat, hoarseness, and cough. She had fever up to 101 degrees. She was given steroid with her nebulizer and she also was given a Z pack. Her symptoms have pretty well resolved now. She has had no fever for the past 2 days. Her energy has continued to gradually improve, though she is still not 100%. ECOG score is 1. Her appetite lately has been down. Her hot flashes have improved significantly. She has still been having low blood pressure at times, and she has had lightheadedness with it. She has had her medication adjusted. She has not been short of breath. She has had some soreness in her chest with the coughing. She still has some nausea. Bowel and bladder function have been okay. She still has some joint pain and stiffness, but nothing unusual. She was having headache. She has no focal neurologic symptoms. Medications: amLODIPine Besylate 1 Tablet (of 2.5 mg) Oral daily, cloNIDine HCl 1 Tablet (of 0.2 mg) Oral b.i.d. PRN, hydrALAZINE HCl 0.5 Tablet (of 25 mg) Oral b.i.d., Levothyroxine Sodium 1 Tablet (of 112 mcg) Oral daily, Lidocaine-Prilocaine 1 (2.5-2.5 %) Cream Topical PRN, Loratadine 1 Tablet (of 10 mg) Oral daily PRN, LORazepam 1 Tablet (of 1 mg) Oral q 6 hours PRN, Metoprolol Tartrate 1 Tablet (of 25 mg) Oral b.i.d., Omeprazole 2 Tablet (of 20 mg) Tablet, enteric coated Oral daily PRN, Ondansetron HCl 1 Tablet (of 8 mg) Oral q 8 hours PRN, Promethazine HCl 1 Tablet (of 12.5 mg) Oral PRN, Triamcinolone Acetonide 1 (0.1 %) Cream Topical t.i.d., Vitamin D2 1 Capsule Oral q 7 days Allergies: Adhesives, Chlorhexidine, Erythromycin Base, Herceptin, Lyrica, Prochlorperazine Maleate, Saxenda, and Sulfa Antibiotics. Review of Systems: Constitutional - She feels better overall, but not 100%. Appetite has been down a little. She had fever, now resolved. Her hot flashes are significantly better. ECOG score is 1, ENMT - No sinus congestion/drainage. No mouth sores. She had sore throat and hoarseness, but no difficulty swallowing, Hematologic/Lymphatic - No abnormal bruising or bleeding, Respiratory - No shortness of breath. She had cough. She has had chest soreness with the cough. No hemoptysis, Cardiovascular - No angina pain. No palpitations, Gastrointestinal - She has had some nausea. No heartburn or acid reflux. No diarrhea or constipation. No blood in the stool or black stools, Genitourinary (F) - No dysuria or hematuria. No urinary frequency. No urgency or incontinence, Musculoskeletal - She has some joint pain and stiffness, but nothing unusual, Integumentary - No skin rash, Neurologic - She had headache, now better. She has been lightheaded with low blood pressure. No numbness or tingling. No other focal neurologic symptoms, Psychiatric - No anxiety or depression. She does not sleep well. Vital Signs: Performed on Mar 29, 2020 10:09 Height - 64.00 in Weight - 191.0 lbs (LOW) BSA - 1.92 sq.m BMI - 32.79 (HIGH) Temperature - 97.5 F (LOW) Pulse - 89 /min Respiration - 20 /min BP - 97/65 mm(hg) O2 Sat - 97 % Pain - 4 Physical Examination: Constitutional - She looks pretty good generally, Eyes - Sclerae nonicteric. Conjunctivae clear, ENMT - No lesions noted in the oral cavity, Hematologic/Lymphatic - No cervical, clavicular, or axillary adenopathy, Respiratory - Lungs are clear with good air movement bilaterally, Cardiovascular - Heart is rhythm regular. There is no murmur, gallop, or rub noted, Abdomen - Mildly distended but soft. Liver and spleen are not enlarged. There is no abdominal mass or ascites noted and there is no inguinal adenopathy, Extremities - No edema, Neurologic - No focal neurologic deficits noted. Lab/Imaging: Test performed on Mar 29, 2020 09:40 Sodium 137 mmol/L Potassium 4.0 mmol/L Chloride 103 mmol/L CO2 24 mmol/L Anion Gap 14.0 BUN 17 mg/dL Creatinine 1.1 mg/dL Cr Clearance (Est) 94.0800 mL/min eGFR 54.7 mL/min Glucose 114 mg/dL Calcium 9.1 mg/dL Protein, Total 7.1 g/dL Albumin 3.9 g/dL Globulin 3.2 g/dL Bilirubin, Total 0.4 mg/dL ALT (SGPT) 19 U/L AST (SGOT) 17 U/L Alkaline Phosphatase 87 IU/L WBC 4.8 10 3/uL RBC 3.71 10 6/uL HGB 10.9 g/dL HCT 33.7 % MCV 90.8 fL MCH 29.4 pg MCHC 32.3 g/dL RDW 14.1 % Platelet Count 208 10 3/cmm MPV 9.0 fL Neutrophils 3.50 10 3/uL Lymphocytes 0.6 10 3/uL Monocytes 0.4 10 3/uL Eosinophils 0.3 10 3/uL Basophils 0.0 10 3/uL Neutrophil % 73.2 % Lymphocyte % 11.9 % Monocyte % 8.6 % Eosinophil % 6.1 % Basophils % 0.0 % NRBC % 0 % Impression: 1. Patient with multifocal grade 3 invasive ductal carcinoma of the left breast, by clinical evaluation stage IIIB (T4b, N1, M0), ER/DC negative and HER-2/huang positive. 2. She was given neoadjuvant chemotherapy with 6 cycles of TCH-P, completed in August 2019. 3. Her subsequent clinical course was complicated by pyelonephritis and by hematuria/right hydronephrosis, requiring placement of ureteral stent. She then required hospital admission for sepsis and bilateral pneumonia, but with gradual recovery. 4. She underwent left modified radical mastectomy on 11/10/2019, reportedly with complete pathologic response. 5. She then underwent postoperative cardiac sparing chest wall radiation, which she completed on 02/16/2020. 6. She restarted systemic adjuvant therapy with Herceptin/Perjeta on 02/16/2020. Treatment was complicated by right upper quadrant pain and elevated liver enzymes. A specific cause was not determined. Her other medical illnesses include: 7. Hypertension. 8. Hypothyroidism. 9. GERD. 10. Asthma. 11. Eczema. 12. Migraine headaches. 13. Overactive bladder. 14. History of nephrolithiasis. She continued with cycle 10 of Herceptin/Perjeta on 03/08/2020. She tolerated it without adverse effects. She has continued to show gradual improvement in her performance status, though over this past weekend she had symptoms of upper respiratory tract infection. Those have pretty well resolved now. She is otherwise been doing well clinically. Plan: She will continue with cycle 11 of Herceptin/Perjeta. The dosages remain the same. She returns in 3 weeks. In the meantime, I will verify the schedule for her next MUGA scan. Signed By: Radu Wayne M.D. <<Signature on File>>
== END 2020-03-29 09:28 | disposition home or self-care (01) ==
LOC: ONCMED 09:30
PROVIDERS: PCP Internal Medicine; Visit Provider Internal Medicine Medical Oncology
DX: C50.812 Malignant neoplasm of overlapping sites of left female breast (principal); Z17.1 Estrogen receptor negative status [ER-]; I10 Essential (primary) hypertension; E03.9 Hypothyroidism, unspecified; K21.9 Gastro-esophageal reflux disease without esophagitis; J45.909 Unspecified asthma, uncomplicated; L30.9 Dermatitis, unspecified; G43.909 Migraine, unspecified, not intractable, without status migrainosus; N32.81 Overactive bladder; Z79.899 Other long term (current) drug therapy; Z90.12 Acquired absence of left breast and nipple; Z92.3 Personal history of irradiation; Z87.442 Personal history of urinary calculi
CPT/HCPCS: 80053; 85025; 96367; 96413; 96417; 99214; J1200; J3490; J7050; J9306; J9355

== ENCOUNTER 2020-04-16 06:00 | Outpatient (RCR) | payer OTHER, SELFPAY | END 2020-05-16 23:59 | disposition home or self-care (01) | LOC: SPT 06:00 | PROVIDERS: PCP Internal Medicine; Referring Provider Radiology Radiation Oncology; Visit Provider Radiology Radiation Oncology | DX: C50.912 Malignant neoplasm of unspecified site of left female breast (principal); Z79.899 Other long term (current) drug therapy; Z90.12 Acquired absence of left breast and nipple | CPT/HCPCS: 97140 ==

== ENCOUNTER 2020-04-18 09:23 | Outpatient (CLI) | payer OTHER, SELFPAY ==
[2020-04-18 10:16] LABS: Eosinophils # 0.2 10^3/uL (0.0-0.8); Eosinophils % 4.9 %; Hematocrit 35.3 % (37.0-47.0); Hemoglobin 11.7 g/dL (11.5-15.3); Lymphocytes # 0.7 10^3/uL (0.8-4.8); Lymphocytes % 15.9 %; Mean Corpuscular HGB Conc 33.1 g/dL (30.0-36.0); Mean Corpuscular Volume 90.5 fL (81-99); Mean Platelet Volume 9.2 fL (7.4-10.4); Monocytes # 0.3 10^3/uL (0.2-0.9); Monocytes % 6.4 %; Neutrophils # 2.96 10^3/uL (1.8-7.7); Neutrophils % 72.6 %; Nucleated Red Blood Cells % 0 %; Platelet Count 215 10^3/cmm (130-400); Red Cell Distribution Width 13.5 % (12.1-15.1); White Blood Count 4.1 10^3/uL (4.0-10.0)
[2020-04-18 10:42] LABS: Alanine Aminotransferase 19 U/L (0-33); Albumin Level 3.8 g/dL (3.5-5.2); Alkaline Phosphatase 86 IU/L (35-105); Anion Gap 11.9 (5-19); Aspartate Amino Transferase 21 U/L (0-32); Blood Urea Nitrogen 14 mg/dL (6-20); Calcium 8.7 mg/dL (8.5-10.5); Carbon Dioxide 24 mmol/L (22-29); Chloride 105 mmol/L (98-107); Globulin 2.9 g/dL (1.3-4.6); Glomerular Filtration Rate 54.7 mL/min (90-130); Glucose 117 mg/dL (65-115); Osmolality Calculated 281 mOsm/kg (285-295); Potassium 3.9 mmol/L (3.5-5.1); Sodium 137 mmol/L (136-145); Total Bilirubin 0.3 mg/dL (0.15-1.2); Total Protein 6.7 g/dL (6.6-8.7)
== END 2020-04-18 09:24 | disposition home or self-care (01) ==
LOC: ONCMED 09:25
PROVIDERS: PCP Internal Medicine; Visit Provider Internal Medicine Medical Oncology
DX: C50.812 Malignant neoplasm of overlapping sites of left female breast (principal)
CPT/HCPCS: 36591; 80053; 85025

== ENCOUNTER 2020-04-19 08:55 | Outpatient (CLI) | payer OTHER, SELFPAY ==
[2020-04-19] MEDS: acetaminophen 325 mg Tablet 650 MG PO (10:05)
--- NOTE | 2020-04-19 12:22 | ONC FU_ITS ---
An[facility] Zhang Patient Note Patient: Mya Harrell Unit #: [id number]: [id number] Dictated By: Lester BentleyDate of Visit: Apr 19, 2020 Onc MED Follow-Up/Prog Note Chief Complaint: Breast cancer. History of Present Illness: Ms Harrell is a 39 year-old woman with grade 3 invasive ductal carcinoma of the left breast, by clinical evaluation stage IIIB (T4b, N1, M0), ER/OH negative and HER-2/huang positive. In February [address] Anne-Marie Goldberg for an initial visit to establish primary care. At that time she had some mild skin changes in her left breast, which at the time had not been of particular concern to her. She was not aware of a lump or any other change in her breast. However, her screening mammogram on 03/17/2019 was BI-RADS 0, with finding of diffuse skin thickening involving the periareolar and anterior aspect of the left breast. It was a new finding compared to prior study from 2011. Also noted was asymmetrically increased parenchyma in the anterior third and lateral aspect of the left breast with linear and punctate calcifications in a ductal distribution. A group of punctate calcifications was noted in the upper outer quadrant of the left breast posteriorly. Punctate calcifications were noted within otherwise nonenlarged left axillary lymph nodes. Additional mammogram views and left breast ultrsound on04/14/2019 were BI-RADS 4B, suspicious. The ultrasound showed skin thickening measuring 6.5 mm in depth. In the 2 o'clock position of the left breast, 3 cm from the nipple was a cystic or ductal structure measuring 2.2 x 7.3 x 7.4 mm and with posterior acoustic enhancement. A similar focus was noted in the subareolar region anteriorly and laterally measuring 4.2 x 6.7 x 7.4 mm. No other cystic or solid soft tissue abnormality seen. Two left axillary lymph nodes were seen containing echogenic aryan, one measuring 0.8 x 1 x 1 cm the other measuring 0.7 x 1.2 x 1.2 cm. She was then referred to [facility] for further management. Sstereotactic needle biopsy of the left breast on 05/05/2019 showed microinvasive carcinoma associated with DCIS, grade 3. Ultrasound-guided FNA of the left axillary lymph node showed metastatic adenocarcinoma which was ER/OH negative and HER-2/huang positive. Skin punch biopsy on 05/11/2019 showed invasive ductal carcinoma involving the superficial dermis. Staging PET/CT on 05/13/2019 showed FDG avid left breast skin thickening with maximum SUV 3.9. asymmetric left breast tissue was noted to be mildly FDG avid. A nonenlarged left axillary lymph node showed maximum SUV 2.3. Additional subcentimeter axillary lymph nodes demonstrated mild to moderate acitivity, but appeared abnormal. There was no evidence of distant metastatic disease. She was given neoadjuvant chemotherapy with TCH-P, beginning 05/25/2019. She experienced multiple toxicities with the chemotherapy, requiring frequent IV hydration. By the end of August 2019 she was able to complete 6 cycles of treatment. Her further clinical course was then complicated by pyelonephritis and subsequently by hematuria with right hydronephrosis, requiring ureteral stent placement on 10/02/2019. The following day she was admitted to the hospital with sepsis. CT scans at that time also showed evidence of bilateral pneumonia. She had somewhat of a difficult recovery, but she eventually was able to undergo left modified radical mastectomy in [place] on 11/10/2019. She reportedly had a complete pathologic response with no evidence of residual malignancy in the breast and no involvement in 18 axillary lymph nodes. She then underwent cardiac sparing postoperative chest wall radiation at [facility] in [place], which she completed on 02/16/2020. At that point she also restarted systemic therapy with Herceptin/Perjeta at 3-week intervals. She has elected to have those treatment closer to home. Ms Harrell is here today for followup. She is due for Herceptin/Perjeta. She is due for cycle 12 today. She states overall she is doing pretty good. She states her energy has improved she is able to do more things with her kids and more housework. She continues to have left chest wall tenderness and swelling. She states she cannot tolerate any thing more than does very light palpation. She states the thought of a follow-up echocardiogram is worrisome and that she is still so tender. She has maintained her ejection fraction monitoring with MUGA scans. These have been done with Dr. Good's office in [place]. Her last one was December 14, 2019. The ejection fraction was reported at 60% per patient report as she was pointed up on her patient portal. We have actually requested the actual reports so he can have those in her chart as well. She denies any new shortness of breath orthopnea. She denies any lower extremity edema. She states anytime she takes Tylenol or anything the has to be processed by the liver it tends to ache and hurt a little bit. She denies any abdominal pain today. She is having more lower back pain. She states she is had SI joint pain for years but it is certainly worse. She states she has not been taking any anti-inflammatories due to her liver functions and the liver tenderness. She states aquatic therapy has helped tremendously in the past but she no longer has access to that. She does have Percocet at home but is not taking it for the pain as I just do not like taking medications . The pain in her back has worsened to the point where she has actually made an appointment to see Dr. Bobby on May 05, 2020 for further follow-up. She did pull up a CT report from February 17, 2020 which did not show any lytic bone disease but did mention multilevel degenerative joint disease. We have asked for a copy of the scan report for our chart as well. She denies any nausea or vomiting. She has had no diarrhea or bladder changes. She states overall she thinks she is doing well. There is some question regarding how many cycles of Herceptin Perjeta she is to have. She states that she understood she was to have [address] Good's records indicate 18. A phone call was placed to Dr. Good's office to verify how many cycles. Dr. Good nurse indicated that she to believe that is 18 cycles but will clarify with Dr. Good and let us know. Her ECOG is 0. Past Medical History: Asthma Eczema Gastroesophageal reflux disease Hypertension Hypothyroidism Migraine headaches Nephrolithiasis Overactive bladder Past Surgical History: Caesarean section Modified Radical Mastectomy in 2019 Colonoscopy in 2012 Extracorporeal shock wave lithotripsy for left ureteral stone in 2005 Cholecystectomy in 2004 Right oopherectomy in 2004 Hysterectomy in 2002 Tonsillectomy in 1994 Hernia repair in 1980 Allergies: Adhesives, Chlorhexidine, Erythromycin Base, Herceptin, Lyrica, Prochlorperazine Maleate, Saxenda, and Sulfa Antibiotics. Medications: amLODIPine Besylate 1 Tablet (of 2.5 mg) Oral daily cloNIDine HCl 1 Tablet (of 0.2 mg) Oral b.i.d. PRN Levothyroxine Sodium 1 Tablet (of 112 mcg) Oral daily Lidocaine-Prilocaine 1 (2.5-2.5 %) Cream Topical PRN Loratadine 1 Tablet (of 10 mg) Oral daily PRN Metoprolol Tartrate 1 Tablet (of 25 mg) Oral b.i.d. Omeprazole 2 Tablet (of 20 mg) Tablet, enteric coated Oral daily PRN Ondansetron HCl 1 Tablet (of 8 mg) Oral q 8 hours PRN Promethazine HCl 1 Tablet (of 12.5 mg) Oral PRN Vitamin D2 1 Capsule Oral q 7 days Family History: Ms. Harrell's maternal grandmother is : lung cancer. Both parents are still living, father at age 68 and mother at age 69. Her mother has Crohn's disease. She has 3 sisters, one of whom has hypothyroidism. Her maternal grandmother had lung cancer. There is no history of breast cancer or ovarian cancer in the family. Social History: Ms. Harrell is and she is unemployed. Ms. Harrell has never smoked. She has no history of drinking. She is a nonsmoker. She does not drink alcohol. Review Of Symptoms: Constitutional Denies fevers, chills, night sweats, excessive fatigue or weight loss. Allergic/Immunologic No reactions. Eyes Denies significant visual changes. No diplopia. No amaurosis. ENMT Denies changes in hearing, sore throat, mouth sores, difficulty or changes in swallowing ability, and/or sinus drainage. Hematologic/Lymphatic Denies easy bruising or bleeding. The patient denies any tender or palpable lymph nodes. Breasts no new concerns Respiratory Denies dyspnea on exertion, chest pain, cough or hemoptysis. Denies orthopnea. Cardiovascular Denies anginal chest pain, palpitations or orthopnea. Gastrointestinal Denies nausea, vomiting, diarrhea, GI bleeding, or constipation. Denies change in bowel habits and/or stool color, no heartburn or early satiety. Genitourinary (F) No hematuria, hesitancy, incontinence, vaginal bleeding, discharge or other problems with urination. Musculoskeletal increased lower back pain. Has a hx of SI joint pain for years . Not taking any NSAIDs due to recently elevated LFTs'. Followup with Dr Bobby on 05/05/2020 to discuss plan of care for back pain. Integumentary Denies chronic rashes, inflammation, ulcerations or skin changes. Neurologic Denies headache, blurred vision, and no areas of focal weakness or numbness. Normal gait. No sensory problems. Psychiatric Denies insomnia, depression, alexa or mood swings. Vital Signs: Performed on Apr 19, 2020 09:16 Height - 64.00 in Weight - 200.0 lbs (HIGH) BSA - 1.96 sq.m BMI - 34.33 (HIGH) Temperature - 97.4 F (LOW) Pulse - 74 /min Respiration - 18 /min BP - 98/73 mm(hg) O2 Sat - 99 % Pain - 5,0 - Fully active, able to carry on all predisease activities without restrictions. (ECOG) Physical Examination: Constitutional Alert, oriented, no acute distress. Skin pink, warm and dry. Head Normocephalic; atraumatic. Eyes Conjunctivae and sclerae are clear and without icterus. Pupils are reactive and equal. Neck Supple without masses or thyromegaly. No jugular venous distension. Hematologic/Lymphatic No petechiae or purpura. No tender or palpable lymph nodes in the cervical or supraclavicular areas. Respiratory Lungs are clear to auscultation without rhonchi or wheezing. Cardiovascular Regular rate and rhythm of heart without murmurs,clicks, gallops or rubs. Chest Right chest wall venous access device insertion site is unremarkable. Left chest wall tenderness on light palpation with mild lymphedema noted. Left arm is normal at present. Abdomen Non-tender, non-distended, no masses or ascites. Back/Spine Non-tender to palpation. Extremities No visible deformities, no cyanosis, clubbing or edema. Musculoskeletal No tenderness or swelling, normal range of motion without obvious weakness. Integumentary No rashes or lesions. Neurologic No sensory or motor deficits, normal cerebellar function, normal gait. Psychiatric Alert and oriented times three. Coherent speech. Verbalizes understanding of our discussions today. Laboratory:Test performed on Apr 18, 2020 10:00 Sodium 137 mmol/L Potassium 3.9 mmol/L Chloride 105 mmol/L CO2 24 mmol/L Anion Gap 11.9 BUN 14 mg/dL Creatinine 1.1 mg/dL Cr Clearance (Est) 94.0800 mL/min eGFR 54.7 mL/min Glucose 117 mg/dL Calcium 8.7 mg/dL Protein, Total 6.7 g/dL Albumin 3.8 g/dL Globulin 2.9 g/dL Bilirubin, Total 0.3 mg/dL ALT (SGPT) 19 U/L AST (SGOT) 21 U/L Alkaline Phosphatase 86 IU/L WBC 4.1 10 3/uL RBC 3.90 10 6/uL HGB 11.7 g/dL HCT 35.3 % MCV 90.5 fL MCH 30.0 pg MCHC 33.1 g/dL RDW 13.5 % Platelet Count 215 10 3/cmm MPV 9.2 fL Neutrophils 2.96 10 3/uL Lymphocytes 0.7 10 3/uL Monocytes 0.3 10 3/uL Eosinophils 0.2 10 3/uL Basophils 0.0 10 3/uL Neutrophil % 72.6 % Lymphocyte % 15.9 % Monocyte % 6.4 % Eosinophil % 4.9 % Basophils % 0.0 % NRBC % 0 % Impression: 1. Patient with multifocal grade 3 invasive ductal carcinoma of the left breast, by clinical evaluation stage IIIB (T4b, N1, M0), ER/OH negative and HER-2/huang positive. 2. She was given neoadjuvant chemotherapy with 6 cycles of TCH-P, completed in August 2019. 3. Her subsequent clinical course was complicated by pyelonephritis and by hematuria/right hydronephrosis, requiring placement of ureteral stent. She then required hospital admission for sepsis and bilateral pneumonia, but with gradual recovery. 4. She underwent left modified radical mastectomy on 11/10/2019, reportedly with complete pathologic response. 5. She then underwent postoperative cardiac sparing chest wall radiation, which she completed on 02/16/2020. 6. She restarted systemic adjuvant therapy with Herceptin/Perjeta on 02/16/2020. Treatment was complicated by right upper quadrant pain and elevated liver enzymes. A specific cause was not determined. Her other medical illnesses include: 7. Hypertension. 8. Hypothyroidism. 9. GERD. 10. Asthma. 11. Eczema. 12. Migraine headaches. 13. Overactive bladder. 14. History of nephrolithiasis. She continued with cycle 10 of Herceptin/Perjeta on 03/08/2020. She tolerated it without adverse effects. She has continued to show gradual improvement in her performance status, though prior to her last treatment, she had symptoms of upper respiratory tract infection. Those have resolved now. She is otherwise been doing well clinically. Plan: 1. Proceed with cycle 12 of Herceptin/Perjeta. We have requested verification of total Herceptin/Perjeta treatments with Dr Good's office in [facility]. 2. Continue current premeds. 3. Labs from April 18, 2020 were reviewed in detail and discussed with Ms. Harrell and a copy was given to her. White count is 4.1, hemoglobin 11.7, platelets 215,000 ANC is 3000. Potassium 3.9 random glucose is 117 creatinine 1.1 LFTs are normal with an ALT at 19 AST is 21 and alk phos is 86. 4. She plans to follow-up with her primary care doctor Dr. Bobby on May 05, 2020 for complaints of lower back pain. Per her patient portal report from [facility], the CT from February 17, 2020 reported multilevel degenerative disc disease but no evidence of any metastatic disease. We have asked for an actual copy of this from Dr. Good's office. We did discuss possibly trying nonsteroidals such as Mobic or Voltaren. Celebrex may have been a good choice but she does have a sulfa allergy and this is contraindicated per package insert of Celebrex. We are monitoring her liver functions every 3 weeks so we can still keep a close eye on them if she decides to try an anti-inflammatory. She states she will follow-up with Dr. Bobby with this and let us know what they decide. 5. She is due for follow-up of her ejection fraction due to the Herceptin/ Perjeta. Her last MUGA scan was December 14, 2019 at [place]. Per patient report from the patient portal information from [place] it was reported that her ejection fraction was 60% at that time. We have asked for actual copies of the reports for comparison with MUGA scans is here. She requires a MUGA scan for evaluation of her cardiac function due to chest wall tenderness and lymphedema. She has been monitoring with MUGA scans since May 13, 2019 for evaluation of cardiac function due to Herceptin/Perjeta therapy. 6. We will plan to see her back in 3 weeks at which time she will have a CBC CMP. Mrs. Harrell was instructed to contact us in the interim should questions or problems arise. Signed By: Lester Bentley-, [facility] Radu Wayne MD <<Signature on File>>
[2020-04-19] MEDS: sodium chloride 0.9% 250 ML 75 ML IV (14:50)
== END 2020-04-19 08:56 | disposition home or self-care (01) ==
LOC: ONCMED 08:57
PROVIDERS: PCP Internal Medicine; Visit Provider Nurse Practitioner
DX: Z51.12 Encounter for antineoplastic immunotherapy (principal); C50.812 Malignant neoplasm of overlapping sites of left female breast; Z17.1 Estrogen receptor negative status [ER-]; M54.5 Low back pain; Z90.12 Acquired absence of left breast and nipple; Z92.3 Personal history of irradiation; I10 Essential (primary) hypertension; E03.9 Hypothyroidism, unspecified; K21.9 Gastro-esophageal reflux disease without esophagitis; J45.909 Unspecified asthma, uncomplicated; L30.9 Dermatitis, unspecified; G43.709 Chronic migraine without aura, not intractable, without status migrainosus; N32.81 Overactive bladder; Z87.442 Personal history of urinary calculi; Z79.899 Other long term (current) drug therapy; Z88.2 Allergy status to sulfonamides
CPT/HCPCS: 96367; 96413; 96417; 99214; J1200; J3490; J7050; J9306; J9355

== ENCOUNTER 2020-04-27 15:51 | Outpatient (CLI) | payer OTHER, SELFPAY ==
--- NOTE | 2020-05-02 07:50 | ONC FU_ITS ---
Dr. Wayne Patient Follow-Up Note Patient: Mya Harrell Unit #: [id number]: 1980 Dicatated By: Radu Wayne M.D.Date of Visit:Apr 27, 2020 Onc Med Follow-up/Prog Note Chief Complaint: Breast cancer. History of Present Illness: This is a 39 year-old woman with grade 3 invasive ductal carcinoma of the left breast, by clinical evaluation stage IIIB (T4b, N1, M0), ER/WI negative and HER-2/huang positive. In February [address] Anne-Marie Goldberg for an initial visit to establish primary care. At that time she had some mild skin changes in her left breast, which at the time had not been of particular concern to her. She was not aware of a lump or any other change in her breast. However, her screening mammogram on 03/17/2019 was BI-RADS 0, with finding of diffuse skin thickening involving the periareolar and anterior aspect of the left breast. It was a new finding compared to prior study from 2011. Also noted was asymmetrically increased parenchyma in the anterior third and lateral aspect of the left breast with linear and punctate calcifications in a ductal distribution. A group of punctate calcifications was noted in the upper outer quadrant of the left breast posteriorly. Punctate calcifications were noted within otherwise nonenlarged left axillary lymph nodes. Additional mammogram views and left breast ultrsound on04/14/2019 were BI-RADS 4B, suspicious. The ultrasound showed skin thickening measuring 6.5 mm in depth. In the 2 o'clock position of the left breast, 3 cm from the nipple was a cystic or ductal structure measuring 2.2 x 7.3 x 7.4 mm and with posterior acoustic enhancement. A similar focus was noted in the subareolar region anteriorly and laterally measuring 4.2 x 6.7 x 7.4 mm. No other cystic or solid soft tissue abnormality seen. Two left axillary lymph nodes were seen containing echogenic aryan, one measuring 0.8 x 1 x 1 cm the other measuring 0.7 x 1.2 x 1.2 cm. She was then referred to [facility] for further management. Sstereotactic needle biopsy of the left breast on 05/05/2019 showed microinvasive carcinoma associated with DCIS, grade 3. Ultrasound-guided FNA of the left axillary lymph node showed metastatic adenocarcinoma which was ER/WI negative and HER-2/huang positive. Skin punch biopsy on 05/11/2019 showed invasive ductal carcinoma involving the superficial dermis. Staging PET/CT on 05/13/2019 showed FDG avid left breast skin thickening with maximum SUV 3.9. asymmetric left breast tissue was noted to be mildly FDG avid. A nonenlarged left axillary lymph node showed maximum SUV 2.3. Additional subcentimeter axillary lymph nodes demonstrated mild to moderate acitivity, but appeared abnormal. There was no evidence of distant metastatic disease. She was given neoadjuvant chemotherapy with TCH-P, beginning 05/25/2019. She experienced multiple toxicities with the chemotherapy, requiring frequent IV hydration. By the end of August 2019 she was able to complete 6 cycles of treatment. Her further clinical course was then complicated by pyelonephritis and subsequently by hematuria with right hydronephrosis, requiring ureteral stent placement on 10/02/2019. The following day she was admitted to the hospital with sepsis. CT scans at that time also showed evidence of bilateral pneumonia. She had somewhat of a difficult recovery, but she eventually was able to undergo left modified radical mastectomy in [place] on 11/10/2019. She reportedly had a complete pathologic response with no evidence of residual malignancy in the breast and no involvement in 18 axillary lymph nodes. She then underwent cardiac sparing postoperative chest wall radiation at [facility] in [place], which she completed on 02/16/2020. At that point she also restarted systemic therapy with Herceptin/Perjeta at 3-week intervals. She is seen for an unplanned visit. She has had ongoing problems with the lymphedema in her left arm, and she has been undergoing lymphedema management with physical therapy. Yesterday she developed fairly acute onset of pain in her left arm just above the elbow, and she also had increased swelling in that area. She thought she could feel a more discrete knot, and the area also was tender to touch. Medications: amLODIPine Besylate 1 Tablet (of 2.5 mg) Oral daily, cloNIDine HCl 1 Tablet (of 0.2 mg) Oral b.i.d., Levothyroxine Sodium 1 Tablet (of 112 mcg) Oral daily, Lidocaine-Prilocaine 1 (2.5-2.5 %) Cream Topical PRN, Loratadine 1 Tablet (of 10 mg) Oral daily PRN, Metoprolol Tartrate 1 Tablet (of 25 mg) Oral b.i.d., Omeprazole 2 Tablet (of 20 mg) Tablet, enteric coated Oral daily PRN, Ondansetron HCl 1 Tablet (of 8 mg) Oral q 8 hours PRN, Promethazine HCl 1 Tablet (of 12.5 mg) Oral PRN, Vitamin D2 1 Capsule Oral q 7 days Allergies: Adhesives, Chlorhexidine, Erythromycin Base, Herceptin, Lyrica, Prochlorperazine Maleate, Saxenda, and Sulfa Antibiotics. Review of Systems: Constitutional - Her energy has improved. Her appetite is good and weight is stable. No fevers, night sweats, or hot flashes. ECOG score is 1, ENMT - No sinus congestion/drainage. No mouth sores. No sore throat or difficulty swallowing, Hematologic/Lymphatic - No abnormal bruising or bleeding, Respiratory - No shortness of breath. No cough. No pleuritic pain or hemoptysis, Cardiovascular - No angina pain. She has been having palpitations at night, Gastrointestinal - No nausea or vomiting. No heartburn or acid reflux. She has been having some diarrhea with her treatment. No blood in the stool or black stools, Genitourinary (F) - No dysuria or hematuria. She has urinary frequency/urgency and some incontinence, Musculoskeletal - She is having some pain in the middle of her back. She has had pain and swelling associated with the lymphedema in her left arm, Integumentary - No skin complications, Neurologic - She's been having headaches. She has lightheadedness with low blood pressure. She has been having numbness and tingling in her left hand and fingers. No other focal neurologic symptoms, Psychiatric - No anxiety or depression. No insomnia. Vital Signs: Performed on Apr 27, 2020 15:57 Height - 64.00 in Weight - 199.8 lbs (LOW) BSA - 1.96 sq.m BMI - 34.30 (HIGH) Temperature - 97.5 F (LOW) Pulse - 73 /min Respiration - 18 /min BP - 106/76 mm(hg) O2 Sat - 98 % Pain - 4 Physical Examination: Constitutional - She looks pretty good generally, Eyes - Sclerae nonicteric. Conjunctivae clear, ENMT - No lesions noted in the oral cavity, Hematologic/Lymphatic - No cervical or clavicular adenopathy, Respiratory - Lungs are clear with good air movement bilaterally, Cardiovascular - Heart is rhythm regular. There is no murmur, gallop, or rub noted, Breasts - There are no lesions noted in the left chest wall. There is no axillary adenopathy, Abdomen - Mildly distended but soft. Liver and spleen are not enlarged. There is no abdominal mass or ascites noted and there is no inguinal adenopathy, Extremities - There is slight lower extremity edema. There is mild lymphedema of the left arm. It is slightly more prominent just above the elbow. There is no other palpable abnormality in that area. There is no erythema or other evidence of cellulitis, Neurologic - No focal neurologic deficits noted. Lab/Imaging: Test performed on Apr 18, 2020 10:00 Sodium 137 mmol/L Potassium 3.9 mmol/L Chloride 105 mmol/L CO2 24 mmol/L Anion Gap 11.9 BUN 14 mg/dL Creatinine 1.1 mg/dL Cr Clearance (Est) 94.0800 mL/min eGFR 54.7 mL/min Glucose 117 mg/dL Calcium 8.7 mg/dL Protein, Total 6.7 g/dL Albumin 3.8 g/dL Globulin 2.9 g/dL Bilirubin, Total 0.3 mg/dL ALT (SGPT) 19 U/L AST (SGOT) 21 U/L Alkaline Phosphatase 86 IU/L WBC 4.1 10 3/uL RBC 3.90 10 6/uL HGB 11.7 g/dL HCT 35.3 % MCV 90.5 fL MCH 30.0 pg MCHC 33.1 g/dL RDW 13.5 % Platelet Count 215 10 3/cmm MPV 9.2 fL Neutrophils 2.96 10 3/uL Lymphocytes 0.7 10 3/uL Monocytes 0.3 10 3/uL Eosinophils 0.2 10 3/uL Basophils 0.0 10 3/uL Neutrophil % 72.6 % Lymphocyte % 15.9 % Monocyte % 6.4 % Eosinophil % 4.9 % Basophils % 0.0 % NRBC % 0 % Impression: 1. Patient with multifocal grade 3 invasive ductal carcinoma of the left breast, by clinical evaluation stage IIIB (T4b, N1, M0), ER/WI negative and HER-2/huang positive. 2. She was given neoadjuvant chemotherapy with 6 cycles of TCH-P, completed in August 2019. 3. Her subsequent clinical course was complicated by pyelonephritis and by hematuria/right hydronephrosis, requiring placement of ureteral stent. She then required hospital admission for sepsis and bilateral pneumonia, but with gradual recovery. 4. She underwent left modified radical mastectomy on 11/10/2019, reportedly with complete pathologic response. 5. She then underwent postoperative cardiac sparing chest wall radiation, which she completed on 02/16/2020. 6. She restarted systemic adjuvant therapy with Herceptin/Perjeta on 02/16/2020. Treatment was complicated by right upper quadrant pain and elevated liver enzymes. A specific cause was not determined. Her other medical illnesses include: 7. Hypertension. 8. Hypothyroidism. 9. GERD. 10. Asthma. 11. Eczema. 12. Migraine headaches. 13. Overactive bladder. 14. History of nephrolithiasis. She continued with cycle 12 of Herceptin/Perjeta on 04/19/2020. She has been tolerating treatment with no significant adverse effects. During this time she has been undergoing physical therapy for management of left arm lymphedema. Yesterday she had new pain with increased swelling in the left arm just above the elbow. Her exam today still shows mild lymphedema. There no clinical evidence for cellulitis or DVT. Plan: She can continue with her current treatment. She is to call with any increase in pain or swelling in her left arm or with development of redness or signs of cellulitis. She will otherwise continue followup as scheduled. Signed By: Radu Wayne M.D. <<Signature on File>>
== END 2020-04-27 15:52 | disposition home or self-care (01) ==
LOC: ONCMED 15:54
PROVIDERS: PCP Internal Medicine; Visit Provider Internal Medicine Medical Oncology
DX: C50.812 Malignant neoplasm of overlapping sites of left female breast (principal); Z17.1 Estrogen receptor negative status [ER-]; K21.9 Gastro-esophageal reflux disease without esophagitis; I10 Essential (primary) hypertension; E03.9 Hypothyroidism, unspecified; J45.909 Unspecified asthma, uncomplicated; L30.9 Dermatitis, unspecified; G43.909 Migraine, unspecified, not intractable, without status migrainosus; N32.81 Overactive bladder; Z79.818 Long term (current) use of other agents affecting estrogen receptors and estrogen levels
CPT/HCPCS: G0463

== ENCOUNTER 2020-05-05 12:27 | Outpatient (CLI) | payer OTHER, SELFPAY ==
--- NOTE | 2020-05-05 12:33 | USCV_ITS ---
Julio Cesar Mya Age: 39 Gender: F : 1980 Exam Date: 05/05/2020 12:47 Ordering Phys: Paulina Goldberg MD Technologist: Paola Martines Exam Location: [facility] [place] Indication: PAIN HISTORY: Upper extremity pain. PROCEDURES: Venous duplex imaging was performed in only the left upper extremity. The following venous structures were evaluated: internal jugular vein, subclavian vein, axillary vein, and brachial veins. In addition, the basilic vein and cephalic vein. In addition, the radial vein and ulnar vein. FINDINGS: Normal 2-D, color Doppler and phasicity noted in the left upper extremity venous system extending from the left internal jugular vein through the main forearm. No thrombosis or occlusion noted. Scanned area of patient concern on medial left upper arm. Unable to visualize abnormalities at this time. CONCLUSIONS No evidence for left upper extremity deep venous thrombosis. Dr. Cheli Juarez DO (Electronically Signed) Final Date: 05 May 2020 15:47 S
== END 2020-05-05 12:28 | disposition home or self-care (01) ==
LOC: RAD 12:31
PROVIDERS: PCP Internal Medicine; Visit Provider Internal Medicine
DX: M79.622 Pain in left upper arm (principal)
CPT/HCPCS: 93971

== ENCOUNTER 2020-05-09 11:30 | Outpatient (RCR) | payer OTHER, SELFPAY ==
--- NOTE | 2020-05-09 10:11 | NMCV_ITS ---
NM card bld pool r or s*[id number] Mya Harrell Age: 39 Gender: F : 1980 Exam Date: 05/09/2020 10:11 Ordering Phys: Digna Zhang NP Technologist: SAM Thurston Exam Location: [facility] Indications: MONITORING FOR HERCEPTIN Camera Used: [employer] Imaging Protocol: three view gated blood pool study Technical Image Quality: Good Dose: Admin Site: Administered By: [id number] Tagged RBCs: 24.8 IV - Right SAM Thurston Antecubital PYP: EJECTION FRACTION: Automatic LV EF: 58 Rest RV EF: Manual LV EF: FINDINGS REASON FOR STUDY: Monitoring for Herceptin, followup on ejection fraction. PROCEDURE: At the baseline, the patient was injected with 24.8 millicuries of technetium 99m, tagged onto RBCs, multiple images were obtained in the standard views. These images were obtained for left ventricular function analysis. FINDINGS: The left ventricle ejection fraction was estimated, both by manual and automatic methods. Ejection fraction 58 % by both methods. Left ventricular wall motion analysis revealed no gross wall motion abnormality. CONCLUSIONS 1. Left ventricular ejection fraction is estimated at 58%. 2. Normal left ventricular wall motion with no gross abnormality. 3. No prior similar studies to compare. Maria Guadalupe Quarles MD (Electronically Signed) Final Date: 10 May 2020 12:58 S
[2020-05-09 10:26] LABS: Eosinophils # 0.2 10^3/uL (0.0-0.8); Eosinophils % 2.8 %; Hemoglobin 12.3 g/dL (11.5-15.3); Lymphocytes # 0.9 10^3/uL (0.8-4.8); Lymphocytes % 15.2 %; Mean Corpuscular HGB Conc 33.2 g/dL (30.0-36.0); Mean Corpuscular Hemoglobin 29.5 pg (28.0-34.0); Mean Corpuscular Volume 88.7 fL (81-99); Mean Platelet Volume 9.1 fL (7.4-10.4); Monocytes # 0.4 10^3/uL (0.2-0.9); Monocytes % 6.5 %; Neutrophils # 4.25 10^3/uL (1.8-7.7); Neutrophils % 75.1 %; Nucleated Red Blood Cells % 0 %; Platelet Count 252 10^3/cmm (130-400); Red Blood Count 4.17 10^6/uL (4.1-5.3); White Blood Count 5.7 10^3/uL (4.0-10.0)
[2020-05-09 10:48] LABS: Alanine Aminotransferase 13 U/L (0-33); Albumin Level 3.9 g/dL (3.5-5.2); Alkaline Phosphatase 86 IU/L (35-105); Anion Gap 12.2 (5-19); Aspartate Amino Transferase 14 U/L (0-32); Blood Urea Nitrogen 18 mg/dL (6-20); Calcium 8.5 mg/dL (8.5-10.5); Carbon Dioxide 24 mmol/L (22-29); Chloride 104 mmol/L (98-107); Globulin 3.1 g/dL (1.3-4.6); Glomerular Filtration Rate 54.7 mL/min (90-130); Glucose 109 mg/dL (65-115); Osmolality Calculated 279 mOsm/kg (285-295); Potassium 4.2 mmol/L (3.5-5.1); Sodium 136 mmol/L (136-145); Total Bilirubin 0.5 mg/dL (0.15-1.2)
[2020-05-10] MEDS: famotidine 20 mg/2 mL INJ IVP (16:40)
[2020-05-10] MEDS: diphenhydrAMINE 50 mg/mL SDV 1mL 25 MG IV (16:43)
[2020-05-10] MEDS: acetaminophen 325 mg Tablet 650 MG PO (16:48)
[2020-05-10] MEDS: ondansetron 2 mg/ML SDV 2 mL 8 MG IV (16:50)
[2020-05-10] MEDS: sodium chloride 0.9% 250 ML 30 ML IV (17:00)
== END 2020-05-16 23:59 | disposition home or self-care (01) ==
LOC: ONCMED 11:30
PROVIDERS: PCP Internal Medicine; Visit Provider Nurse Practitioner
DX: Z51.11 Encounter for antineoplastic chemotherapy (principal); C50.812 Malignant neoplasm of overlapping sites of left female breast; Z17.1 Estrogen receptor negative status [ER-]; I10 Essential (primary) hypertension; E03.9 Hypothyroidism, unspecified; K21.9 Gastro-esophageal reflux disease without esophagitis; J45.909 Unspecified asthma, uncomplicated; L30.9 Dermatitis, unspecified; G43.909 Migraine, unspecified, not intractable, without status migrainosus; N32.81 Overactive bladder; Z79.818 Long term (current) use of other agents affecting estrogen receptors and estrogen levels
CPT/HCPCS: 36591; 78472; 80053; 85025; 96375; 96413; 96417; A9560; J1200; J2405; J3490; J7050; J9306; J9355

== ENCOUNTER 2020-05-17 06:00 | Outpatient (RCR) | payer OTHER, SELFPAY | END 2020-06-15 23:59 | disposition home or self-care (01) | LOC: SPT 06:00 | PROVIDERS: PCP Internal Medicine; Referring Provider Radiology Radiation Oncology; Visit Provider Radiology Radiation Oncology | DX: C50.912 Malignant neoplasm of unspecified site of left female breast (principal); Z79.899 Other long term (current) drug therapy | CPT/HCPCS: 97140 ==

== ENCOUNTER 2020-05-31 05:53 | Outpatient (RCR) | payer OTHER, SELFPAY ==
[2020-05-30 12:12] LABS: Eosinophils # 0.2 10^3/uL (0.0-0.8); Eosinophils % 2.9 %; Hematocrit 36.2 % (37.0-47.0); Hemoglobin 12.1 g/dL (11.5-15.3); Lymphocytes # 0.8 10^3/uL (0.8-4.8); Lymphocytes % 14.6 %; Mean Corpuscular HGB Conc 33.4 g/dL (30.0-36.0); Mean Corpuscular Hemoglobin 29.6 pg (28.0-34.0); Mean Corpuscular Volume 88.5 fL (81-99); Mean Platelet Volume 9.2 fL (7.4-10.4); Monocytes # 0.4 10^3/uL (0.2-0.9); Monocytes % 7.1 %; Neutrophils # 4.33 10^3/uL (1.8-7.7); Neutrophils % 75.1 %; Nucleated Red Blood Cells % 0 %; Platelet Count 257 10^3/cmm (130-400); Red Blood Count 4.09 10^6/uL (4.1-5.3); Red Cell Distribution Width 13.2 % (12.1-15.1); White Blood Count 5.8 10^3/uL (4.0-10.0)
[2020-05-30 13:56] LABS: Alanine Aminotransferase 16 U/L (0-33); Albumin Level 3.9 g/dL (3.5-5.2); Alkaline Phosphatase 102 IU/L (35-105); Anion Gap 14.8 (5-19); Aspartate Amino Transferase 19 U/L (0-32); Blood Urea Nitrogen 17 mg/dL (6-20); Calcium 9.1 mg/dL (8.5-10.5); Carbon Dioxide 24 mmol/L (22-29); Chloride 102 mmol/L (98-107); Globulin 2.9 g/dL (1.3-4.6); Glomerular Filtration Rate 49.5 mL/min (90-130); Glucose 87 mg/dL (65-115); Osmolality Calculated 280 mOsm/kg (285-295); Potassium 3.8 mmol/L (3.5-5.1); Sodium 137 mmol/L (136-145); Total Bilirubin 0.3 mg/dL (0.15-1.2); Total Protein 6.8 g/dL (6.6-8.7)
[2020-05-31] MEDS: acetaminophen 325 mg Tablet 650 MG PO (11:50)
[2020-05-31] MEDS: sodium chloride 0.9% 250 ML 75 ML IV (11:50)
--- NOTE | 2020-06-04 11:14 | ONC FU_ITS ---
Dr. Wayne Patient Follow-Up Note Patient: Mya Harrell Unit #: [id number]: 1980 Dicatated By: Radu Wayne M.D.Date of Visit:May 31, 2020 Onc Med Follow-up/Prog Note Chief Complaint: Breast cancer. History of Present Illness: This is a 39 year-old woman with grade 3 invasive ductal carcinoma of the left breast, by clinical evaluation stage IIIB (T4b, N1, M0), ER/[place] negative and HER-2/huang positive. In February [address] Anne-Marie Glodberg for an initial visit to establish primary care. At that time she had some mild skin changes in her left breast, which at the time had not been of particular concern to her. She was not aware of a lump or any other change in her breast. However, her screening mammogram on 03/17/2019 was BI-RADS 0, with finding of diffuse skin thickening involving the periareolar and anterior aspect of the left breast. It was a new finding compared to prior study from 2011. Also noted was asymmetrically increased parenchyma in the anterior third and lateral aspect of the left breast with linear and punctate calcifications in a ductal distribution. A group of punctate calcifications was noted in the upper outer quadrant of the left breast posteriorly. Punctate calcifications were noted within otherwise nonenlarged left axillary lymph nodes. Additional mammogram views and left breast ultrsound on04/14/2019 were BI-RADS 4B, suspicious. The ultrasound showed skin thickening measuring 6.5 mm in depth. In the 2 o'clock position of the left breast, 3 cm from the nipple was a cystic or ductal structure measuring 2.2 x 7.3 x 7.4 mm and with posterior acoustic enhancement. A similar focus was noted in the subareolar region anteriorly and laterally measuring 4.2 x 6.7 x 7.4 mm. No other cystic or solid soft tissue abnormality seen. Two left axillary lymph nodes were seen containing echogenic aryan, one measuring 0.8 x 1 x 1 cm the other measuring 0.7 x 1.2 x 1.2 cm. She was then referred to [facility] for further management. Sstereotactic needle biopsy of the left breast on 05/05/2019 showed microinvasive carcinoma associated with DCIS, grade 3. Ultrasound-guided FNA of the left axillary lymph node showed metastatic adenocarcinoma which was ER/[place] negative and HER-2/huang positive. Skin punch biopsy on 05/11/2019 showed invasive ductal carcinoma involving the superficial dermis. Staging PET/CT on 05/13/2019 showed FDG avid left breast skin thickening with maximum SUV 3.9. asymmetric left breast tissue was noted to be mildly FDG avid. A nonenlarged left axillary lymph node showed maximum SUV 2.3. Additional subcentimeter axillary lymph nodes demonstrated mild to moderate acitivity, but appeared abnormal. There was no evidence of distant metastatic disease. She was given neoadjuvant chemotherapy with TCH-P, beginning 05/25/2019. She experienced multiple toxicities with the chemotherapy, requiring frequent IV hydration. By the end of August 2019 she was able to complete 6 cycles of treatment. Her further clinical course was then complicated by pyelonephritis and subsequently by hematuria with right hydronephrosis, requiring ureteral stent placement on 10/02/2019. The following day she was admitted to the hospital with sepsis. CT scans at that time also showed evidence of bilateral pneumonia. She had somewhat of a difficult recovery, but she eventually was able to undergo left modified radical mastectomy in [place] on 11/10/2019. She reportedly had a complete pathologic response with no evidence of residual malignancy in the breast and no involvement in 18 axillary lymph nodes. She then underwent cardiac sparing postoperative chest wall radiation at [facility] in [place], which she completed on 02/16/2020. At that point she also restarted systemic therapy with Herceptin/Perjeta at 3-week intervals. She was treated here with her cycle 10 Herceptin/Perjeta on 03/08/2020. She tolerated it well, and she then continued treatment at 3-week intervals. She received cycle 13 on 05/10/2020. Just prior to that, she had a significant COVID-19 exposure, and that treatment was administered in the COVID unit at the hospital. She is seen for a follow-up visit. She has been feeling pretty good generally. She developed no COVID symptoms despite her significant exposure last month. She says she has been having a little more diarrhea with the treatment, but it is still not severe. He says it gets intense at about day 3, but only for 1 day. She also is a little more fatigued, but she is doing light work. ECOG score is 1. She has pretty good appetite, though she does report having altered taste. She has no fever or night sweats. She has had no mouth sores. She has no shortness of breath or cough. She has occasional nerve pain across her chest. She has some nausea. Her acid reflux is adequately managed with omeprazole. Bladder function remains adequate, though she does have some leakage. Her musculoskeletal pain has improved with Cymbalta. She has occasional headache, but not severe. She was having dizziness, that has improved. She has some numbness in her left hand. Medications: amLODIPine Besylate 1 Tablet (of 2.5 mg) Oral daily, Cetirizine HCl 1 Tablet (of 10 mg) Oral daily PRN, cloNIDine HCl (0.1 mg) Tablet Oral Take as Directed, Cymbalta 1 Capsule (of 40 mg) Capsule Delayed Release Particles Oral daily, Levothyroxine Sodium 1 Tablet (of 112 mcg) Oral daily, Lidocaine-Prilocaine 1 (2.5-2.5 %) Cream Topical PRN, Metoprolol Tartrate 1 Tablet (of 25 mg) Oral b.i.d., Omeprazole 2 Tablet (of 20 mg) Tablet, enteric coated Oral daily PRN, Ondansetron HCl 1 Tablet (of 8 mg) Oral q 8 hours PRN, Promethazine HCl 1 Tablet (of 12.5 mg) Oral PRN, Vitamin D2 1 Capsule Oral q 7 days Allergies: Adhesives, Chlorhexidine, Erythromycin Base, Herceptin, Lyrica, Prochlorperazine Maleate, Saxenda, and Sulfa Antibiotics. Review of Systems: Constitutional - She has been a little more fatigued, but she is able to do light work. Her appetite is good. She does have altered taste. She has no fever, night sweats, or hot flashes. ECOG score is 1, ENMT - No sinus congestion/drainage. She occasionally has runny nose. No mouth sores. No sore throat or difficulty swallowing, Hematologic/Lymphatic - No abnormal bruising or bleeding, Respiratory - No shortness of breath. No cough. No pleuritic pain or hemoptysis, Cardiovascular - She has occasional nerve pain across her chest. No angina pain. No palpitations, Gastrointestinal - She has some nausea. Her acid reflux is adequately managed with omeprazole. She has diarrhea, which gets pretty intense at about day 3, but only for 1 day. No blood in the stool or black stools, Genitourinary (F) - No dysuria or hematuria. No urinary frequency. She has some bladder leakage, Musculoskeletal - Her musculoskeletal pain has improved somewhat with Cymbalta, Integumentary - No skin rash, Neurologic - She occasionally has headache, but not severe. She was having dizziness, now resolved. She has some numbness/tingling in her left hand. She has no other focal neurologic symptoms, Psychiatric - No anxiety or depression. She has been sleeping better with Phenergan. Vital Signs: Performed on May 31, 2020 11:13 Height - 64.00 in Weight - 202.0 lbs (HIGH) BSA - 1.96 sq.m BMI - 34.67 (HIGH) Temperature - 97.6 F (LOW) Pulse - 80 /min Respiration - 18 /min BP - 113/79 mm(hg) O2 Sat - 97 % Pain - 2 Physical Examination: Constitutional - She looks pretty good generally, Eyes - Sclerae nonicteric. Conjunctivae clear, ENMT - No lesions noted in the oral cavity, Hematologic/Lymphatic - No cervical or clavicular adenopathy, Respiratory - Lungs are clear with good air movement bilaterally, Cardiovascular - Heart is rhythm regular. There is no murmur, gallop, or rub noted, Abdomen - Mildly distended but soft. Liver and spleen are not enlarged. There is no abdominal mass or ascites noted and there is no inguinal adenopathy, Extremities - There is mild lymphedema of the left arm. There is slight lower extremity edema, Integumentary - There is localized nonblanching erythema in the left anterior tibial area, Neurologic - No focal neurologic deficits noted. Lab/Imaging: CBC shows hemoglobin 12.1 g, white blood cell count 5800, and platelet count 257,000. Comprehensive metabolic profile is unremarkable. Impression: 1. Patient with multifocal grade 3 invasive ductal carcinoma of the left breast, by clinical evaluation stage IIIB (T4b, N1, M0), ER/[place] negative and HER-2/huang positive. 2. She was given neoadjuvant chemotherapy with 6 cycles of TCH-P, completed in August 2019. 3. Her subsequent clinical course was complicated by pyelonephritis and by hematuria/right hydronephrosis, requiring placement of ureteral stent. She then required hospital admission for sepsis and bilateral pneumonia, but with gradual recovery. 4. She underwent left modified radical mastectomy on 11/10/2019, reportedly with complete pathologic response. 5. She then underwent postoperative cardiac sparing chest wall radiation, which she completed on 02/16/2020. 6. She restarted systemic adjuvant therapy with Herceptin/Perjeta on 02/16/2020. Treatment was complicated by right upper quadrant pain and elevated liver enzymes. A specific cause was not determined. Her other medical illnesses include: 7. Hypertension. 8. Hypothyroidism. 9. GERD. 10. Asthma. 11. Eczema. 12. Migraine headaches. 13. Overactive bladder. 14. History of nephrolithiasis. She continued treatment with Herceptin/Perjeta at 3-week intervals. She received cycle 12 on 04/19/2020. She has been tolerating treatment with no significant adverse effects. During this time she also underwent physical therapy for management of left arm lymphedema. She continued with cycle 13 on 05/10/2020. Just prior to that treatment she had a significant COVID-19 exposure, but she developed no COVID-19 symptoms. At this point she continues to have some diarrhea and some fatigue, but she is tolerating treatment well, thus far with no evidence of recurrence of the breast cancer. Plan: She will continue with cycle 14 of Herceptin/Perjeta. She returns in 3 weeks. Signed By: Radu Wayne M.D. <<Signature on File>>
== END 2020-06-15 23:59 | disposition home or self-care (01) ==
LOC: ONCMED 05:53
PROVIDERS: PCP Internal Medicine; Visit Provider Internal Medicine Medical Oncology
DX: Z51.11 Encounter for antineoplastic chemotherapy (principal); C50.812 Malignant neoplasm of overlapping sites of left female breast; Z17.1 Estrogen receptor negative status [ER-]; I10 Essential (primary) hypertension; E03.9 Hypothyroidism, unspecified; K21.9 Gastro-esophageal reflux disease without esophagitis; J45.909 Unspecified asthma, uncomplicated; L30.9 Dermatitis, unspecified; G43.909 Migraine, unspecified, not intractable, without status migrainosus; N32.81 Overactive bladder; N20.0 Calculus of kidney; Z20.828 Contact with and (suspected) exposure to other viral communicable diseases
CPT/HCPCS: 36591; 80053; 85025; 96367; 96413; 96417; 99214; J1200; J2405; J3490; J7050; J9306; J9355

== ENCOUNTER 2020-06-01 06:00 | Outpatient (RCR) | payer OTHER, SELFPAY | END 2020-06-15 23:59 | disposition home or self-care (01) | LOC: TPT 06:00 | PROVIDERS: PCP Internal Medicine; Referring Provider Internal Medicine; Visit Provider Internal Medicine | DX: M79.662 Pain in left lower leg (principal) | CPT/HCPCS: 97110; 97161 ==

== ENCOUNTER 2020-06-16 06:00 | Outpatient (RCR) | payer OTHER, SELFPAY | END 2020-07-16 23:59 | disposition home or self-care (01) | LOC: TPT 06:00 | PROVIDERS: PCP Internal Medicine; Referring Provider Internal Medicine; Visit Provider Internal Medicine | DX: M79.662 Pain in left lower leg (principal) | CPT/HCPCS: 97110 ==

== ENCOUNTER 2020-07-15 11:00 | Outpatient (RCR) | payer OTHER, SELFPAY ==
[2020-06-21 09:30] LABS: Eosinophils # 0.2 10^3/uL (0.0-0.8); Eosinophils % 3.4 %; Hematocrit 35.6 % (37.0-47.0); Hemoglobin 11.8 g/dL (11.5-15.3); Lymphocytes # 0.7 10^3/uL (0.8-4.8); Lymphocytes % 13.5 %; Mean Corpuscular HGB Conc 33.1 g/dL (30.0-36.0); Mean Corpuscular Hemoglobin 29.9 pg (28.0-34.0); Mean Corpuscular Volume 90.4 fL (81-99); Mean Platelet Volume 9.1 fL (7.4-10.4); Monocytes # 0.2 10^3/uL (0.2-0.9); Monocytes % 4.5 %; Neutrophils # 4.17 10^3/uL (1.8-7.7); Neutrophils % 78.2 %; Nucleated Red Blood Cells % 0 %; Platelet Count 239 10^3/cmm (130-400); Red Blood Count 3.94 10^6/uL (4.1-5.3); Red Cell Distribution Width 13.3 % (12.1-15.1); White Blood Count 5.3 10^3/uL (4.0-10.0)
[2020-06-21 09:49] LABS: Alanine Aminotransferase 14 U/L (0-33); Albumin Level 3.6 g/dL (3.5-5.2); Alkaline Phosphatase 97 IU/L (35-105); Anion Gap 15.2 (5-19); Aspartate Amino Transferase 16 U/L (0-32); Blood Urea Nitrogen 12 mg/dL (6-20); Calcium 8.9 mg/dL (8.5-10.5); Carbon Dioxide 23 mmol/L (22-29); Chloride 105 mmol/L (98-107); Globulin 2.7 g/dL (1.3-4.6); Glomerular Filtration Rate 61.1 mL/min (90-130); Glucose 153 mg/dL (65-115); Osmolality Calculated 293 mOsm/kg (285-295); Potassium 3.2 mmol/L (3.5-5.1); Sodium 140 mmol/L (136-145); Total Bilirubin 0.4 mg/dL (0.15-1.2); Total Protein 6.3 g/dL (6.6-8.7)
[2020-06-21] MEDS: sodium chloride 0.9% 250 ML 75 ML IV (11:20)
[2020-06-21 14:06] LABS: Magnesium 1.7 mg/dL (1.7-2.3)
--- NOTE | 2020-06-21 15:39 | ONC FU_ITS ---
Anabell Zhang Patient Note Patient: Mya Harrell Unit #: [id number]: 1980 Dictated By: Lester BentleyDate of Visit: Jun 21, 2020 Onc MED Follow-Up/Prog Note Chief Complaint: Breast cancer. History of Present Illness: Mrs Harrell is a 39 year-old woman with grade 3 invasive ductal carcinoma of the left breast, by clinical evaluation stage IIIB (T4b, N1, M0), ER/NY negative and HER-2/huang positive. In February [address] Anne-Marie Goldberg for an initial visit to establish primary care. At that time she had some mild skin changes in her left breast, which at the time had not been of particular concern to her. She was not aware of a lump or any other change in her breast. However, her screening mammogram on 03/17/2019 was BI-RADS 0, with finding of diffuse skin thickening involving the periareolar and anterior aspect of the left breast. It was a new finding compared to prior study from 2011. Also noted was asymmetrically increased parenchyma in the anterior third and lateral aspect of the left breast with linear and punctate calcifications in a ductal distribution. A group of punctate calcifications was noted in the upper outer quadrant of the left breast posteriorly. Punctate calcifications were noted within otherwise nonenlarged left axillary lymph nodes. Additional mammogram views and left breast ultrsound on04/14/2019 were BI-RADS 4B, suspicious. The ultrasound showed skin thickening measuring 6.5 mm in depth. In the 2 o'clock position of the left breast, 3 cm from the nipple was a cystic or ductal structure measuring 2.2 x 7.3 x 7.4 mm and with posterior acoustic enhancement. A similar focus was noted in the subareolar region anteriorly and laterally measuring 4.2 x 6.7 x 7.4 mm. No other cystic or solid soft tissue abnormality seen. Two left axillary lymph nodes were seen containing echogenic aryan, one measuring 0.8 x 1 x 1 cm the other measuring 0.7 x 1.2 x 1.2 cm. She was then referred to [facility] for further management. Sstereotactic needle biopsy of the left breast on 05/05/2019 showed microinvasive carcinoma associated with DCIS, grade 3. Ultrasound-guided FNA of the left axillary lymph node showed metastatic adenocarcinoma which was ER/NY negative and HER-2/huang positive. Skin punch biopsy on 05/11/2019 showed invasive ductal carcinoma involving the superficial dermis. Staging PET/CT on 05/13/2019 showed FDG avid left breast skin thickening with maximum SUV 3.9. asymmetric left breast tissue was noted to be mildly FDG avid. A nonenlarged left axillary lymph node showed maximum SUV 2.3. Additional subcentimeter axillary lymph nodes demonstrated mild to moderate acitivity, but appeared abnormal. There was no evidence of distant metastatic disease. She was given neoadjuvant chemotherapy with TCH-P, beginning 05/25/2019. She experienced multiple toxicities with the chemotherapy, requiring frequent IV hydration. By the end of August 2019 she was able to complete 6 cycles of treatment. Her further clinical course was then complicated by pyelonephritis and subsequently by hematuria with right hydronephrosis, requiring ureteral stent placement on 10/02/2019. The following day she was admitted to the hospital with sepsis. CT scans at that time also showed evidence of bilateral pneumonia. She had somewhat of a difficult recovery, but she eventually was able to undergo left modified radical mastectomy in [place] on 11/10/2019. She reportedly had a complete pathologic response with no evidence of residual malignancy in the breast and no involvement in 18 axillary lymph nodes. She then underwent cardiac sparing postoperative chest wall radiation at [facility] in [place], which she completed on 02/16/2020. At that point she also restarted systemic therapy with Herceptin/Perjeta at 3-week intervals. She was treated here with her cycle 10 Herceptin/Perjeta on 03/08/2020. She tolerated it well, and she then continued treatment at 3-week intervals. She received cycle 13 on 05/10/2020. Just prior to that, she had a significant COVID-19 exposure, and that treatment was administered in the COVID unit at the hospital. Her last treatment on May 31, 2020 was administered in her normal chemotherapy suite. She displayed no symptoms of COVID-19. She is seen for a follow-up visit. She has been feeling pretty good generally. She developed no COVID symptoms despite her significant exposure in April 2020. Ms. Newsome is here today for follow-up. She is due for cycle 15 of 17 Herceptin Perjeta. She continues to tolerate the treatment basically well overall. She has been seen by her primary care providers and was found to have vitamin D deficiency and just was placed on vitamin D replacement once a week a couple of days ago . She states that her muscle skeletal pain is better on the Cymbalta but she is concerned about gaining weight on it. She has gained about 6 pounds since her visit here in April. She states that she has been on the Cymbalta in the past and gained 36 pounds in a year. She states she is trying to watch her diet and eats 1 good meal a day has not been eating dinner and is watching her snacks. She states she is certain that her caloric intake is decreased but she continues to gain weight. She denies any swelling or fluid buildup. She denies any fever or chills. She has had no known recent COVID-19 re-exposure, symptoms or COVID testing. She denies any new shortness of breath or orthopnea. She states she is had no chest pain or palpitations. She states due to her Yossi's she has dry skin but that is not new for her. She states she is also noticed some right breast tenderness and points to the right breast around the 10 o'clock position in the axilla. She states she thought she felt a cyst/not a few days ago and that area was tender and is press and blow machine tender today. The knot has resolved. She attributes this to increase in caffeine. However she has not had a recent mammogram of the right breast. She reports that she is having nausea in the evening. She is had no emesis. I did ask about gastritis symptoms she is having frequent heartburn and admits that she is not taking her omeprazole daily. She states that she will be consistent with taking her omeprazole the gastritis symptoms resolve. She is had increase in neck and back pain just generalized aching. She states the Cymbalta seems to have helped that. I am optimistic that replacing her vitamin D will hopefully give her some relief as well. She has had some increase in diarrhea but states if she takes Lomotil that seems to help. She had not been taken Lomotil by itself and did not feel the Imodium was helping so she just quit taking it. I have encouraged her to take the Lomotil and let us know if that is not working. She could add Kaopectate. I encouraged her that eating more small sometimes will help with diarrhea as well. She has had no neuropathy symptoms. She has some in her hands but that is stable. She denies any current lower extremity edema. Her ECOG is 1. Past Medical History: Asthma Eczema Gastroesophageal reflux disease Hypertension Hypothyroidism Migraine headaches Nephrolithiasis Overactive bladder Past Surgical History: Caesarean section Modified Radical Mastectomy in 2019 Colonoscopy in 2012 Extracorporeal shock wave lithotripsy for left ureteral stone in 2005 Cholecystectomy in 2004 Right oopherectomy in 2004 Hysterectomy in 2002 Tonsillectomy in 1994 Hernia repair in 1980 Allergies: Adhesives, Chlorhexidine, Erythromycin Base, Herceptin, Lyrica, Prochlorperazine Maleate, Saxenda, and Sulfa Antibiotics. Medications: amLODIPine Besylate 1 Tablet (of 2.5 mg) Oral daily Cetirizine HCl 1 Tablet (of 10 mg) Oral daily PRN cloNIDine HCl (0.1 mg) Tablet Oral Take as Directed Cymbalta 1 Capsule (of 40 mg) Capsule Delayed Release Particles Oral daily Levothyroxine Sodium 1 Tablet (of 112 mcg) Oral daily Lidocaine-Prilocaine 1 (2.5-2.5 %) Cream Topical PRN Metoprolol Tartrate 1 Tablet (of 25 mg) Oral b.i.d. Omeprazole 2 Tablet (of 20 mg) Tablet, enteric coated Oral daily PRN Ondansetron HCl 1 Tablet (of 8 mg) Oral q 8 hours PRN Promethazine HCl 1 Tablet (of 12.5 mg) Oral PRN Vitamin D2 1 Capsule Oral q 7 days Family History: Ms. Harrell's maternal grandmother is : lung cancer. Both parents are still living, father at age 68 and mother at age 69. Her mother has Crohn's disease. She has 3 sisters, one of whom has hypothyroidism. Her maternal grandmother had lung cancer. There is no history of breast cancer or ovarian cancer in the family. Social History: Ms. Harrell is and she is unemployed. Ms. Harrell has never smoked. She has no history of drinking. She is a nonsmoker. She does not drink alcohol. Review Of Symptoms: Constitutional Denies fevers, chills, night sweats, excessive fatigue or weight loss. She is concerned that she is gaining weight on Cymbalta. She states she is had in the past and gained 36 pounds in a year. Allergic/Immunologic No reactions. Eyes Denies significant visual changes. No diplopia. No amaurosis. ENMT Denies changes in hearing, sore throat, mouth sores, difficulty or changes in swallowing ability, and/or sinus drainage. Hematologic/Lymphatic Denies easy bruising or bleeding. The patient denies any tender or palpable lymph nodes. Breasts She has had some right breast tenderness around the 10:00 region. She thought she felt a nodule in the right upper quad center of her breast but is not palpable today. She is having tenderness in that area though. She states she thinks it might be from resuming caffeine. Respiratory Denies dyspnea on exertion, chest pain, cough or hemoptysis. Denies orthopnea. Cardiovascular Denies anginal chest pain, palpitations or orthopnea. Gastrointestinal Denies vomiting, diarrhea, GI bleeding, or constipation. Denies change in bowel habits and/or stool color, no heartburn or early satiety. She states she nausea in the evening. She states she is having some heartburn as well but has not been consistent on taking the omeprazole. Genitourinary (F) No hematuria, hesitancy, incontinence, vaginal bleeding, discharge or other problems with urination. Musculoskeletal Denies new joint pain, swelling or redness. No decreased range of motion. Integumentary Denies chronic rashes, inflammation, ulcerations or skin changes. Neurologic Denies headache, blurred vision, and no areas of focal weakness or numbness. Normal gait. No sensory problems. Psychiatric Denies insomnia, depression, alexa or mood swings. Vital Signs: Performed on Jun 21, 2020 10:22 Height - 64.00 in Weight - 205.2 lbs (HIGH) BSA - 1.98 sq.m BMI - 35.22 (HIGH) Temperature - 97.6 F (LOW) Pulse - 70 /min Respiration - 20 /min BP - 136/89 mm(hg) O2 Sat - 100 % Pain - 3,1 - No physically strenuous activity, but ambulatory and able to carry out light or sedentary work (e.g. office work, light house work). (ECOG) Physical Examination: Constitutional Alert, oriented, no acute distress. Skin pink, warm and dry. Head Normocephalic; atraumatic. She does have scattered healing lesions across her scalp. There is no particular pattern. They are scabbed with no current exudate. They are less than a centimeter in diameter without pustules and they are not blisters. She has had good hair regrowth for some time some not certain this is folliculitis. Eyes Conjunctivae and sclerae are clear and without icterus. Pupils are reactive and equal. Neck Supple without masses or thyromegaly. No jugular venous distension. Hematologic/Lymphatic No petechiae or purpura. No tender or palpable lymph nodes in the cervical or supraclavicular areas. Respiratory Lungs are clear to auscultation without rhonchi or wheezing. Cardiovascular Regular rate and rhythm of heart without murmurs,clicks, gallops or rubs. Chest Right chest wall venous access device insertion site is unremarkable. Right upper breast and axilla tenderness around the 10 o'clock position. No abnormal findings on palpation or exam. Abdomen Non-tender, non-distended, no masses or ascites. Back/Spine Non-tender to palpation. Extremities No visible deformities, no cyanosis, clubbing or edema. Musculoskeletal No tenderness or swelling, normal range of motion without obvious weakness. Integumentary No rashes or lesions. Neurologic No sensory or motor deficits, normal cerebellar function, normal gait. Psychiatric Alert and oriented times three. Coherent speech. Verbalizes understanding of our discussions today. Laboratory:Test performed on Jun 21, 2020 08:55 Magnesium 1.7 mg/dL Sodium 140 mmol/L Potassium 3.2 mmol/L Chloride 105 mmol/L CO2 23 mmol/L Anion Gap 15.2 BUN 12 mg/dL Creatinine 1.0 mg/dL Cr Clearance (Est) 103.4800 mL/min eGFR 61.1 mL/min Glucose 153 mg/dL Osmolality - Calculated 293 mOsm/kg Calcium 8.9 mg/dL Protein, Total 6.3 g/dL Albumin 3.6 g/dL Globulin 2.7 g/dL Bilirubin, Total 0.4 mg/dL ALT (SGPT) 14 U/L AST (SGOT) 16 U/L Alkaline Phosphatase 97 IU/L WBC 5.3 10 3/uL RBC 3.94 10 6/uL HGB 11.8 g/dL HCT 35.6 % MCV 90.4 fL MCH 29.9 pg MCHC 33.1 g/dL RDW 13.3 % Platelet Count 239 10 3/cmm MPV 9.1 fL Neutrophils 4.17 10 3/uL Lymphocytes 0.7 10 3/uL Monocytes 0.2 10 3/uL Eosinophils 0.2 10 3/uL Basophils 0.0 10 3/uL Neutrophil % 78.2 % Lymphocyte % 13.5 % Monocyte % 4.5 % Eosinophil % 3.4 % Basophils % 0.0 % NRBC % 0 % Impression: 1. Patient with multifocal grade 3 invasive ductal carcinoma of the left breast, by clinical evaluation stage IIIB (T4b, N1, M0), ER/NY negative and HER-2/huang positive. 2. She was given neoadjuvant chemotherapy with 6 cycles of TCH-P, completed in August 2019. 3. Her subsequent clinical course was complicated by pyelonephritis and by hematuria/right hydronephrosis, requiring placement of ureteral stent. She then required hospital admission for sepsis and bilateral pneumonia, but with gradual recovery. 4. She underwent left modified radical mastectomy on 11/10/2019, reportedly with complete pathologic response. 5. She then underwent postoperative cardiac sparing chest wall radiation, which she completed on 02/16/2020. 6. She restarted systemic adjuvant therapy with Herceptin/Perjeta on 02/16/2020. Treatment was complicated by right upper quadrant pain and elevated liver enzymes. A specific cause was not determined. Her other medical illnesses include: 7. Hypertension. 8. Hypothyroidism. 9. GERD. 10. Asthma. 11. Eczema. 12. Migraine headaches. 13. Overactive bladder. 14. History of nephrolithiasis. She continued treatment with Herceptin/Perjeta at 3-week intervals. She received cycle 12 on 04/19/2020. She has been tolerating treatment with no significant adverse effects. During this time she also underwent physical therapy for management of left arm lymphedema. She continued with cycle 13 on 05/10/2020. Just prior to that treatment she had a significant COVID-19 exposure, but she developed no COVID-19 symptoms. At this point she continues to have some diarrhea and some fatigue, but she is tolerating treatment well, thus far with no evidence of recurrence of the breast cancer. Plan: 1. Proceed with cycle 15 Herceptin Perjeta. She will complete 17 cycles. 2. Continue with current premeds she will not have Tylenol today she took a dose at 8:00 this morning. 3. Labs today reviewed in detail and discussed with Mrs Harrell and a copy was given to her. WBC 5.3, hemoglobin 11.8, platelets 239,000 ANC is 4200. Potassium 3.2 magnesium 1.7 random glucose 153 creatinine 1.0 LFTs are normal. I feel the low potassium is due to her diarrhea if she will control her diarrhea the potassium will correct itself. 4. I requested a right sided diagnostic mammogram for assessment of the breast tenderness. Ultrasound if indicated. She has a history of left breast cancer and mastectomy. She states she is due to see the breast surgeon about possible mastectomy on the right soon. 5. Her last MUGA scan was May 09, 2020. There was no significant change. Her LVEF was reported at 58% with no wall motion abnormalities. She will be due for one last MUGA scan with cycle 17 Herceptin Perjeta. 6. She requested suggestions on changing the Cymbalta. This was ordered by her primary care providers and although she could consider Effexor I did request that she speak back with Dr. Bobby regarding changing her medication. 7. We will plan to see her back in 3 weeks with CBC CMP. 8. Mrs. Harrell was instructed to contact us in the interim should questions or problems arise. 9. She was encouraged to get a flu shot whenever possible. We currently do not have them in our clinic. Signed By: Lester Bentley-, [facility] Radu Wayne MD <<Signature on File>>
[2020-07-13 10:39] LABS: Basophils % 0.2 %; Eosinophils # 0.2 10^3/uL (0.0-0.8); Eosinophils % 2.8 %; Hematocrit 35.1 % (37.0-47.0); Hemoglobin 11.7 g/dL (11.5-15.3); Lymphocytes # 0.9 10^3/uL (0.8-4.8); Lymphocytes % 16.2 %; Mean Corpuscular HGB Conc 33.3 g/dL (30.0-36.0); Mean Corpuscular Hemoglobin 30.1 pg (28.0-34.0); Mean Corpuscular Volume 90.2 fL (81-99); Mean Platelet Volume 8.7 fL (7.4-10.4); Monocytes # 0.3 10^3/uL (0.2-0.9); Neutrophils # 4.05 10^3/uL (1.8-7.7); Neutrophils % 75.6 %; Nucleated Red Blood Cells % 0 %; Platelet Count 221 10^3/cmm (130-400); Red Blood Count 3.89 10^6/uL (4.1-5.3); White Blood Count 5.4 10^3/uL (4.0-10.0)
[2020-07-13 10:56] LABS: Alanine Aminotransferase 16 U/L (0-33); Albumin Level 3.9 g/dL (3.5-5.2); Alkaline Phosphatase 97 IU/L (35-105); Anion Gap 12.4 (5-19); Aspartate Amino Transferase 17 U/L (0-32); Blood Urea Nitrogen 16 mg/dL (6-20); Calcium 8.8 mg/dL (8.5-10.5); Carbon Dioxide 26 mmol/L (22-29); Chloride 101 mmol/L (98-107); Globulin 2.3 g/dL (1.3-4.6); Glomerular Filtration Rate 61.1 mL/min (90-130); Glucose 135 mg/dL (65-115); Osmolality Calculated 285 mOsm/kg (285-295); Potassium 3.4 mmol/L (3.5-5.1); Sodium 136 mmol/L (136-145); Total Bilirubin 0.4 mg/dL (0.15-1.2); Total Protein 6.2 g/dL (6.6-8.7)
[2020-07-13] MEDS: sodium chloride 0.9% 250 ML 75 ML IV (12:15)
--- NOTE | 2020-07-15 10:21 | MM_ITS ---
WS: [id number] Exam: [place] [id number] Date/Time of Exam: 07/15/2020 10:44 AM Reason For Exam: HX BREAST CA;NEW PAIN/TENDERNESS RT BREAST 10 O'CLOCK MLO, CC and 90 degree lateral views of the right breast were obtained. Comparison 03/17/2019. Scattered fibroglandular densities noted in the right breast. No sign of suspicious mass, tumor calcification or architectural distortion. Mild nodularity stable s alanna prior study. Recommendations: Regional ultrasound of the right breast for further workup. The 10:00 to the 11:00 position in the right breast is evaluated with ultrasound. There was no sign of suspicious mass or nodule in this region. MM/[place] [id number] IMPRESSION: 1. No new suspicious finding in the right breast. BI-RADS Category 0. IMPRESSION: 1. No suspicious ultrasound finding from the 10:00 to the 11:00 position of the right breast. BI-RADS: 2-Benign FOLLOW-UP: 1 Year Follow-up. Continue yearly screening mammography.
--- NOTE | 2020-07-16 15:18 | ONC FU_ITS ---
Dr. Wayne Patient Follow-Up Note Patient: Mya Harrell Unit #: [id number]: 1980 Dicatated By: Radu Wayne M.D.Date of Visit:Jul 13, 2020 Onc Med Follow-up/Prog Note Chief Complaint: Breast cancer. History of Present Illness: This is a 39 year-old woman with grade 3 invasive ductal carcinoma of the left breast, by clinical evaluation stage IIIB (T4b, N1, M0), ER/RI negative and HER-2/huang positive. In February [address] Anne-Marie Goldberg for an initial visit to establish primary care. At that time she had some mild skin changes in her left breast, which at the time had not been of particular concern to her. She was not aware of a lump or any other change in her breast. However, her screening mammogram on 03/17/2019 was BI-RADS 0, with finding of diffuse skin thickening involving the periareolar and anterior aspect of the left breast. It was a new finding compared to prior study from 2011. Also noted was asymmetrically increased parenchyma in the anterior third and lateral aspect of the left breast with linear and punctate calcifications in a ductal distribution. A group of punctate calcifications was noted in the upper outer quadrant of the left breast posteriorly. Punctate calcifications were noted within otherwise nonenlarged left axillary lymph nodes. Additional mammogram views and left breast ultrsound on04/14/2019 were BI-RADS 4B, suspicious. The ultrasound showed skin thickening measuring 6.5 mm in depth. In the 2 o'clock position of the left breast, 3 cm from the nipple was a cystic or ductal structure measuring 2.2 x 7.3 x 7.4 mm and with posterior acoustic enhancement. A similar focus was noted in the subareolar region anteriorly and laterally measuring 4.2 x 6.7 x 7.4 mm. No other cystic or solid soft tissue abnormality seen. Two left axillary lymph nodes were seen containing echogenic aryan, one measuring 0.8 x 1 x 1 cm the other measuring 0.7 x 1.2 x 1.2 cm. She was then referred to [facility] for further management. Sstereotactic needle biopsy of the left breast on 05/05/2019 showed microinvasive carcinoma associated with DCIS, grade 3. Ultrasound-guided FNA of the left axillary lymph node showed metastatic adenocarcinoma which was ER/RI negative and HER-2/huang positive. Skin punch biopsy on 05/11/2019 showed invasive ductal carcinoma involving the superficial dermis. Staging PET/CT on 05/13/2019 showed FDG avid left breast skin thickening with maximum SUV 3.9. asymmetric left breast tissue was noted to be mildly FDG avid. A nonenlarged left axillary lymph node showed maximum SUV 2.3. Additional subcentimeter axillary lymph nodes demonstrated mild to moderate acitivity, but appeared abnormal. There was no evidence of distant metastatic disease. She was given neoadjuvant chemotherapy with TCH-P, beginning 05/25/2019. She experienced multiple toxicities with the chemotherapy, requiring frequent IV hydration. By the end of August 2019 she was able to complete 6 cycles of treatment. Her further clinical course was then complicated by pyelonephritis and subsequently by hematuria with right hydronephrosis, requiring ureteral stent placement on 10/02/2019. The following day she was admitted to the hospital with sepsis. CT scans at that time also showed evidence of bilateral pneumonia. She had somewhat of a difficult recovery, but she eventually was able to undergo left modified radical mastectomy in [place] on 11/10/2019. She reportedly had a complete pathologic response with no evidence of residual malignancy in the breast and no involvement in 18 axillary lymph nodes. She then underwent cardiac sparing postoperative chest wall radiation at [facility] in [place], which she completed on 02/16/2020. At that point she also restarted systemic therapy with Herceptin/Perjeta at 3-week intervals. She was treated here with her cycle 10 Herceptin/Perjeta on 03/08/2020. She tolerated it well, and she then continued treatment at 3-week intervals. She received cycle 13 on 05/10/2020. Just prior to that, she had a significant COVID-19 exposure, and that treatment was administered in the COVID unit at the hospital. During subsequent follow-up she had developed no symptoms of COVID-19 infection. She continued Herceptin/Perjeta at 3-week intervals. She completed cycle 15 on 06/21/2020. She is seen for a follow-up visit. She has had a rough time the last few weeks, in part because she has been feeling tired. She thinks it may just be due to the fact that she has had a lot more going on. She is still doing light work. ECOG score is 1. Her appetite has not been as good. She has not had fever or night sweats. She has not had actual hot flashes, but she has had some mild facial flushing. It has not been as bad, though, since she increased her clonidine dosage. She still has shortness of breath with activity, and she says her breathing is not getting better. She does not complain of cough. She has been having pain in her left chest wall, but she thinks it is muscular. She also is having pain in the area under her right axilla. She is having a bit more nausea since she quit taking Phenergan at bedtime. She has some acid reflux, but not bad. She still has a lot of loose stools and occasionally diarrhea. Her bladder function is about the same. She has occasional leakage. She also reports having weird random pains in her arms, and that tends to occur more at night. She has been having some charley horses in her legs. She has been having sharp pains in her head at night. She has some numbness in her left hand. She has no other focal neurologic symptoms. Medications: amLODIPine Besylate 1 Tablet (of 2.5 mg) Oral daily, Cetirizine HCl 1 Tablet (of 10 mg) Oral daily PRN, cloNIDine HCl (0.1 mg) Tablet Oral Take as Directed, Cymbalta 1 Capsule (of 40 mg) Capsule Delayed Release Particles Oral daily, Levothyroxine Sodium 1 Tablet (of 112 mcg) Oral daily, Lidocaine-Prilocaine 1 (2.5-2.5 %) Cream Topical PRN, Metoprolol Tartrate 1 Tablet (of 25 mg) Oral b.i.d., Omeprazole 2 Tablet (of 20 mg) Tablet, enteric coated Oral daily PRN, Ondansetron HCl 1 Tablet (of 8 mg) Oral q 8 hours PRN, Promethazine HCl 1 Tablet (of 12.5 mg) Oral PRN, Vitamin D2 1 Capsule Oral q 7 days Allergies: Adhesives, Chlorhexidine, Erythromycin Base, Herceptin, Lyrica, Prochlorperazine Maleate, Saxenda, and Sulfa Antibiotics. Review of Systems: Constitutional - She has had a rough time the last few weeks. She has been tired, but she says she has had a lot more going on. Her appetite has not been as good. She has not had fever. She does not have hot flashes or night sweating, but she has had mild facial flushing. That has been less since she increased her clonidine. ECOG score is 1, ENMT - She has a little bit of allergy related sinus symptoms. No mouth sores. No sore throat or difficulty swallowing, Hematologic/Lymphatic - No abnormal bruising or bleeding, Respiratory - She still has shortness of breath with activity, and she does not think it is getting better. No cough. No pleuritic pain or hemoptysis, Cardiovascular - She has pain in her left chest wall, she thinks it is most likely muscular. No palpitations, Gastrointestinal - She has been a little bit more nauseous since she stopped taking Phenergan at bedtime. She has some acid reflux, but not bad. She still has lots of loose stools and sometimes diarrhea. No blood in the stool or black stools, Genitourinary (F) - Bladder function is the same. She has some leakage. No dysuria or hematuria. No urinary frequency, Musculoskeletal - She has pain in the left chest wall. She also has been having pain in the area under her right axilla. She reports having some weird random pain in her arms, which tends to be worse at night, Integumentary - No skin rash, Neurologic - She has had some sharp pain in her head at night, and she does have history of migraines. No dizziness. She has some numbness in her left hand. No other focal neurologic symptoms, Psychiatric - Her anxiety/depression is adequately managed. She is sleeping better. Vital Signs: Performed on Jul 13, 2020 11:25 Height - 64.00 in Weight - 209.2 lbs (HIGH) BSA - 1.99 sq.m BMI - 35.91 (HIGH) Temperature - 97.2 F (LOW) Pulse - 80 /min Respiration - 19 /min BP - 149/91 mm(hg) (HIGH) O2 Sat - 98 % Pain - 2 Physical Examination: Constitutional - She looks pretty good generally, Eyes - Sclerae nonicteric. Conjunctivae clear, ENMT - No lesions noted in the oral cavity, Hematologic/Lymphatic - No cervical or clavicular adenopathy, Respiratory - Lungs are clear with good air movement bilaterally, Cardiovascular - Heart is rhythm regular. There is no murmur, gallop, or rub noted, Breasts - There is no palpable abnormality in the upper outer quadrant right breast/lateral chest wall. The left chest wall shows no lesions. There is no axillary adenopathy noted, Abdomen - Mildly distended but soft. Liver and spleen are not enlarged. There is no abdominal mass or ascites noted and there is no inguinal adenopathy, Extremities - There is mild lymphedema of the left arm. No lower extremity edema, Neurologic - No focal neurologic deficits noted. Lab/Imaging: Test performed on Jul 13, 2020 10:25 Sodium 136 mmol/L Potassium 3.4 mmol/L Chloride 101 mmol/L CO2 26 mmol/L Anion Gap 12.4 BUN 16 mg/dL Creatinine 1.0 mg/dL Cr Clearance (Est) 103.4800 mL/min eGFR 61.1 mL/min Glucose 135 mg/dL Osmolality - Calculated 285 mOsm/kg Calcium 8.8 mg/dL Protein, Total 6.2 g/dL Albumin 3.9 g/dL Globulin 2.3 g/dL Bilirubin, Total 0.4 mg/dL ALT (SGPT) 16 U/L AST (SGOT) 17 U/L Alkaline Phosphatase 97 IU/L WBC 5.4 10 3/uL RBC 3.89 10 6/uL HGB 11.7 g/dL HCT 35.1 % MCV 90.2 fL MCH 30.1 pg MCHC 33.3 g/dL RDW 13.0 % Platelet Count 221 10 3/cmm MPV 8.7 fL Neutrophils 4.05 10 3/uL Lymphocytes 0.9 10 3/uL Monocytes 0.3 10 3/uL Eosinophils 0.2 10 3/uL Basophils 0.0 10 3/uL Neutrophil % 75.6 % Lymphocyte % 16.2 % Monocyte % 5.0 % Eosinophil % 2.8 % Basophils % 0.2 % NRBC % 0 % Impression: 1. Patient with multifocal grade 3 invasive ductal carcinoma of the left breast, by clinical evaluation stage IIIB (T4b, N1, M0), ER/RI negative and HER-2/huang positive. 2. She was given neoadjuvant chemotherapy with 6 cycles of TCH-P, completed in August 2019. 3. Her subsequent clinical course was complicated by pyelonephritis and by hematuria/right hydronephrosis, requiring placement of ureteral stent. She then required hospital admission for sepsis and bilateral pneumonia, but with gradual recovery. 4. She underwent left modified radical mastectomy on 11/10/2019, reportedly with complete pathologic response. 5. She then underwent postoperative cardiac sparing chest wall radiation, which she completed on 02/16/2020. 6. She restarted systemic adjuvant therapy with Herceptin/Perjeta on 02/16/2020. Treatment was complicated by right upper quadrant pain and elevated liver enzymes. A specific cause was not determined. Her other medical illnesses include: 7. Hypertension. 8. Hypothyroidism. 9. GERD. 10. Asthma. 11. Eczema. 12. Migraine headaches. 13. Overactive bladder. 14. History of nephrolithiasis. She continued treatment with Herceptin/Perjeta at 3-week intervals. She received cycle 12 on 04/19/2020. She has been tolerating treatment with no significant adverse effects. During this time she also underwent physical therapy for management of left arm lymphedema. She continued with cycle 13 on 05/10/2020. Just prior to that treatment she had a significant COVID-19 exposure, but during followup she developed no COVID-19 symptoms, and she was able to continue treatment at 3-week intervals. She has now completed 15 cycles of treatment. She has not been feeling quite as good generally, she has been having more fatigue and she has had more pain in the left chest wall and in the area under her right axilla. She also reports having weird random pains in both arms and she has been having sharp pains in her head at night. She continues to have frequent loose stools, which is almost certainly treatment related. Plan: She will continue with cycle 16 of Herceptin/Perjeta. She returns in 3 weeks for her 17th and final cycle of treatment. Signed By: Radu Wayne M.D. <<Signature on File>>
== END 2020-07-16 23:59 | disposition home or self-care (01) ==
LOC: ONCMED 11:00
PROVIDERS: Internal Medicine Medical Oncology; PCP Internal Medicine; Visit Provider Nurse Practitioner
DX: Z51.12 Encounter for antineoplastic immunotherapy (principal); Z23 Encounter for immunization; C50.812 Malignant neoplasm of overlapping sites of left female breast; C77.3 Secondary and unspecified malignant neoplasm of axilla and upper limb lymph nodes; N64.4 Mastodynia; R19.7 Diarrhea, unspecified; R53.83 Other fatigue; I10 Essential (primary) hypertension; E03.9 Hypothyroidism, unspecified; K21.9 Gastro-esophageal reflux disease without esophagitis; J45.909 Unspecified asthma, uncomplicated; L30.9 Dermatitis, unspecified; G43.909 Migraine, unspecified, not intractable, without status migrainosus; N32.81 Overactive bladder; Z17.1 Estrogen receptor negative status [ER-]; Z90.12 Acquired absence of left breast and nipple; Z87.442 Personal history of urinary calculi; Z79.899 Other long term (current) drug therapy
CPT/HCPCS: 76642; 77065; 80053; 81003; 83735; 85025; 90471; 90686; 96367; 96413; 96417; 99214; J1200; J2405; J3490; J7050; J9306; J9355

== ENCOUNTER 2020-07-15 12:19 | Outpatient (CLI) | payer OTHER, SELFPAY ==
--- NOTE | 2020-07-15 12:28 | XRR_ITS ---
PROCEDURE INFORMATION: Exam: XR Abdomen, 1 View Exam date and time: 07/15/2020 12:42 PM Age: 39 years old Clinical indication: Condition or disease; Other: Stones; Prior surgery; Surgery type: Stent, c section, hysto; Patient HX: Post placement of ur stent TECHNIQUE: Imaging protocol: XR of the abdomen. Views: Frontal supine view of the abdomen. 1 View. COMPARISON: CR XR KUB [id number] 01/01/2020 8:12 AM FINDINGS: Tubes, catheters and devices: Prior examination showed a right side ureteral stent which is now been removed Gastrointestinal tract: Normal. There is mild dilatation of the colon. Organs: Negative for radiodense urinary tract stones. Bones/joints: Unremarkable. XR/XR KUB [id number] IMPRESSION: 1. No acute GI abnormality. 2. Negative for radiodense urinary tract stones
== END 2020-07-15 12:20 | disposition home or self-care (01) ==
PROVIDERS: PCP Internal Medicine; Visit Provider Urology
DX: N13.30 Unspecified hydronephrosis (principal)
CPT/HCPCS: 74018

== ENCOUNTER 2020-07-17 06:00 | Outpatient (RCR) | payer OTHER, SELFPAY | END 2020-08-08 14:45 | disposition home or self-care (01) | LOC: TPT 06:00 | PROVIDERS: PCP Internal Medicine; Referring Provider Internal Medicine; Visit Provider Internal Medicine | DX: M79.662 Pain in left lower leg (principal) | CPT/HCPCS: 97110 ==

== ENCOUNTER 2020-07-17 06:00 | Outpatient (RCR) | payer OTHER, SELFPAY | END 2020-08-15 23:59 | disposition home or self-care (01) | LOC: SPT 06:00 | PROVIDERS: PCP Internal Medicine; Referring Provider Radiology Radiation Oncology; Visit Provider Radiology Radiation Oncology | DX: M79.662 Pain in left lower leg (principal) | CPT/HCPCS: 97110; 97140 ==

== ENCOUNTER 2020-07-22 08:44 | Outpatient (CLI) | payer OTHER, SELFPAY ==
--- NOTE | 2020-07-22 08:56 | CT_ITS ---
WS: [id number] CTA scan of the chest with IV contrast. Additional two-dimensional coronal and sagittal reconstructio n and MIP images was performed. 07/22/2020 Clinical Data: BREAST CANCER, SHORTNESS OF BREATH Comparison: CT chest abdomen and pelvis, 10/05/2019. DLP: 746.[address] scans at [facility] use at least one of these dose optimization techniques: automat ed exposure control; mA and/or kV adjustment per patient size (includes targeted exams where dose is matched to clinical indication); or iterative reconstruction. Findings: The central pulmonary arteries and peripheral pulmonary arteries fill normally with no evidence of in traluminal filling defects. No pulmonary embolic disease is noted. There is a pleural-based opacity in the left upper lobe which could be atelectasis, fibrotic scar, or less likely a pleural-based tumor. There are clips in the left axilla and the left breast is absent. There is an infusion port on the right. No pneumonia or pneumothorax is seen. There are no nodules o r effusions. No large masses are present. The heart size is normal with no pericardial effusion. The thoracic aorta demonstrates no abnormalities or dilatations. There is no axillary or significant medi astinal adenopathy. The thyroid gland shows normal enhancement. The trachea bifurcates into the bronc hi. The upper abdomen shows no abnormalities. The visualized liver, spleen, pancreas, gallbladder, adrena l glands and superior poles of the kidneys are not remarkable. The bones of the thorax are not remarkable. No metastatic lesions are seen. CT/CT angio chest PE protcl [id number] Impression: 1. Negative for pulmonary embolic disease. 2. Left upper lobe pleural-based parenchymal scar and/or fibrosis. Tumor is les s likely. 3. Absent left breast with multiple surgical clips in left axilla.
[2020-07-22] MEDS: iohexol 350 mg/mL 100 mL Btl IV (09:19)
== END 2020-07-22 08:45 | disposition home or self-care (01) ==
LOC: RADWPI 08:47
PROVIDERS: PCP Internal Medicine; Visit Provider Internal Medicine Medical Oncology
DX: C50.812 Malignant neoplasm of overlapping sites of left female breast (principal); R06.02 Shortness of breath; Z90.12 Acquired absence of left breast and nipple
CPT/HCPCS: 71275; Q9967

== ENCOUNTER 2020-08-03 06:13 | Outpatient (CLI) | payer OTHER, SELFPAY ==
[2020-08-03 08:45] LABS: Basophils % 0.2 %; Eosinophils # 0.2 10^3/uL (0.0-0.8); Eosinophils % 3.2 %; Hematocrit 37.5 % (37.0-47.0); Hemoglobin 12.3 g/dL (11.5-15.3); Lymphocytes % 16.9 %; Mean Corpuscular HGB Conc 32.8 g/dL (30.0-36.0); Mean Corpuscular Hemoglobin 30.1 pg (28.0-34.0); Mean Corpuscular Volume 91.7 fL (81-99); Mean Platelet Volume 9.1 fL (7.4-10.4); Monocytes # 0.2 10^3/uL (0.2-0.9); Monocytes % 4.2 %; Neutrophils # 4.28 10^3/uL (1.8-7.7); Neutrophils % 75.3 %; Nucleated Red Blood Cells % 0 %; Platelet Count 266 10^3/cmm (130-400); Red Blood Count 4.09 10^6/uL (4.1-5.3); Red Cell Distribution Width 12.9 % (12.1-15.1); White Blood Count 5.7 10^3/uL (4.0-10.0)
[2020-08-03 09:04] LABS: Alanine Aminotransferase 16 U/L (0-33); Albumin Level 3.9 g/dL (3.5-5.2); Alkaline Phosphatase 105 IU/L (35-105); Anion Gap 14.5 (5-19); Aspartate Amino Transferase 17 U/L (0-32); Blood Urea Nitrogen 16 mg/dL (6-20); Calcium 8.9 mg/dL (8.5-10.5); Carbon Dioxide 23 mmol/L (22-29); Chloride 102 mmol/L (98-107); Globulin 2.8 g/dL (1.3-4.6); Glomerular Filtration Rate 45.1 mL/min (90-130); Glucose 149 mg/dL (65-115); Osmolality Calculated 286 mOsm/kg (285-295); Potassium 3.5 mmol/L (3.5-5.1); Sodium 136 mmol/L (136-145); Total Bilirubin 0.3 mg/dL (0.15-1.2); Total Protein 6.7 g/dL (6.6-8.7)
[2020-08-03] MEDS: acetaminophen 325 mg Tablet 650 MG PO (10:50)
[2020-08-03] MEDS: sodium chloride 0.9% 250 ML 75 ML IV (10:50)
--- NOTE | 2020-08-07 10:25 | ONC FU_ITS ---
Dr. Wayne Patient Follow-Up Note Patient: Mya Harrell Unit #: [id number]: 1980 Dicatated By: Radu Wayne M.D.Date of Visit:Aug 03, 2020 Onc Med Follow-up/Prog Note Chief Complaint: Breast cancer. History of Present Illness: This is a 39 year-old woman with grade 3 invasive ductal carcinoma of the left breast, by clinical evaluation stage IIIB (T4b, N1, M0), ER/CT negative and HER-2/huang positive. In February [address] Anne-Marie Goldberg for an initial visit to establish primary care. At that time she had some mild skin changes in her left breast, which at the time had not been of particular concern to her. She was not aware of a lump or any other change in her breast. However, her screening mammogram on 03/17/2019 was BI-RADS 0, with finding of diffuse skin thickening involving the periareolar and anterior aspect of the left breast. It was a new finding compared to prior study from 2011. Also noted was asymmetrically increased parenchyma in the anterior third and lateral aspect of the left breast with linear and punctate calcifications in a ductal distribution. A group of punctate calcifications was noted in the upper outer quadrant of the left breast posteriorly. Punctate calcifications were noted within otherwise nonenlarged left axillary lymph nodes. Additional mammogram views and left breast ultrsound on04/14/2019 were BI-RADS 4B, suspicious. The ultrasound showed skin thickening measuring 6.5 mm in depth. In the 2 o'clock position of the left breast, 3 cm from the nipple was a cystic or ductal structure measuring 2.2 x 7.3 x 7.4 mm and with posterior acoustic enhancement. A similar focus was noted in the subareolar region anteriorly and laterally measuring 4.2 x 6.7 x 7.4 mm. No other cystic or solid soft tissue abnormality seen. Two left axillary lymph nodes were seen containing echogenic aryan, one measuring 0.8 x 1 x 1 cm the other measuring 0.7 x 1.2 x 1.2 cm. She was then referred to [facility] for further management. Sstereotactic needle biopsy of the left breast on 05/05/2019 showed microinvasive carcinoma associated with DCIS, grade 3. Ultrasound-guided FNA of the left axillary lymph node showed metastatic adenocarcinoma which was ER/CT negative and HER-2/huang positive. Skin punch biopsy on 05/11/2019 showed invasive ductal carcinoma involving the superficial dermis. Staging PET/CT on 05/13/2019 showed FDG avid left breast skin thickening with maximum SUV 3.9. asymmetric left breast tissue was noted to be mildly FDG avid. A nonenlarged left axillary lymph node showed maximum SUV 2.3. Additional subcentimeter axillary lymph nodes demonstrated mild to moderate acitivity, but appeared abnormal. There was no evidence of distant metastatic disease. She was given neoadjuvant chemotherapy with TCH-P, beginning 05/25/2019. She experienced multiple toxicities with the chemotherapy, requiring frequent IV hydration. By the end of August 2019 she was able to complete 6 cycles of treatment. Her further clinical course was then complicated by pyelonephritis and subsequently by hematuria with right hydronephrosis, requiring ureteral stent placement on 10/02/2019. The following day she was admitted to the hospital with sepsis. CT scans at that time also showed evidence of bilateral pneumonia. She had somewhat of a difficult recovery, but she eventually was able to undergo left modified radical mastectomy in [place] on 11/10/2019. She reportedly had a complete pathologic response with no evidence of residual malignancy in the breast and no involvement in 18 axillary lymph nodes. She then underwent cardiac sparing postoperative chest wall radiation at [facility] in [place], which she completed on 02/16/2020. At that point she also restarted systemic therapy with Herceptin/Perjeta at 3-week intervals. She was treated here with her cycle 10 Herceptin/Perjeta on 03/08/2020. She tolerated it well, and she then continued treatment at 3-week intervals. She received cycle 13 on 05/10/2020. Just prior to that, she had a significant COVID-19 exposure, and that treatment was administered in the COVID unit at the hospital. During subsequent follow-up she had developed no symptoms of COVID-19 infection. She continued Herceptin/Perjeta at 3-week intervals. She completed cycle 16 on 07/13/2020. She is seen for a follow-up visit. She has been a little more fatigued and she has been taking more naps. She is able to work. Her appetite is okay. She says she is less hungry, but she has been gaining weight since she started Cymbalta. She has not had fever. Her hot flashes have improved significantly since she has been taking clonidine. She has dry mouth, though. She has a little shortness of breath. She has some tenderness in the upper left chest area but she otherwise does not have chest pain. She has nausea off and on. Her acid reflux is adequately managed with omeprazole. She still has some diarrhea. Bladder function has improved with Vesicare. She has some pain in the left shoulder and elbow, but she otherwise is not having significant joint or bone pain. She has just occasional headache. Her dizziness is better. She has noticed a little more neuropathy, but it is still tolerable. Medications: amLODIPine Besylate 1 Tablet (of 2.5 mg) Oral daily, Cetirizine HCl 1 Tablet (of 10 mg) Oral daily PRN, cloNIDine HCl 1 Tablet (of 0.1 mg) Oral b.i.d., Cymbalta 1 Capsule (of 40 mg) Capsule Delayed Release Particles Oral daily, Levothyroxine Sodium 1 Tablet (of 112 mcg) Oral daily, Lidocaine-Prilocaine 1 (2.5-2.5 %) Cream Topical PRN, Metoprolol Tartrate 1 Tablet (of 25 mg) Oral b.i.d., Omeprazole 2 Tablet (of 20 mg) Tablet, enteric coated Oral daily PRN, Ondansetron HCl 1 Tablet (of 8 mg) Oral q 8 hours PRN, Promethazine HCl 1 Tablet (of 12.5 mg) Oral PRN, VESIcare 1 Tablet (of 10 mg) Oral daily, Vitamin D2 1 Capsule Oral q 7 days Allergies: Adhesives, Chlorhexidine, Erythromycin Base, Herceptin, Lyrica, Prochlorperazine Maleate, Saxenda, and Sulfa Antibiotics. Review of Systems: Constitutional - She has a little more fatigued and she has been having to nap more. She is still able to do light work. Her appetite is okay. She says she is less hungry, but she has gained weight since she started taking Cymbalta. She has not had fever. Her hot flashes have improved with clonidine. ECOG score is 1, ENMT - No sinus congestion/drainage. She has dry mouth. No sore throat or difficulty swallowing, Hematologic/Lymphatic - No abnormal bruising or bleeding, Respiratory - She has some shortness of breath. No cough. No pleuritic pain or hemoptysis, Cardiovascular - No angina pain. No palpitations, Gastrointestinal - No nausea or vomiting. No heartburn or acid reflux. She still has some diarrhea, but it is manageable. No blood in the stool or black stools, Genitourinary (F) - No dysuria or hematuria. Her bladder symptoms have improved with Vesicare, Musculoskeletal - She has some discomfort in her upper left chest wall and she has some pain in the left shoulder and elbow. She is otherwise not having any significant joint or bone pain, Integumentary - No skin rash, Neurologic - She has occasional headache. Her dizziness is better. She is having a little more neuropathy symptoms, Psychiatric - Her anxiety/depression is adequately managed. Vital Signs: Performed on Aug 03, 2020 13:30 Height - 64.00 in Temperature - 97.5 F (LOW) Pulse - 86 /min Respiration - 18 /min BP - 129/78 mm(hg) O2 Sat - 100 % Pain - 0 Fatigue - 0 Performed on Aug 03, 2020 10:02 Height - 64.00 in Weight - 207.2 lbs (LOW) BSA - 1.99 sq.m BMI - 35.57 (HIGH) Temperature - 97.3 F (LOW) Pulse - 62 /min Respiration - 22 /min BP - 143/89 mm(hg) (HIGH) O2 Sat - 100 % Pain - 4 Physical Examination: Constitutional - She looks pretty good generally, Eyes - Sclerae nonicteric. Conjunctivae clear, ENMT - No lesions noted in the oral cavity, Hematologic/Lymphatic - No cervical, clavicular, or axillary adenopathy, Respiratory - Lungs are clear with good air movement bilaterally, Cardiovascular - Heart is rhythm regular. There is no murmur, gallop, or rub noted, Abdomen - Mildly distended but soft. Liver and spleen are not enlarged. There is no abdominal mass or ascites noted and there is no inguinal adenopathy, Extremities - There is mild lymphedema of the left arm. No lower extremity edema, Neurologic - No focal neurologic deficits noted. Lab/Imaging: Test performed on Aug 03, 2020 08:37 Sodium 136 mmol/L Potassium 3.5 mmol/L Chloride 102 mmol/L CO2 23 mmol/L Anion Gap 14.5 BUN 16 mg/dL Creatinine 1.3 mg/dL Cr Clearance (Est) 79.6000 mL/min eGFR 45.1 mL/min Glucose 149 mg/dL Osmolality - Calculated 286 mOsm/kg Calcium 8.9 mg/dL Protein, Total 6.7 g/dL Albumin 3.9 g/dL Globulin 2.8 g/dL Bilirubin, Total 0.3 mg/dL ALT (SGPT) 16 U/L AST (SGOT) 17 U/L Alkaline Phosphatase 105 IU/L WBC 5.7 10 3/uL RBC 4.09 10 6/uL HGB 12.3 g/dL HCT 37.5 % MCV 91.7 fL MCH 30.1 pg MCHC 32.8 g/dL RDW 12.9 % Platelet Count 266 10 3/cmm MPV 9.1 fL Neutrophils 4.28 10 3/uL Lymphocytes 1.0 10 3/uL Monocytes 0.2 10 3/uL Eosinophils 0.2 10 3/uL Basophils 0.0 10 3/uL Neutrophil % 75.3 % Lymphocyte % 16.9 % Monocyte % 4.2 % Eosinophil % 3.2 % Basophils % 0.2 % NRBC % 0 % Impression: 1. Patient with multifocal grade 3 invasive ductal carcinoma of the left breast, by clinical evaluation stage IIIB (T4b, N1, M0), ER/CT negative and HER-2/huang positive. 2. She was given neoadjuvant chemotherapy with 6 cycles of TCH-P, completed in August 2019. 3. Her subsequent clinical course was complicated by pyelonephritis and by hematuria/right hydronephrosis, requiring placement of ureteral stent. She then required hospital admission for sepsis and bilateral pneumonia, but with gradual recovery. 4. She underwent left modified radical mastectomy on 11/10/2019, reportedly with complete pathologic response. 5. She then underwent postoperative cardiac sparing chest wall radiation, which she completed on 02/16/2020. 6. She restarted systemic adjuvant therapy with Herceptin/Perjeta on 02/16/2020. Treatment was complicated by right upper quadrant pain and elevated liver enzymes. A specific cause was not determined. Her other medical illnesses include: 7. Hypertension. 8. Hypothyroidism. 9. GERD. 10. Asthma. 11. Eczema. 12. Migraine headaches. 13. Overactive bladder. 14. History of nephrolithiasis. She continued treatment with Herceptin/Perjeta at 3-week intervals. She received cycle 12 on 04/19/2020. She has been tolerating treatment with no significant adverse effects. During this time she also underwent physical therapy for management of left arm lymphedema. She continued with cycle 13 on 05/10/2020. Just prior to that treatment she had a significant COVID-19 exposure, but during followup she developed no COVID-19 symptoms, and she was able to continue treatment at 3-week intervals. She has now completed 16 cycles of treatment. She continues to have significant fatigue, and she also is still having some diarrhea with the treatment. She has had weight gain since she started Cymbalta. Overall, though, she continues to tolerate treatment with acceptable toxicity. Plan: She will continue with her 17th and final cycle of Herceptin/Perjeta. She will be scheduling her further surgery, which she hopes to have completed by next month. She will be scheduled for a surveillance MUGA scan, which is due next week. I will tentatively plan a follow-up visit in 3 months. Signed By: Radu Wayne M.D. <<Signature on File>>
== END 2020-08-03 06:14 | disposition home or self-care (01) ==
LOC: ONCMED 06:14
PROVIDERS: PCP Internal Medicine; Visit Provider Internal Medicine Medical Oncology
DX: Z51.12 Encounter for antineoplastic immunotherapy (principal); C50.812 Malignant neoplasm of overlapping sites of left female breast; Z17.1 Estrogen receptor negative status [ER-]; I10 Essential (primary) hypertension; E03.9 Hypothyroidism, unspecified; K21.9 Gastro-esophageal reflux disease without esophagitis; J45.909 Unspecified asthma, uncomplicated; L30.9 Dermatitis, unspecified; G43.909 Migraine, unspecified, not intractable, without status migrainosus; N32.81 Overactive bladder; Z87.442 Personal history of urinary calculi; Z79.899 Other long term (current) drug therapy
CPT/HCPCS: 80053; 85025; 96367; 96413; 96417; 99214; J1200; J3490; J7050; J9306; J9355

== ENCOUNTER 2020-08-10 10:05 | Outpatient (CLI) | payer OTHER, SELFPAY ==
--- NOTE | 2020-08-10 10:15 | NMCV_ITS ---
NM card bld pool r or s*[id number] Mya Harrell Age: 39 Gender: F : 1980 Exam Date: 08/10/2020 10:15 Ordering Phys: Radu Wayne MD Technologist: SAM Thurston Exam Location: [facility] Indications: MONITORING FOR HERCEPTIN 355* Camera Used: [employer] Work Study Imaging Protocol: three view gated blood pool study Technical Image Quality: Good Dose: Admin Site: Administered By: [id number] Tagged RBCs: 22.0 IV - Right SAM Thurston Antecubital PYP: EJECTION FRACTION: Automatic LV EF: 64 Rest RV EF: Manual LV EF: FINDINGS CONCLUSIONS Left ventricle ejection fraction appeared to be normal and 64%. Merritt Bryant MD (Electronically Signed) Final Date: 10 August 2020 19:03 S
== END 2020-08-10 10:06 | disposition home or self-care (01) ==
LOC: RAD 10:09
PROVIDERS: PCP Internal Medicine; Visit Provider Internal Medicine Medical Oncology
DX: Z08 Encounter for follow-up examination after completed treatment for malignant neoplasm (principal)
CPT/HCPCS: 78472; A9560

== ENCOUNTER 2020-08-16 06:00 | Outpatient (RCR) | payer OTHER, SELFPAY | END 2020-09-15 23:59 | disposition home or self-care (01) | LOC: SPT 06:00 | PROVIDERS: PCP Internal Medicine; Referring Provider Radiology Radiation Oncology; Visit Provider Radiology Radiation Oncology | DX: M79.662 Pain in left lower leg (principal) | CPT/HCPCS: 97110; 97140 ==

== ENCOUNTER 2020-09-06 11:36 | Outpatient (CLI) | payer OTHER, SELFPAY | END 2020-09-06 11:37 | disposition home or self-care (01) | LOC: ONCMED 11:38 | PROVIDERS: PCP Internal Medicine; Visit Provider Internal Medicine Medical Oncology | DX: Z45.2 Encounter for adjustment and management of vascular access device (principal) | CPT/HCPCS: 96523 ==

== ENCOUNTER 2020-09-15 12:10 | Outpatient (CLI) | payer OTHER, SELFPAY ==
[2020-09-15 11:54] VITALS: BP 136/83; PULSE 71; RESP 15; TEMP 36.4; O2SAT 98
--- NOTE | 2020-09-15 12:22 | AMB.MCA ---
Patient Information Referred by: Yusuf Symptom onset date: 09/13/20 COVID 19 common symptoms: positive fever(s), cough, non-productive cough, body aches and headache(s) COVID 19 other sytmptoms: negative chest pressure, chest pain, pleuritic pain, requiring oxygen, requiring more oxygen, new neurological complaints or other concerning symptoms Treatment prior to arrival: none [facility] COVID test results: No Data to Display outside results available, scanned Criteria/Plan Inclusion/Exclusion Criteria weight >/= 40kg, + direct test </= 10 days ago and symptom onset </= 10 days ago BMI >/= 35, receiving immunosuppressive therapy and has immunosuppressive disease not requiring hospitalization, not requiring oxygen (if not chronically on oxygen) and no increase oxygen requirement (if chronically on oxygen) Patient education patient/caregiver received/reviewed fact sheet, Emergency Use Authorization/unapproved drug status discussed with patient/caregiver, alternatives to this treatment discussed with patient/caregiver, risks and benefits of medication reviewed with patient/caregiver, patient/caregiver given opportunity for questions, which were answered and patient/caregiver consents to receiving Monoclonal Antibody Treatment Plan for treatment Meets criteria for Monoclonal Antibody infusion Ordering Monoclonal Antibody infusion for today
[2020-09-15 12:24] VITALS: BMI 36.3
[2020-09-15 13:08] VITALS: BP 121/84; PULSE 73; RESP 16; TEMP 36.4; O2SAT 99
[2020-09-15 13:24] VITALS: BP 117/85; PULSE 72; RESP 16; TEMP 36.4; O2SAT 97
--- NOTE | 2020-09-20 15:29 | DCPLANNER ---
Addendum entered by Beatriz Cornejo 09/27/20 13:58: utilization management manager called patient to check on patient 10 days after getting the BAM infusion. Patient stated that she was feeling good, still a little tired, but other than that feeling good. Patient stated that she has not been admitted to hospital. Addendum entered by Beatriz Cornejo 09/22/20 15:39: utilization management manager called to check on patient after receiving the BAM infusion. Patient stated that she is doing good, still has a headache on and off, no fever, still has dry cough. But overall she is doing good. Original Note: utilization management manager had message that patient received the BAM infusion. utilization management manager called to check on patient after receiving the infusion. Patient stated that she tolorated the infusion well. That before the infusion she had a dry cough, she had a headache, and she had a fever. Patient stated that after the infusion that she still has a little dry cough, has a headache on and off, no fever, she stated that over all she is feeling pretty good. utilization management manager offered to make a follow up appointment for patient with primary care, but patient stated that if she needed a follow up appointment that she would take care of it.
== END 2020-09-15 14:40 | disposition home or self-care (01) ==
PROVIDERS: PCP Internal Medicine; Referring Provider Nurse Practitioner Family; Visit Provider Internal Medicine
DX: U07.1 COVID-19 (principal)
CPT/HCPCS: J7050

== ENCOUNTER 2020-09-16 06:00 | Outpatient (RCR) | payer OTHER, SELFPAY | END 2020-10-16 23:59 | disposition home or self-care (01) | LOC: SPT 06:00 | PROVIDERS: PCP Internal Medicine; Referring Provider Radiology Radiation Oncology; Visit Provider Radiology Radiation Oncology | DX: M79.662 Pain in left lower leg (principal) | CPT/HCPCS: 97110; 97140 ==

== ENCOUNTER 2020-10-17 06:00 | Outpatient (RCR) | payer OTHER, SELFPAY | END 2020-11-13 23:59 | disposition home or self-care (01) | LOC: SPT 06:00 | PROVIDERS: PCP Internal Medicine; Referring Provider Radiology Radiation Oncology; Visit Provider Radiology Radiation Oncology | DX: M79.662 Pain in left lower leg (principal) | CPT/HCPCS: 97110; 97140; 97161 ==

== ENCOUNTER 2020-11-03 08:05 | Outpatient (CLI) | payer OTHER, SELFPAY ==
[2020-11-03 08:49] LABS: Basophils % 0.3 %; Eosinophils # 0.2 10^3/uL (0.0-0.8); Eosinophils % 2.5 %; Hematocrit 37.4 % (37.0-47.0); Hemoglobin 12.5 g/dL (11.5-15.3); Lymphocytes # 0.9 10^3/uL (0.8-4.8); Lymphocytes % 14.1 %; Mean Corpuscular HGB Conc 33.4 g/dL (30.0-36.0); Mean Corpuscular Hemoglobin 30.1 pg (28.0-34.0); Mean Corpuscular Volume 90.1 fL (81-99); Mean Platelet Volume 9.1 fL (7.4-10.4); Monocytes # 0.4 10^3/uL (0.2-0.9); Neutrophils # 5.01 10^3/uL (1.8-7.7); Neutrophils % 76.6 %; Nucleated Red Blood Cells % 0 %; Platelet Count 298 10^3/cmm (130-400); Red Blood Count 4.15 10^6/uL (4.1-5.3); Red Cell Distribution Width 13.3 % (12.1-15.1); White Blood Count 6.5 10^3/uL (4.0-10.0)
[2020-11-03 09:09] LABS: Alanine Aminotransferase 21 U/L (0-33); Albumin Level 4.2 g/dL (3.5-5.2); Alkaline Phosphatase 103 IU/L (35-105); Aspartate Amino Transferase 20 U/L (0-32); Blood Urea Nitrogen 17 mg/dL (6-20); Carbon Dioxide 28 mmol/L (22-29); Chloride 101 mmol/L (98-107); Globulin 3.3 g/dL (1.3-4.6); Glomerular Filtration Rate 54.7 mL/min (90-130); Glucose 105 mg/dL (65-115); Osmolality Calculated 288 mOsm/kg (285-295); Sodium 138 mmol/L (136-145); Total Bilirubin 0.5 mg/dL (0.15-1.2); Total Protein 7.5 g/dL (6.6-8.7)
[2020-11-03 10:58] LABS: Free T4 Free Thyroxine 1.75 ng/dL (0.82-1.77); Magnesium 1.7 mg/dL (1.7-2.3); T3 Free 2.9 PG/ML (2.0-4.4); Thyroid Stimulating Hormone 0.58 uIU/mL (0.27-4.20)
--- NOTE | 2020-11-04 11:00 | ONC FU_ITS ---
Anabell Zhang Patient Note Patient: Mya Harrell Unit #: [id number]: 1980 Dictated By: Lester BentleyDate of Visit: Nov 03, 2020 Onc MED Follow-Up/Prog Note Chief Complaint: Breast cancer. History of Present Illness: Mrs Harrell is a 39 year-old woman with grade 3 invasive ductal carcinoma of the left breast, by clinical evaluation stage IIIB (T4b, N1, M0), ER/GA negative and HER-2/huang positive. In February [address] Anne-Marie Goldberg for an initial visit to establish primary care. At that time she had some mild skin changes in her left breast, which at the time had not been of particular concern to her. She was not aware of a lump or any other change in her breast. However, her screening mammogram on 03/17/2019 was BI-RADS 0, with finding of diffuse skin thickening involving the periareolar and anterior aspect of the left breast. It was a new finding compared to prior study from 2011. Also noted was asymmetrically increased parenchyma in the anterior third and lateral aspect of the left breast with linear and punctate calcifications in a ductal distribution. A group of punctate calcifications was noted in the upper outer quadrant of the left breast posteriorly. Punctate calcifications were noted within otherwise nonenlarged left axillary lymph nodes. Additional mammogram views and left breast ultrsound on04/14/2019 were BI-RADS 4B, suspicious. The ultrasound showed skin thickening measuring 6.5 mm in depth. In the 2 o'clock position of the left breast, 3 cm from the nipple was a cystic or ductal structure measuring 2.2 x 7.3 x 7.4 mm and with posterior acoustic enhancement. A similar focus was noted in the subareolar region anteriorly and laterally measuring 4.2 x 6.7 x 7.4 mm. No other cystic or solid soft tissue abnormality seen. Two left axillary lymph nodes were seen containing echogenic aryan, one measuring 0.8 x 1 x 1 cm the other measuring 0.7 x 1.2 x 1.2 cm. She was then referred to [facility] for further management. Stereotactic needle biopsy of the left breast on 05/05/2019 showed microinvasive carcinoma associated with DCIS, grade 3. Ultrasound-guided FNA of the left axillary lymph node showed metastatic adenocarcinoma which was ER/GA negative and HER-2/huang positive. Skin punch biopsy on 05/11/2019 showed invasive ductal carcinoma involving the superficial dermis. Staging PET/CT on 05/13/2019 showed FDG avid left breast skin thickening with maximum SUV 3.9. asymmetric left breast tissue was noted to be mildly FDG avid. A nonenlarged left axillary lymph node showed maximum SUV 2.3. Additional subcentimeter axillary lymph nodes demonstrated mild to moderate acitivity, but appeared abnormal. There was no evidence of distant metastatic disease. She was given neoadjuvant chemotherapy with TCH-P, beginning 05/25/2019. She experienced multiple toxicities with the chemotherapy, requiring frequent IV hydration. By the end of August 2019 she was able to complete 6 cycles of treatment. Her further clinical course was then complicated by pyelonephritis and subsequently by hematuria with right hydronephrosis, requiring ureteral stent placement on 10/02/2019. The following day she was admitted to the hospital with sepsis. CT scans at that time also showed evidence of bilateral pneumonia. She had somewhat of a difficult recovery, but she eventually was able to undergo left modified radical mastectomy in [place] on 11/10/2019. She reportedly had a complete pathologic response with no evidence of residual malignancy in the breast and no involvement in 18 axillary lymph nodes. She then underwent cardiac sparing postoperative chest wall radiation at [facility] in [place], which she completed on 02/16/2020. At that point she also restarted systemic therapy with Herceptin/Perjeta at 3-week intervals. She was treated here with her cycle 10 Herceptin/Perjeta on 03/08/2020. She tolerated it well, and she then continued treatment at 3-week intervals. She received cycle 13 on 05/10/2020. Just prior to that, she had a significant COVID-19 exposure, and that treatment was administered in the COVID unit at the hospital. During subsequent follow-up she had developed no symptoms of COVID-19 infection. She continued Herceptin/Perjeta at 3-week intervals. She completed cycle 17 on 08/03/2020. Mrs Harrell is here today for followup. She was due for right mastectomy surgery at the end of August 2020 and had mandatory Covid testing on September 12, 2020 which was reported as negative. She had family staying with her through the holidays and her nephew developed fever and symptoms and did test positive for Covid. Ms. Newsome then developed a significant headache and sore throat and low-grade fever. She called her surgeon's office and was retested on 09/14/2020 and at that point tested positive. Her surgery was then delayed. She did not requiring hospitalization for the COVID. She states she did contact her primary care, Dr. Bobby and she was brought in for monoclonal antibodies. She tolerated this well. She developed no other known symptoms from the Covid. She subsequently underwent right mastectomy in September 2019 and has recovered well. (We do not have records available from that surgery). She states she has some excess tissue ( pouch ) and she also has a little fluid in the right axilla that comes and goes. She states it has not required aspiration. It has not been red or warm. She states her biggest problem currently is left shoulder pain. She states that she has pain in the shoulder but also down her arm. She states at times the pain is just unbearable. She states that she cannot sleep at night due to the pain. She states that she does not think the Cymbalta is helping with that pain at all. She has tried gabapentin in the past and that has done nothing for her either. She has not tried any narcotic pain medication as she states that hydrocodone gives her nausea and does not work well anyway. She does have some Percocet but has not tried it at this point. We had long discussion regarding the narcotics and the fact that they may not work well for nerve pain but she is having significant pain she could at least try a half to a full tablet to see if it gives her any kind of relief. She has limited range of motion in the left shoulder as well. She is currently following with physical therapy but states it hurts so mcu whenb she does the therapy, that it is hard for her to get it done. She does try to do some exercises at home too as she states I do not want that shoulder to lock up . She has no concerns with the right shoulder- it is fully functional. She has chronic fibromyalgia pain but states it is stable for her. She states she is also been having more headaches which is new for for her. They have seem to be worse. She also is having episodes of one side of her face being red and the other side not. She does not had any trouble swallowing. She has no known rash. She has had no fever or chills since the Covid. She is taking clonidine and we did discuss that the clonidine could be causing this redness/flushing. She states she also notices it down her left arm. She states it never last more than a day and it is gone. She cannot correlate any particular triggering factors. She states it (the onse sided redness) comes and goes. She states she has also had her finger and thumb draw up and lock up on me a couple of times . She states generally overall she has good days and bad days and on the good days she tends to overdo it and then is down for couple days. She states that she was feeling really good and did do alot of work around the house and then her left shoulder started bothering her even worse. She really does not have much change in the lymphedema status. It is mild but no evidence of cellulitis in looking at her arm. She states her bowels are normal for her. She has had more heartburn. She is taking the omeprazole she states regularly now it does help but does not relieve it completely. She states she is having some reflux off and on it may depend on what I eat though . She is very concerned regarding the Cymbalta and weight gain. She states she is trying to watch her diet better but cannot exercise due to the shoulder pain. She did mention pursuing a gastric sleeve and I did discuss this with her and I just feel like that would be a last resort given her other health problems as I am concerned about long-term effects of a gastric sleeve. She states in regards to her breathing that she has been more short of breath with just minimal exertion since the Covid diagnosis. She denies any lower extremity edema but states she is just more winded just doing simple little things around the house . She denies any chest pain or palpitations. Her ECOG is 1. Past Medical History: Asthma Eczema Gastroesophageal reflux disease Hypertension Hypothyroidism Migraine headaches Nephrolithiasis Overactive bladder COVID in 2019 (Treated) Past Surgical History: Caesarean section Flu Vaccine in 2019 - Given in right deltoid/lc Modified Radical Mastectomy in 2019 Colonoscopy in 2012 Extracorporeal shock wave lithotripsy for left ureteral stone in 2005 Cholecystectomy in 2004 Right oopherectomy in 2004 Hysterectomy in 2002 Tonsillectomy in 1994 Hernia repair in 1980 Allergies: Adhesives, Chlorhexidine, Erythromycin Base, Herceptin, Lyrica, Prochlorperazine Maleate, Saxenda, and Sulfa Antibiotics. Medications: amLODIPine Besylate 1 Tablet (of 2.5 mg) Oral daily Cetirizine HCl 1 Tablet (of 10 mg) Oral daily PRN cloNIDine HCl 1 Tablet (of 0.1 mg) Oral b.i.d. Cymbalta 1 Capsule (of 40 mg) Capsule Delayed Release Particles Oral daily Levothyroxine Sodium 1 Tablet (of 112 mcg) Oral daily Lidocaine-Prilocaine 1 (2.5-2.5 %) Cream Topical PRN Metoprolol Tartrate 1 Tablet (of 25 mg) Oral b.i.d. Omeprazole 2 Tablet (of 20 mg) Tablet, enteric coated Oral daily PRN Ondansetron HCl 1 Tablet (of 8 mg) Oral q 8 hours PRN Promethazine HCl 1 Tablet (of 12.5 mg) Oral PRN Vitamin D2 1 Capsule Oral q 7 days Family History: Ms. Harrell's maternal grandmother is : lung cancer. Both parents are still living, father at age 68 and mother at age 69. Her mother has Crohn's disease. She has 3 sisters, one of whom has hypothyroidism. Her maternal grandmother had lung cancer. There is no history of breast cancer or ovarian cancer in the family. Social History: Ms. Harrell is and she is unemployed. Ms. Harrell has never smoked. She has no history of drinking. She is a nonsmoker. She does not drink alcohol. Review Of Symptoms: Constitutional Denies fevers, chills, night sweats, or weight loss. She is concerned that she is gaining weight on Cymbalta. She states since having the Covid in August that her fatigue has gotten worse. Eyes Denies significant visual changes. No diplopia. No amaurosis. ENMT Denies changes in hearing, sore throat, mouth sores, difficulty or changes in swallowing ability, and/or sinus drainage. Hematologic/Lymphatic Denies easy bruising or bleeding. The patient denies any tender or palpable lymph nodes. Breasts Left mastectomy site is unremarkable. Right mastectomy site has healed well with slight tissue pouch along incision site Respiratory More short of breath with minimal exertion since Covid diagnosis. Cardiovascular Denies anginal chest pain, palpitations or orthopnea. Gastrointestinal Denies vomiting, diarrhea, GI bleeding, or constipation. Denies change in bowel habits and/or stool color, no heartburn or early satiety. She states she nausea in the evening. She states she is having some heartburn and has been taking the omeprazole, but it isn't controlling the heartburn completely Genitourinary (F) No hematuria, hesitancy, incontinence, vaginal bleeding, discharge or other problems with urination. Musculoskeletal Generalized muscle aches from fibromyalgia , but worsening left shoulder pain/arm pain with limited ROM in shoulder-see above. Integumentary Denies chronic rashes, inflammation, ulcerations or skin changes. Neurologic Denies headache, blurred vision, and no areas of focal weakness or numbness. Normal gait. No sensory problems. Psychiatric Denies insomnia, depression, alexa or mood swings. Vital Signs: Performed on Nov 03, 2020 09:36 Height - 64.00 in Weight - 210.6 lbs (HIGH) BSA - 2.00 sq.m BMI - 36.15 (HIGH) Temperature - 97.8 F (LOW) Pulse - 89 /min Respiration - 18 /min BP - 128/85 mm(hg) O2 Sat - 99 % Pain - 5 Fatigue - 6,1 - No physically strenuous activity, but ambulatory and able to carry out light or sedentary work (e.g. office work, light house work). (ECOG) Physical Examination: Constitutional Alert, oriented, no acute distress. Skin pink, warm and dry. Head Normocephalic; atraumatic. Eyes Conjunctivae and sclerae are clear and without icterus. Pupils are reactive and equal. Hematologic/Lymphatic No petechiae or purpura. No tender or palpable lymph nodes in the cervical or supraclavicular areas. Respiratory Lungs are clear to auscultation without rhonchi or wheezing. Cardiovascular Regular rate and rhythm of heart without murmurs,clicks, gallops or rubs. Breasts left mastectomy site is unremarkable. Right mastectomy site has healed well with tissue and slight seroma in right axilla. She states the tissue gets bigger and then goes down on its own. She states it is a little swollen today but not bad. Abdomen Non-tender, non-distended, no masses or ascites. Back/Spine Non-tender to palpation. Extremities No visible deformities, no cyanosis, clubbing or edema. Musculoskeletal Left should has limited ROM (45 degrees raised forward-not assessed with abduction or adduction due to pain) and right shoulder has full ROM. Integumentary No rashes or lesions presently-see above. Neurologic No sensory or motor deficits, normal cerebellar function, normal gait. Psychiatric Alert and oriented times three. Coherent speech. Verbalizes understanding of our discussions today. Laboratory:Test performed on Nov 03, 2020 08:25 Magnesium 1.7 mg/dL Sodium 138 mmol/L T3, Free 2.9 PG/ML T4, Free 1.75 ng/dL TSH 0.58 uIU/mL Potassium 4.0 mmol/L Chloride 101 mmol/L CO2 28 mmol/L Anion Gap 13.0 BUN 17 mg/dL Creatinine 1.1 mg/dL Cr Clearance (Est) 94.0800 mL/min eGFR 54.7 mL/min Glucose 105 mg/dL Osmolality - Calculated 288 mOsm/kg Calcium 10.0 mg/dL Protein, Total 7.5 g/dL Albumin 4.2 g/dL Globulin 3.3 g/dL Bilirubin, Total 0.5 mg/dL ALT (SGPT) 21 U/L AST (SGOT) 20 U/L Alkaline Phosphatase 103 IU/L WBC 6.5 10 3/uL RBC 4.15 10 6/uL HGB 12.5 g/dL HCT 37.4 % MCV 90.1 fL MCH 30.1 pg MCHC 33.4 g/dL RDW 13.3 % Platelet Count 298 10 3/cmm MPV 9.1 fL Neutrophils 5.01 10 3/uL Lymphocytes 0.9 10 3/uL Monocytes 0.4 10 3/uL Eosinophils 0.2 10 3/uL Basophils 0.0 10 3/uL Neutrophil % 76.6 % Lymphocyte % 14.1 % Monocyte % 6.0 % Eosinophil % 2.5 % Basophils % 0.3 % NRBC % 0 % Impression: 1. Patient with multifocal grade 3 invasive ductal carcinoma of the left breast, by clinical evaluation stage IIIB (T4b, N1, M0), ER/GA negative and HER-2/huang positive. 2. She was given neoadjuvant chemotherapy with 6 cycles of TCH-P, completed in August 2019. 3. Her subsequent clinical course was complicated by pyelonephritis and by hematuria/right hydronephrosis, requiring placement of ureteral stent. She then required hospital admission for sepsis and bilateral pneumonia, but with gradual recovery. 4. She underwent left modified radical mastectomy on 11/10/2019, reportedly with complete pathologic response. 5. She then underwent postoperative cardiac sparing chest wall radiation, which she completed on 02/16/2020. 6. She restarted systemic adjuvant therapy with Herceptin/Perjeta on 02/16/2020. Treatment was complicated by right upper quadrant pain and elevated liver enzymes. A specific cause was not determined. Her other medical illnesses include: 7. Hypertension. 8. Hypothyroidism. 9. GERD. 10. Asthma. 11. Eczema. 12. Migraine headaches. 13. Overactive bladder. 14. History of nephrolithiasis. She continued treatment with Herceptin/Perjeta at 3-week intervals. She received cycle 12 on 04/19/2020. She has been tolerating treatment with no significant adverse effects. During this time she also underwent physical therapy for management of left arm lymphedema. She continued with cycle 13 on 05/10/2020. Just prior to that treatment she had a significant COVID-19 exposure, but during followup she developed no COVID-19 symptoms, and she was able to continue treatment at 3-week intervals. She has now completed 17 cycles of treatment. She continues to have significant fatigue, but was diagnosed with COVID 19 on 09/14/2020. She received monoclonal antibodies and is tolerated it well. But she states her fatigue has just gotten somewhat worse and does not seem to be improving. She is also developed left arm persistent pain, headaches and exertional shortness of breath since her last visit. Plan: PROBLEMS ADDRESSED TODAY 1. Left shoulder pain and left arm numbness and persistent pain. A. I requested a MRI with and without contrast of her LEFT shoulder for further assessment of her shoulder pain and arm numbness/pain. If this is inconclusive she may need a MRI of her cervical spine for further assessment. Given the amount of pain that she is having and that it is unresponsive to Cymbalta or gabapentin, I feel it needs further workup and possible referral to either orthopedics or pain management for consideration of a nerve block if warranted. Her pain is not controlled and is limiting her ADL's as well as her quality of life. B. She may try Voltaren gel topical to the shoulder and arm. We discussed her trying Aleve orally but given her gastritis with I highly cautioned her with this and told her she could only take the Aleve with food and it would need to be at her largest meal. If she has any further gastritis symptoms she will need to stop the Aleve if she even takes it. C. We did discuss at length her trying the Percocet to see if it would give her any relief she indicates she may consider this if the pain gets bad enough . 2. Gastritis A. We will have her stop the omeprazole and switch her to Protonix 40 mg once or twice daily. She can start with 1 daily and increase to twice daily as needed. B. Again she was highly cautioned against the Aleve to and to make sure that she does take it to take it only with food to avoid furthering of her gastritis symptoms. 3. Persistent headaches and one-sided flushing A. We discussed the headaches and flushing could be related to the clonidine but it is working well for hot flashes. B. Given her significant history I have requested MRI with and without contrast of the brain to rule out any malignant etiology. 4. Exertional shortness of breath???worsening since Covid diagnosis September 14, 2020. A. I requested a follow-up MUGA scan due to the exertional shortness of breath which is worsened since her Covid diagnosis. She is also been treated with Perjeta and Herceptin in the past. Her last MUGA scan was August 10, 2020 and reported LVEF at 64%. There were no reports of wall motion abnormalities. However she states that she has become significantly more short of breath since the Covid diagnosis. She was treated with monoclonal antibodies for the Covid diagnosis and seemed to tolerate that well at the time. 5. Invasive ductal carcinoma of the left breast A. No clinical evidence of recurrence. B. Labs from today were reviewed in detail discussed with Eulalia Mercedez and a copy was given to her. WBC 6.5, hemoglobin 12.5, platelets 298,000 ANC is 5000. Potassium 4.0 random glucose 105 BUN is 17 creatinine 1.1 LFTs are normal. Magnesium was added (for suspected muscle cramps and her fingers drawing up and locking ) on at the time of visit and reported back as 1.7. Her thyroid studies were also normal. Copies of these labs were faxed to [facility]. C. I have asked her to keep Keflex 500 mg 4 times daily on hand in the event that this redness in her left arm is persistent and last more than 1 to 2 days as it could possibly turn into cellulitis. I am not convinced the symptoms she is currently having is related to cellulitis but she is high risk given she had 18 lymph nodes removed in her original mastectomy of the left side in 2019. 6. Follow-up plan we will establish follow-up plan after received results of her MRIs and MUGA. Tentatively in regards to the breast cancers she will be seen back in 3-month intervals unless otherwise needed. A. Ms. Newsome was encouraged to contact us in the interim should questions or problems arise. B. Greater than 60 minutes was spent on this visit in review of patient's history, current plan of care, discussion of current concerns and formulating new plan of care as well as post visit documentation. Signed By: Lester Bentley-, [facility] Radu Wayne MD <<Signature on File>>
== END 2020-11-03 08:06 | disposition home or self-care (01) ==
PROVIDERS: Internal Medicine Medical Oncology; PCP Internal Medicine; Visit Provider Nurse Practitioner
DX: C50.812 Malignant neoplasm of overlapping sites of left female breast (principal); Z17.1 Estrogen receptor negative status [ER-]; N12 Tubulo-interstitial nephritis, not specified as acute or chronic; R31.9 Hematuria, unspecified; N13.30 Unspecified hydronephrosis; Z90.12 Acquired absence of left breast and nipple; Z92.21 Personal history of antineoplastic chemotherapy; I10 Essential (primary) hypertension; E03.9 Hypothyroidism, unspecified; K21.9 Gastro-esophageal reflux disease without esophagitis; J45.909 Unspecified asthma, uncomplicated; L30.9 Dermatitis, unspecified; G43.919 Migraine, unspecified, intractable, without status migrainosus; N32.81 Overactive bladder; N20.0 Calculus of kidney; Z79.899 Other long term (current) drug therapy
CPT/HCPCS: 36415; 80053; 83735; 84439; 84443; 84481; 85025; 99215

== ENCOUNTER 2020-11-14 06:00 | Outpatient (RCR) | payer OTHER, SELFPAY | END 2020-12-14 23:59 | disposition home or self-care (01) | LOC: SPT 06:00 | PROVIDERS: PCP Internal Medicine; Referring Provider Radiology Radiation Oncology; Visit Provider Radiology Radiation Oncology | DX: M75.02 Adhesive capsulitis of left shoulder (principal); Z90.13 Acquired absence of bilateral breasts and nipples | CPT/HCPCS: 97035; 97110; G0283 ==

== ENCOUNTER 2020-11-15 09:21 | Outpatient (CLI) | payer OTHER, SELFPAY ==
--- NOTE | 2020-11-15 09:33 | NMCV_ITS ---
NM card bld pool r or s*[id number] Julio Cesar Mya Age: 39 Gender: F : 1980 Exam Date: 11/15/2020 09:33 Ordering Phys: Digna Zhang NP Technologist: SAM Thurston Exam Location: [facility] Indications: FOLLOW UP PERJETA/HERCEPTIN/SHORTNESS OF BREATH 355* Camera Used: Profex Imaging Protocol: three view gated blood pool study Technical Image Quality: Good Dose: Admin Site: Administered By: [id number] Tagged RBCs: 23.9 IV - Right SAM Fritz Antecubital PYP: EJECTION FRACTION: Automatic LV EF: 66 Rest RV EF: Manual LV EF: FINDINGS CONCLUSIONS LV systolic function is normal with EF of 66%. No regional wall motion abnormalities are seen Jose M Bernal MD (Electronically Signed) Final Date: 22 November 2020 18:01 S
== END 2020-11-15 09:22 | disposition home or self-care (01) ==
LOC: NM 09:29
PROVIDERS: PCP Internal Medicine; Visit Provider Nurse Practitioner
DX: R06.02 Shortness of breath (principal)
CPT/HCPCS: 78472; A9560

== ENCOUNTER 2020-11-25 06:00 | Outpatient (RCR) | payer OTHER, SELFPAY | END 2020-12-14 23:59 | disposition home or self-care (01) | LOC: SPT 06:00 | PROVIDERS: PCP Internal Medicine; Referring Provider Internal Medicine; Visit Provider Internal Medicine | DX: Z47.89 Encounter for other orthopedic aftercare (principal) | CPT/HCPCS: 97035; 97110; 97161; G0283 ==

== ENCOUNTER 2020-11-25 10:41 | Outpatient (CLI) | payer OTHER, SELFPAY ==
--- NOTE | 2020-11-25 11:00 | MR_ITS ---
WS: [id number] MRI LEFT SHOULDER NONCONTRAST TECHNIQUE: Sagittal T2, coronal T1, T2 and proton density imaging. Axial gradient PDE imaging. Patien t deferred contrast due to shoulder pain CLINICAL INFORMATION: LEFT SHOULDER PAIN AND SWELLING POST MASTECTOMY COMPARISON: None. FINDINGS: Patient deferred contrast. Mild degenerative arthritis AC joint. Mild downsloping acromion. Rotator cuff is normal in appearance . Normal supraspinatus and infraspinatus. Normal teres minor. Normal subscapularis. Mild chronic thin josi of the distal supraspinatus. No acute rotator cuff tears. Normal biceps labral anchor. Normal biceps tendon in the bicipital groove. Glenoid labrum appears zoraida ssly normal. Normal bone marrow signal in the humerus and glenoid. No other significant findings. MR/MR shoulder LT wo con* [id number] IMPRESSION: 1. Mild degenerative arthritis at the AC joint with mild downsloping acromion. 2. Rotator cuff is normal in appearance. No acute rotator cuff tears. 3. Normal biceps tendon in the bicipital groove. Normal biceps labral anchor. 4. Glenoid labrum appears grossly normal. 5. Normal bone marrow signal within the humerus and glenoid. 6. Susceptibly artifact partially visualized from right axillary clips.
== END 2020-11-25 10:42 | disposition home or self-care (01) ==
LOC: RADSHAW 10:43
PROVIDERS: PCP Internal Medicine; Visit Provider Nurse Practitioner
DX: C50.812 Malignant neoplasm of overlapping sites of left female breast (principal); M19.012 Primary osteoarthritis, left shoulder
CPT/HCPCS: 73221

== ENCOUNTER 2020-12-02 13:01 | Outpatient (CLI) | payer OTHER, SELFPAY ==
--- NOTE | 2020-12-02 13:15 | XR_ITS ---
WS: [id number] Left rib detail, 3 views, 12/02/2020 Clinical Data: LEFT RIB PAIN Comparison: None. Findings: There are clips in the left axilla from surgery. The ribs are intact without fracture, erosion or scl erosis. No pneumothorax or subcutaneous emphysema is seen. There are also clips in the right upper qu adrant from a cholecystectomy. XR/XR ribs LT 2V* [id number] Impression: Negative left rib detail
--- NOTE | 2020-12-02 13:15 | XR_ITS ---
WS: [id number] Chest 2 views, 12/02/2020 Clinical Data: RIGHT RIB PAIN Comparison: None. Findings: No nodules, masses or effusions are seen. The heart is normal. The pulmonary vascularity is not increased. No pneumonia or pneumothorax is seen. There are clips in the left axilla from surgery . XR/XR chest 2V* [id number] Impression: Negative chest.
== END 2020-12-02 13:02 | disposition home or self-care (01) ==
PROVIDERS: PCP Internal Medicine; Visit Provider Nurse Practitioner Family
DX: R07.81 Pleurodynia (principal)
CPT/HCPCS: 71046; 71100

== ENCOUNTER 2020-12-15 06:00 | Outpatient (RCR) | payer OTHER, SELFPAY | END 2021-01-13 23:59 | disposition home or self-care (01) | LOC: SPT 06:00 | PROVIDERS: PCP Internal Medicine; Referring Provider Internal Medicine; Visit Provider Internal Medicine | DX: Z47.89 Encounter for other orthopedic aftercare (principal) | CPT/HCPCS: 97035; 97110; 97140; G0283 ==

== ENCOUNTER 2021-01-14 06:00 | Outpatient (RCR) | payer OTHER, SELFPAY | END 2021-02-13 23:59 | disposition home or self-care (01) | LOC: SPT 06:00 | PROVIDERS: PCP Internal Medicine; Referring Provider Internal Medicine; Visit Provider Internal Medicine | DX: Z47.89 Encounter for other orthopedic aftercare (principal) | CPT/HCPCS: 97035; 97110 ==

== ENCOUNTER 2021-01-23 08:23 | Outpatient (CLI) | payer OTHER, SELFPAY ==
--- NOTE | 2021-01-23 09:12 | MR_ITS ---
WS: [id number] MRI HEAD WITH CONTRAST TECHNIQUE: Sagittal T1, T2 axial, T2 axial FLAIR, axial susceptibility weighted imaging, axial diffus ion weighted images, and coronal T2 images were obtained. Pre and post-T1 axial and post T1 coronal i mages. ADC and FSPGR images. CLINICAL INFORMATION: PERSISTENT HEADACHE/HX OF BREAST CANCER COMPARISON: CT 3 FINDINGS: No evidence of restricted diffusion to suggest acute ischemia. Ventricular system and basal cisterns are patent. No suspicious intracranial signal abnormalities. Normal ribeiro-white differentiation. Normal posterior fossa. Normal vascular flow voids at the skull base. No extra-axial fluid collection s. No evidence of mass or mass effect. Paranasal sinuses and mastoid air cells are well aerated. No hemosiderin on susceptibly weighted images. No abnormal gadolinium enhancement. Normal optic chias m and pituitary infundibulum. Normal cavernous sinuses and Meckel's cave. No evidence of enhancing in tracranial metastatic disease. Incidental sebaceous cysts in the scalp. Temporal lobes and hippocampa l formations are normal in appearance. MR/MR head wo/w con [id number] IMPRESSION: 1. No evidence of restricted diffusion to suggest acute ischemia. 2. No suspicious intracranial signal abnormalities. 3. No evidence of enhancing intracranial metastatic disease. 4. No hemosiderin on susceptibly weighted images.
[2021-01-23] MEDS: gadobenate dimeglumine 20 mL vial IV (09:56)
== END 2021-01-23 08:24 | disposition home or self-care (01) ==
LOC: RADWPI 08:26
PROVIDERS: PCP Internal Medicine; Visit Provider Nurse Practitioner
DX: R51.9 Headache, unspecified (principal); Z85.3 Personal history of malignant neoplasm of breast
CPT/HCPCS: 70553; A9577

== ENCOUNTER 2021-01-30 16:05 | Outpatient (CLI) | payer OTHER, SELFPAY ==
--- NOTE | 2021-01-31 07:57 | ONC FU_ITS ---
Dr. Wayne Patient Follow-Up Note Patient: Mya Harrell Unit #: [id number]: 1980 Dicatated By: Radu Wayne M.D.Date of Visit:January 30, 2021 Onc Med Follow-up/Prog Note Chief Complaint: Breast cancer. History of Present Illness: This is a 40 year-old woman with grade 3 invasive ductal carcinoma of the left breast, by clinical evaluation stage IIIB (T4b, N1, M0), ER/WY negative and HER-2/huang positive. In February [address] Anne-Marie Goldberg for an initial visit to establish primary care. At that time she had some mild skin changes in her left breast, which at the time had not been of particular concern to her. She was not aware of a lump or any other change in her breast. However, her screening mammogram on 03/17/2019 was BI-RADS 0, with finding of diffuse skin thickening involving the periareolar and anterior aspect of the left breast. It was a new finding compared to prior study from 2011. Also noted was asymmetrically increased parenchyma in the anterior third and lateral aspect of the left breast with linear and punctate calcifications in a ductal distribution. A group of punctate calcifications was noted in the upper outer quadrant of the left breast posteriorly. Punctate calcifications were noted within otherwise nonenlarged left axillary lymph nodes. Additional mammogram views and left breast ultrsound on04/14/2019 were BI-RADS 4B, suspicious. The ultrasound showed skin thickening measuring 6.5 mm in depth. In the 2 o'clock position of the left breast, 3 cm from the nipple was a cystic or ductal structure measuring 2.2 x 7.3 x 7.4 mm and with posterior acoustic enhancement. A similar focus was noted in the subareolar region anteriorly and laterally measuring 4.2 x 6.7 x 7.4 mm. No other cystic or solid soft tissue abnormality seen. Two left axillary lymph nodes were seen containing echogenic aryan, one measuring 0.8 x 1 x 1 cm the other measuring 0.7 x 1.2 x 1.2 cm. She was then referred to [facility] for further management. Sstereotactic needle biopsy of the left breast on 05/05/2019 showed microinvasive carcinoma associated with DCIS, grade 3. Ultrasound-guided FNA of the left axillary lymph node showed metastatic adenocarcinoma which was ER/WY negative and HER-2/huang positive. Skin punch biopsy on 05/11/2019 showed invasive ductal carcinoma involving the superficial dermis. Staging PET/CT on 05/13/2019 showed FDG avid left breast skin thickening with maximum SUV 3.9. asymmetric left breast tissue was noted to be mildly FDG avid. A nonenlarged left axillary lymph node showed maximum SUV 2.3. Additional subcentimeter axillary lymph nodes demonstrated mild to moderate acitivity, but appeared abnormal. There was no evidence of distant metastatic disease. She was given neoadjuvant chemotherapy with TCH-P, beginning 05/25/2019. She experienced multiple toxicities with the chemotherapy, requiring frequent IV hydration. By the end of August 2019 she was able to complete 6 cycles of treatment. Her further clinical course was then complicated by pyelonephritis and subsequently by hematuria with right hydronephrosis, requiring ureteral stent placement on 10/02/2019. The following day she was admitted to the hospital with sepsis. CT scans at that time also showed evidence of bilateral pneumonia. She had somewhat of a difficult recovery, but she eventually was able to undergo left modified radical mastectomy in [place] on 11/10/2019. She reportedly had a complete pathologic response with no evidence of residual malignancy in the breast and no involvement in 18 axillary lymph nodes. She then underwent cardiac sparing postoperative chest wall radiation at [facility] in [place], which she completed on 02/16/2020. At that point she also restarted systemic therapy with Herceptin/Perjeta at 3-week intervals. She was treated here with her cycle 10 Herceptin/Perjeta on 03/08/2020. She tolerated it well, and she then continued treatment at 3-week intervals. She received cycle 13 on 05/10/2020. Just prior to that, she had a significant COVID-19 exposure, and that treatment was administered in the COVID unit at the hospital. During subsequent follow-up she had developed no symptoms of COVID-19 infection. She continued Herceptin/Perjeta at 3-week intervals. She completed her 17th and final cycle of treatment on 08/03/2020. She was then followed expectantly. Her other medical illnesses include hypertension, hypothyroidism, GERD, and asthma. She has overactive bladder. She has chronic migraine and she also has eczema. She has a history of nephrolithiasis. Her prior surgeries include hysterectomy in 2002 and right oophorectomy in 2004. She is a non-smoker. She is seen for a follow-up visit. Her main complaint is that she has been feeling a lot more tired and she also has been sleepy a lot during the daytime. She has had significant weight gain, attributable to duloxetine. She says she has not really been eating more. She is still able to do light work. Her ECOG score is 1. She has not had fever or night sweats. She does have hot flashes. She has seasonal sinus symptoms and she does have some shortness of breath with activity. She does not complain of cough. She has lots of pain across her chest and shoulders. She has had some ongoing issues with swelling in the neck and shoulder area. She has significant pain and limited range of motion in her left shoulder. She also has lower back pain. She has no GI complaints other than occasional constipation. Her acid reflux is adequately managed with Protonix. She has ongoing problems with her overactive bladder and she has some associated incontinence. She has headaches, but she is managing those adequately taking clonidine as needed. She sometimes has difficulty with balance, mainly in the mornings and mainly with a tendency to drift sideways. She still has some neuropathy in her left arm, but her feet are significantly improved. Medications: amLODIPine Besylate 1 Tablet (of 2.5 mg) Oral daily, Cetirizine HCl 1 Tablet (of 10 mg) Oral daily PRN, cloNIDine HCl 1 Tablet (of 0.2 mg) Oral b.i.d., Cymbalta 1 Capsule (of 40 mg) Capsule Delayed Release Particles Oral daily, Levothyroxine Sodium 1 Tablet (of 112 mcg) Oral daily, Lidocaine-Prilocaine 1 (2.5-2.5 %) Cream Topical PRN, Metoprolol Tartrate 1 Tablet (of 25 mg) Oral b.i.d., Ondansetron HCl 1 Tablet (of 8 mg) Oral q 8 hours PRN, Pantoprazole Sodium 1 (40 mg) Tablet, enteric coated Oral daily, Promethazine HCl 1 Tablet (of 12.5 mg) Oral PRN, Vitamin D2 1 Capsule Oral q 7 days Allergies: Adhesives, Chlorhexidine, Erythromycin Base, Herceptin, Lyrica, Prochlorperazine Maleate, Saxenda, and Sulfa Antibiotics. Vital Signs: Performed on January 30, 2021 16:49 Height - 64.00 in Weight - 223.6 lbs (HIGH) BSA - 2.05 sq.m BMI - 38.38 (HIGH) Temperature - 99 F (HIGH) Pulse - 74 /min Respiration - 18 /min BP - 105/73 mm(hg) O2 Sat - 100 % Pain - 3 Physical Examination: Constitutional - She looks pretty good generally, Eyes - Sclerae nonicteric. Conjunctivae clear, ENMT - No lesions noted in the oral cavity, Hematologic/Lymphatic - No cervical or clavicular adenopathy, Respiratory - Lungs are clear with good air movement bilaterally, Cardiovascular - Heart is rhythm regular. There is no murmur, gallop, or rub noted, Breasts - There is some mild soft tissue swelling in the supraclavicular area bilaterally and there is slight soft tissues swelling in the chest wall. There are no chest wall lesions noted and there is no axillary adenopathy noted, Abdomen - Moderately distended with mild tenderness across the upper abdomen. Liver and spleen are not enlarged. There is no abdominal mass or ascites noted and there is no inguinal adenopathy, Extremities - There is mild lymphedema of the left arm. There is no lower extremity edema, Neurologic - No focal neurologic deficits noted. Lab/Imaging: Test performed on Nov 03, 2020 08:25 Magnesium 1.7 mg/dL Sodium 138 mmol/L T3, Free 2.9 PG/ML T4, Free 1.75 ng/dL TSH 0.58 uIU/mL Potassium 4.0 mmol/L Chloride 101 mmol/L CO2 28 mmol/L Anion Gap 13.0 BUN 17 mg/dL Creatinine 1.1 mg/dL Cr Clearance (Est) 94.0800 mL/min eGFR 54.7 mL/min Glucose 105 mg/dL Osmolality - Calculated 288 mOsm/kg Calcium 10.0 mg/dL Protein, Total 7.5 g/dL Albumin 4.2 g/dL Globulin 3.3 g/dL Bilirubin, Total 0.5 mg/dL ALT (SGPT) 21 U/L AST (SGOT) 20 U/L Alkaline Phosphatase 103 IU/L WBC 6.5 10 3/uL RBC 4.15 10 6/uL HGB 12.5 g/dL HCT 37.4 % MCV 90.1 fL MCH 30.1 pg MCHC 33.4 g/dL RDW 13.3 % Platelet Count 298 10 3/cmm MPV 9.1 fL Neutrophils 5.01 10 3/uL Lymphocytes 0.9 10 3/uL Monocytes 0.4 10 3/uL Eosinophils 0.2 10 3/uL Basophils 0.0 10 3/uL Neutrophil % 76.6 % Lymphocyte % 14.1 % Monocyte % 6.0 % Eosinophil % 2.5 % Basophils % 0.3 % NRBC % 0 % Problem List: 1. Patient with multifocal grade 3 invasive ductal carcinoma of the left breast, by clinical evaluation stage IIIB (T4b, N1, M0), ER/WY negative and HER-2/huang positive. 2. Hypertension. 3. Hypothyroidism. 4 GERD. 5. Asthma. 6. Eczema. 7. Migraine headaches. 8. Overactive bladder. 9. History of nephrolithiasis. Problems Addressed with this Encounter and Plan: Patient with multifocal grade 3 invasive ductal carcinoma of the left breast, by clinical evaluation stage IIIB (T4b, N1, M0), ER/WY negative and HER-2/huang positive. She was given neoadjuvant chemotherapy with 6 cycles of TCH-P, completed in August 2019. Her subsequent clinical course was complicated by pyelonephritis and by hematuria/right hydronephrosis, requiring placement of ureteral stent. She then required hospital admission for sepsis and bilateral pneumonia, but with gradual recovery. She underwent left modified radical mastectomy on 11/10/2019, reportedly with complete pathologic response. She was givne postoperative cardiac sparing chest wall radiation, completed on 02/16/2020. She then restarted systemic adjuvant therapy with Herceptin/Perjeta on 02/16/2020. Treatment was complicated by right upper quadrant pain and elevated liver enzymes. A specific cause was not determined. However, she was able to continue treatment at 3-week intervals. She completed her 17th and final cycle of Herceptin/Perjeta on 08/03/2020. She was then followed expectantly. During follow-up she has had ongoing problems with lymphedema in the left arm and with soft tissue swelling in the neck/shoulder area. She also has some swelling and pain in the chest wall. She has had significant weight gain, attributable to duloxetine, which she takes for neuropathy. She is having increased fatigue and somnolence associated with that. Overall, she is doing pretty well clinically, thus far with no evidence of recurrence of the breast cancer. She remains on expectant management. She will be scheduled for a follow-up visit in 3 months. Signed By: Radu Wayne M.D. <<Signature on File>>
== END 2021-01-30 16:06 | disposition home or self-care (01) ==
LOC: ONCMED 16:07
PROVIDERS: PCP Internal Medicine; Visit Provider Internal Medicine Medical Oncology
DX: Z08 Encounter for follow-up examination after completed treatment for malignant neoplasm (principal); Z85.3 Personal history of malignant neoplasm of breast; I10 Essential (primary) hypertension; E03.9 Hypothyroidism, unspecified; K21.9 Gastro-esophageal reflux disease without esophagitis; J45.909 Unspecified asthma, uncomplicated; L30.9 Dermatitis, unspecified; G43.919 Migraine, unspecified, intractable, without status migrainosus; N32.81 Overactive bladder; N20.0 Calculus of kidney; Z79.899 Other long term (current) drug therapy; Z92.21 Personal history of antineoplastic chemotherapy
CPT/HCPCS: 99214

== ENCOUNTER 2021-04-22 22:12 | Emergency (ER) | payer OTHER, SELFPAY ==
[2021-04-22 22:21] VITALS: BP 149/97; PULSE 102; RESP 20; TEMP 37.6; O2SAT 99; BMI 37.8
--- NOTE | 2021-04-22 22:37 | ECG_ITS ---
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 Measurements Intervals [place] Rate: 98 P: 44 WV: 176 QRS: -20 QRSD: 93 T: 40 QT: 316 QTc: 403 Interpretive Statements SINUS RHYTHM NONSPECIFIC T-WAVE ABNORMALITY Compared to ECG 10/13/2019 05:07:03 T-wave abnormality now present Myocardial infarct finding no longer present Electronically Signed On 04-23-2021 12:13:57 CDT by Jose M Bernal M.D. [email or web address]
--- NOTE | 2021-04-22 22:37 | XRR_ITS ---
PROCEDURE INFORMATION: Exam: XR Chest Exam date and time: 04/22/2021 10:37 PM Age: 40 years old Clinical indication: Dyspnea; Additional info: SOB TECHNIQUE: Imaging protocol: XR of the chest. Views: 1 view. COMPARISON: CR XR chest 2V* [id number] 12/02/2020 1:30 PM FINDINGS: Lungs: Unremarkable. No consolidation. Pleural spaces: Unremarkable. No pleural effusion. No pneumothorax. Heart/Mediastinum: Unremarkable. No cardiomegaly. Bones/joints: Unremarkable. Soft tissues: There are surgical clips in the left axilla. XR/XR chest 1V portable [id number] IMPRESSION: No acute cardiopulmonary abnormality.
--- NOTE | 2021-04-22 22:40 | W.ED.COVID ---
HPI - COVID General: Chief Complaint: COVID symptoms Stated Complaint: covid symptoms Time Seen by Provider: 04/22/21 22:15 Source: patient Mode of arrival: ambulatory Limitations: no limitations Triage information: No fever, cough or shortness of breath. No known COVID + exposure last 14 days History of Present Illness: HPI Narrative: 40-year-old female who has a history of breast cancer who is post treatment roughly 1 year. States that her children have been ill and they tested positive for RSV and over the last 2 days she had cough chills and fever. She did have Covid last and had a Covid vaccine but is concerned about Covid. She denies any dyspnea has had a slight cough. Denies any worsening improving factors. Patient is afebrile here and not hypoxic. COVID 19 common symptoms: positive fever(s), chills, non-productive cough and body aches; negative headache(s), throat pain, nausea, vomiting or diarrhea COVID 19 other sytmptoms: negative chest pain COVID Results: SARS-CoV-2 Antigen (Rapid) Negative (Negative) 04/22/21 23:25 04/22/21 Review of Systems Const: Reports: fever(s), chills and body aches Eyes: Denies: blurry vision or eye discomfort ENMT: Denies: throat pain or dental pain Card: Denies: chest pain Resp: Reports: non-productive cough GI: Denies: abdominal pain, nausea, vomiting or diarrhea : Denies: dysuria Musc: Denies: neck pain or back pain Skin/Breast: Denies: rash Neuro: Denies: headache(s) Psych: Denies: depression [place]/Lymph: Denies: easy bruising All/Imm: Denies: urticaria PFSH ED PFSH: Medical History Acute kidney injury Asthma Cholecystectomy planned Cholelithiasis Ductal carcinoma of left breast Eczema GERD (gastroesophageal reflux disease) Hypertension Hypothyroidism Migraine Nephrolithiasis Normal colonoscopy Overactive bladder Post hysterectomy menopause Pyelonephritis Retained ureteral stent Tonsillectomy planned Urolithiasis ESWL left mid ureteral stone 2005 with complete resolution Surgical History H/O lithotripsy H/O oophorectomy History of cholecystectomy History of hysterectomy S/P ureteral stent placement Right Family History Unknown Lung disease Maternal grandmother had lung cancer, she has 3 sisters no history of breast cancer Crohn's disease Crohn disease in mother Other Hyperlipidemia Hypothyroidism Social History Smoking and tobacco status: never smoked Alcohol intake: never Marital status: Current occupational status: employed Physical Exam Const: COMMON NORMALS: no acute distress, patient oriented x3 and healthy appearing HENMT: COMMON NORMALS: normocephalic and atraumatic HEAD & SCALP: normocephalic and atraumatic Eye: COMMON NORMALS: Equal, round and reactive pupils present and EOMs intact bilaterally PUPIL: Yes Equal, round and reactive pupils present Neck/C-Spine: COMMON NORMALS: full ROM and supple Chest: COMMONS NORMALS: normal inspection of the chest and normal palpation of entire chest wall Resp: COMMON NORMALS: normal respiratory effort, No retractions, No use of accessory muscles and clear to auscultation bilaterally AUSCULTATION: clear to auscultation bilaterally Cardio: COMMON NORMALS: regular rate, regular rhythm and No murmurs present (Cardio) RATE: regular rate RHYTHM: regular rhythm GI: COMMON NORMALS: Normal to inspection, nondistended, normoactive bowel sounds present, Soft to palpation, non-tender and no masses PALPATION: Yes Soft to palpation Extremity: COMMON NORMALS: normal to inspection and full ROM Neuro: COMMON NORMALS: patient oriented x3, moves all extremities and no focal motor deficits Psych: COMMON NORMALS: mental status grossly normal, Normal thought process present and cooperative THOUGHT PROCESS: Normal thought process present Skin: COMMON NORMALS: no rashes or lesions noted and no wounds GENERAL SKIN EXAM: no rashes or lesions noted Course Vital Signs: Vital signs: Vital Signs Temperature 99.6 F 04/23/21 00:21 Pulse Rate 99 04/23/21 00:21 Respiratory Rate 16 04/23/21 00:21 Blood Pressure 146/83 04/23/21 00:21 Pulse Oximetry 96 04/23/21 00:21 MDM - COVID MDM Narrative: Medical decision making narrative: Patient presents here with cough congestion fever. Children have been sick she likely has a viral syndrome. X-ray shows no signs of pneumonia her pulse ox here is normal and her Covid is negative. She is stable for discharge and is to follow-up with her PCP and return if worsening. She understands and agrees to plan. Lab Data: Labs: Lab Results 04/22/21 04/22/21 04/22/21 Range/Units 22:56 22:56 23:25 WBC 12.1 H (4.0-10.0) 10^3/ uL RBC 4.81 (4.1-5.3) 10^6/u L Hgb 14.0 (11.5-15.3) g/dL Hct 41.9 (37.0-47.0) % MCV 87.1 (81-99) fL MCH 29.1 (28.0-34.0) pg MCHC 33.4 (30.0-36.0) g/dL RDW 13.2 (12.1-15.1) % Plt Count 302 (130-400) 10^3/c mm MPV 9.2 (7.4-10.4) fL Neut % (Auto) 90.2 % Lymph % (Auto) 4.8 % [place] % (Auto) 3.3 % Eos % (Auto) 0.8 % Baso % (Auto) 0.2 % Neut # (Auto) 10.89 H (1.8-7.7) 10^3/u L Lymph # (Auto) 0.6 L (0.8-4.8) 10^3/u L [place] # (Auto) 0.4 (0.2-0.9) 10^3/u L Eos # (Auto) 0.1 (0.0-0.8) 10^3/u L Baso # (Auto) 0.0 (0.0-0.1) 10^3/u L Nucleated RBC % (a uto) 0 % Nucleated RBCs # 0.0 /100WBC Sodium 132 L (136-145) mmol/L Potassium 3.8 (3.5-5.1) mmol/L Chloride 97 L (98-107) mmol/L Carbon Dioxide 21 L (22-29) mmol/L Anion Gap 17.8 (5-19) BUN 9 (6-20) mg/dL Creatinine 1.0 H (0.5-0.9) mg/dL GFR Calculation 60.8 L (90-130) mL/min Glucose 133 H (65-115) mg/dL Calculated Osmolal ity 275 L (285-295) mOsm/k g Calcium 8.5 (8.5-10.5) mg/dL Total Bilirubin 0.6 (0.15-1.2) mg/dL AST 22 (0-32) U/L ALT 20 (0-33) U/L Alkaline Phosphata se 97 (35-105) IU/L NT-Pro-B Natriuret Pep 442 H (0-125) pg/mL Total Protein 6.5 L (6.6-8.7) g/dL Albumin 3.9 (3.5-5.2) g/dL Globulin 2.6 (1.3-4.6) g/dL SARS-CoV-2 Ag (Rap id) Negative (Negative) Imaging Data: CXR: Attestation: I personally reviewed and interpreted this imaging study as follows: My impression: no acute abnormality COVID Results: SARS-CoV-2 Antigen (Rapid) Negative (Negative) 04/22/21 23:25 04/22/21 Discharge Plan Discharge Patient Disposition: Home Clinical Impression: Acute viral syndrome Condition: Stable Prescriptions: No Action metoprolol succinate 50 mg tablet extended release 24 hr 50 mg PO BID RF: 0 clonidine HCl 0.2 mg tablet 0.2 mg PO BID RF: 0 amlodipine 2.5 mg tablet 2.5 mg PO DAILY RF: 0 fexofenadine [Jaleesa Allergy] 60 mg tablet 60 mg PO DAILY RF: 0 duloxetine [Cymbalta] 20 mg capsule,delayed release(DR/EC) 20 mg PO BID RF: 0 cholecalciferol (vitamin D3) 1,250 mcg (50,000 unit) tablet PO RF: 0 solifenacin [Vesicare] 10 mg tablet 10 mg PO DAILY Qty: 30 RF: 12 ketoconazole 2 % shampoo 1 applic topical .2 x weekly Qty: 120 RF: 3 ketoconazole 2 % cream 1 applic topical BID Qty: 60 RF: 2 clindamycin phosphate 1 % solution 1 applic topical BID Qty: 60 RF: 2 albuterol sulfate 2.5 mg /3 mL (0.083 %) solution for nebulization 1.25 mg INHALATION Q8H PRN (Reason: shortness of breath or wheezing) Qty: 75 RF: 0 levothyroxine 112 mcg Tablet 112 mcg PO DAILY Qty: 0 RF: 0 omeprazole 40 mg capsule,delayed release(DR/EC) 40 mg PO DAILY Qty: 0 RF: 0 Discharge Orders: Discharge ED (Routine); Ordered 04/23/21 Ordered By: Bar Gonzalez Referrals: Paulina Goldberg MD [Primary Care Provider] - 1-3 days Discharge Diet: Advance as tolerated Discharge Activity: Resume usual activity Patient Instructions: Viral Syndrome (ED) Coding Level of Care Code ED Dynamic Balancer for [place] Lyles
[2021-04-22] MEDS: sodium chloride 0.9% 1,000 ML 999 ML IV (22:47)
[2021-04-22] MEDS: ketorolac 30 mg/mL INJ 15 MG IVP (22:48)
[2021-04-22] MEDS: ondansetron 2 mg/ML SDV 2 mL 4 MG IVP (22:48)
[2021-04-22 22:50] VITALS: BP 162/98; PULSE 110; RESP 16; O2SAT 96; O2SAT 97
[2021-04-22 22:59] LABS: Basophils % 0.2 %; Eosinophils # 0.1 10^3/uL (0.0-0.8); Eosinophils % 0.8 %; Hematocrit 41.9 % (37.0-47.0); Lymphocytes # 0.6 10^3/uL (0.8-4.8); Lymphocytes % 4.8 %; Mean Corpuscular HGB Conc 33.4 g/dL (30.0-36.0); Mean Corpuscular Hemoglobin 29.1 pg (28.0-34.0); Mean Corpuscular Volume 87.1 fL (81-99); Mean Platelet Volume 9.2 fL (7.4-10.4); Monocytes # 0.4 10^3/uL (0.2-0.9); Monocytes % 3.3 %; Neutrophils # 10.89 10^3/uL (1.8-7.7); Neutrophils % 90.2 %; Nucleated Red Blood Cells % 0 %; Platelet Count 302 10^3/cmm (130-400); Red Blood Count 4.81 10^6/uL (4.1-5.3); Red Cell Distribution Width 13.2 % (12.1-15.1); White Blood Count 12.1 10^3/uL (4.0-10.0)
[2021-04-22 23:00] VITALS: BP 156/95; PULSE 110; RESP 16; O2SAT 95
[2021-04-22 23:28] LABS: Alanine Aminotransferase 20 U/L (0-33); Albumin Level 3.9 g/dL (3.5-5.2); Alkaline Phosphatase 97 IU/L (35-105); Anion Gap 17.8 (5-19); Aspartate Amino Transferase 22 U/L (0-32); Blood Urea Nitrogen 9 mg/dL (6-20); Calcium 8.5 mg/dL (8.5-10.5); Carbon Dioxide 21 mmol/L (22-29); Chloride 97 mmol/L (98-107); Globulin 2.6 g/dL (1.3-4.6); Glomerular Filtration Rate 60.8 mL/min (90-130); Glucose 133 mg/dL (65-115); NT Pro B Type Natriuretic Pept 442 pg/mL (0-125); Osmolality Calculated 275 mOsm/kg (285-295); Potassium 3.8 mmol/L (3.5-5.1); Sodium 132 mmol/L (136-145); Total Bilirubin 0.6 mg/dL (0.15-1.2); Total Protein 6.5 g/dL (6.6-8.7)
[2021-04-23] VITALS: BP 146/83; PULSE 96; RESP 14; O2SAT 94
[2021-04-23 00:08] LABS: SARS Covid-2 Antigen Negative (Negative)
[2021-04-23 00:21] VITALS: BP 146/83; PULSE 99; RESP 16; TEMP 37.6; O2SAT 96
== END 2021-04-23 00:23 | disposition home or self-care (01) ==
PROVIDERS: Emergency Provider Emergency Medicine; PCP Internal Medicine
DX: B34.9 Viral infection, unspecified (principal); I10 Essential (primary) hypertension; Z20.822 Contact with and (suspected) exposure to COVID-19; Z85.3 Personal history of malignant neoplasm of breast
CPT/HCPCS: 71045; 80053; 83880; 85025; 87426; 93005; 96361; 96374; 96375; 99284; J1885; J2405; J7030

== ENCOUNTER 2021-05-08 08:18 | Outpatient (CLI) | payer OTHER, SELFPAY ==
--- NOTE | 2021-05-08 12:38 | ONC FU_ITS ---
Dr. Wayne Patient Follow-Up Note Patient: Mya Harrell Unit #: [id number]: 1980 Dicatated By: Radu Wayne M.D.Date of Visit:May 08, 2021 Onc Med Follow-up/Prog Note Chief Complaint: Breast cancer. History of Present Illness: This is a 40 year-old woman with grade 3 invasive ductal carcinoma of the left breast, by clinical evaluation stage IIIB (T4b, N1, M0), ER/GA negative and HER-2/huang positive. In February [address] Anne-Marie Goldberg for an initial visit to establish primary care. At that time she had some mild skin changes in her left breast, which at the time had not been of particular concern to her. She was not aware of a lump or any other change in her breast. However, her screening mammogram on 03/17/2019 was BI-RADS 0, with finding of diffuse skin thickening involving the periareolar and anterior aspect of the left breast. It was a new finding compared to prior study from 2011. Also noted was asymmetrically increased parenchyma in the anterior third and lateral aspect of the left breast with linear and punctate calcifications in a ductal distribution. A group of punctate calcifications was noted in the upper outer quadrant of the left breast posteriorly. Punctate calcifications were noted within otherwise nonenlarged left axillary lymph nodes. Additional mammogram views and left breast ultrsound on04/14/2019 were BI-RADS 4B, suspicious. The ultrasound showed skin thickening measuring 6.5 mm in depth. In the 2 o'clock position of the left breast, 3 cm from the nipple was a cystic or ductal structure measuring 2.2 x 7.3 x 7.4 mm and with posterior acoustic enhancement. A similar focus was noted in the subareolar region anteriorly and laterally measuring 4.2 x 6.7 x 7.4 mm. No other cystic or solid soft tissue abnormality seen. Two left axillary lymph nodes were seen containing echogenic aryan, one measuring 0.8 x 1 x 1 cm the other measuring 0.7 x 1.2 x 1.2 cm. She was then referred to [facility] for further management. Sstereotactic needle biopsy of the left breast on 05/05/2019 showed microinvasive carcinoma associated with DCIS, grade 3. Ultrasound-guided FNA of the left axillary lymph node showed metastatic adenocarcinoma which was ER/GA negative and HER-2/huang positive. Skin punch biopsy on 05/11/2019 showed invasive ductal carcinoma involving the superficial dermis. Staging PET/CT on 05/13/2019 showed FDG avid left breast skin thickening with maximum SUV 3.9. asymmetric left breast tissue was noted to be mildly FDG avid. A nonenlarged left axillary lymph node showed maximum SUV 2.3. Additional subcentimeter axillary lymph nodes demonstrated mild to moderate acitivity, but appeared abnormal. There was no evidence of distant metastatic disease. She was given neoadjuvant chemotherapy with TCH-P, beginning 05/25/2019. She experienced multiple toxicities with the chemotherapy, requiring frequent IV hydration. By the end of August 2019 she was able to complete 6 cycles of treatment. Her further clinical course was then complicated by pyelonephritis and subsequently by hematuria with right hydronephrosis, requiring ureteral stent placement on 10/02/2019. The following day she was admitted to the hospital with sepsis. CT scans at that time also showed evidence of bilateral pneumonia. She had somewhat of a difficult recovery, but she eventually was able to undergo left modified radical mastectomy in [place] on 11/10/2019. She reportedly had a complete pathologic response with no evidence of residual malignancy in the breast and no involvement in 18 axillary lymph nodes. She then underwent cardiac sparing postoperative chest wall radiation at [facility] in [place], which she completed on 02/16/2020. At that point she also restarted systemic therapy with Herceptin/Perjeta at 3-week intervals. She was treated here with her cycle 10 Herceptin/Perjeta on 03/08/2020. She tolerated it well, and she then continued treatment at 3-week intervals. She received cycle 13 on 05/10/2020. Just prior to that, she had a significant COVID-19 exposure, and that treatment was administered in the COVID unit at the hospital. During subsequent follow-up she had developed no symptoms of COVID-19 infection. She continued Herceptin/Perjeta at 3-week intervals. She completed her 17th and final cycle of treatment on 08/03/2020. She was then followed expectantly. Her other medical illnesses include hypertension, hypothyroidism, GERD, and asthma. She has overactive bladder. She has chronic migraine and she also has eczema. She has a history of nephrolithiasis. Her prior surgeries include hysterectomy in 2002 and right oophorectomy in 2004. She is a non-smoker. She is seen for a follow-up visit. She has not been feeling good. She was seen in the emergency room on April 22, 2021 with complaints of fever, cough, and shortness of breath. This was thought to be due to a viral syndrome. Her foster children apparently had tested positive for RSV. Her rapid Covid test was negative. At this point she still has some lingering cough, but she is no longer having fever. She has some flushing spells, which she attributes to clonidine. Her breathing is better now, but she still gets short of breath pretty easily with activity. She also has some tightness in her chest. She is way more tired now than she had been, and she also has been having more pain in her lower back and in the SI joint area on the left side. 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 Her ECOG score is 1. She does not have a lot of appetite, but she has continued to gain weight. She says the lymph nodes on the left side of her neck tend to swell off and on. She also has nausea off and on. Her acid reflux is adequately managed with medication. Her bowels fluctuate. She has overactive bladder, but that is unchanged. She also has joint pain, particularly in the elbows. She has occasional migraine headache. She is having pain in her right hand, which she thinks is nerve pain. Her neuropathy is otherwise not too bad. She does have some ongoing issues with lymphedema in the left arm, which does tend to get worse with activity. Her anxiety/depression is being managed pretty well with venlafaxine. Medications: amLODIPine Besylate 1 Tablet (of 2.5 mg) Oral daily, Cetirizine HCl 1 Tablet (of 10 mg) Oral daily PRN, cloNIDine HCl 1 Tablet (of 0.2 mg) Oral b.i.d., Effexor XR 1 Capsule (of 75 mg) Capsule SR 24 HR Oral daily, Levothyroxine Sodium 1 Tablet (of 112 mcg) Oral daily, Lidocaine-Prilocaine 1 (2.5-2.5 %) Cream Topical PRN, Metoprolol Tartrate 1 Tablet (of 25 mg) Oral b.i.d., Ondansetron HCl 1 Tablet (of 8 mg) Oral q 8 hours PRN, Pantoprazole Sodium 1 (40 mg) Tablet, enteric coated Oral daily, Promethazine HCl 1 Tablet (of 12.5 mg) Oral PRN, Vitamin D2 1 Capsule Oral q 7 days Allergies: Adhesives, Chlorhexidine, Erythromycin Base, Herceptin, Lyrica, Prochlorperazine Maleate, Saxenda, and Sulfa Antibiotics. Vital Signs: Performed on May 08, 2021 08:25 Height - 64.00 in Weight - 227 lbs (HIGH) BSA - 2.06 sq.m BMI - 38.96 (HIGH) Temperature - 97.2 F (LOW) Pulse - 70 /min Respiration - 18 /min BP - 113/79 mm(hg) O2 Sat - 99 % Pain - 5 Fatigue - 0 Physical Examination: Constitutional - She looks pretty good generally, Eyes - Sclerae nonicteric. Conjunctivae clear, ENMT - No lesions noted in the oral cavity, Hematologic/Lymphatic - No cervical or clavicular adenopathy, Respiratory - Lungs are clear with good air movement bilaterally, Cardiovascular - Heart is rhythm regular. There is no murmur, gallop, or rub noted, Breasts - There are no lesions noted in the chest wall bilaterally. There is no axillary adenopathy noted, Abdomen - Mildly distended. There is tenderness which appears to localize to the lower anterior rib cage on the left side. Liver and spleen are not enlarged. There is no abdominal mass or ascites noted and there is no inguinal adenopathy, Back/Spine - There is some mild tenderness in the lower lumbar/sacral area, Extremities - There is mild lymphedema of the left arm. There is a trace of lower extremity edema. Dorsalis pedis pulses are palpable bilaterally, Integumentary - There is no skin eruption, Neurologic - No focal neurologic deficits noted. Lab/Imaging: Her laboratory studies from 04/22/2021 included CBC showing hemoglobin 14.0 g, white blood cell count 12,100, and platelet count 302,000. Comprehensive metabolic profile showed normal renal function with BUN 9 and creatinine 1.0 mg/dL. The bilirubin and liver enzymes were normal. Her chest x-ray showed no acute findings. Problem List: 1. Multifocal grade 3 invasive ductal carcinoma of the left breast, by clinical evaluation stage IIIB (T4b, N1, M0), ER/GA negative and HER-2/huang positive. 2. Hypertension. 3. Hypothyroidism. 4 GERD. 5. Asthma. 6. Eczema. 7. Migraine headaches. 8. Overactive bladder. 9. History of nephrolithiasis. Problems Addressed with this Encounter and Plan: Patient with multifocal grade 3 invasive ductal carcinoma of the left breast, by clinical evaluation stage IIIB (T4b, N1, M0), ER/GA negative and HER-2/huang positive. She was given neoadjuvant chemotherapy with 6 cycles of TCH-P, completed in August 2019. Her subsequent clinical course was complicated by pyelonephritis and by hematuria/right hydronephrosis, requiring placement of ureteral stent. She then required hospital admission for sepsis and bilateral pneumonia, but with gradual recovery. She underwent left modified radical mastectomy on 11/10/2019, reportedly with complete pathologic response. She was givne postoperative cardiac sparing chest wall radiation, completed on 02/16/2020. She then restarted systemic adjuvant therapy with Herceptin/Perjeta on 02/16/2020. Treatment was complicated by right upper quadrant pain and elevated liver enzymes. A specific cause was not determined. However, she was able to continue treatment at 3-week intervals. She completed her 17th and final cycle of Herceptin/Perjeta on 08/03/2020. She was then followed expectantly. During follow-up she has had ongoing problems with lymphedema in the left arm and with soft tissue swelling in the neck/shoulder area. She has had continued gradual weight gain. She had recently been to the emergency room with symptoms of viral syndrome. She tested negative for Covid. She has since then continued to complain of severe fatigue, and she has had increasing pain in the lower back and left sacroiliac area. As she is at very high risk for recurrence, she will be scheduled for restaging PET/CT, subject to verification of insurance coverage. In the absence of any evidence of recurrence/progression of the breast cancer, I will just see her again in 3 months. Signed By: Radu Wayne M.D. <<Signature on File>>
== END 2021-05-08 08:19 | disposition home or self-care (01) ==
LOC: ONCMED 08:20
PROVIDERS: PCP Internal Medicine; Visit Provider Internal Medicine Medical Oncology
DX: C50.912 Malignant neoplasm of unspecified site of left female breast (principal); Z17.1 Estrogen receptor negative status [ER-]; Z92.21 Personal history of antineoplastic chemotherapy; Z90.12 Acquired absence of left breast and nipple
CPT/HCPCS: 99214

== ENCOUNTER 2021-05-17 06:00 | Outpatient (RCR) | payer OTHER, SELFPAY | END 2021-06-15 23:59 | disposition home or self-care (01) | LOC: SPT 06:00 | PROVIDERS: PCP Internal Medicine; Referring Provider Nurse Practitioner Family; Visit Provider Nurse Practitioner Family | DX: I89.0 Lymphedema, not elsewhere classified (principal) | CPT/HCPCS: 97140; 97161 ==

== ENCOUNTER 2021-06-16 06:00 | Outpatient (RCR) | payer OTHER, SELFPAY | END 2021-07-16 23:59 | disposition home or self-care (01) | LOC: SPT 06:00 | PROVIDERS: PCP Internal Medicine; Referring Provider Nurse Practitioner Family; Visit Provider Nurse Practitioner Family | DX: I89.0 Lymphedema, not elsewhere classified (principal) | CPT/HCPCS: 97140 ==

== ENCOUNTER 2021-07-19 07:58 | Outpatient (CLI) | payer OTHER, SELFPAY ==
--- NOTE | 2021-07-19 08:02 | NMCV_ITS ---
NM card bld pool [id number] Mya Harrell Age: 40 Gender: F : 1980 Exam Date: 07/19/2021 08:02 Ordering Phys: Radu Wayne MD Technologist: SAM Thurston Exam Location: [facility] Indications: BREAST CANCER Camera Used: Coupay Imaging Protocol: three view gated blood pool study Technical Image Quality: Good Dose: Admin Site: Administered By: [id number] Tagged RBCs: 24.6 IV - Right SAM Thurston Antecubital PYP: EJECTION FRACTION: Automatic LV EF: 66 Rest RV EF: Manual LV EF: FINDINGS CONCLUSIONS Normal LV systolic function with EF of 66% No change in LV systolic function has been noted compared to prior study from 11/15/2020. Jose M Bernal MD (Electronically Signed) Final Date: 22 July 2021 21:31 S MTDD
== END 2021-07-19 07:59 | disposition home or self-care (01) ==
LOC: RAD 08:00
PROVIDERS: PCP Internal Medicine; Visit Provider Internal Medicine Medical Oncology
DX: Z79.899 Other long term (current) drug therapy (principal); C50.812 Malignant neoplasm of overlapping sites of left female breast
CPT/HCPCS: 78472; 78496; A9560

== ENCOUNTER 2021-08-14 06:54 | Outpatient (CLI) | payer OTHER, SELFPAY ==
--- NOTE | 2021-08-18 18:14 | ONC FU_ITS ---
Dr. Wayne Patient Follow-Up Note Patient: Mya Harrell Unit #: [id number]: 1980 Dicatated By: Radu Wayne M.D.Date of Visit:Aug 14, 2021 Onc Med Follow-up/Prog Note Chief Complaint: Breast cancer. History of Present Illness: This is a 40 year-old woman with grade 3 invasive ductal carcinoma of the left breast, by clinical evaluation stage IIIB (T4b, N1, M0), ER/UT negative and HER-2/huang positive. In February [address] Anne-Marie Goldberg for an initial visit to establish primary care. At that time she had some mild skin changes in her left breast, which at the time had not been of particular concern to her. She was not aware of a lump or any other change in her breast. However, her screening mammogram on 03/17/2019 was BI-RADS 0, with finding of diffuse skin thickening involving the periareolar and anterior aspect of the left breast. It was a new finding compared to prior study from 2011. Also noted was asymmetrically increased parenchyma in the anterior third and lateral aspect of the left breast with linear and punctate calcifications in a ductal distribution. A group of punctate calcifications was noted in the upper outer quadrant of the left breast posteriorly. Punctate calcifications were noted within otherwise nonenlarged left axillary lymph nodes. Additional mammogram views and left breast ultrsound on04/14/2019 were BI-RADS 4B, suspicious. The ultrasound showed skin thickening measuring 6.5 mm in depth. In the 2 o'clock position of the left breast, 3 cm from the nipple was a cystic or ductal structure measuring 2.2 x 7.3 x 7.4 mm and with posterior acoustic enhancement. A similar focus was noted in the subareolar region anteriorly and laterally measuring 4.2 x 6.7 x 7.4 mm. No other cystic or solid soft tissue abnormality seen. Two left axillary lymph nodes were seen containing echogenic aryan, one measuring 0.8 x 1 x 1 cm the other measuring 0.7 x 1.2 x 1.2 cm. She was then referred to [facility] for further management. Sstereotactic needle biopsy of the left breast on 05/05/2019 showed microinvasive carcinoma associated with DCIS, grade 3. Ultrasound-guided FNA of the left axillary lymph node showed metastatic adenocarcinoma which was ER/UT negative and HER-2/huang positive. Skin punch biopsy on 05/11/2019 showed invasive ductal carcinoma involving the superficial dermis. Staging PET/CT on 05/13/2019 showed FDG avid left breast skin thickening with maximum SUV 3.9. asymmetric left breast tissue was noted to be mildly FDG avid. A nonenlarged left axillary lymph node showed maximum SUV 2.3. Additional subcentimeter axillary lymph nodes demonstrated mild to moderate acitivity, but appeared abnormal. There was no evidence of distant metastatic disease. She was given neoadjuvant chemotherapy with TCH-P, beginning 05/25/2019. She experienced multiple toxicities with the chemotherapy, requiring frequent IV hydration. By the end of August 2019 she was able to complete 6 cycles of treatment. Her further clinical course was then complicated by pyelonephritis and subsequently by hematuria with right hydronephrosis, requiring ureteral stent placement on 10/02/2019. The following day she was admitted to the hospital with sepsis. CT scans at that time also showed evidence of bilateral pneumonia. She had somewhat of a difficult recovery, but she eventually was able to undergo left modified radical mastectomy in [place] on 11/10/2019. She reportedly had a complete pathologic response with no evidence of residual malignancy in the breast and no involvement in 18 axillary lymph nodes. She then underwent cardiac sparing postoperative chest wall radiation at [facility] in [place], which she completed on 02/16/2020. At that point she also restarted systemic therapy with Herceptin/Perjeta at 3-week intervals. She was treated here with her cycle 10 Herceptin/Perjeta on 03/08/2020. She tolerated it well, and she then continued treatment at 3-week intervals. She received cycle 13 on 05/10/2020. Just prior to that, she had a significant COVID-19 exposure, and that treatment was administered in the COVID unit at the hospital. During subsequent follow-up she had developed no symptoms of COVID-19 infection. She continued Herceptin/Perjeta at 3-week intervals. She completed her 17th and final cycle of treatment on 08/03/2020. She was then followed expectantly. Her other medical illnesses include hypertension, hypothyroidism, GERD, and asthma. She has overactive bladder. She has chronic migraine and she also has eczema. She has a history of nephrolithiasis. Her prior surgeries include hysterectomy in 2002 and right oophorectomy in 2004. She is a non-smoker. INTERIM HISTORY: Restaging PET/CT on 05/26/2021 showed postsurgical changes of left mastectomy and left axillary lymph node dissection. Mildly increased activity in the surgical bed was felt to most likely be related to postsurgical changes. There were no discrete foci of increased activity to suggest recurrent disease. There was persistently diffuse increased activity in the thyroid gland, consistent with thyroiditis. Diffuse increased bone marrow activity was felt to be consistent with recovery from chemotherapy. There was mild diffusely increased activity in the vagina. The focal area of increased activity in the vagina was not well seen. She is seen for a follow-up visit. She has not been feeling very good. Her main complaint is that her energy is not been good. She describes it as markedly different. 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 She says it overall doing anything is a lot more exhausting now than it had been, and she does not feel that she is capable of working. She also has daytime somnolence. She says her appetite is not huge, but she has gained weight. She has not had fever. She has occasional hot flashes/sweating. She has not had sore mouth or throat. She has some shortness of breath with activity, but her breathing is pretty good. She does not complain of cough. She still has pain in the chest wall and axillary area, and she has become aware of a nodule in the medial aspect of her left chest wall. She occasionally has nausea. Her acid reflux is adequately managed with medication. She occasionally has constipation. She more often has diarrhea. She has urinary frequency and urgency, sometimes with incontinence. She did not tolerate medication due to dry mouth. She continues to have some musculoskeletal pain. The most significant is in the lower left rib cage. It occurs episodically, and sometimes it is severe. She says her headaches have not been too bad lately. She does not complain of dizziness. She has residual neuropathy in her hands and feet. She says it is somewhat better. Along with her fatigue, she is having problems with memory and other cognitive functions. Medications: amLODIPine Besylate 1 Tablet (of 2.5 mg) Oral daily, Cetirizine HCl 1 Tablet (of 10 mg) Oral daily PRN, cloNIDine HCl 1 Tablet (of 0.2 mg) Oral b.i.d., Effexor XR 1 Capsule (of 75 mg) Capsule SR 24 HR Oral daily, Elidel (1 %) Cream Topical b.i.d. PRN, Levothyroxine Sodium 1 Tablet (of 112 mcg) Oral daily, Lidocaine-Prilocaine 1 (2.5-2.5 %) Cream Topical PRN, Metoprolol Tartrate 1 Tablet (of 25 mg) Oral b.i.d., Ondansetron HCl 1 Tablet (of 8 mg) Oral q 8 hours PRN, Pantoprazole Sodium 1 (40 mg) Tablet, enteric coated Oral daily, Promethazine HCl 1 Tablet (of 12.5 mg) Oral PRN, Vitamin D2 1 Capsule Oral q 7 days Allergies: Adhesives, Chlorhexidine, Erythromycin Base, Herceptin, Lyrica, Prochlorperazine Maleate, Saxenda, and Sulfa Antibiotics. Vital Signs: Performed on Aug 14, 2021 16:12 Height - 64.00 in Weight - 230.6 lbs (HIGH) BSA - 2.08 sq.m BMI - 39.58 (HIGH) Temperature - 97.6 F (LOW) Pulse - 85 /min Respiration - 18 /min BP - 137/85 mm(hg) O2 Sat - 99 % Pain - 4 Fatigue - 5 Physical Examination: Constitutional - She looks pretty good generally, Eyes - Sclerae nonicteric. Conjunctivae clear, ENMT - No lesions noted in the oral cavity, Hematologic/Lymphatic - No cervical or clavicular adenopathy, Respiratory - Lungs are clear with good air movement bilaterally, Cardiovascular - Heart is rhythm regular. There is no murmur, gallop, or rub noted, Breasts - There are no lesions noted in the right chest wall. At the medial aspect of the mastectomy incision in the left chest wall there is some prominence of subcutaneous tissue which appears to measure a little over a centimeter. It feels soft, and there is no associated erythema. There are no other chest wall lesions noted and there is no axillary adenopathy noted, Abdomen - Mildly distended. There is tenderness along the lower anterior rib margin on the left side. Liver and spleen are not enlarged. There is no abdominal mass or ascites noted and there is no inguinal adenopathy, Extremities - There is mild lymphedema of the left arm. There is no lower extremity edema, Integumentary - No skin eruption, Neurologic - No focal neurologic deficits noted. Problem List: 1. Multifocal grade 3 invasive ductal carcinoma of the left breast, by clinical evaluation stage IIIB (T4b, N1, M0), ER/UT negative and HER-2/huang positive. 2. Hypertension. 3. Hypothyroidism. 4 GERD. 5. Asthma. 6. Eczema. 7. Migraine headaches. 8. Overactive bladder. 9. History of nephrolithiasis. Problems Addressed with this Encounter and Plan: Patient with multifocal grade 3 invasive ductal carcinoma of the left breast, by clinical evaluation stage IIIB (T4b, N1, M0), ER/UT negative and HER-2/huang positive. She was given neoadjuvant chemotherapy with 6 cycles of TCH-P, completed in August 2019. Her subsequent clinical course was complicated by pyelonephritis and by hematuria/right hydronephrosis, requiring placement of ureteral stent. She then required hospital admission for sepsis and bilateral pneumonia, but with gradual recovery. She underwent left modified radical mastectomy on 11/10/2019, reportedly with complete pathologic response. She was givne postoperative cardiac sparing chest wall radiation, completed on 02/16/2020. She then restarted systemic adjuvant therapy with Herceptin/Perjeta on 02/16/2020. Treatment was complicated by right upper quadrant pain and elevated liver enzymes. A specific cause was not determined. However, she was able to continue treatment at 3-week intervals. She completed her 17th and final cycle of Herceptin/Perjeta on 08/03/2020. She was then followed expectantly. During follow-up she had ongoing problems with lymphedema in the left arm and with soft tissue swelling in the neck/shoulder area. She also had significant fatigue and musculoskeletal pain. A restaging PET/CT on 05/26/2021 showed no obvious recurrent or metastatic disease. Since then her fatigue has continued to worsen. She also reports having cognitive dysfunction following the chemotherapy. She has persistent discomfort in the chest wall area and she continues to have musculoskeletal pain, particularly in the area of the left rib cage. She has become aware of a small area of subcutaneous nodularity in the medial left chest wall, but by clinical evaluation it does not appear suspicious for recurrent disease. Overall, she continues to have numerous complaints following completion of chemotherapy, but thus far there has been no evidence of recurrence of the breast cancer. She continues expectant management. She will be scheduled for a follow-up visit in 3 months. Signed By: Radu Wayne M.D. <<Signature on File>>
== END 2021-08-14 06:55 | disposition home or self-care (01) ==
LOC: ONCMED 06:54
PROVIDERS: PCP Internal Medicine; Visit Provider Internal Medicine Medical Oncology
DX: Z08 Encounter for follow-up examination after completed treatment for malignant neoplasm (principal); Z85.3 Personal history of malignant neoplasm of breast; I10 Essential (primary) hypertension; E03.9 Hypothyroidism, unspecified; K21.9 Gastro-esophageal reflux disease without esophagitis; J45.909 Unspecified asthma, uncomplicated; L30.9 Dermatitis, unspecified; G43.919 Migraine, unspecified, intractable, without status migrainosus; N32.81 Overactive bladder; Z87.442 Personal history of urinary calculi; Z79.899 Other long term (current) drug therapy; Z92.21 Personal history of antineoplastic chemotherapy; Z90.12 Acquired absence of left breast and nipple
CPT/HCPCS: 99214

== ENCOUNTER 2021-09-12 15:02 | Emergency (ER) | payer OTHER, SELFPAY ==
[2021-09-12 15:15] VITALS: BP 153/86; PULSE 123; RESP 22; TEMP 38.7; O2SAT 98; BMI 39.4
--- NOTE | 2021-09-12 15:22 | XR_ITS ---
WS: [id number] Portable AP upright chest, 09/12/2021 Clinical Data: COVID, sob, fevers Comparison: Portable chest, 04/22/2021. Findings: No nodules, masses or effusions are seen. The heart is normal. The pulmonary vascularity is not increased. No pneumonia or pneumothorax is seen. There are surgical clips in the left axilla. Th ere are also small surgical clips overlying the right breast. XR/XR chest 1V portable [id number] Impression: Negative chest.
[2021-09-12] MEDS: acetaminophen 500 mg Tablet 1000 MG PO (15:50)
== END 2021-09-12 18:32 | disposition left against medical advice (07) ==
PROVIDERS: Emergency Provider Physician Assistant; PCP Internal Medicine
DX: Z53.21 Procedure and treatment not carried out due to patient leaving prior to being seen by health care provider (principal)
CPT/HCPCS: 71045; 99282

== ENCOUNTER 2021-09-14 08:14 | Outpatient (CLI) | payer OTHER, SELFPAY ==
[2021-09-14 08:16] VITALS: BP 152/91; PULSE 88; RESP 19; TEMP 36.8; O2SAT 98
[2021-09-14 08:45] VITALS: BMI 39.4
[2021-09-14 09:15] VITALS: BP 101/68; PULSE 67; RESP 16; TEMP 36.7; O2SAT 97
[2021-09-14 10:15] VITALS: BP 101/68; PULSE 67; RESP 16; TEMP 36.7; O2SAT 97
== END 2021-09-14 10:15 | disposition home or self-care (01) ==
LOC: OPS 08:15
PROVIDERS: PCP Internal Medicine; Visit Provider Internal Medicine
DX: U07.1 COVID-19 (principal)
CPT/HCPCS: 96365

== ENCOUNTER 2021-11-02 11:06 | Outpatient (CLI) | payer OTHER, SELFPAY ==
--- NOTE | 2021-11-02 11:21 | CT_ITS ---
WS: [id number] CT ABDOMEN TECHNIQUE: Noncontrast CT of the abdomen with coronal and sagittal reformatted images. CLINICAL INFORMATION: LUQ ABDOMINAL PAIN COMPARISON: CT October 05, 2025 DLP: 843.[address] scans at [facility] use at least one of these dose optimization techniques: automated e xposure control; mA and/or kV adjustment per patient size (includes targeted exams where dose is matc hed to clinical indication); or iterative reconstruction. FINDINGS: Prior cholecystectomy. Noncontrast liver is normal. Normal GE junction. Noncontrast spleen is normal. Noncontrast pancreas is normal. Adrenal glands are normal. No hydronephrosis in either kidney. Tiny fat-containing umbilical hernia. No evidence of ventral abdominal wall hernia in the LEFT upper quadrant. Ectatic upper abdominal wall with midline omental outpouching. Abdominal wall is intact. No herniated bowel. Lung bases are well aerated. Normal lumbar spine. CT/CT abdomen wo con [id number] IMPRESSION: 1. Small fat-containing umbilical hernia unchanged. 2. Fat-containing epigastric outpouching in the upper abdomen with ectatic abd ominal wall increased from the prior examinations. Overlying abdominal wall is intact. No herniated bowel. 3. Prior cholecystectomy. 4. No other significant changes compared to previous.
[2021-11-02] MEDS: iohexol 300 mg/mL 50 mL Btl PO (12:14)
== END 2021-11-02 11:07 | disposition home or self-care (01) ==
LOC: RAD 11:11
PROVIDERS: PCP Internal Medicine; Visit Provider Nurse Practitioner Family
DX: K42.9 Umbilical hernia without obstruction or gangrene (principal); Z90.49 Acquired absence of other specified parts of digestive tract
CPT/HCPCS: 74150

== ENCOUNTER 2021-11-06 15:38 | Outpatient (CLI) | payer OTHER, SELFPAY ==
--- NOTE | 2021-11-07 07:25 | ONC FU_ITS ---
Dr. Wayne Patient Follow-Up Note Patient: Mya Harrell Unit #: [id number]: [id number] Dicatated By: Radu Wayne M.D.Date of Visit:Nov 06, 2021 Onc Med Follow-up/Prog Note Chief Complaint: Breast cancer. History of Present Illness: This is a 40 year-old woman with grade 3 invasive ductal carcinoma of the left breast, by clinical evaluation stage IIIB (T4b, N1, M0), ER/FL negative and HER-2/huang positive. In February [address] Anne-Marie Goldberg for an initial visit to establish primary care. At that time she had some mild skin changes in her left breast, which at the time had not been of particular concern to her. She was not aware of a lump or any other change in her breast. However, her screening mammogram on 03/17/2019 was BI-RADS 0, with finding of diffuse skin thickening involving the periareolar and anterior aspect of the left breast. It was a new finding compared to prior study from 2011. Also noted was asymmetrically increased parenchyma in the anterior third and lateral aspect of the left breast with linear and punctate calcifications in a ductal distribution. A group of punctate calcifications was noted in the upper outer quadrant of the left breast posteriorly. Punctate calcifications were noted within otherwise nonenlarged left axillary lymph nodes. Additional mammogram views and left breast ultrsound on04/14/2019 were BI-RADS 4B, suspicious. The ultrasound showed skin thickening measuring 6.5 mm in depth. In the 2 o'clock position of the left breast, 3 cm from the nipple was a cystic or ductal structure measuring 2.2 x 7.3 x 7.4 mm and with posterior acoustic enhancement. A similar focus was noted in the subareolar region anteriorly and laterally measuring 4.2 x 6.7 x 7.4 mm. No other cystic or solid soft tissue abnormality seen. Two left axillary lymph nodes were seen containing echogenic aryan, one measuring 0.8 x 1 x 1 cm the other measuring 0.7 x 1.2 x 1.2 cm. She was then referred to [facility] for further management. Sstereotactic needle biopsy of the left breast on 05/05/2019 showed microinvasive carcinoma associated with DCIS, grade 3. Ultrasound-guided FNA of the left axillary lymph node showed metastatic adenocarcinoma which was ER/FL negative and HER-2/huang positive. Skin punch biopsy on 05/11/2019 showed invasive ductal carcinoma involving the superficial dermis. Staging PET/CT on 05/13/2019 showed FDG avid left breast skin thickening with maximum SUV 3.9. asymmetric left breast tissue was noted to be mildly FDG avid. A nonenlarged left axillary lymph node showed maximum SUV 2.3. Additional subcentimeter axillary lymph nodes demonstrated mild to moderate acitivity, but appeared abnormal. There was no evidence of distant metastatic disease. She was given neoadjuvant chemotherapy with TCH-P, beginning 05/25/2019. She experienced multiple toxicities with the chemotherapy, requiring frequent IV hydration. By the end of August 2019 she was able to complete 6 cycles of treatment. Her further clinical course was then complicated by pyelonephritis and subsequently by hematuria with right hydronephrosis, requiring ureteral stent placement on 10/02/2019. The following day she was admitted to the hospital with sepsis. CT scans at that time also showed evidence of bilateral pneumonia. She had somewhat of a difficult recovery, but she eventually was able to undergo left modified radical mastectomy in [place] on 11/10/2019. She reportedly had a complete pathologic response with no evidence of residual malignancy in the breast and no involvement in 18 axillary lymph nodes. She then underwent cardiac sparing postoperative chest wall radiation at [facility] in [place], which she completed on 02/16/2020. At that point she also restarted systemic therapy with Herceptin/Perjeta at 3-week intervals. She was treated here with her cycle 10 Herceptin/Perjeta on 03/08/2020. She tolerated it well, and she then continued treatment at 3-week intervals. She received cycle 13 on 05/10/2020. Just prior to that, she had a significant COVID-19 exposure, and that treatment was administered in the COVID unit at the hospital. During subsequent follow-up she had developed no symptoms of COVID-19 infection. She continued Herceptin/Perjeta at 3-week intervals. She completed her 17th and final cycle of treatment on 08/03/2020. She was then followed expectantly. Her other medical illnesses include hypertension, hypothyroidism, GERD, and asthma. She has overactive bladder. She has chronic migraine and she also has eczema. She has a history of nephrolithiasis. Her prior surgeries include hysterectomy in 2002 and right oophorectomy in 2004. She is a non-smoker. INTERIM HISTORY: Restaging PET/CT on 05/26/2021 showed postsurgical changes of left mastectomy and left axillary lymph node dissection. Mildly increased activity in the surgical bed was felt to most likely be related to postsurgical changes. There were no discrete foci of increased activity to suggest recurrent disease. There was persistently diffuse increased activity in the thyroid gland, consistent with thyroiditis. Diffuse increased bone marrow activity was felt to be consistent with recovery from chemotherapy. There was mild diffusely increased activity in the vagina. The focal area of increased activity in the vagina was not well seen. As of her follow-up visit on 08/14/2021 she continued to report significant fatigue and she also complained of having pain in her left lower chest/upper abdominal area. By clinical evaluation, there is no obvious recurrence of the breast cancer. In August 2021 she was diagnosed with COVID-19 virus infection. She was given a monoclonal antibody infusion. She recovered uneventfully. Her CT abdomen/pelvis on 11/02/2021 showed a fat-containing epigastric outpouching in the upper abdomen in association with ectatic abdominal wall which was noted to have increased compared to prior studies. It was not an actual hernia. There was evidence for a small fat-containing umbilical hernia, but that appeared unchanged. There were no other significant findings. She is seen for a follow-up visit. Her main complaint is that she has been having lots and lots of pain, mainly in the left lower chest/upper abdomen. She describes it as being a random pain, though does tend to get worse with coughing, yawning, or sneezing. At times it is severe, like someone twisting a hot knife, and it has impaired her ability to function. She continues to complain of fatigue, and she is pretty much not doing any work activity now. Her ECOG score is 2. She does not have much appetite and she has early satiety. Despite that, she has continued to gain weight. She does not have fever or night sweats. She has some allergy related sinus symptoms. She has not had sore mouth or throat. She has cough off and on, especially at night. She sometimes has shortness of breath, but overall her breathing is pretty good. She continues to have some nausea. Her acid reflux is adequately managed with pantoprazole. Bowel function has been okay. She has overactive bladder and she has some associated incontinence. She reports having deep pain in the left shoulder, and she also has some lower back/SI joint pain. She does not complain of headache or dizziness. She has some numbness in her legs, which is intermittent, and she continues to have numbness in the ulnar distribution of the left arm/hand. Medications: amLODIPine Besylate 1 Tablet (of 2.5 mg) Oral daily, Cetirizine HCl 1 Tablet (of 10 mg) Oral daily PRN, cloNIDine HCl 1 Tablet (of 0.2 mg) Oral b.i.d., Elidel (1 %) Cream Topical b.i.d. PRN, Levothyroxine Sodium 1 Tablet (of 112 mcg) Oral daily, Lidocaine-Prilocaine 1 (2.5-2.5 %) Cream Topical PRN, Metoprolol Tartrate 1 Tablet (of 25 mg) Oral b.i.d., Ondansetron HCl 1 Tablet (of 8 mg) Oral q 8 hours PRN, Pantoprazole Sodium 1 (40 mg) Tablet, enteric coated Oral daily, Promethazine HCl 1 Tablet (of 12.5 mg) Oral PRN, Vitamin D2 1 Capsule Oral q 7 days Allergies: Adhesives, Chlorhexidine, Erythromycin Base, Herceptin, Lyrica, Prochlorperazine Maleate, Saxenda, and Sulfa Antibiotics. Vital Signs: Performed on Nov 06, 2021 15:55 Height - 64.00 in Weight - 233.6 lbs (HIGH) BSA - 2.09 sq.m BMI - 40.10 (HIGH) Temperature - 97.8 F (LOW) Pulse - 96 /min Respiration - 18 /min BP - 141/85 mm(hg) (HIGH) O2 Sat - 98 % Pain - 4 Fatigue - 5 Physical Examination: Constitutional - She appears anxious and she has some emotional lability, but she does not appear acutely ill, Eyes - Sclerae nonicteric. Conjunctivae clear, ENMT - No lesions noted in the oral cavity, Hematologic/Lymphatic - No cervical or clavicular adenopathy, Respiratory - Lungs are clear with good air movement bilaterally, Cardiovascular - Heart is rhythm regular. There is no murmur, gallop, or rub noted, Breasts - There is tenderness in the left chest wall, particularly in the area of the mastectomy scar, but there are no chest wall lesions noted. Tenderness also extends into the left axillary area, but there is no axillary adenopathy, Abdomen - Moderately distended. There is again focal tenderness along the lower anterior rib margin on the left side. Liver and spleen are not enlarged. There is no abdominal mass or ascites noted and there is no inguinal adenopathy, Extremities - There is mild lymphedema of the left arm. There is no lower extremity edema, Integumentary - No skin eruption, Neurologic - No focal neurologic deficits noted. Problem List: 1. Multifocal grade 3 invasive ductal carcinoma of the left breast, by clinical evaluation stage IIIB (T4b, N1, M0), ER/FL negative and HER-2/huang positive. 2. Hypertension. 3. Hypothyroidism. 4 GERD. 5. Asthma. 6. Eczema. 7. Migraine headaches. 8. Overactive bladder. 9. History of nephrolithiasis. Problems Addressed with this Encounter and Plan: Patient with multifocal grade 3 invasive ductal carcinoma of the left breast, by clinical evaluation stage IIIB (T4b, N1, M0), ER/FL negative and HER-2/huang positive. She was given neoadjuvant chemotherapy with 6 cycles of TCH-P, completed in August 2019. Her subsequent clinical course was complicated by pyelonephritis and by hematuria/right hydronephrosis, requiring placement of ureteral stent. She then required hospital admission for sepsis and bilateral pneumonia, but with gradual recovery. She underwent left modified radical mastectomy on 11/10/2019, reportedly with complete pathologic response. She was givne postoperative cardiac sparing chest wall radiation, completed on 02/16/2020. She then restarted systemic adjuvant therapy with Herceptin/Perjeta on 02/16/2020. Treatment was complicated by right upper quadrant pain and elevated liver enzymes. A specific cause was not determined. However, she was able to continue treatment at 3-week intervals. She completed her 17th and final cycle of Herceptin/Perjeta on 08/03/2020. She was then followed expectantly. During follow-up she had ongoing problems with lymphedema in the left arm and with soft tissue swelling in the neck/shoulder area. She also had significant fatigue and musculoskeletal pain. A restaging PET/CT on 05/26/2021 showed no obvious recurrent or metastatic disease. Since then she has had continued pain in the left chest wall/axillary area and she has complained of worsening pain in the left lower chest/upper abdominal area. There is associated focal tenderness along the left lower anterior rib margin. The exact cause for the pain remains uncertain, but I think it is most likely neuropathic. It is now significant enough that it is impairing her ability to function. At this point I will refer her to pain clinic to see if it may not be amenable to some type of local intervention. For now she remains on expectant management for the breast cancer. However, if her symptoms continue to worsen, I will plan to schedule her for a restaging PET/CT. She will be scheduled for a follow-up visit in 1 month. Signed By: Radu Wayne M.D. <<Signature on File>>
== END 2021-11-06 15:39 | disposition home or self-care (01) ==
PROVIDERS: PCP Internal Medicine; Visit Provider Internal Medicine Medical Oncology
DX: Z85.3 Personal history of malignant neoplasm of breast (principal); Z17.1 Estrogen receptor negative status [ER-]; I10 Essential (primary) hypertension; E03.9 Hypothyroidism, unspecified; K21.9 Gastro-esophageal reflux disease without esophagitis; J45.909 Unspecified asthma, uncomplicated; I89.0 Lymphedema, not elsewhere classified; Z79.899 Other long term (current) drug therapy
CPT/HCPCS: 99214

== ENCOUNTER 2022-02-22 08:44 | Oncology outpatient (recurring) (ONCR) | payer OTHER, SELFPAY | END 2022-03-15 23:59 | disposition home or self-care (01) | PROVIDERS: PCP Internal Medicine; Visit Provider Internal Medicine Medical Oncology | DX: Z08 Encounter for follow-up examination after completed treatment for malignant neoplasm (principal); Z85.3 Personal history of malignant neoplasm of breast; Z90.12 Acquired absence of left breast and nipple; R73.9 Hyperglycemia, unspecified; Z92.21 Personal history of antineoplastic chemotherapy | CPT/HCPCS: 80053; 83036; 85025; 85651; 86140 ==

== ENCOUNTER 2022-05-07 09:04 | Outpatient (CLI) | payer OTHER, SELFPAY ==
--- NOTE | 2022-05-07 09:28 | XRR_ITS ---
PROCEDURE INFORMATION: Exam: XR Right Hip Exam date and time: 05/07/2022 9:34 AM Age: 41 years old Clinical indication: Hip pain; Right hip; Prior surgery; Surgery type: C section; Patient HX: HX of breast cancer; Additional info: R hip joint pain, to include 3 view pelvis TECHNIQUE: Imaging protocol: Radiologic exam of the Right hip. Views: 1 view hip with pelvis when performed. COMPARISON: [place] [id number] 10/05/2019 12:01 PM FINDINGS: Bones/joints: No fracture. No dislocation. No lytic or sclerotic lesions. Minimal superior hip joint space narrowing. The symphysis pubis and sacroiliac joints are not diastatic. Soft tissues: No acute soft tissue abnormality. XR/XR hip RT 2-3V wo/w pel* [id number] IMPRESSION: No acute osseous abnormality.
== END 2022-05-07 09:05 | disposition home or self-care (01) ==
LOC: RAD 09:08
PROVIDERS: PCP Internal Medicine; Visit Provider Nurse Practitioner Family
DX: M25.551 Pain in right hip (principal); Z85.3 Personal history of malignant neoplasm of breast
CPT/HCPCS: 73502

== ENCOUNTER 2022-05-31 07:32 | Outpatient (CLI) | payer OTHER, SELFPAY ==
--- NOTE | 2022-05-31 07:50 | MR_ITS ---
WS: [id number] MRI RIGHT HIP NONCONTRAST TECHNIQUE: Axial T1, axial T2 fat sat, coronal T1, coronal STIR, sagittal T2 fat sat, sagittal T1, an d sagittal T2 fat sat, of both hips. CLINICAL INFORMATION: R HIP JOINT PAIN COMPARISON: Radiograph May 07, 2022 FINDINGS: Normal anatomic alignment RIGHT hip. No acute fractures. No bone marrow edema in the femoral head or femoral neck. No evidence of avascular necrosis. Normal RIGHT acetabulum. Normal bone marrow signal in the in the sacrum and bony pelvis. No insufficiency fractures. Normal pu bic symphysis. No significant joint effusion. No inguinal lymphadenopathy. No bone marrow edema in the LEFT hip. Normal visualized pelvic soft tiss ues. MR/MR hip RT wo con* [id number] IMPRESSION: 1. No bone marrow edema or acute fracture RIGHT hip. No evidence of avascular necrosis 2. Normal bone marrow signal in the bony pelvis, sacrum, and LEFT hip. 3. Normal visualized soft tissues. 4. No other suspicious findings.
== END 2022-05-31 07:33 | disposition home or self-care (01) ==
PROVIDERS: PCP Internal Medicine; Visit Provider Nurse Practitioner Family
DX: M25.551 Pain in right hip (principal)
CPT/HCPCS: 73721

== ENCOUNTER 2022-06-20 08:37 | Outpatient (CLI) | payer OTHER, SELFPAY ==
--- NOTE | 2022-06-20 08:57 | US_ITS ---
WS: [id number] ULTRASOUND SOFT TISSUES RIGHT chest wall. HISTORY: BREAST LUMP, status post bilateral mastectomies. New palpable abnormality in the RIGHT chest wall towards the axillary tail. COMPARISON: None available. TECHNIQUE: 2-D and color Doppler imaging is submitted. There are several lymph nodes noted towards the axillary tail and RIGHT axilla. These correspond to t he palpable abnormalities. The largest lymph node measures 2.2 x 2.0 x 0.8 cm. There is asymmetry of the cortex with the central fat being increased. Several of these lymph nodes demonstrate increased c entral fat deposition with an asymmetric cortex. Lymph nodes are not enlarged hypervascular. US/US chest [id number] IMPRESSION: 1. Palpable areas along the RIGHT chest wall correspond to very minimally abno rmal lymph nodes. With history of prior breast cancer recommend follow-up chest CT with IV contrast to better evaluate the soft tissues. Clinically if these p alpable areas are of concern PET/CT imaging may be more swallowed this time. 2. Patient is status post bilateral mastectomies.
== END 2022-06-20 08:38 | disposition home or self-care (01) ==
LOC: RAD 08:38
PROVIDERS: PCP Internal Medicine; Visit Provider Internal Medicine
DX: N63.0 Unspecified lump in unspecified breast (principal); Z90.13 Acquired absence of bilateral breasts and nipples
CPT/HCPCS: 76604

== ENCOUNTER 2022-06-28 08:36 | Outpatient (CLI) | payer OTHER, SELFPAY ==
--- NOTE | 2022-06-28 08:43 | CT_ITS ---
WS: [id number] CT CHEST, ABDOMEN AND PELVIS WITH CONTRAST. HISTORY: BREAST CARCINOMA TECHNIQUE: Contiguous 5 mm axial imaging performed through the chest, abdomen and pelvis with IV cont rast, oral contrast has been provided. Coronal and sagittal reformats chest. Coronal and sagittal ref ormats through the abdomen and pelvis. All CT scans at [facility] use at least one of these d ose optimization techniques: automated exposure control; mA and/or kV adjustment per patient size (in cludes targeted exams where dose is matched to clinical indication); or iterative reconstruction. CONTRAST: None DLP: 1740.90 mGy.cm COMPARISON: 10/05/2019 and 11/02/[address]: Mild volume loss and focal scarring and fibrosis at the LEFT apex. Slightly improved since 07/22/2020. No pulmonary mass or nodule. No pneumonia. No pleural effusion. No mediastinal or hilar ad enopathy. Normal-sized thoracic aorta. Normal pulmonary artery. LEFT mastectomy. Abdomen CT: Prior cholecystectomy. Liver, spleen, pancreas, adrenal glands and kidneys are negative. Atherosclerosis aorta. No aneurysm. No ascites or adenopathy. Minimally distended stomach. No small bowel obstruction. The appendix is not identified. No significa nt diverticular disease. Pelvic CT: No free fluid or adenopathy. Minimally distended urinary bladder. Prior hysterectomy. Atro phic LEFT ovary is identified. No osteoblastic or osteolytic bone disease. Prior cholecystectomy and hysterectomy. CT/CT chest abd pel w con* IMPRESSION: 1. No metastatic disease within the chest, abdomen or pelvis. 2. Prior LEFT mastectomy. 3. Focal scarring and volume loss LEFT upper lobe. Suspect this may be posttre atment related.
[2022-06-28] MEDS: iohexol 350 mg/mL 100 mL Btl IV (09:53)
[2022-06-28] MEDS: iohexol 350 mg/mL 100 mL Btl PO (09:53)
== END 2022-06-28 08:37 | disposition home or self-care (01) ==
PROVIDERS: PCP Internal Medicine; Visit Provider Internal Medicine
DX: C50.919 Malignant neoplasm of unspecified site of unspecified female breast (principal); Z90.12 Acquired absence of left breast and nipple
CPT/HCPCS: 71260; 74177

== ENCOUNTER 2022-07-03 08:06 | Outpatient (CLI) | payer OTHER, SELFPAY ==
--- NOTE | 2022-07-03 08:18 | NM_ITS ---
WS: [id number] NUCLEAR MEDICINE BONE SCAN Radiopharmaceutical: 25.1 Tc-99m MDP mCi IV Injection site: Antecubital Postinjection imaging delay: 1 hr CLINICAL INFORMATION: BREAST CARCINOMA, RIGHT HIP PAIN COMPARISON: CT June 28, 2022 FINDINGS: Bone lesions: There are no osseous lesions suspicious for metastatic disease. RIGHT hip appears robert l. Soft tissue contours: Normal. Kidneys: Normal. Other findings: Mild degenerative type uptake involving both AC joints NM/NM bone scan whole body* [id number] IMPRESSION: No evidence of osseous metastatic disease.
== END 2022-07-03 08:07 | disposition home or self-care (01) ==
LOC: RAD 08:08
PROVIDERS: PCP Internal Medicine; Visit Provider Internal Medicine
DX: C50.919 Malignant neoplasm of unspecified site of unspecified female breast (principal); M25.551 Pain in right hip
CPT/HCPCS: 78306; A9561

== ENCOUNTER 2022-08-15 06:00 | Outpatient (RCR) | payer OTHER, SELFPAY | END 2022-08-15 23:59 | disposition home or self-care (01) | LOC: SPT 06:00 | PROVIDERS: PCP Internal Medicine; Visit Provider Internal Medicine | DX: I89.0 Lymphedema, not elsewhere classified (principal) | CPT/HCPCS: 97161 ==

== ENCOUNTER 2022-08-16 06:00 | Outpatient (RCR) | payer OTHER, SELFPAY | END 2022-09-15 23:59 | disposition home or self-care (01) | LOC: SPT 06:00 | PROVIDERS: PCP Internal Medicine; Visit Provider Internal Medicine | DX: I89.0 Lymphedema, not elsewhere classified (principal) | CPT/HCPCS: 97140 ==

== ENCOUNTER 2022-08-27 12:59 | Oncology outpatient (recurring) (ONCR) | payer OTHER, SELFPAY | END 2022-09-15 23:59 | disposition home or self-care (01) | PROVIDERS: PCP Internal Medicine; Visit Provider Internal Medicine Medical Oncology | DX: Z85.3 Personal history of malignant neoplasm of breast (principal) ==

== ENCOUNTER 2022-09-16 06:00 | Outpatient (RCR) | payer OTHER, SELFPAY | END 2022-10-16 23:59 | disposition home or self-care (01) | LOC: SPT 06:00 | PROVIDERS: PCP Internal Medicine; Visit Provider Internal Medicine | DX: I89.0 Lymphedema, not elsewhere classified (principal) | CPT/HCPCS: 97140 ==

== ENCOUNTER → 2022-12-03 11:52 | Day surgery (SDC) | payer OTHER, SELFPAY ==
[2022-12-03] MEDS: lactated ringers 1,000 ML 999 ML IV (12:16)
[2022-12-03 12:25] VITALS: BP 142/97; PULSE 105; RESP 18; TEMP 36.6; O2SAT 99
== END ==
PROVIDERS: PCP Internal Medicine; Visit Provider Nurse Practitioner Family
DX: E86.0 Dehydration (principal); Z98.84 Bariatric surgery status
CPT/HCPCS: 96360; J7120

== ENCOUNTER 2023-05-01 15:21 | Outpatient (CLI) | payer OTHER, SELFPAY ==
--- NOTE | 2023-05-01 15:29 | XRR_ITS ---
PROCEDURE INFORMATION: Exam: XR Left Shoulder Exam date and time: 05/01/2023 3:50 PM Age: 42 years old Clinical indication: Pain; Shoulder; Patient HX: HX of left breast cancer; Additional info: Pain in left shoulder TECHNIQUE: Imaging protocol: Radiologic exam of the left shoulder. Views: 2 or more views. COMPARISON: MR shoulder LT wo con* [id number] 11/25/2020 11:26 AM FINDINGS: Bones/joints: Normal. Soft tissues: There are left axillary clips. XR/XR shoulder LT min 2V* [id number] IMPRESSION: No acute findings.
--- NOTE | 2023-05-01 15:29 | XRR_ITS ---
PROCEDURE INFORMATION: Exam: XR Cervical Spine Exam date and time: 05/01/2023 3:50 PM Age: 42 years old Clinical indication: Pain; Cervicalgia; Patient HX: HX of breast cancer TECHNIQUE: Imaging protocol: Radiologic exam of the cervical spine. Views: 4 or 5 views. COMPARISON: NM bone scan whole body* [id number] 07/03/2022 8:18 AM FINDINGS: Bones/joints: Normal. No acute fracture. Normal alignment. No osteophytic foraminal compromise. Soft tissues: Unremarkable. XR/XR cervical spine 4-5V [id number] IMPRESSION: No abnormal findings.
== END 2023-05-01 15:22 | disposition home or self-care (01) ==
LOC: RAD 15:26
PROVIDERS: PCP Internal Medicine; Visit Provider Internal Medicine
DX: M54.2 Cervicalgia (principal); Z85.3 Personal history of malignant neoplasm of breast; M25.512 Pain in left shoulder
CPT/HCPCS: 72050; 73030

== ENCOUNTER 2023-05-21 15:21 | Outpatient (RCR) | payer OTHER, SELFPAY | END 2023-06-15 23:59 | disposition home or self-care (01) | LOC: SPT 15:21 | PROVIDERS: Visit Provider Internal Medicine | DX: I89.0 Lymphedema, not elsewhere classified (principal) | CPT/HCPCS: 97140; 97162 ==

== ENCOUNTER 2023-06-16 06:00 | Outpatient (RCR) | payer OTHER, SELFPAY | END 2023-07-16 23:59 | disposition home or self-care (01) | LOC: SPT 06:00 | PROVIDERS: Visit Provider Internal Medicine | DX: I89.0 Lymphedema, not elsewhere classified (principal) | CPT/HCPCS: 97140 ==

== ENCOUNTER 2024-02-17 08:42 | Outpatient (RCR) | payer OTHER, SELFPAY | END 2024-03-15 23:59 | disposition home or self-care (01) | LOC: SPT 08:42 | PROVIDERS: PCP Internal Medicine; Visit Provider Internal Medicine | DX: I89.0 Lymphedema, not elsewhere classified (principal) | CPT/HCPCS: 20560; 97110; 97140; 97161 ==

== ENCOUNTER 2024-03-16 06:00 | Outpatient (RCR) | payer OTHER, SELFPAY | END 2024-04-15 23:59 | disposition home or self-care (01) | LOC: SPT 06:00 | PROVIDERS: PCP Internal Medicine; Visit Provider Internal Medicine | DX: I89.0 Lymphedema, not elsewhere classified (principal) | CPT/HCPCS: 20560; 97110 ==

== ENCOUNTER 2024-04-16 23:59 | Outpatient (RCR) | payer OTHER, SELFPAY | END 2024-05-16 23:59 | disposition home or self-care (01) | LOC: SPT 23:59 | PROVIDERS: PCP Internal Medicine; Visit Provider Internal Medicine | DX: I89.0 Lymphedema, not elsewhere classified (principal); Z90.13 Acquired absence of bilateral breasts and nipples | CPT/HCPCS: 20560; 97110 ==

== ENCOUNTER 2024-05-17 06:00 | Outpatient (RCR) | payer OTHER, SELFPAY | END 2024-06-15 23:59 | disposition home or self-care (01) | LOC: SPT 06:00 | PROVIDERS: PCP Internal Medicine; Visit Provider Internal Medicine | DX: I89.0 Lymphedema, not elsewhere classified (principal); Z90.13 Acquired absence of bilateral breasts and nipples | CPT/HCPCS: 20560; 20561; 97110; 97140 ==

== ENCOUNTER 2024-06-16 06:00 | Outpatient (RCR) | payer OTHER, SELFPAY | END 2024-07-16 23:59 | disposition home or self-care (01) | LOC: SPT 06:00 | PROVIDERS: PCP Internal Medicine; Visit Provider Internal Medicine | DX: I89.0 Lymphedema, not elsewhere classified (principal); Z90.13 Acquired absence of bilateral breasts and nipples | CPT/HCPCS: 20560; 97110; 97140 ==

== ENCOUNTER 2025-01-24 19:59 | Emergency (ER) | payer OTHER, SELFPAY ==
[2025-01-24 20:07] VITALS: BP 166/111; PULSE 80; TEMP 36.9; O2SAT 100; BMI 22.3
[2025-01-24 20:34] LABS: Basophils % 0.3 %; Eosinophils # 0.2 10^3/uL (0.0-0.8); Eosinophils % 3.3 %; Hematocrit 42.4 % (36-47); Lymphocytes # 1.1 10^3/uL (0.8-4.8); Lymphocytes % 18.5 %; Mean Corpuscular HGB Conc 32.8 g/dL (30-55); Mean Corpuscular Hemoglobin 30.2 pg (27-33); Mean Platelet Volume 9.7 fL (7.4-10.4); Monocytes # 0.4 10^3/uL (0.2-0.9); Monocytes % 6.1 %; Neutrophils # 4.33 10^3/uL (1.8-7.7); Neutrophils % 71.5 %; Nucleated Red Blood Cells % 0 %; Platelet Count 274 10^3/cmm (157-399); Red Blood Count 4.61 10^6/uL (3.85-5.65); Red Cell Distribution Width 11.7 % (12.1-15.1); White Blood Count 6.06 10^3/uL (3.29-11.43)
[2025-01-24 20:51] LABS: Alanine Aminotransferase 269 U/L (0-33); Albumin Level 3.7 g/dL (3.5-5.2); Alkaline Phosphatase 214 U/L (35-105); Anion Gap 14.9 (5-19); Aspartate Amino Transferase 279 U/L (0-32); Blood Urea Nitrogen 10 mg/dL (6-20); Calcium 8.6 mg/dL (8.5-10.5); Carbon Dioxide 23 mmol/L (22-29); Chloride 104 mmol/L (98-107); Creatinine Clr Calc Pharmacy 89.4227; Globulin 2.9 g/dL (1.3-4.6); Glomerular Filtration Rate 90.1 mL/min (90-130); Glucose 87 mg/dL (65-115); Lipase 18 U/L (13-60); Osmolality Calculated 284 mOsm/kg (285-295); Potassium 3.9 mmol/L (3.5-5.1); Sodium 138 mmol/L (136-145); Total Bilirubin 0.4 mg/dL (0.15-1.2); Total Protein 6.6 g/dL (6.6-8.7)
[2025-01-24 21:00] LABS: HCG, Serum Qual Negative (Negative)
== END 2025-01-25 00:12 | disposition left against medical advice (07) ==
PROVIDERS: Emergency Medicine; Emergency Provider Family Medicine; PCP Internal Medicine
DX: Z01.89 Encounter for other specified special examinations (principal); Z53.21 Procedure and treatment not carried out due to patient leaving prior to being seen by health care provider
CPT/HCPCS: 36415; 80053; 83690; 84703; 85025; 86140

== ENCOUNTER 2025-01-25 12:12 | Outpatient (CLI) | payer OTHER, SELFPAY ==
--- NOTE | 2025-01-25 12:20 | CTR_ITS ---
PROCEDURE INFORMATION: Exam: CT Abdomen And Pelvis With Contrast Exam date and time: 01/25/2025 1:40 PM Age: 44 years old Clinical indication: Abdominal pain; Localized; Other: Epigastric; Prior surgery; Surgery date: Post-operative (0-2 days); Surgery type: Gastric bypass, bilateral mastectomy, with reconstruction, hyst; --left upper and into back pain since egd last wed, especially after eating. HX of breast cancer; Additional info: Epigastric abdominal pain TECHNIQUE: Imaging protocol: Computed tomography of the abdomen and pelvis with contrast. Radiation optimization: All CT scans at this facility use at least one of these dose optimization techniques: automated exposure control; mA and/or kV adjustment per patient size (includes targeted exams where dose is matched to clinical indication); or iterative reconstruction. Contrast material: OMNI 350; Contrast volume: 100 ml; Contrast route: INTRAVENOUS (IV); COMPARISON: CT chest abdpel w/*[id number] 06/28/2022 9:46 AM RADIATION DOSE METRICS: Total DLP (mGy-cm): 322.75 FINDINGS: Liver: Normal. No mass. Gallbladder and biliary ducts: There has been prior cholecystectomy. Pancreas: Normal. No ductal dilation. Spleen: Normal. No splenomegaly. Adrenal glands: Normal. No mass. Kidneys and ureters: Normal. No hydronephrosis. Stomach and bowel: There is evidence of prior gastric bypass surgery. There is malrotation of small and large bowel centered at the root of the mesentery with swirling appearance of the proximal small bowel and the mesenteric vessels. There is malrotation of the ascending colon with cecum and terminal ileum noted in the left upper quadrant. This is a new finding compared to prior CT examination from 06/28/2022. There is no significant bowel obstruction identified. There is mild diffuse thickening of the colon which is a nonspecific finding. Appendix: No evidence of appendicitis. Intraperitoneal space: Small amount of pelvic free fluid is noted. There is no free air. Vasculature: Unremarkable. No abdominal aortic aneurysm. Lymph nodes: Unremarkable. No enlarged lymph nodes. Urinary bladder: Unremarkable as visualized. Reproductive: There has been prior hysterectomy. Bones/joints: Unremarkable. No acute fracture. Soft tissues: Unremarkable. Other findings: There is no abscess collection. CT/CT abdomen pelvis w con* [id number] IMPRESSION: 1. 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 The terminal ileum and cecum are noted in the left upper quadrant. There is no discrete bowel obstruction identified on this examination. 2. Mild diffuse thickening of the colon which is a nonspecific finding and could be related to infectious, inflammatory or ischemic etiologies. 3. Small amount of nonspecific pelvic free fluid. 4. Prior gastric bypass surgery. 5. Surgical evaluation is recommended for further assessment of above findings.
[2025-01-25] MEDS: iohexol 350 mg/mL 500 mL Btl (per mL) PO (13:27)
[2025-01-25] MEDS: iohexol 350 mg/mL 500 mL Btl (per mL) IV (13:53)
== END 2025-01-25 12:13 | disposition home or self-care (01) ==
LOC: RAD 12:13
PROVIDERS: PCP Internal Medicine; Visit Provider Internal Medicine
DX: R10.13 Epigastric pain (principal); R93.89 Abnormal findings on diagnostic imaging of other specified body structures; K63.89 Other specified diseases of intestine; Z98.890 Other specified postprocedural states
CPT/HCPCS: 74177

== ENCOUNTER 2025-01-25 18:31 | Emergency (ER) | payer OTHER, SELFPAY ==
[2025-01-25] VITALS (10 sets, daily range): BP systolic 107–186; BP diastolic 81–127; PULSE 65–84; RESP 16; TEMP 36.9; O2SAT 100; BMI 22.3
--- NOTE | 2025-01-25 19:05 | W.ED.ABDPA2 ---
HPI - Abdominal Pain General: Chief Complaint: Abdominal Pain Stated Complaint: abnormal CT results, dr snowden Time Seen by Provider: 01/25/25 18:41 Source: patient Mode of arrival: ambulatory Limitations: no limitations History of Present Illness: Patient is a 44-year-old female presents to ED today after her primary care provider told her to come to the emergency department due to an abnormal CT finding. Patient states last Saturday she underwent EGD in [place] for evaluation of some abdominal discomfort she had been having. They thought she could have peptic ulcer disease as she has had an ulcer in the past. Patient states she was told they removed 3 berlin presumably from her previous Anyi-en-Y surgery that was performed 2 years ago that were poking through . She states by Saturday she began developing severe abdominal pain that persisted throughout the weekend. She was seen by her primary care provider this morning who ordered an outpatient CT scan. 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 Patient states she has had multiple episodes of vomiting over the weekend and dry heaving with eating. MD elicited complaint: abdominal pain Onset (ago): day(s) Pain Consistency: intermittent Location: Diffuse Severity: severe Quality: cramping and stabbing Radiation: none Migration to: no migration Exacerbating factors: eating Relieving factors: nothing Associated Symptoms: Reports nausea and vomiting; Denies change in bowel habits, chills, diarrhea, dysuria and fever(s) Related Data Home Medications ?Medication ?Instructions ?Recorded ?Confirmed amlodipine 2.5 mg tablet 2.5 mg PO DAILY 01/01/20 09/30/24 clonidine HCl 0.2 mg tablet 0.2 mg PO BID 01/01/20 09/30/24 metoprolol succinate 50 mg 50 mg PO BID 01/01/20 09/30/24 tablet,extended release 24 hr fexofenadine 60 mg tablet (Jaleesa 60 mg PO DAILY PRN Itching 08/27/22 09/30/24 Allergy) Previous Rx's ?Medication ?Instructions ?Recorded levothyroxine 112 mcg tablet 112 mcg PO DAILY #0 tabs 09/21/19 albuterol sulfate 2.5 mg/3 mL 1.25 mg (1.5 mL) inhalation Q8H 10/12/19 (0.083 %) solution for nebulization PRN shortness of breath or wheezing #75 mL hydrocortisone 2.5 % topical cream 1 applic topical BID PRN skin 08/24/21 irritation #30 grams clobetasol 0.05 % topical cream 1 applic topical BID 12 weeks #60 09/30/24 grams amoxicillin 875 mg-potassium 1 tab PO BID 7 days #14 tabs 10/06/24 clavulanate 125 mg tablet metronidazole 500 mg tablet 500 mg PO BID 7 days #14 tabs 10/06/24 Allergies Allergy/AdvReac Type Severity Reaction Status Date / Time adhesive Allergy Unknown ALGY-Bliste Verified 01/25/25 18:58 r liraglutide (From Saxenda) Allergy NA Verified 01/25/25 18:58 phentermine Allergy Tachy Verified 01/25/25 18:58 pregabalin (From Lyrica) Allergy NA Verified 01/25/25 18:58 prochlorperazine (From Allergy ALGY-Hives Verified 01/25/25 18:58 Compazine) Sulfa (Sulfonamide Allergy ALGY-Bliste Verified 01/25/25 18:58 Antibiotics) r Review of Systems Const: Denies: fever(s), chills, body aches, fatigue or malaise Card: Denies: chest pain Resp: Denies: dyspnea GI: Reports: abdominal pain, nausea and vomiting; Denies: diarrhea or change in bowel habits : Denies: flank pain, difficulty voiding, dysuria, urinary frequency, urinary urgency or urinary hesitancy Musc: Denies: neck pain, back pain, extremity pain, extremity swelling, joint pain, joint swelling or joint redness Skin/Breast: Denies: rash Neuro: Denies: headache(s), numbness in extremities, weakness in extremities, sensory changes or dizziness PFSH ED PFSH: Medical History (Updated 01/25/25 @ 22:17 by HILDA Worley) History of breast cancer Malignant neoplasm of overlapping sites of left female breast Stage IIIB - T4b, N1, M0, G3 Nephrolithiasis Acute kidney injury Pyelonephritis Overactive bladder Migraine Hypertension GERD (gastroesophageal reflux disease) Eczema Asthma Post hysterectomy menopause Hypothyroidism Urolithiasis ESWL left mid ureteral stone 2005 with complete resolution Surgical History (Updated 01/25/25 @ 21:38 by Lelia Mace MD) History of hernia repair History of section History of tonsillectomy H/O left mastectomy (11/10/19) Modified radical mastectomy S/P ureteral stent placement Right H/O lithotripsy History of hysterectomy H/O oophorectomy History of cholecystectomy Family History Unknown Lung disease Maternal grandmother had lung cancer, she has 3 sisters no history of breast cancer Crohn's disease Crohn disease in mother Father Diabetes Thyroid disease Hypertension Mother Thyroid disease Grandmother Hypertension Diabetes Other Hyperlipidemia Hypothyroidism Social History Smoking and tobacco/nicotine status: never used tobacco/nicotine Alcohol intake: never Substance/Drug Use: never Marital status: Current occupational status: employed Physical Exam Const: COMMON NORMALS: no acute distress, average body habitus, patient oriented x3, no limitations, healthy appearing, alert and well nourished Resp: COMMON NORMALS: normal respiratory effort and clear to auscultation bilaterally AUSCULTATION: clear to auscultation bilaterally Cardio: COMMON NORMALS: regular rate and regular rhythm RATE: regular rate RHYTHM: regular rhythm GI: COMMON NORMALS: Soft to palpation, No hepatosplenomegaly present and no masses INSPECTION: Yes normal to inspection AUSCULTATION: Yes Hypoactive bowel sounds present PALPATION: Yes Soft to palpation, Yes Tenderness to palpation present (GI) (diffuse), No Guarding due to palpation present (GI), No Rigid due to palpation and Yes No hepatosplenomegaly present : COMMON NORMALS: Yes no CVA tenderness BLADDER/KIDNEY EXAM: Yes no CVA tenderness Back/Pelvis: COMMON NORMALS: no CVA tenderness, thoracic and lumbar spine normal to inspection and no thoracic nor lumbar tenderness Extremity: GENERAL: Yes normal exam except as noted Neuro: COMMON NORMALS: patient oriented x3, moves all extremities, no focal motor deficits, no sensory deficits noted and gait normal SENSORIUM/ORIENTATION: Yes alert Skin: COMMON NORMALS: no rashes or lesions noted GENERAL SKIN EXAM: no rashes or lesions noted Course Consultations: Consultation #1: Dr. Mace-general surgery-will come evaluate patient here in ED; reviewed CT findings and evaluated patient-feels CT findings are more consistent with an internal hernia related to her previous Anyi-en-Y and recommending transfer/surgery by bariatric surgery Consultation #2: Dr. Leija-bariatric surgery at [facility]-agrees with Dr. Mace after reviewing CT scan-also feels this is probably an internal hernia and accepts transfer Vital Signs: Vital signs: Vital Signs Temperature 98.4 F 01/25/25 18:53 Pulse Rate 73 01/25/25 23:15 Respiratory Rate 16 01/25/25 23:15 Blood Pressure 138/81 01/25/25 23:15 Pulse Oximetry 100 01/25/25 23:15 Oxygen Delivery Me thod Room Air 01/25/25 22:52 MDM - Abdominal Pain Medical Decision Making Patient here with significant abdominal pain starting on Saturday and has been somewhat intermittent and significantly worse with eating. She had a CT scan performed as an outpatient ordered by her PCP showing malrotation of the small bowel and colon with swirling of the small bowel/colon/mesenteric vessels. She was consulted on by Dr. Mace/general surgery who reviewed CT scan and felt patient most likely had an internal hernia. Previous Anyi-en-Y. She recommended transfer to facility with bariatric surgery. I did discuss with Dr. Leija at [facility] (patient had requested tranfer to [facility]) and he agrees after reviewing CT scan and accepts transfer. She was started on IV fluids here. Will plan for repeat lab draw in the AM. WE already have bed number from [facility]-arranging transportation. Medical Records I reviewed the patient's medical records. Lab Data I reviewed the patient's lab results. 01/25/25 19:09 01/25/25 19:09 Labs/Radiology: Radiology Impressions Chest X-Ray 01/25/25 20:58 IMPRESSION: No acute findings. Laboratory Results WBC 6.97 10^3/uL (3.29-11.43) 01/25/25 19:09 RBC 5.01 10^6/uL (3.85-5.65) 01/25/25 19:09 Hgb 15.20 g/dL (11.27-16.99) 01/25/25 19:09 Hct 46.6 % (36-47) 01/25/25 19:09 MCV 93.0 fl (85-98) 01/25/25 19:09 MCH 30.3 pg (27-33) 01/25/25 19:09 MCHC 32.6 g/dL (30-55) 01/25/25 19:09 RDW 11.8 % (12.1-15.1) L 01/25/25 19:09 Plt Count 284 10^3/cmm (157-399) 01/25/25 19:09 MPV 9.2 fL (7.4-10.4) 01/25/25 19:09 Neut % (Auto) 71.6 % 01/25/25 19:09 Lymph % (Auto) 20.1 % 01/25/25 19:09 [place] % (Auto) 5.3 % 01/25/25 19:09 Eos % (Auto) 2.3 % 01/25/25 19:09 Baso % (Auto) 0.4 % 01/25/25 19:09 Neut # (Auto) 4.99 10^3/uL (1.8-7.7) 01/25/25 19:09 Lymph # (Auto) 1.4 10^3/uL (0.8-4.8) 01/25/25 19:09 [place] # (Auto) 0.4 10^3/uL (0.2-0.9) 01/25/25 19:09 Eos # (Auto) 0.2 10^3/uL (0.0-0.8) 01/25/25 19:09 Baso # (Auto) 0.0 10^3/uL (0.0-0.1) 01/25/25 19:09 Nucleated RBC % (auto) 0 % 01/25/25 19:09 Nucleated RBCs # 0.0 /100WBC 01/25/25 19:09 Sodium 143 mmol/L (136-145) 01/25/25 19:09 Potassium 3.6 mmol/L (3.5-5.1) 01/25/25 19:09 Chloride 105 mmol/L (98-107) 01/25/25 19:09 Carbon Dioxide 23 mmol/L (22-29) 01/25/25 19:09 Anion Gap 18.6 (5-19) 01/25/25 19:09 BUN 9 mg/dL (6-20) 01/25/25 19:09 Creatinine 0.7 mg/dL (0.5-0.9) 01/25/25 19:09 GFR Calculation 90.1 mL/min (90-130) 01/25/25 19:09 Glucose 83 mg/dL (65-115) 01/25/25 19:09 Calculated Osmolality 294 mOsm/kg (285-295) 01/25/25 19:09 Lactic Acid 1.4 mmol/L (0.5-2.2) 01/25/25 19:09 Calcium 9.1 mg/dL (8.5-10.5) 01/25/25 19:09 Total Bilirubin 0.7 mg/dL (0.15-1.2) 01/25/25 19:09 AST 109 U/L (0-32) H 01/25/25 19:09 ALT 205 U/L (0-33) H 01/25/25 19:09 Alkaline Phosphatase 208 U/L (35-105) H 01/25/25 19:09 Total Protein 8.0 g/dL (6.6-8.7) D 01/25/25 19:09 Albumin 4.5 g/dL (3.5-5.2) 01/25/25 19:09 Globulin 3.5 g/dL (1.3-4.6) 01/25/25 19:09 Lipase 22 U/L (13-60) 01/25/25 19:09 HCG, Qual Negative (Negative) 01/25/25 19:09 Urine Color Yellow (Yellow) 01/25/25 20:05 Urine Appearance Clear (CLEAR) 01/25/25 20:05 Urine pH 5.5 (5-7) 01/25/25 20:05 Ur Specific [place] 1.080 (1.005-1.030) H 01/25/25 20:05 Urine Protein Negative (Negative) 01/25/25 20:05 Urine Glucose (UA) 1+ (Normal) H 01/25/25 20:05 Urine Ketones Negative (Negative) 01/25/25 20:05 Urine Blood Negative (Negative) 01/25/25 20:05 Urine Nitrate Negative (Negative) 01/25/25 20:05 Urine Bilirubin Negative (Negative) 01/25/25 20:05 Urine Urobilinogen 1.0 mg/dL (Negative) 01/25/25 20:05 Ur Leukocyte Esterase Negative (Negative) 01/25/25 20:05 Urine RBC 0-2 /hpf (0-2) 01/25/25 20:05 Urine WBC 0-5 /hpf (0-5) 01/25/25 20:05 Ur Squamous Epith Cells 0-5 /hpf (0-5) 01/25/25 20:05 Amorphous Sediment Not Reportable 01/25/25 20:05 Urine Bacteria None seen /hpf (NONE) 01/25/25 20:05 Hyaline Casts 0-4 /lpf H 01/25/25 20:05 All radiology interpretation(s) finalized by discharge Discharge Plan Discharge Patient Disposition: Xfer Short-Term Hosp Clinical Impression: Malrotation of intestine with internal herniation Condition: Stable Referrals: Paulina Goldberg MD [Primary Care Provider, Internal Medicine] Print Language: Arabic Coding 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
[2025-01-25 19:16] LABS: Basophils % 0.4 %; Eosinophils # 0.2 10^3/uL (0.0-0.8); Eosinophils % 2.3 %; Hematocrit 46.6 % (36-47); Lymphocytes # 1.4 10^3/uL (0.8-4.8); Lymphocytes % 20.1 %; Mean Corpuscular HGB Conc 32.6 g/dL (30-55); Mean Corpuscular Hemoglobin 30.3 pg (27-33); Mean Platelet Volume 9.2 fL (7.4-10.4); Monocytes # 0.4 10^3/uL (0.2-0.9); Monocytes % 5.3 %; Neutrophils # 4.99 10^3/uL (1.8-7.7); Neutrophils % 71.6 %; Nucleated Red Blood Cells % 0 %; Platelet Count 284 10^3/cmm (157-399); Red Blood Count 5.01 10^6/uL (3.85-5.65); Red Cell Distribution Width 11.8 % (12.1-15.1); White Blood Count 6.97 10^3/uL (3.29-11.43)
[2025-01-25 19:31] LABS: HCG, Serum Qual Negative (Negative)
[2025-01-25 19:34] LABS: Lactic Sepsis W/Reflex 1.4 mmol/L (0.5-2.2)
[2025-01-25 19:37] LABS: Alanine Aminotransferase 205 U/L (0-33); Albumin Level 4.5 g/dL (3.5-5.2); Alkaline Phosphatase 208 U/L (35-105); Anion Gap 18.6 (5-19); Aspartate Amino Transferase 109 U/L (0-32); Blood Urea Nitrogen 9 mg/dL (6-20); Calcium 9.1 mg/dL (8.5-10.5); Carbon Dioxide 23 mmol/L (22-29); Chloride 105 mmol/L (98-107); Creatinine Clr Calc Pharmacy 89.4227; Globulin 3.5 g/dL (1.3-4.6); Glomerular Filtration Rate 90.1 mL/min (90-130); Glucose 83 mg/dL (65-115); Lipase 22 U/L (13-60); Osmolality Calculated 294 mOsm/kg (285-295); Potassium 3.6 mmol/L (3.5-5.1); Sodium 143 mmol/L (136-145); Total Bilirubin 0.7 mg/dL (0.15-1.2)
[2025-01-25 20:13] LABS: Bilirubin Urine Negative (Negative); Blood Urine Negative (Negative); Glucose Urine UA 1+ (Normal); Ketones Urine Negative (Negative); Leukocyte Esterase Urine Negative (Negative); Nitrate Urine Negative (Negative); Protein Urine Negative (Negative); Urine Appearance Clear (CLEAR); Urine Color Yellow (Yellow); pH Urine 5.5 (5-7)
[2025-01-25 20:15] LABS: Add Urine Microscopic? YES; Bacteria Urine None Seen /hpf; Hyaline Casts Urine 0-4 /lpf; RBC Urine 0-2 /hpf (0-2); Squamous Epithelial Cell Urine 0-5 /hpf (0-5); WBC Urine 0-5 /hpf (0-5)
[2025-01-25 20:18] LABS: Add Urine Culture? No
--- NOTE | 2025-01-25 20:58 | XRR_ITS ---
PROCEDURE INFORMATION: Exam: XR Chest Exam date and time: 01/25/2025 9:13 PM Age: 44 years old Clinical indication: Pain; Chest pressure; Prior surgery; Surgery date: 6+ months; Surgery type: Breast mass removal; Additional info: Chest pain TECHNIQUE: Imaging protocol: Radiologic exam of the chest. Views: 1 view. COMPARISON: CT chest abdpel w/*[id number] 06/28/2022 9:46 AM FINDINGS: Lungs: Unremarkable. No consolidation. Pleural spaces: Unremarkable. No pleural effusion. No pneumothorax. Heart/Mediastinum: Unremarkable. No cardiomegaly. Bones/joints: Unremarkable. Soft tissues: There is evidence of prior left axillary and breast surgery. XR/XR chest 1V portable [id number] IMPRESSION: No acute findings.
--- NOTE | 2025-01-25 21:03 | PM.CONSULT ---
Providers/Reason For Consult Consulting Physician/Specialty*: Lelia Mace, /General Surgery Reason for Consult*: Abdominal pain and CT findings of swirl sign Requesting Physician: HILDA Worley Primary Care Provider: Paulina Goldberg MD History of Present Illness History of Present Illness Mya Harrell is a 44 year old female who presented to the ED with abnormal CT findings from a CT ordered by her PCP: Stomach and bowel: There is evidence of prior gastric bypass surgery. There is malrotation of small and large bowel centered at the root of the mesentery with swirling appearance of the proximal small bowel and the mesenteric vessels. There is malrotation of the ascending colon with cecum and terminal ileum noted in the left upper quadrant. This is a new finding compared to prior CT examination from 06/28/2022. There is no significant bowel obstruction identified. There is mild diffuse thickening of the colon which is a nonspecific finding. The patient had a Anyi-en-Y gastric bypass (with hiatial hernia repair ) surgery [address] De Wharton. She has also has a cholecystectomy, hysterectomy and deep inferior epigastric flap breast reconstruction surgery. She had an EGD on around January 20, 2025, by Dr. Luc Martino (?) at that time she was told that she had a small healing ulcer. She had severe abdominal pain that radiated to the back, three days ago. That pain has now improved. Now, she has 5/10 diffuse abdominal pain and 7/10 back pain. She has mild nausea without vomiting. She does not have abdominal bloating. She has been passing gas and having regular bowel movements. She has hypertension at baseline, that has somewhat worsened with in the ED, with systolic BP in the 180s. Her WBC is 6.97 and her lactate is 1.4. Review of Systems Narrative: Constitutional: denies fever, chills, unintentional weight loss CV: denies chest pain or discomfort Respiratory: denies shortness of breath, cough, painful breathing GI: denies abdominal distension, vomiting, see HPI above : denies dysuria, denies urinary frequency MSK: denies joint pain Neuro/psych: denies headache, denies change in mentation Medications/Allergies Home Medications ?Medication ?Instructions ?Recorded ?Confirmed ?Last Taken ?Type levothyroxine 112 mcg tablet 112 mcg PO DAILY #0 tabs 09/21/19 09/30/24 12/03/22 Rx albuterol sulfate 2.5 mg/3 mL 1.25 mg (1.5 mL) inhalation Q8H 10/12/19 09/30/24 12/03/22 Rx (0.083 %) solution for nebulization PRN shortness of breath or wheezing #75 mL amlodipine 2.5 mg tablet 2.5 mg PO DAILY 01/01/20 09/30/24 12/03/22 History clonidine HCl 0.2 mg tablet 0.2 mg PO BID 01/01/20 09/30/24 12/03/22 History metoprolol succinate 50 mg 50 mg PO BID 01/01/20 09/30/24 12/03/22 History tablet,extended release 24 hr hydrocortisone 2.5 % topical cream 1 applic topical BID PRN skin 08/24/21 09/30/24 12/03/22 Rx irritation #30 grams fexofenadine 60 mg tablet (Jaleesa 60 mg PO DAILY PRN Itching 08/27/22 09/30/24 12/03/22 History Allergy) clobetasol 0.05 % topical cream 1 applic topical BID 12 weeks #60 09/30/24 09/30/24 Unknown Rx grams amoxicillin 875 mg-potassium 1 tab PO BID 7 days #14 tabs 10/06/24 Unknown Rx clavulanate 125 mg tablet metronidazole 500 mg tablet 500 mg PO BID 7 days #14 tabs 10/06/24 Unknown Rx Allergies Allergy/AdvReac Type Severity Reaction Status Date / Time adhesive Allergy Unknown ALGY-Bliste Verified 01/25/25 18:58 r liraglutide (From Saxenda) Allergy NA Verified 01/25/25 18:58 phentermine Allergy Tachy Verified 01/25/25 18:58 pregabalin (From Lyrica) Allergy NA Verified 01/25/25 18:58 prochlorperazine (From Allergy ALGY-Hives Verified 01/25/25 18:58 Compazine) Sulfa (Sulfonamide Allergy ALGY-Bliste Verified 01/25/25 18:58 Antibiotics) r PFSH Acute PFSH: Medical History (Updated 01/25/25 @ 21:38 by Lelia Mace MD) History of breast cancer Malignant neoplasm of overlapping sites of left female breast Stage IIIB - T4b, N1, M0, G3 Nephrolithiasis Acute kidney injury Pyelonephritis Overactive bladder Migraine Hypertension GERD (gastroesophageal reflux disease) Eczema Asthma Post hysterectomy menopause Hypothyroidism Urolithiasis ESWL left mid ureteral stone 2005 with complete resolution Surgical History (Updated 01/25/25 @ 21:38 by Lelia Mace MD) History of hernia repair History of section History of tonsillectomy H/O left mastectomy (11/10/19) Modified radical mastectomy S/P ureteral stent placement Right H/O lithotripsy History of hysterectomy H/O oophorectomy History of cholecystectomy Family History Unknown Lung disease Maternal grandmother had lung cancer, she has 3 sisters no history of breast cancer Crohn's disease Crohn disease in mother Father Diabetes Thyroid disease Hypertension Mother Thyroid disease Grandmother Hypertension Diabetes Other Hyperlipidemia Hypothyroidism Social History Smoking and tobacco/nicotine status: never used tobacco/nicotine Alcohol intake: never Substance/Drug Use: never Marital status: Current occupational status: employed Vitals/I&O/Wt Last Vital Signs Temp 98.4 F 01/25/25 18:53 Pulse 82 01/25/25 20:41 Resp 16 01/25/25 20:08 BP 178/112 01/25/25 20:41 Pulse Ox 100 01/25/25 20:41 O2 Del Method Room Air 01/25/25 20:08 Weight last 48 hrs Weight 130 lb Physical Exam Const: COMMON NORMALS: patient oriented x3 GENERAL APPEARANCE: comfortable and well developed HENMT: COMMON NORMALS: normocephalic HEAD & SCALP: normal to inspection and normocephalic Chest: OTHER: History of ELI - incisions well-healed Resp: EFFORT & INSPECTION: Yes symmetric chest movement and No abnormal respiratory pattern GI: OTHER: History of ELI - incisions well-healed. No abdominal distension, abdomen non-tender to palpation, no rebound tenderness, and no gaurding. : BLADDER/KIDNEY EXAM: No CVA tenderness Back/Pelvis: GENERAL BACK: No CVA tenderness, No swelling and No tenderness Neuro: COMMON NORMALS: patient oriented x3 and moves all extremities Psych: COMMON NORMALS: speech normal APPEARANCE: Yes grossly normal SPEECH: Yes normal speech Data 01/25/25 19:09 01/25/25 19:09 A&P Assessment and plan (1) Internal hernia: --With history of Anyi-en-Y gastric bypass just 2 years ago, in combination with abdominal pain and mild nausea, as well as swirl sign found on CT there must be a high index of suspicion for a possible internal hernia/Santoyo hernia. There is no bowel obstruction per CT and the patient is not hypotensive and lab-work is relatively unremarkeable. She has no peritoneal signs on exam and there is no free air per CT. CT reading does mention possible terminal ileum and cecum in the left upper quadrant however I do not appreciate this, I do appreciate the swirling in the mesentery. I am concerned for a possible internal hernia, although she is stable now, she needs careful monitoring and timely transfer, because there is a potential for deterioration/decline. -- Recommend transfer to higher level of care with a center that has bariatric surgery provider/capabilities. I also recommend bowel rest and IV fluid hydration, as well as serial labs in the interim. (2) Abdominal pain: (3) History of Anyi-en-Y gastric bypass: (4) H/O abdominal surgery: PDMP PDMP Reviewed: Not Reviewed Coding Level of Care Code Acute Code for g Fwd Diagnoses Internal hernia K45.8 Abdominal pain R10.9 History of Anyi-en-Y gastric bypass Z98.84 H/O abdominal surgery Z98.890
[2025-01-25] MEDS: cloNIDine 0.1 mg Tablet PO (21:12)
[2025-01-25] MEDS: morphine 4 mg/mL SDV 1 mL IVP (21:54)
[2025-01-25] MEDS: ondansetron 2 mg/ML SDV 2 mL 4 MG IVP (21:54)
[2025-01-25] MEDS: sodium chloride 0.9% 1,000 ML 999 ML IV (22:51)
[2025-01-26 00:05] VITALS: RESP 16; O2SAT 99
[2025-01-26] MEDS: morphine 4 mg/mL SDV 1 mL IVP (00:05)
[2025-01-26 00:48] VITALS: BP 162/85; PULSE 73; RESP 16; O2SAT 100
== END 2025-01-26 00:15 | disposition short-term general hospital (02) ==
PROVIDERS: Emergency Provider Physician Assistant; PCP Internal Medicine
DX: Q43.3 Congenital malformations of intestinal fixation (principal); K46.9 Unspecified abdominal hernia without obstruction or gangrene; I10 Essential (primary) hypertension; Z85.3 Personal history of malignant neoplasm of breast
CPT/HCPCS: 12345; 36415; 71045; 80053; 81001; 83605; 83690; 84703; 85025; 96361; 96374; 96375; 96376; 99285; J2270; J2405; J7030; J9999

== ENCOUNTER 2025-05-14 13:00 | Outpatient (CLI) | payer OTHER, SELFPAY ==
--- NOTE | 2025-05-14 13:00 | PETR_ITS ---
PROCEDURE INFORMATION: Exam: PET/CT Skull Base to Mid-thigh Exam date and time: 05/14/2025 1:49 PM Age: 44 years old Clinical indication: Condition or disease; Primary cancer: Breast carcinoma LABS AND CLINICAL REPORTS: Glucose: 90 mg/dl Treatment strategy for malignancy (PET staging): Restaging (PS) TECHNIQUE: Imaging protocol: Following at least four-hour fasting and following the injection of radiopharmaceutical, low dose CT images were obtained. Then, PET images were obtained. Attenuation corrected images were constructed using the CT scan. Fused images of PET and CT were reviewed. The standardized uptake values (SUV) reported below are maximum values within a region of interest, expressed in gm/ml. Exam includes orbital meatal line to mid-thigh. SUV normalization method: BodyWeight Radiopharmaceutical: 12.38 mCi F-18 FDG (Fluorodeoxyglucose), IV. Time of imaging post radiopharmaceutical administration: 45 minutes Injection site: RAC COMPARISON: CT abdomen pelvis w con* [id number] 01/25/2025 1:40 PM FINDINGS: Brain: Visualized brain has normal physiologic uptake. Pharynx: No abnormal uptake. Larynx: No abnormal uptake. Thyroid: Mildly hypermetabolic 9 mm right thyroid lobe nodule, maximum SUV 4.0. Lungs, pleura and trachea: Scarring along the anterior lingula. No abnormal uptake. Heart: Normal physiologic uptake. Mediastinal space: No abnormal uptake. Liver: No abnormal uptake. Gallbladder and biliary ducts: There has been a cholecystectomy. No biliary ductal dilatation. No abnormal uptake. Pancreas: No abnormal uptake. Spleen: No abnormal uptake. Adrenal glands: No abnormal uptake. Kidneys and ureters: Normal physiologic uptake. Stomach and bowel: There has been a gastric bypass surgical procedure. Intraperitoneal and retroperitoneal spaces: There is a small amount of abdominopelvic ascites. Vasculature: The vasculature demonstrates diffuse mild atherosclerotic calcification. No aneurysm. Lymph nodes: Status post left axillary lymph node dissection. Surgical clips also along the right axilla. No abnormal tao uptake. Skeleton: No abnormal uptake in the visualized axial and appendicular skeleton. Soft tissues: Postsurgical changes of bilateral breasts. Mild linear FDG uptake within the medial right breast related to surgical material. Postsurgical changes of the anterior abdominal wall from bilateral TRAM flap reconstructions. METRICS: Mediastinal blood pool: Mean SUV of 1.7 Liver uptake: Mean SUV of 2.2 PET/PET skull to thigh INIT [id number] IMPRESSION: 1. Mildly hypermetabolic 9 mm right thyroid lobe nodule, maximum SUV 4.0. This finding is nonspecific, but not thought to be metastatic. Consider dedicated thyroid ultrasound. 2. Otherwise, no anatomical or functional evidence of malignancy or metastatic disease.
== END 2025-05-14 13:01 | disposition home or self-care (01) ==
PROVIDERS: PCP Internal Medicine; Visit Provider Internal Medicine
DX: C50.919 Malignant neoplasm of unspecified site of unspecified female breast (principal)
CPT/HCPCS: 78815; A9552

== ENCOUNTER 2025-05-18 07:47 | Outpatient (CLI) | payer OTHER, SELFPAY ==
--- NOTE | 2025-05-18 08:09 | ECG_ITS ---
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 Interpretive Statements Lung unchanged pre/post procedure; Intraprocedure shortess of breath; Symptoms resoled by discharge PROCEDURE: At the baseline, the EKG revealed normal sinus rhythm with poor R wave progression. Normal ST Ts.. The baseline heart was 69 bpm with a blood pressue of 153/90 mm of Hg Lexiscan was infused over a period of 20 seconds. A total of 0.4 milligrams of Lexiscan was infused. The stress phase was continued for a total of 5 minutes. Heart rate at the end of the stress phase was 100 bpm with a blood pressure 168/109 mm of Hg. The EKG at the peak infusion revealed nonspecific ST changes in the anterolateral and inferior leads. Sestamibi was injected 20 seconds after the Lexiscan infusion. Heart rate at the end of the recovery phase was 96 bpm with a blood pressure of 175/95 mm of Hg. CONCLUSION: 1. No significant EKG changes with the LexiScan infusion 2. No LexiScan induced chest pain or cardiac arrhythmia 3. Normal blood pressure and heart rate response 4. Sestamibi/sestamibi perfusion scan pending; see separate report. Electronically Signed On 05-22-2025 13:47:48 CDT by Deon Machado M.D. [email or web address]
--- NOTE | 2025-05-18 08:10 | NMCV_ITS ---
NM cheryl perf SPECT r/s* [id number] Mya Harrell Age: 44 Gender: F : 1980 Exam Date: 05/18/2025 08:49 Ordering Phys: Paulina Goldberg MD Technologist: SAM Bangura Exam Location: [facility] Indications: cp STRESS TEST [facility] IMAGE PROTOCOL Rest/Stress 1 Lexiscan Day Radiopharmaceutical Dose (mCi) Administration Site Administered by Rest: Tc-99m 10.4 IV SAM Bangura Sestamibi Stress:Tc-99m 32.7 IV SAM Fritz Sestamibi Rest: 18-May-2025 60 Discovery 630 Stress: 18-May-2025 30 Discovery 630 0.4mg Lexiscan. Images obtained in supine and prone position. SPECT RESULTS Technical Quality: Good Raw Data Analysis: Normal Image Corrections: No attenuation or motion correction applied Summed Stress Score: 0 Summed Rest Score: 0 Summed Difference Score: 0 PERFUSION FINDINGS Fairly uniform myocardial tracer uptake with no significant perfusion abnormalities. Slight titration artifacts were noted in the anterior wall region FUNCTIONAL RESULTS (calculated via Gated SPECT) Stress Image LV EF (%): 76 Stress EDV (mL):75 TID: 0.95 Stress ESV (mL):18 FUNCTIONAL FINDINGS: Segmental wall motion analysis revealing no gross wall motion abnormalities IMPRESSIONS 1. Myocardial perfusion imaging revealing fairly uniform myocardial tracer uptake with no significant perfusion abnormalities 2. Normal LV ejection fraction of 76%. 3. LV wall motion analysis revealing no gross wall motion abnormalities. 4. Normal LV volume Low probability for coronary ischemia, based on the above findings Dr Deon Machado MD FACC (Electronically Signed) Final Date: 18 May 2025 12:42 S
[2025-05-18 08:11] VITALS: BMI 22.3
--- NOTE | 2025-05-18 08:25 | PC.NURSE ---
patient has had a hysterectomy and a tubal.
[2025-05-18 09:39] VITALS: BP 175/95; PULSE 98
== END 2025-05-18 07:48 | disposition home or self-care (01) ==
LOC: CDL 07:51
PROVIDERS: PCP Internal Medicine; Visit Provider Internal Medicine
DX: R07.9 Chest pain, unspecified (principal)
CPT/HCPCS: 36415; 78452; 93017; 96374; A9500; J2785